=== PATIENT | male | born 1950 | race Caucasian/White ===

== ENCOUNTER → 2017-12-06 | Outpatient (CLI) | payer MEDICARE, OTHER ==
--- NOTE | 2017-12-06 11:26 | ECHOF ---
Referral Reason:Aortis Murmur MEASUREMENTS -------- HEIGHT: 177.8 cm WEIGHT: 103.0 kg BP: 140/81 RVIDd: 3.5 cm (< 3.3) IVSd: 1.4 cm (0.6 - 1.1) LVIDd: 3.7 cm (3.9 - 5.3) LVPWd: 1.4 cm (0.6 - 1.1) IVSs: 1.8 cm LVIDs: 2.0 cm LVPWs: 1.9 cm LAESV Index (A-L): 51.45 ml/m Ao Diam: 3.3 cm (2.0 - 3.7) AV Cusp: 0.9 cm (1.5 - 2.6) LA Diam: 5.4 cm (2.7 - 3.8) AV maxP.60 mmHg AV meanP.93 mmHg RAP: 5.00 mmHg RVSP: 19.92 mmHg FINDINGS -------- Atrial fibrillation. This was a technically good study. The left ventricular size is normal. There is moderate concentric left ventricular hypertrophy. O verall left ventricular systolic function is normal with, an EF between 55 - 60 %. The right ventricle is mildly enlarged. LA is severely dilated >40 ml/m2 The right atrium is normal in size. Aortic valve is trileaflet and is severely thickened. There is qlqjixqt-ma-vrbxba aortic stenosis p resent. Peak/mean gradient across the Aortic Valve is 53.60mmHg / 30.93mmHg. The mitral valve leaflets are mildly thickened. Mild mitral regurgitation is present. Mild tricuspid regurgitation present. The right ventricular systolic pressure, as measured by Doppl er, is 19.92mmHg. Pulmonic valve appears structurally normal. The aortic root size is normal. Normal inferior vena cava with normal inspiratory collapse consistent with estimated right atrial pre ssure of 5 mmHg. The pericardium is normal. CONCLUSIONS -------- 1. Atrial fibrillation. 2. This was a technically good study. 3. The left ventricular size is normal. 4. There is moderate concentric left ventricular hypertrophy. 5. Overall left ventricular systolic function is normal with, an EF between 55 - 60 %. 6. The right ventricle is mildly enlarged. 7. LA is severely dilated >40 ml/m2 8. The right atrium is normal in size. 9. Aortic valve is trileaflet and is severely thickened. 10. There is iqbcjwrh-ek-bobkbu aortic stenosis present. 11. Peak/mean gradient across the Aortic Valve is 53.60mmHg / 30.93mmHg. 12. The mitral valve leaflets are mildly thickened. 13. Mild mitral regurgitation is present. 14. Mild tricuspid regurgitation present. 15. The right ventricular systolic pressure, as measured by Doppler, is 19.92mmHg. 16. Pulmonic valve appears structurally normal. 17. The aortic root size is normal. 18. Normal inferior vena cava with normal inspiratory collapse consistent with estimated right atrial pressure of 5 mmHg. 19. The pericardium is normal. PERSONAL INJURY ATTORNEY: Marilou Vargas RDCS
== END | disposition home or self-care (01) ==
LOC: RADNMMAIN 09:06
PROVIDERS: ATTEND Family Medicine
DX: I35.8 Other nonrheumatic aortic valve disorders (principal); I48.91 Unspecified atrial fibrillation
CPT/HCPCS: 93306

== ENCOUNTER → 2019-01-29 | Outpatient (CLI) | payer MEDICARE, OTHER ==
[2019-01-29 12:25] LABS: HCT 40.3 % (39.0-53.0); HGB 13.1 gm/dL (13.0-17.5); MCH 29.8 pg (25.0-35.0); MCHC 32.5 g/dL (31.0-37.0); MCV 91.8 fL (80.0-100.0); Platelet Count 220 k/uL (150-450); RBC 4.38 m/uL (4.30-5.90); RDW 14.9 % (11.5-15.5); WBC 6.9 k/uL (3.8-10.6)
[2019-01-29 12:45] LABS: African American GFR (CKD) >90 (>60 ml/min/1.73 sqM); Anion Gap 9 mmol/L; Blood Urea Nitrogen 26 mg/dL (9-20); Carbon Dioxide 27 mmol/L (22-30); Chloride 106 mmol/L (98-107); Glucose 115 mg/dL (74-99); Potassium 4.1 mmol/L (3.5-5.1); Sodium 142 mmol/L (137-145)
== END | disposition home or self-care (01) ==
LOC: LABPAT 11:50
PROVIDERS: ATTEND Internal Medicine Cardiovascular Disease
DX: Z01.812 Encounter for preprocedural laboratory examination (principal); I48.2 Chronic atrial fibrillation; I35.0 Nonrheumatic aortic (valve) stenosis
CPT/HCPCS: 80051; 82565; 82947; 84520; 85027

== ENCOUNTER 2019-02-07 08:05 | Day surgery (SDC) | payer MEDICARE, OTHER ==
[2019-02-05 17:00] VITALS: BMI 29.8
[~2019-02-07 08:05] MED LIST: SODIUM CHLORIDE 0.9% 1,000 ML IV SCH
[2019-02-07] MEDS: BENZOCAINE SPRAY 1 CAN MUCOUS MEM ONE ×2 (09:00→09:01)
[2019-02-07] MEDS ORDERED: PROPOFOL 10 MG/ML 20 ML VIAL IV ONE (09:04)
[2019-02-07 09:34] VITALS: TEMP 97
[2019-02-07] MEDS ORDERED: SODIUM CHLORIDE 0.9% 1,000 ML IV SCH (10:00)
--- NOTE | 2019-02-07 10:10 | ECHOT ---
TRANSESOPHAGEAL ECHOCARDIOGRAM PROCEDURE PERFORMED: Transesophageal echo. INDICATION: 1. Aortic stenosis. 2. Chronic atrial fibrillation. PROCEDURE DESCRIPTION: After obtaining informed consent, transesophageal echocardiogram was performed in left lateral position using an Omni plane probe. Local and IV sedation were obtained by the metal pourer. The patient tolerated the procedure well without any obvious immediate complications. FINDINGS: 1. There is no intracardiac thrombus within the left atrial appendage, left atrium, right atrium, right ventricle or left ventricle. 2. Left ventricle has normal size and systolic function. 3. Left atrium appears enlarged. 4. Right atrium and right ventricle seen within normal limits. 5. Interatrial Septum: There is no evidence of evjz-qp-ktmhu shunt by color-flow Doppler or rwzny-dm-mmjl shunt by agitated saline contrast study. 6. Aortic valve is a 2 leaflet valve appears heavily calcified with severe restriction in leaflet mobility. By planimetry, the valve area is 0.8 to 0.9 square centimeters. 7. There is mild atherosclerotic changes noted involving the aorta. Aortic root measures within normal limits. 8. Mitral valve is anatomically normal. There is mild to moderate mitral regurgitation noted. 9. Tricuspid valve shows mild tricuspid regurgitation. CONCLUSIONS: 1. No intracardiac thrombus. 2. Severe aortic stenosis involving a heavily calcified bicuspid aortic valve. 3. Normal left ventricular function. PLAN: Patient will undergo electrical cardioversion. MMODL / IJN: [id number] /
[2019-02-07 10:22] VITALS: RESP 18
--- NOTE | 2019-02-07 10:22 | CE ---
CARDIAC ELECTROPHYSIOLOGY REPORT CARDIOVERSION NOTE: After obtaining informed consent, making sure that the patient is on an anticoagulant in the form of Xarelto 20 mg daily and confirming the absence of intracardiac thrombus by transesophageal echo, the patient underwent cardioversion with 200 joules of synchronized DC current. He converted following a single shock and he will be discharged home on anticoagulation. He will be on the Xarelto. VERONA / ARON: [id number] /
[2019-02-07 10:54] VITALS: BP 142/87; PULSE 51
== END 2019-02-07 11:14 | disposition home or self-care (01) ==
LOC: CATHCVL 08:05
PROVIDERS: ATTEND Internal Medicine Cardiovascular Disease
DX: Q23.1 Congenital insufficiency of aortic valve (principal); I48.2 Chronic atrial fibrillation; I70.0 Atherosclerosis of aorta; I44.0 Atrioventricular block, first degree; I11.9 Hypertensive heart disease without heart failure; E11.9 Type 2 diabetes mellitus without complications; E78.5 Hyperlipidemia, unspecified; Z79.01 Long term (current) use of anticoagulants; Z79.899 Other long term (current) drug therapy; Z98.84 Bariatric surgery status; Z90.3 Acquired absence of stomach [part of]; Z88.8 Allergy status to other drugs, medicaments and biological substances; Z82.49 Family history of ischemic heart disease and other diseases of the circulatory system
CPT/HCPCS: 93312; 93320; 93325; 92960; J2704

== ENCOUNTER → 2020-02-04 | Outpatient (CLI) | payer MEDICARE, OTHER ==
[2020-02-04 11:23] LABS: HCT 36.9 % (39.0-53.0); HGB 11.7 gm/dL (13.0-17.5); MCH 30.9 pg (25.0-35.0); MCHC 31.8 g/dL (31.0-37.0); MCV 97.2 fL (80.0-100.0); Mean Platelet Volume 7.9; Platelet Count 238 k/uL (150-450); RDW 12.4 % (11.5-15.5); WBC 7.2 k/uL (3.8-10.6)
[2020-02-04 11:39] LABS: African American GFR (CKD) >90 (>60 ml/min/1.73 sqM); Anion Gap 8 mmol/L; Blood Urea Nitrogen 29 mg/dL (9-20); Carbon Dioxide 26 mmol/L (22-30); Chloride 106 mmol/L (98-107); Glucose 116 mg/dL (74-99); Non-African American GFR(CKD) >90 (>60 ml/min/1.73 sqM); Potassium 4.2 mmol/L (3.5-5.1); Sodium 140 mmol/L (137-145)
== END | disposition home or self-care (01) ==
LOC: LABPAT 10:56
PROVIDERS: ATTEND Internal Medicine Cardiovascular Disease
DX: Z01.818 Encounter for other preprocedural examination (principal); I35.0 Nonrheumatic aortic (valve) stenosis; I48.0 Paroxysmal atrial fibrillation
CPT/HCPCS: 36415; 80051; 82565; 82947; 84520; 85027

== ENCOUNTER 2020-02-13 05:59 | Day surgery (SDC) | payer MEDICARE, OTHER ==
[2020-02-08 15:30] VITALS: BMI 30.4
[~2020-02-13 05:59] MED LIST changes: +ALPRAZolam 0.25 MG TAB PO PRN; +ALPRAZolam 0.5 MG TAB PO PRN; +ASPIRIN 325 MG TAB PO STA; +ATORVASTATIN 80 MG TAB PO STA; +NITROGLYCERIN SL TABS 0.4 MG TAB SUBLINGUAL PRN; -SODIUM CHLORIDE 0.9% 1,000 ML IV SCH; +SODIUM CHLORIDE 0.9% 1,000 ML in EMPTY BAG 1 BAG IV ONE
[2020-02-13 06:31] VITALS: TEMP 98.2
[2020-02-13] MEDS ORDERED: fentaNYL (PF) 50 MCG/ML 2 ML AMP ONE (07:07)
[2020-02-13] MEDS ORDERED: LIDOCAINE 1% INJ 10MG/ML (20 ML MDV) ONE (07:14)
[2020-02-13] MEDS: BENZOCAINE SPRAY 1 CAN MUCOUS MEM ONE ×2 (07:21→07:57)
[2020-02-13] MEDS ORDERED: fentaNYL (PF) 50 MCG/ML 2 ML AMP IV ONE (07:57)
[2020-02-13] MEDS ORDERED: MIDAZOLAM 2 MG/2 ML VIAL IVP ONE (07:57)
[2020-02-13] MEDS ORDERED: LIDOCAINE 1% INJ 10MG/ML (20 ML MDV) SQ ONE (08:34)
[2020-02-13] MEDS ORDERED: IOPAMIDOL-370 50ML BTL INJ ONE (08:50)
[2020-02-13] MEDS ORDERED: IOPAMIDOL-370 100ML BTL INJ ONE (08:50)
[2020-02-13] MEDS ORDERED: RX INFO: IV CONTRAST WAS GIVEN 1 EACH MISC MISCELLANE PRN (09:03)
[2020-02-13] MEDS ORDERED: SODIUM CHLORIDE 0.9% 1,000 ML IV SCH (09:15)
--- NOTE | 2020-02-13 09:53 | CC ---
CARDIAC CATHETERIZATION REPORT PROCEDURE: Cardiac catheterization. INDICATION: Atypical aortic stenosis. PROCEDURE NOTE: After obtaining informed consent, left heart catheterization and coronary angiogram were performed with the right femoral artery using standard Kalyan catheters. Patient tolerated the procedure well without any obvious immediate complications. A femoral angiogram was performed and decision was made for manual hemostasis. The patient also had an aortogram to assess for aortic aneurysm. The patient received moderate conscious sedation. Total sedation time was 20 minutes. FINDINGS: HEMODYNAMICS: Left ventricular end-diastolic pressure is 16 mm. The mean gradient across the aortic valve was 38 mm. LEFT VENTRICULOGRAM: Left ventriculogram was not performed. ANGIOGRAPHIC DATA: LEFT MAIN CORONARY ARTERY: Left main coronary artery is a normal-sized vessel and is free of stenosis. Divides into left anterior descending coronary artery and circumflex coronary artery. LAD and its branches, circumflex coronary artery and its branches are free of significant stenosis. RIGHT CORONARY ARTERY: This is a large dominant vessel and is free of significant stenosis. AORTOGRAM: Aortogram was performed in the left lateral position. We do not see any aortic aneurysm or significant aortic regurgitation. CONCLUSION: 1. Normal coronary arteries. 2. Severe aortic stenosis. PLAN: Patient will be referred to cardiothoracic surgeon for aortic valve replacement because patient has symptoms because of his underlying aortic stenosis. MMODL / IJN: [id number] /
--- NOTE | 2020-02-13 10:01 | LTR ---
DATE OF SERVICE: 02/13/2020 RE: Maged Marinelli Dear Mukul; I performed cardiac catheterization and transesophageal echo on Maged Marinelli, detailed reports are enclosed for your records. In brief, the patient has a severe aortic stenosis with normal coronaries and will be referred to a cardiothoracic surgeon for atrial valve replacement. Thank you for giving us the privilege to participate in the care of this pleasant gentleman. Sincerely, MD VERONA Amaro / ARON: [id number] /
--- NOTE | 2020-02-13 11:17 | ECHOT ---
TRANSESOPHAGEAL ECHOCARDIOGRAM INDICATION: Aortic stenosis. PROCEDURE NOTE: After obtaining informed consent, transesophageal echocardiogram was performed in left lateral position using an Omniplane probe. Local and IV sedation were obtained using Xylocaine spray, 2 mg of Versed and 50 mcg of fentanyl. The patient tolerated the procedure well without any obvious immediate complications. FINDINGS: 1. AORTIC VALVE: Aortic valve is a bicuspid valve, appears heavily calcified and by planimetry the valve area is 0.8 cm2. 2. MITRAL VALVE: Appears anatomically normal. There is mild mitral regurgitation noted. Tricuspid valve shows mild tricuspid regurgitation. 3. INTERATRIAL SEPTUM: There is no evidence of jpvi-do-furcf shunt by color-flow Doppler or ifkph-ea-qhqz shunt by agitated saline contrast study. 4. LEFT ATRIUM: Appears mildly enlarged. 5. LEFT VENTRICLE: Has normal size and systolic function. 6. RIGHT ATRIUM AND RIGHT VENTRICLE: Seen within normal limits. Aortic root measures within normal limits. CONCLUSION: 1. Severe aortic stenosis with a valve area of 0.8 cm2 involving a heavily calcified bicuspid aortic valve. 2. Normal left ventricular function. PLAN: I am going to perform cardiac catheterization and refer him for aortic valve replacement. MMODL / IJN: [id number] /
[2020-02-13 13:29] VITALS: RESP 16
[2020-02-13 14:04] LABS: Appearance,Urine Clear (Clear); Bilirubin,Urine Negative (Negative); Blood,Urine Negative (Negative); Color,Urine Light Yellow; Glucose,Urine (UA) Negative (Negative); Ketones,Urine Negative (Negative); Leukocyte Esterase,Urine Negative (Negative); Nitrite,Urine Negative (Negative); PH, Urine 6.5 (5.0-8.0); Protein,Urine Trace (Negative); Specific Gravity,Urine 1.026 (1.001-1.035); Urobilinogen,Urine <2.0 mg/dL (<2.0)
[2020-02-13 14:39] VITALS: BP 122/79; PULSE 64
[2020-02-13 15:34] LABS: ALT 26 U/L (4-49); AST 34 U/L (17-59); African American GFR (CKD) >90 (>60 ml/min/1.73 sqM); Albumin 3.8 g/dL (3.5-5.0); Alkaline Phosphatase 74 U/L (38-126); Anion Gap 5 mmol/L; Blood Urea Nitrogen 21 mg/dL (9-20); Calcium 8.9 mg/dL (8.4-10.2); Carbon Dioxide 27 mmol/L (22-30); Chloride 108 mmol/L (98-107); Glucose 123 mg/dL (74-99); Non-African American GFR(CKD) >90 (>60 ml/min/1.73 sqM); Potassium 4.8 mmol/L (3.5-5.1); Sodium 140 mmol/L (137-145); Total Bilirubin 0.5 mg/dL (0.2-1.3); Total Protein 6.7 g/dL (6.3-8.2)
[2020-02-13 15:51] LABS: Basophils # (A) 0.1 k/uL (0-0.2); Basophils % (A) 1 %; Eosinophils # (A) 0.2 k/uL (0-0.7); Eosinophils % (A) 3 %; HCT 34.5 % (39.0-53.0); HGB 11.1 gm/dL (13.0-17.5); Lymphocytes % (A) 35 %; MCH 31.4 pg (25.0-35.0); MCHC 32.3 g/dL (31.0-37.0); MCV 97.5 fL (80.0-100.0); Mean Platelet Volume 8.4; Monocytes # (A) 0.5 k/uL (0-1.0); Monocytes % (A) 9 %; Neutrophils # (A) 2.7 k/uL (1.3-7.7); Neutrophils % (A) 48 %; Platelet Count 197 k/uL (150-450); RBC 3.54 m/uL (4.30-5.90); RDW 12.3 % (11.5-15.5); WBC 5.6 k/uL (3.8-10.6)
[2020-02-13 15:56] LABS: Partial Thromboplastin Time 25.9 sec (22.0-30.0); Prothrombin Time 10.3 sec (9.0-12.0)
[2020-02-13 16:07] LABS: Cholesterol 115 mg/dL (<200); HDL Cholesterol 55 mg/dL (40-60); LDL Cholesterol,Calculated 50 mg/dL (0-99); Triglycerides 49 mg/dL (<150)
--- NOTE | 2020-02-13 16:09 | US ---
EXAMINATION TYPE: US venous doppler duplex LE RT DATE OF EXAM: 02/13/2020 2:38 PM COMPARISON: NONE CLINICAL HISTORY: swelling. Right lower leg swelling, patient on blood thinners SIDE PERFORMED: Right TECHNIQUE: The lower extremity deep venous system is examined utilizing real time linear array sonog johana with graded compression, doppler sonography and color-flow sonography. VESSELS IMAGED: External Iliac Vein (EIV) Common Femoral Vein Deep Femoral Vein Greater Saphenous Vein * Femoral Vein Popliteal Vein Small Saphenous Vein * Proximal Calf Veins (* superficial vessels) Right Leg: Appears negative for DVT IMPRESSION: 1. Right lower extremity ultrasound negative for deep venous thrombosis.
--- NOTE | 2020-02-13 16:18 | XR ---
EXAMINATION TYPE: XR chest 2V DATE OF EXAM: 02/13/2020 COMPARISON: None HISTORY: Presurgical evaluation TECHNIQUE: Two-view chest FINDINGS: The heart size is normal. The pulmonary vasculature is normal. The lungs are clear. Osseous structures are unremarkable. IMPRESSION: 1. Normal 2 view chest.
--- NOTE | 2020-02-13 17:58 | P.GSCN ---
History of Present Illness Consult date: 02/13/20 Reason for Consult: Severe aortic valve stenosis with a valve area of 0.8 cm involving a heavily calcified bicuspid aortic valve, evaluation for aortic valve replacement. Requesting physician: Scott Jaffe History of present illness: This is a 69-year-old gentleman who is followed by Dr. Jesus Alberto Dominguez on an outpatient basis. He also follows with Dr. Jaffe from [facility] for his known history of aortic valve stenosis. He has a past medical history significant for hypertension, hyperlipidemia, diet-controlled diabetes mellitus type 2, small ulceration to the tip of his third toe right foot, chronic atrial fibrillation on Eliquis for anticoagulation and macular degeneration. Recently, the patient has been having symptoms of chest tightness with radiation of pain to his jaw associated with some shortness of breath. In December 2019 while in [place] was hospitalized for an episode of chest pain. According to the patient and his present at his bedside they did some cardiac workup and offered aortic valve surgery at that time. The patient opted to follow up with his oxygen equipment technician here in [place] for further evaluation. Due to the episodes of chest tightness and his known history of aortic valve stenosis he underwent an elective transesophageal echocardiogram and cardiac catheterization today completed by Dr. Jaffe. The transesophageal echocardiogram showed severe aortic valve stenosis with a valve area of 0.8 cm involving a heavily calcified bicuspid aortic valve, mild mitral valve regurgitation, mild tricuspid valve regurgitation, and a normal left ventricular size and systolic function. The heart catheterization results demonstrated normal coronary arteries and severe aortic valve stenosis. Subsequently, due to the findings on the transesophageal echocardiogram a consult was placed to Dr. Misti Nash from cardiothoracic surgery for further evaluation and recommendations on aortic valve surgery. Review of Systems A 14 point review of systems was completed and was negative except as mentioned in the HPI. Past Medical History Past Medical History: Atrial Fibrillation, Chest Pain / Angina, Diabetes Mellitus, Eye Disorder, Hyperlipidemia, Hypertension, Pneumonia Additional Past Medical History / Comment(s): "no diabetic mediication since wt loss" checks blood sugar at home and watches diet , MIGRAINE HEADACHES A CHILD, heart murmer, heart valve problem, "macular buildup in both eyes" History of Any Multi-Drug Resistant Organisms: None Reported Past Surgical History: Bariatric Surgery, Orthopedic Surgery, Tonsillectomy Additional Past Surgical History / Comment(s): GASTROPLASTY, surgery on rt knee for cartilage under kneecap, cardioversion for atrial fibrillation January 2019 Past Anesthesia/Blood Transfusion Reactions: Previous Problems w/ Anesthesia Additional Past Anesthesia/Blood Transfusion Reaction / Comm: reaction with s odium pentothall years ago-"almost ". no problem with anesthesia since Past Psychological History: No Psychological Hx Reported Smoking Status: Never smoker Past Alcohol Use History: None Reported Past Drug Use History: None Reported - Past Family History Mother Family Medical History: COPD, Diabetes Mellitus Additional Family Medical History / Comment(s): Macular degeneration, legally blind Sister(s) Family Medical History: Cancer Father Family Medical History: Myocardial Infarction ([place]) (Myocardial infarction at age 70) Medications and Allergies Home Medications Medication Instructions Recorded Confirmed Type Ascorbic Acid [Vitamin C] 1,000 mg PO HS 02/05/19 02/13/20 History Cholecalciferol (Vitamin D3) 5,000 unit PO HS 02/05/19 02/13/20 History [Vitamin D3] Cyanocobalamin (Vitamin B-12) 1,000 mcg PO HS 02/05/19 02/13/20 History [Vitamin B-12] Vitamin B Complex 1 each PO 02/05/19 02/13/20 History amLODIPine BESYLATE [Norvasc] 5 mg PO HS 02/05/19 02/13/20 History lisinopriL [Zestril] 2.5 mg PO HS 02/05/19 02/13/20 History Apixaban [Eliquis] 5 mg PO BID 02/08/20 02/13/20 History Atorvastatin [Lipitor] 40 mg PO HS 02/08/20 02/13/20 History Calcium/Magnesium/Zinc 1 each PO HS 02/08/20 02/13/20 History [Grqqezv-Wetlbetsc-Syst Tablet] L.acidoph,Paracasei, B.lactis 1 each PO TID 02/08/20 02/13/20 History [Probiotic] Metoprolol Succinate (ER) [Toprol 25 mg PO DAILY 02/08/20 02/13/20 History Xl] Carlstadt-3 Fatty Acids [Carlstadt-3] 1,000 mg PO HS 02/08/20 02/13/20 History Allergies Allergy/AdvReac Type Severity Reaction Status Date / Time metformin Allergy VERY WEAK, Verified 02/08/20 15:08 SEVERE JOINT PAIN , MUSCLE PAIN rivaroxaban [From Xarelto] Allergy bruising Verified 02/08/20 15:20 thiopental [From Pentothal] Allergy Anaphylaxis, Verified 02/08/20 15:08 TROUBLE BREATHING Surgical - Exam Vital Signs Temp Pulse Resp BP Pulse Ox 98.2 F 74 16 117/59 97 02/13/20 06:30 02/13/20 06:30 02/13/20 06:30 02/13/20 06:30 02/13/20 06:30 - General well developed, well nourished, no distress, no pain, obese - Eyes PERRL, normal ocular movement - ENT normal pinna, normal nares, normal mucosa, no hearing loss, no congestion, poor senior care - Neck Neck is supple, no JVD. no masses, trachea midline, no venous distension carotid bruit: bilateral (Possibly radiating from his heart murmur) - Respiratory Lung sounds are essentially clear throughout. No wheezes, rhonchi or crackles. Respirations are symmetrical and nonlabored. - Cardiovascular Regular rhythm and rate. S1 and S2 present, negative for S3 or gallop. Positive systolic murmur 3/6 heard best to his left sternal border. No edema present. - Abdomen Abdomen is soft, nontender and nondistended. Active bowel sounds present all 4 abdominal quadrants. No guarding or rigidity. No organomegaly appreciated. - Genitourinary Deferred - Rectum Deferred - Integumentary Skin is warm and dry. No clubbing or cyanosis is present. Small ulceration to his third toe right foot. no rash - Neurologic Cranial nerve II through XII intact. normal coordination, normal sensation - Musculoskeletal Strength equal bilaterally. - Psychiatric oriented to time, oriented to person, oriented to place, speech is normal, memory intact Results - Labs 02/13/20 14:40 02/13/20 14:40 - Imaging Additional studies: Transesophageal echo cardiogram and cardiac catheterization reports reviewed. Assessment and Plan Assessment: 1. Severe aortic valve stenosis with an aortic valve area measuring 0.8 cm involving a heavily calcified bicuspid aortic valve 2. History of hypertension 3. History of hyperlipidemia 4. Chronic atrial fibrillation, on home anticoagulation with Eliquis 5. Diet-controlled diabetes mellitus type 2 6. Never smoker 7. Macular degeneration Plan: The patient was seen at his bedside in the extended stay unit. His chart and diagnostics reviewed. This case was discussed in detail with Dr. Misti Nash from cardiothoracic surgery. Preoperative testing and preoperative teaching has been initiated. The patient was seen and examined by Dr. Misti Nash at his bedside with the patient's present in the extended stay unit. The patient will need dental clearance prior to surgery. He will also need clearance from Dr. Pablo regarding the patient's wound to his right foot third toe. Once she has received clearance from the dentist and from Dr. Pablo he will be scheduled for aortic valve replacement surgery. The risks and benefits of aortic valve surgery were discussed with the patient and the patient's and knowing and understanding the risks the patient would like to proceed with aort ic valve surgery. Once the patient's preoperative testing has been collected a STS risk score will be calculated in discussed with the patient. Continue to optimize medical management with aspirin, statin and beta amairani. A carotid duplex study will be completed in Dr. Jaffe's office as part of the preoperative testing. A 5 m walk test was completed today, time 1: 2.96 seconds, time 2: 2.83 seconds, time 3: 2.70 seconds. The patient has been instructed by Dr. Nash once he has followed up with Dr. Pablo and with the dentist to please call his office to schedule aortic valve surgery. Thank you Dr. Jaffe for this consult and we will look forward to working with you in the care of this patient. Time with Patient: Greater than 30
[2020-02-13 21:01] LABS: Hemoglobin A1C 6.5 % (4.0-6.0)
[2020-02-14 02:16] LABS: Hepatitis A Antibody IgM Non-Reactive (Non-Reactive); Hepatitis B Core IgM Non-Reactive (Non-Reactive); Hepatitis B Surface Antigen Non-Reactive (Non-Reactive); Hepatitis C IgG Antibody Non-Reactive (Non-Reactive)
--- NOTE | 2020-02-15 15:32 | CDI ---
Date: 02.15.2020 CDS/Chief Of Vital Statistics Name: Patsy Sexton Phone: If any questions, call Claritza Morrison Special Education Paraeducator at [phone] Patient Name: Maged Marinelli Admit Date: 02.13.20 Discharge Date: 02.13.20 ATTENTION: The [facility] Coding Staff appreciate your assistance in clarifying documentation. Please respond to the clarification below the line at the bottom and electronically sign. The [facility] Coding staff will review the response and follow-up if needed. Please note: Queries are made part of the Legal Health Record. If you have any questions, please contact the Special Education Paraeducator. Dear Dr. Jaffe Please document the description of the GINNY color doppler 2d and saline contrats done Thank you for your kind consideration. ROLANDO
== END 2020-02-13 17:30 | disposition home or self-care (01) ==
LOC: CATHCVL 05:59
PROVIDERS: ATTEND Internal Medicine Cardiovascular Disease
DX: I08.3 Combined rheumatic disorders of mitral, aortic and tricuspid valves (principal); I10 Essential (primary) hypertension; E78.5 Hyperlipidemia, unspecified; E11.9 Type 2 diabetes mellitus without complications; E11.622 Type 2 diabetes mellitus with other skin ulcer; L97.519 Non-pressure chronic ulcer of other part of right foot with unspecified severity; I48.20 Chronic atrial fibrillation, unspecified; H35.30 Unspecified macular degeneration; Z79.01 Long term (current) use of anticoagulants; Z87.01 Personal history of pneumonia (recurrent); Z86.69 Personal history of other diseases of the nervous system and sense organs; Z98.84 Bariatric surgery status; Z98.890 Other specified postprocedural states; Z90.89 Acquired absence of other organs; Z87.39 Personal history of other diseases of the musculoskeletal system and connective tissue; Z91.89 Other specified personal risk factors, not elsewhere classified; Z79.899 Other long term (current) drug therapy; Z88.8 Allergy status to other drugs, medicaments and biological substances; Z88.4 Allergy status to anesthetic agent; Z82.5 Family history of asthma and other chronic lower respiratory diseases; Z83.3 Family history of diabetes mellitus; Z83.518 Family history of other specified eye disorder; Z80.9 Family history of malignant neoplasm, unspecified; Z82.49 Family history of ischemic heart disease and other diseases of the circulatory system
CPT/HCPCS: 93458; 93312; 93325; 93567; 80061; 80053; 80074; 84443; 83735; 85025; 85610; 85730; 81003; 87070; 83036; 71046; 93971; C1769 ×2; C1894; J2250; J2001; J3010; Q9967 ×2; 94150

== ENCOUNTER → 2020-03-13 | Outpatient (CLI) | payer MEDICARE, OTHER ==
[2020-03-13 13:52] LABS: HCT 33.4 % (39.0-53.0); HGB 11.1 gm/dL (13.0-17.5); MCH 31.4 pg (25.0-35.0); MCHC 33.1 g/dL (31.0-37.0); MCV 94.9 fL (80.0-100.0); Mean Platelet Volume 7.9; Platelet Count 223 k/uL (150-450); RBC 3.52 m/uL (4.30-5.90); RDW 12.3 % (11.5-15.5); WBC 7.6 k/uL (3.8-10.6)
[2020-03-13 14:02] LABS: Partial Thromboplastin Time 26.7 sec (22.0-30.0); Prothrombin Time 10.2 sec (9.0-12.0)
[2020-03-13 14:04] LABS: ALT 26 U/L (4-49); AST 32 U/L (17-59); African American GFR (CKD) >90 (>60 ml/min/1.73 sqM); Albumin 4.2 g/dL (3.5-5.0); Alkaline Phosphatase 79 U/L (38-126); Anion Gap 6 mmol/L; Blood Urea Nitrogen 36 mg/dL (9-20); Calcium 9.7 mg/dL (8.4-10.2); Carbon Dioxide 27 mmol/L (22-30); Chloride 106 mmol/L (98-107); Glucose 138 mg/dL (74-99); Non-African American GFR(CKD) 85 (>60 ml/min/1.73 sqM); Potassium 5.3 mmol/L (3.5-5.1); Sodium 139 mmol/L (137-145); Total Bilirubin 0.6 mg/dL (0.2-1.3); Total Protein 7.3 g/dL (6.3-8.2)
== END | disposition home or self-care (01) ==
LOC: LABWHC1 13:02
PROVIDERS: ATTEND Surgery
DX: U07.1 COVID-19 (principal); Z79.01 Long term (current) use of anticoagulants
CPT/HCPCS: 86900; 86901; 80053; 85027; 85610; 85730; 86850; 86920; 36415; U0003; C9803

== ENCOUNTER 2020-03-19 05:31 | Inpatient (IN) | payer MEDICARE, OTHER ==
[~2020-03-19 05:31] MED LIST changes: +ALBUMIN HUMAN 25% 50 ML IV ONE; +ALBUMIN HUMAN 5% 500 ML IVPB ONE; -ALPRAZolam 0.25 MG TAB PO PRN; -ALPRAZolam 0.5 MG TAB PO PRN; +ASPIRIN 325 MG TAB PO ONE; -ASPIRIN 325 MG TAB PO STA; +ATORVASTATIN 10 MG TAB PO ONE; -ATORVASTATIN 80 MG TAB PO STA; +CALCIUM CHLORIDE 100 MG/ML 10 ML SYRINGE IV ONE; +CHLORHEXIDINE GLUCONATE 15 ML CUP MUCOUS MEM ONE; +CLEVIDIPINE BUTYRATE 25 MG in EMPTY BAG 1 BAG IV ONE; +DEXTROSE 5% IN WATER 1,000 ML with POTASSIUM CHLORIDE 110 MEQ, MAGNESIUM SULFATE 16 MEQ... IV ONE; +DEXTROSE 5% IN WATER 1,000 ML with POTASSIUM CHLORIDE 25 MEQ, SODIUM CHLORIDE 2.5MEQ/ML... IRRIGATION ONE; +HEPARIN SODIUM 1,000 UN/ML (10ML VL) IV ONE; +HEPARIN SODIUM,PORCINE 5,000 UNIT in SODIUM CHLORIDE 0.9% 500 ML 500 ML IV ONE; +INSULIN REGULAR 100 UNIT in SODIUM CHLORIDE 0.9% 100 ML IV ONE; +LACTATED RINGERS 1,000 ML IV ONE; +MAGNESIUM SULFATE MG 500 MG/ML IV ONE; +MANNITOL 25% 12.5 GM/50 ML VIAL IV ONE; +METOPROLOL TARTRATE 12.5 MG TAB PO ONE; -NITROGLYCERIN SL TABS 0.4 MG TAB SUBLINGUAL PRN; +NITROGLYCERIN-D5W PMX 25 MG/250 ML BTL IV ONE; +NITROGLYCERIN-D5W PMX 50 MG in DEXTROSE/WATER 1 250ML.BAG IV ONE; +NOREPINEPHRINE 4 MG in SODIUM CHLORIDE 0.9% 250 ML IV ONE; +PHENYLEPHRINE 10 MG/ML VIAL IV ONE; +PHENYLEPHRINE 40 MG in SODIUM CHLORIDE 0.9% 250 ML IV ONE; +PROTAMINE SULFATE 10 MG/ML 25 ML VIAL IV ONE; +PROTAMINE SULFATE 250 MG in EMPTY BAG 1 BAG IV ONE; +SODIUM BICARB 8.4% 50 ML SYR (1 MEQ/ML) IV ONE; +SODIUM CHLORIDE 0.9% 1,000 ML IV ONE; -SODIUM CHLORIDE 0.9% 1,000 ML in EMPTY BAG 1 BAG IV ONE; +TRANEXAMIC ACID 2,000 MG in SODIUM CHLORIDE 0.9% 80 ML IV ONE; +ceFAZolin 1,000 MG in SODIUM CHLORIDE 0.9% IRRIGATIO 1,000 ML IRRIGATION ONE; +ceFAZolin 2,000 MG in SODIUM CHLORIDE 0.9% 30 ML IVPB ONE; +propofoL 1,000 MG/100 ML VIAL IV ONE
[2020-03-19] MEDS ORDERED: LACTATED RINGERS 1,000 ML IV SCH (05:34)
[2020-03-19 06:23] LABS: Glucose,Whole Blood 105 mg/dL (75-99)
[2020-03-19] MEDS ORDERED: fentaNYL (PF) 50 MCG/ML 2 ML AMP ONE (07:34)
[2020-03-19] MEDS ORDERED: fentaNYL (PF) 50 MCG/ML 50 ML VIAL ONE (07:34)
[2020-03-19] MEDS ORDERED: HEPARIN SODIUM,PORCINE 10,000 UNIT/ML 1 ML VIAL ONE (07:34)
[2020-03-19] MEDS ORDERED: GLYCOPYRROLATE 0.2 MG/ML 2 ML VIAL ONE (07:34)
[2020-03-19] MEDS ORDERED: SODIUM CHLORIDE 0.9% 250 ML BAG ONE (07:34)
[2020-03-19] MEDS ORDERED: LIDOCAINE 1% INJ 10MG/ML (20 ML MDV) ONE (07:34)
[2020-03-19] MEDS ORDERED: MIDAZOLAM 2 MG/2 ML VIAL ONE (07:34)
[2020-03-19] MEDS ORDERED: TRANEXAMIC ACID 1,000 MG/10 ML VIAL ONE (07:34)
[2020-03-19] MEDS ORDERED: VECURONIUM 10 MG VIAL IV ONE (07:34)
[2020-03-19] MEDS ORDERED: MAGNESIUM SULFATE 4 MEQ/ML 10ML VIAL ONE (07:34)
[2020-03-19] MEDS ORDERED: PROTAMINE SULFATE 10 MG/ML 25 ML VIAL IV ONE (07:34)
[2020-03-19] MEDS ORDERED: CALCIUM CHLORIDE 100 MG/ML 10 ML SYRINGE ONE (07:34)
[2020-03-19] MEDS ORDERED: PROPOFOL 10 MG/ML 20 ML VIAL IV ONE (07:34)
[2020-03-19 08:29] LABS: ABG Base Excess -1.1 mmol/L; ABG Glucose Whole Blood 110 mg/dL (75-99); ABG HCO3 24 mmol/L (21-25); ABG Hematocrit 28 % (34.0-46.0); ABG Ionized Calcium 4.7 mg/dL (4.5-5.3); ABG Lactic Acid Whole Blood 1.2 mmol/L (0.5-1.6); ABG Oxygen Saturation 99.6 % (94-97); ABG PCO2 41 mmHg (35-45); ABG PH 7.37 (7.35-7.45); ABG PO2 214 mmHg (83-108); ABG Potassium Whole Blood 4.3 mmol/L (3.4-4.5); ABG Sodium Whole Blood 141 mmol/L (135-146); ABG TCO2 25 mmol/L (19-24)
[2020-03-19 09:39] LABS: ABG Base Excess -0.9 mmol/L; ABG Glucose Whole Blood 124 mg/dL (75-99); ABG HCO3 24 mmol/L (21-25); ABG Hematocrit 28 % (34.0-46.0); ABG Ionized Calcium 4.7 mg/dL (4.5-5.3); ABG Lactic Acid Whole Blood 0.9 mmol/L (0.5-1.6); ABG Oxygen Saturation 99.6 % (94-97); ABG PCO2 38 mmHg (35-45); ABG PH 7.41 (7.35-7.45); ABG PO2 184 mmHg (83-108); ABG Potassium Whole Blood 4.4 mmol/L (3.4-4.5); ABG Sodium Whole Blood 141 mmol/L (135-146); ABG TCO2 25 mmol/L (19-24)
[2020-03-19 10:22] LABS: ABG Base Excess -2.2 mmol/L; ABG Glucose Whole Blood 208 mg/dL (75-99); ABG HCO3 24 mmol/L (21-25); ABG Hematocrit 25 % (34.0-46.0); ABG Ionized Calcium 4.4 mg/dL (4.5-5.3); ABG Lactic Acid Whole Blood 0.7 mmol/L (0.5-1.6); ABG Oxygen Saturation 99.8 % (94-97); ABG PCO2 44 mmHg (35-45); ABG PH 7.33 (7.35-7.45); ABG PO2 356 mmHg (83-108); ABG Potassium Whole Blood 5.8 mmol/L (3.4-4.5); ABG Sodium Whole Blood 136 mmol/L (135-146); ABG TCO2 25 mmol/L (19-24)
[2020-03-19 10:45] LABS: ABG Glucose Whole Blood 195 mg/dL (75-99); ABG HCO3 26 mmol/L (21-25); ABG Hematocrit 26 % (34.0-46.0); ABG Ionized Calcium 4.5 mg/dL (4.5-5.3); ABG Lactic Acid Whole Blood 0.9 mmol/L (0.5-1.6); ABG Oxygen Saturation 99.6 % (94-97); ABG PCO2 57 mmHg (35-45); ABG PH 7.27 (7.35-7.45); ABG PO2 259 mmHg (83-108); ABG Sodium Whole Blood 141 mmol/L (135-146); ABG TCO2 28 mmol/L (19-24)
[2020-03-19 11:19] LABS: ABG Base Excess -1.7 mmol/L; ABG Glucose Whole Blood 152 mg/dL (75-99); ABG HCO3 24 mmol/L (21-25); ABG Hematocrit 26 % (34.0-46.0); ABG Ionized Calcium 4.5 mg/dL (4.5-5.3); ABG Lactic Acid Whole Blood 1.5 mmol/L (0.5-1.6); ABG Oxygen Saturation 99.9 % (94-97); ABG PCO2 45 mmHg (35-45); ABG PH 7.34 (7.35-7.45); ABG PO2 329 mmHg (83-108); ABG Potassium Whole Blood 4.7 mmol/L (3.4-4.5); ABG Sodium Whole Blood 141 mmol/L (135-146); ABG TCO2 26 mmol/L (19-24)
[2020-03-19 12:29] LABS: ABG Base Excess -1.2 mmol/L; ABG Glucose Whole Blood 50 mg/dL (75-99); ABG HCO3 24 mmol/L (21-25); ABG Hematocrit 28 % (34.0-46.0); ABG Ionized Calcium 4.6 mg/dL (4.5-5.3); ABG Lactic Acid Whole Blood 1.6 mmol/L (0.5-1.6); ABG Oxygen Saturation 99.8 % (94-97); ABG PCO2 43 mmHg (35-45); ABG PH 7.36 (7.35-7.45); ABG PO2 339 mmHg (83-108); ABG Potassium Whole Blood 3.9 mmol/L (3.4-4.5); ABG Sodium Whole Blood 142 mmol/L (135-146); ABG TCO2 26 mmol/L (19-24)
[2020-03-19 12:37] LABS: ABG Base Excess -1.2 mmol/L; ABG Glucose Whole Blood 41 mg/dL (75-99); ABG HCO3 24 mmol/L (21-25); ABG Hematocrit 27 % (34.0-46.0); ABG Ionized Calcium 4.6 mg/dL (4.5-5.3); ABG Lactic Acid Whole Blood 1.7 mmol/L (0.5-1.6); ABG PCO2 42 mmHg (35-45); ABG PH 7.36 (7.35-7.45); ABG PO2 393 mmHg (83-108); ABG Potassium Whole Blood 3.9 mmol/L (3.4-4.5); ABG Sodium Whole Blood 142 mmol/L (135-146); ABG TCO2 25 mmol/L (19-24)
[2020-03-19] MEDS ORDERED: AMIODARONE 300 MG in DEXTROSE 5% IN WATER 250 ML IV PRN ×2 (13:08)
[2020-03-19] MEDS ORDERED: Phosphorus Replacement Protoco 1 EACH MISC MISCELLANE PRN (13:08)
[2020-03-19] MEDS ORDERED: ONDANSETRON 4 MG/2 ML VIAL IVP PRN (13:08)
[2020-03-19] MEDS ORDERED: IPRATROPIUM-ALBUTEROL 3 ML NEB INHALATION PRN (13:08)
[2020-03-19] MEDS ORDERED: Magnesium Replacement Protocol 1 EACH MISC MISCELLANE PRN (13:08)
[2020-03-19] MEDS ORDERED: AMIODARONE 360 MG in DEXTROSE 5% IN WATER 200 ML IV PRN ×2 (13:08)
[2020-03-19] MEDS ORDERED: DEXMEDETOMIDINE/0.9% NACL(PMX) 400 MCG in EMPTY BAG 1 BAG IV SCH (13:08)
[2020-03-19] MEDS ORDERED: MORPHINE SULFATE 2 MG/ML SYRINGE IVP PRN (13:08)
[2020-03-19] MEDS ORDERED: BENZOCAINE/MENTHOL LOZENG 1 EACH LOZENGE MUCOUS MEM PRN (13:08)
[2020-03-19] MEDS ORDERED: DEXTROSE 5% IN WATER 100 ML with AMIODARONE 150 MG IV PRN (13:08)
[2020-03-19] MEDS ORDERED: METOCLOPRAMIDE 5 MG/ML 2 ML VIAL IVP PRN (13:08)
[2020-03-19] MEDS ORDERED: hydrALAZINE HCL 20 MG/ML 1 ML VIAL IVP PRN (13:08)
[2020-03-19] MEDS ORDERED: Potassium Replacement Protocol 1 EACH MISC MISCELLANE PRN (13:08)
[2020-03-19 13:23] LABS: Basophils # (A) 0.1 k/uL (0-0.2); Basophils % (A) 0 %; Eosinophils # (A) 0.1 k/uL (0-0.7); Eosinophils % (A) 1 %; HCT 28.5 % (39.0-53.0); Lymphocytes # (A) 1.8 k/uL (1.0-4.8); Lymphocytes % (A) 9 %; MCHC 32.7 g/dL (31.0-37.0); MCV 94.8 fL (80.0-100.0); Mean Platelet Volume 8.6; Monocytes # (A) 1.4 k/uL (0-1.0); Monocytes % (A) 7 %; Neutrophils # (A) 16.3 k/uL (1.3-7.7); Neutrophils % (A) 83 %; Platelet Count 144 k/uL (150-450); RBC 3.01 m/uL (4.30-5.90); RDW 12.3 % (11.5-15.5); WBC 19.7 k/uL (3.8-10.6)
[2020-03-19 13:24] LABS: Glucose,Whole Blood 57 mg/dL (75-99)
[2020-03-19 13:26] LABS: HGB 9.3 gm/dL (13.0-17.5)
[2020-03-19 13:28] LABS: INR 1.1 (<1.2); Partial Thromboplastin Time 31.2 sec (22.0-30.0); Prothrombin Time 11.1 sec (9.0-12.0)
[2020-03-19 13:33] LABS: Ionized Calcium 4.9 mg/dL (4.5-5.3)
[2020-03-19 13:37] LABS: ABG Base Excess 0.4 mmol/L; ABG HCO3 26 mmol/L (21-25); ABG Oxygen Saturation 99.2 % (94-97); ABG PCO2 49 mmHg (35-45); ABG PH 7.34 (7.35-7.45); ABG PO2 306 mmHg (83-108); ABG TCO2 28 mmol/L (19-24); Allen Test Performed? no
[2020-03-19 13:41] LABS: ALT 20 U/L (4-49); AST 36 U/L (17-59); African American GFR (CKD) >90 (>60 ml/min/1.73 sqM); Albumin 2.8 g/dL (3.5-5.0); Alkaline Phosphatase 51 U/L (38-126); Anion Gap 4 mmol/L; Blood Urea Nitrogen 32 mg/dL (9-20); Calcium 8.1 mg/dL (8.4-10.2); Carbon Dioxide 26 mmol/L (22-30); Chloride 110 mmol/L (98-107); Glucose 50 mg/dL (74-99); Magnesium 2.5 mg/dL (1.6-2.3); Non-African American GFR(CKD) >90 (>60 ml/min/1.73 sqM); Potassium 4.1 mmol/L (3.5-5.1); Sodium 140 mmol/L (137-145); Total Bilirubin 0.3 mg/dL (0.2-1.3); Total Protein 5.1 g/dL (6.3-8.2)
[2020-03-19] MEDS ORDERED: DEXTROSE 50% SYRINGE 50 ML IVP ONE (13:42)
[2020-03-19] MEDS ORDERED: INSULIN REGULAR 100 UNIT in SODIUM CHLORIDE 0.9% 100 ML IV SCH (13:45)
--- NOTE | 2020-03-19 13:49 | XR ---
EXAMINATION TYPE: XR chest 1V portable DATE OF EXAM: 03/19/2020 COMPARISON: Prior chest x-ray 02/13/2020 HISTORY: Postop cardiac surgery TECHNIQUE: Single frontal view of the chest is obtained. FINDINGS: Endotracheal tube, NG tube, right jugular central venous catheter, median sternal drains a re present. Distal tip of the PA catheter is overlying the pulmonary artery. There is no evident pneu mothorax or pleural effusion. Epicardial pacing leads are in place, surgical clips in the upper abdom en. Patient is status post cardiac valve replacement, atrial appendage clipping placement. This perih ilar patchy density, lung volumes are low and the patient is rotated. Heart size may be accentuated b y technique. Aorta is dense. IMPRESSION: Satisfactory postoperative chest x-ray, expiratory rotated exam. There is likely atelect asis present.
[2020-03-19 13:54] LABS: Glucose,Whole Blood 80 mg/dL (75-99)
[2020-03-19 13:54] LABS: Glucose,Whole Blood 70 mg/dL (75-99)
[2020-03-19] MEDS ORDERED: CALCIUM GLUCONATE 2 GM in SODIUM CHLORIDE 0.9% 100 ML IVPB PRN (14:00)
[2020-03-19 14:26] LABS: Glucose,Whole Blood 103 mg/dL (75-99)
[2020-03-19 14:33] LABS: Glucose,Whole Blood 103 mg/dL (75-99)
[2020-03-19] MEDS: ALBUMIN HUMAN 5% 250 ML in EMPTY BAG 1 BAG IVPB PRN ×3 (14:44→19:12)
[2020-03-19] MEDS: CLEVIDIPINE BUTYRATE 25 MG in EMPTY BAG 1 BAG IV SCH (14:46)
[2020-03-19] MEDS: ACETAMINOPHEN IV (For NPO) 1,000 MG in EMPTY BAG 1 BAG IVPB SCH ×2 (14:46→19:47)
--- NOTE | 2020-03-19 14:56 | P.CNPUL ---
History of Present Illness Consult date: 03/19/20 Requesting physician: Misti Nash Chief complaint: Aortic valve stenosis History of present illness: 69-year-old male patient of Dr. Dominguez with no history of aortic valve stenosis, hypertension, hyperlipidemia, diabetes but this type II, paroxysmal atrial fibrillation on Eliquis, macular degeneration, who recently developed symptoms of chest tightness, and increasing shortness of breath. Cardiac workup included to heart catheterization showing normal coronary arteries and his severe aortic valve stenosis. Transesophageal echocardiogram shows severe aortic valve stenosis with a valve area of 0.8 cm involving a heavily calcified bicuspid aortic valve, mild mitral valve regurgitation, mild tricuspid valve reg urgitation and normal left ventricular size and systolic function. Today on 03/19/2020 patient underwent aortic valve replacement with exclusion of left atrial appendage and intraoperative transesophageal echocardiogram by Dr. Nash. Patient seen in the postoperative period in the intensive care unit, he is sedated, intubated on mechanical ventilator, current ventilator settings of SIMV with a rate of 12, tidal is 500, FiO2 100%, and PEEP of 5, postoperative blood gases showed pO2 of 306, pCO2 49, pH of 7.34, this was on 100% FiO2, which has since been dropped to 50%, and IMV rate was increased to 14 breaths per minute. He was dynamically patient is very stable, no vasopressors, he is on lactated Ringer's a rate of 50 ML per hour, Diprivan is at 20 mics per kilo per minute, no other drips. He is AV paced at a rate of 80 BPM, and apparently intrinsic rhythm is extremely bradycardic, and patient is pacemaker dependent at this time. PA pressures 30/17, CVP is 3, cardiac output 6.5, cardiac index is 3.0. Patient received 3 L and crystalloids Intra-Op, received 500 mL in the Cell Saver, 2 mediastinal chest tubes were connected together with 90 mL of saline when his output in the Pleur-evac, no evidence of air leak. Midsternal incision, chest tube sites are clean dry and intact, covered with surgical dressings. Postoperative chest x-ray was reviewed showing satisfactory post operative chest x-ray, ET tube, NG tube right jugular central venous catheter in appropriate positions, distal tip of the PA catheter overlying the pulmonary artery. Review of Systems All systems: negative Constitutional: Denies chills, Denies fever Eyes: denies blurred vision, denies pain Ears, nose, mouth and throat: Denies headache, Denies sore throat Cardiovascular: Reports chest pain (/), Reports decreased exercise tolerance, Denies shortness of breath Respiratory: Denies cough Gastrointestinal: Denies abdominal pain, Denies diarrhea, Denies nausea, Denies vomiting Musculoskeletal: Denies myalgias Integumentary: Denies pruritus, Denies rash Neurological: Denies numbness, Denies weakness Psychiatric: Denies anxiety, Denies depression Endocrine: Denies fatigue, Denies weight change Past Medical History Past Medical History: Atrial Fibrillation, Chest Pain / Angina, Diabetes Mellitus, Eye Disorder, Hyperlipidemia, Hypertension, Pneumonia Additional Past Medical History / Comment(s): "no diabetic medication since wt loss" checks blood sugar at home and watches diet , MIGRAINE HEADACHES A CHILD, heart murmur, heart valve problem, "macular buildup in both eyes", was being seen in wound center for wound on 3rd toe right foot-healed over currently History of Any Multi-Drug Resistant Organisms: None Reported Past Surgical History: Bariatric Surgery, Heart Catheterization, Orthopedic Surgery, Tonsillectomy Additional Past Surgical History / Comment(s): GASTROPLASTY, surgery on rt knee for cartilage under kneecap, cardioversion for atrial fibrillation January 2019 Past Anesthesia/Blood Transfusion Reactions: Previous Problems w/ Anesthesia Additional Past Anesthesia/Blood Transfusion Reaction / Comment(s): reaction with sodium pentothall years ago-"almost ". no problem with anesthesia since Past Psychological History: No Psychological Hx Reported Smoking Status: Never smoker Past Alcohol Use History: None Reported Additional Past Alcohol Use History / Comment(s): quit drinking 15 yrs. ago, used to drink heavily Past Drug Use History: None Reported - Past Family History Mother Family Medical History: COPD, Diabetes Mellitus Additional Family Medical History / Comment(s): Macular degeneration, legally blind Sister(s) Family Medical History: Cancer Father Family Medical History: Myocardial Infarction ([place]) Medications and Allergies Home Medications Medication Instructions Recorded Confirmed Type Ascorbic Acid [Vitamin C] 1,000 mg PO HS 02/05/19 03/13/20 History Cholecalciferol (Vitamin D3) 5,000 unit PO 02/05/19 03/13/20 History [Vitamin D3] Cyanocobalamin (Vitamin B-12) 1,000 mcg PO HS 02/05/19 03/13/20 History [Vitamin B-12] Vitamin B Complex 1 each PO HS 02/05/19 03/13/20 History amLODIPine BESYLATE [Norvasc] 5 mg PO HS 02/05/19 03/13/20 History lisinopriL [Zestril] 2.5 mg PO HS 02/05/19 03/13/20 History Apixaban [Eliquis] 5 mg PO BID 02/08/20 03/13/20 History Atorvastatin [Lipitor] 40 mg PO HS 02/08/20 03/13/20 History Calcium/Magnesium/Zinc 1 each PO HS 02/08/20 03/13/20 History [Mmunljo-Pvmyrykup-Pymr Tablet] L.acidoph,Paracasei, B.lactis 1 each PO TID 02/08/20 03/13/20 History [Probiotic] Metoprolol Succinate (ER) [Toprol 25 mg PO DAILY 02/08/20 03/13/20 History Xl] Rawlings-3 Fatty Acids [Rawlings-3] 1,000 mg PO HS 02/08/20 03/13/20 History Aspirin 1 tab PO ONCE 03/19/20 03/19/20 History Allergies Allergy/AdvReac Type Severity Reaction Status Date / Time metformin Allergy VERY WEAK, Verified 03/13/20 13:40 SEVERE JOINT PAIN , MUSCLE PAIN rivaroxaban [From Xarelto] Allergy bruising Verified 03/13/20 13:40 thiopental [From Pentothal] Allergy Anaphylaxis, Verified 03/13/20 13:40 TROUBLE BREATHING Physical Exam Vitals: Vital Signs Temp Pulse Pulse Resp BP BP Pulse Ox 03/19/20 13:30 80 12 100 03/19/20 13:15 80 12 100 03/19/20 13:00 35.1 F L 80 12 100 03/19/20 05:56 97.7 F 73 20 157/82 155/84 100 Intake and Output 03/18/20 03/19/20 03/19/20 22:59 06:59 14:59 Intake Total 32 Output Total 1700 Balance -1668 Intake: IV 32 Output: Urine 400 Estimated Blood Loss 1300 Other: Weight 100.6 kg ABP, PAP, CO, CI - Last 8 Hours Arterial Blood Pressure 110/50 Arterial Blood Pressure 122/54 Arterial Blood Pressure 118/54 Pulmonary Artery Pressure 27/13 Pulmonary Artery Pressure 32/17 Cardiac Output 6.5 Cardiac Output 6.5 Cardiac Index 3 Cardiac Index 3.0 GENERAL EXAM: Sedated, 69-year-old white male, intubated on mechanical ventilator on IMV with a rate of 14, comfortable in no apparent distress. HEAD: Normocephalic/atraumatic. EYES: Normal reaction of pupils, equal size. Conjunctiva pink, sclera white. NOSE: Clear with pink turbinates. THROAT: No erythema or exudates. NECK: No masses, no JVD, no thyroid enlargement, no adenopathy. CHEST: No chest wall deformity. Symmetrical expansion. Midsternal incision clean dry and intact, mediastinal chest tubes Y connected together to the same Pleur-evac, with approximately 90 mL of sanguinous output in the Pleur-evac, no evidence of air leak, AV wires connected to an external pacemaker patient is dorota ng paced at a rate of 80 BPM, intrinsic rhythm is bradycardic in the 20s, patient is pacemaker dependent at this time, and there is a backup external pacemaker box LUNGS: Equal air entry with no crackles, wheeze, rhonchi or dullness. CVS: Regular rate and rhythm, normal S1 and S2, no gallops, no murmurs, no rubs ABDOMEN: Soft, nontender. No hepatosplenomegaly, normal bowel sounds, no guarding or rigidity. EXTREMITIES: No clubbing, no edema, no cyanosis, 2+ pulses and upper and lower extremities. SCDs are on bilateral lower extremities MUSCULOSKELETAL: Muscle strength and tone normal. SPINE: No scoliosis or deformity SKIN: No rashes CENTRAL NERVOUS SYSTEM: Sedated. No focal deficits, tone is normal in all 4 extremities. Results - Laboratory Findings CBC and BMP: 03/19/20 13:00 03/19/20 13:00 ABG ABG pH 7.34 (7.35-7.45) L 03/19/20 13:31 ABG pCO2 49 mmHg (35-45) H 03/19/20 13:31 ABG pO2 306 mmHg (83-108) H 03/19/20 13:31 ABG O2 Saturation 99.2 % (94-97) H 03/19/20 13:31 PT/INR, D-dimer PT 11.1 sec (9.0-12.0) 03/19/20 13:00 INR 1.1 (<1.2) 03/19/20 13:00 Abnormal lab findings: Abnormal Labs 03/13/20 03/19/20 03/19/20 13:14 06:21 08:34 WBC RBC Hgb Hct Plt Count Neutrophils # Monocytes # APTT ABG pH ABG pCO2 ABG pO2 214 H ABG HCO3 ABG Total CO2 25 H ABG O2 Saturation 99.6 H ABG Hematocrit 28 L ABG Potassium ABG Ionized Calcium ABG Glucose 110 H ABG Lactic Acid Hemoglobin 9.1 L Chloride BUN Creatinine Glucose POC Glucose (mg/dL) 105 H Calcium Magnesium Total Protein Albumin Arterial Blood Potassium Arterial Blood Glucose 110 H Crossmatch See Detail 03/19/20 03/19/20 03/19/20 09:43 10:26 10:49 WBC RBC Hgb Hct Plt Count Neutrophils # Monocytes # APTT ABG pH 7.33 L 7.27 L ABG pCO2 57 H ABG pO2 184 H 356 H 259 H ABG HCO3 26 H ABG Total CO2 25 H 25 H 28 H ABG O2 Saturation 99.6 H 99.8 H 99.6 H ABG Hematocrit 28 L 25 L 26 L ABG Potassium 5.8 H 5.0 H ABG Ionized Calcium 4.4 L ABG Glucose 124 H 208 H 195 H ABG Lactic Acid Hemoglobin 9.0 L 8.2 L 8.4 L Chloride BUN Creatinine Glucose POC Glucose (mg/dL) Calcium Magnesium Total Protein Albumin Arterial Blood Potassium 5.8 H 5.0 H Arterial Blood Glucose 124 H 208 H 195 H Crossmatch 03/19/20 03/19/20 03/19/20 11:23 12:32 12:41 WBC RBC Hgb Hct Plt Count Neutrophils # Monocytes # APTT ABG pH 7.34 L ABG pCO2 ABG pO2 329 H 393 H 339 H ABG HCO3 ABG Total CO2 26 H 25 H 26 H ABG O2 Saturation 99.9 H 100.0 H 99.8 H ABG Hematocrit 26 L 27 L 28 L ABG Potassium 4.7 H ABG Ionized Calcium ABG Glucose 152 H 41 L 50 L ABG Lactic Acid 1.7 H Hemoglobin 8.5 L 8.8 L 9.1 L Chloride BUN Creatinine Glucose POC Glucose (mg/dL) Calcium Magnesium Total Protein Albumin Arterial Blood Potassium 4.7 H Arterial Blood Glucose 152 H 41 L 50 L Crossmatch 03/19/20 03/19/20 03/19/20 13:00 13:00 13:00 WBC 19.7 H RBC 3.01 L Hgb 9.3 L D Hct 28.5 L Plt Count 144 L Neutrophils # 16.3 H Monocytes # 1.4 H APTT 31.2 H ABG pH ABG pCO2 ABG pO2 ABG HCO3 ABG Total CO2 ABG O2 Saturation ABG Hematocrit ABG Potassium ABG Ionized Calcium ABG Glucose ABG Lactic Acid Hemoglobin Chloride 110 H BUN 32 H Creatinine 0.60 L Glucose 50 L POC Glucose (mg/dL) Calcium 8.1 L Magnesium 2.5 H Total Protein 5.1 L Albumin 2.8 L Arterial Blood Potassium Arterial Blood Glucose Crossmatch 03/19/20 03/19/20 03/19/20 13:08 13:31 13:52 WBC RBC Hgb Hct Plt Count Neutrophils # Monocytes # APTT ABG pH 7.34 L ABG pCO2 49 H ABG pO2 306 H ABG HCO3 26 H ABG Total CO2 28 H ABG O2 Saturation 99.2 H ABG Hematocrit ABG Potassium ABG Ionized Calcium ABG Glucose ABG Lactic Acid Hemoglobin Chloride BUN Creatinine Glucose POC Glucose (mg/dL) 57 L 70 L Calcium Magnesium Total Protein Albumin Arterial Blood Potassium Arterial Blood Glucose Crossmatch 03/19/20 03/19/20 14:06 14:31 WBC RBC Hgb Hct Plt Count Neutrophils # Monocytes # APTT ABG pH ABG pCO2 ABG pO2 ABG HCO3 ABG Total CO2 ABG O2 Saturation ABG Hematocrit ABG Potassium ABG Ionized Calcium ABG Glucose ABG Lactic Acid Hemoglobin Chloride BUN Creatinine Glucose POC Glucose (mg/dL) 103 H 103 H Calcium Magnesium Total Protein Albumin Arterial Blood Potassium Arterial Blood Glucose Crossmatch - Diagnostic Findings Chest x-ray: report reviewed, image reviewed Assessment and Plan Plan: Assessment: #1. Severe aortic valve stenosis, heavily calcified bicuspid aortic valve, with symptoms of chest pain and shortness of breath, status post aortic valve replacement exclusion of the left atrial appendage, intraoperative transesophageal echocardiogram, postoperative day 0 #2. Routine ventilator management, preop bedside spirometry showed FEV1 of 2.95 or 87% of predicted, forced vital 3.42 with 75% of predicted, FEV1 to FVC ratio is 116 consistent with mild restriction #3. Hypertension #4. Hyperlipidemia #5. Diabetes mellitus type 2 #6. Diabetic ulcer on his right foot on the third toe #7. Paroxysmal atrial fibrillation on Eliquis #8. Macular degeneration #9. Lifetime nonsmoker Plan: Postoperative blood gases were reviewed, postoperative chest x-ray has been reviewed, FiO2 is down to 50%, continue weaning FiO2 per protocol, proceed with spontaneous awakening trials, patient is hemodynamically stable, minimal bleeding from the mediastinal chest tubes, not on any vasoactive drips. Breathing treatments while on the ventilator 4 times daily [id number], and as needed after extubation, we'll proceed with spontaneous awakening chest a spontaneous breathing trials per protocol, incentive spirometry to the bedside, continue monitoring for arrhythmias, hemodynamically instability, bleeding. Follow-up labs in the morning, and chest x-rays, we'll continue to closely follow with cardiothoracic surgery. I performed a history & physical examination of the patient and discussed their management with my nurse practitioner, Lucretia Howard. I reviewed the nurse practitioner's note and agree with the documented findings and plan of care. Lung sounds are positive for diminished breath sounds. The findings and the impression was discussed with the patient. I attest to the documentation by the nurse practitioner. Time with Patient: Greater than 30
[2020-03-19 15:16] LABS: Glucose,Whole Blood 119 mg/dL (75-99)
[2020-03-19] MEDS: SODIUM CHLORIDE 0.9% 1,000 ML IV SCH (15:33)
[2020-03-19 16:06] LABS: Glucose,Whole Blood 132 mg/dL (75-99)
--- NOTE | 2020-03-19 16:29 | OP ---
OPERATIVE REPORT DATE OF THE SURGERY: 03/19/2020. SURGEON: Dr. Misti Nash. SALES COACH: Douglas Clemons and Lorena Courtney. PREOPERATIVE DIAGNOSIS: Severe bicuspid aortic valve stenosis, hypertension, hyperlipidemia, chronic atrial fibrillation, recent osteomyelitis in his left third toe, diabetes mellitus. POSTOPERATIVE DIAGNOSIS: Severe bicuspid aortic valve stenosis, hypertension, hyperlipidemia, chronic atrial fibrillation, recent osteomyelitis in his left third toe, diabetes mellitus. PROCEDURE: 1. Aortic valve replacement using a 23 mm pericardial bioprosthesis inspires. 2. Exclusion of his left atrial appendage using a 50 mm AtriClip. 3. Intraoperative transesophageal echocardiogram and epiaortic scanning. INDICATION FOR SURGERY: Patient is a 69-year-old gentleman who was referred for elective aortic valve replacement in view of severe bicuspid aortic valve stenosis. He is known to have murmur since young age. He had a cardiac catheterization that showed normal coronary and an aortogram that showed non-dilated ascending aorta. He had mild mitral valve regurgitation and preserved left ventricular function. Patient had an osteomyelitis of his left third toe and we temporized that healed. Then we got clearance before proceeded today with aortic valve replacement with a bioprosthesis. He has a chronic atrial fibrillation. So no MAZE procedure would be done, but only exclusion of his left atrial appendage. The SDS risk was discussed with him and his . He understood it and agreed to proceed. DESCRIPTION OF PROCEDURE: The patient in supine position. Right internal jugular [place]-Isauro catheter and right radial arterial line were placed in the preoperative holding area. He had a good cardiac index and normal PA pressure. He was brought to the operating room where general endotracheal anesthesia was induced uneventfully. Brewer catheter was inserted. The chest, abdomen and both lower extremities were prepped and draped using ChloraPrep. Ioban was used to cover the skin. Patient received 2 g of cefazolin intravenously. Transesophageal echocardiogram confirmed the preoperative finding of severe bicuspid aortic valve stenosis and absence of clot in the left atrial appendage with mild mitral valve regurgitation and preserved left ventricular function with moderate left ventricular hypertrophy and biatrial dilatation. Midline sternotomy was performed and bone seal was used. Both pleura remained grossly intact. Mediastinal fat was transected between 2 ties. Epiaortic scanning revealed normal ascending aorta with no protruding atheroma. The pericardium was opened in an inverted T-fashion and a pericardial cradle was created. Findings included a mildly dilated aorta with a normal size heart. After systemic heparinization, after placement of respective pledgeted pursestring, aortic cannulation of the proximal arch with a 21-[place] soft flow cannula and venous cannulation via the right atrial appendage with a 3-stage 29-[place] cannula was performed. Antegrade as well as retrograde cardioplegia catheter were placed. Cardiopulmonary bypass was initiated. The patient temperature was allowed to drift down to 34 degrees Celsius. The aorta was clamped and with the aortic clamp, myocardial protection was achieved. An initial dose of antegrade cold blood cardioplegia with adequate arrest at 150 mL followed by dose of retrograde cold blood cardioplegia. All subsequent doses were given retrograde at 15 minutes interval. The last dose was warm blood via the retrograde route at around 1 L. The aorta was opened in transverse fashion around 1 cm above the sinotubular junction. Exploration revealed a heavily calcified bicuspid aortic valve with partial fusion of the left and right cusps. It took a while to adequately excise the valve and adequately debride the aortic anulus and the calcium that was as a tear drop on region down to the aorta mitral membrane. Thorough irrigation was around 1 L of cold saline followed at that point. Retrograde blood was coming out in a retrograde fashion from both left and right coronary ostia. The anulus was sized to a 23 mm pericardial bioprosthesis inspires. A total of 14 sutures in horizontal mattress 2-0 pledgeted with the pledgets on the ventricular side. Tycron were used all around the aortic anulus and they were passed symmetrically into the cuff of the 23 mm inspires pericardial bioprosthesis at seated nicely in a supra-annular position. Thorough irrigation performed 1 more time. All the needles cut and the suture tied using the cor knot device. Irrigation one more time and both coronary ostia were clear. The valve was nicely seated. CO2 was flowing over the field as long as the aorta was open. Rewarming was started at this point, as we closed the aorta using Prolene 4-0 in 2 layers with the 1st layer starting pledgeted on each corner proceeding in a horizontal mattress fashion. Then the 2nd layer in an over and over technique. De-airing maneuvers were followed and the patient was put in steep Trendelenburg position with the aortic vent on maximal suction as we unclamped the aorta. The patient has chronic atrial fibrillation with a slow ventricular response at the beginning of the case. The required single defibrillation to reverse ventricular fibrillation. We established AV pacing via 2 monopolar atrial pacing wires were affixed to the respective pursing of the right atrium and 1 bipolar ventricular pacing wire was driven via the inferior aspect of the right ventricle. At this point, GINNY had showed no paravalvular leak and good functioning aortic valve. De-airing was guided by GINNY. Once we were satisfied, we were able to wean off cardioplegia bypass without the need of any inotropic or vasopressor support. GINNY showed well excluded left atrial appendage, good functioning aortic valve with very low gradient and no paravalvular leak and good ventricular function. With that, all suckers were stopped and test was then full dose protamine was given. Decannulation followed. The patient was still dependent on the pacemaker as he had a slow escape rhythm and for that reason, I inserted another bipolar ventricular pacing wire via the anterior aspect of the right ventricle, connected to a separate pacer box. Two 19- [place] Jonathan drain were placed substernally. After ensuring adequate hemostasis and hemodynamic and after correct sponge, instrument, and needle count, the pericardium and pericardial fat were loosely approximated over the heart and the sternum was closed using 5 [id number] pineal cable after interposing fibular between the sternal edges. Thorough irrigation of cefazolin followed. The rest of the closure proceeded in layers. Skin glue was applied. Patient did not receive any blood bank product but received 500 mL of Cell Saver blood. He was transferred to the ICU with a cardiac index of 3, PA pressure 33/16, mean artery pressure 68, AV paced at 80. MMODL / IJN: [id number] /
[2020-03-19] MEDS: IPRATROPIUM-ALBUTEROL 3 ML NEB INHALATION SCH ×3 (16:43→19:18)
[2020-03-19 16:58] LABS: Glucose,Whole Blood 159 mg/dL (75-99)
[2020-03-19 17:22] LABS: ABG Base Excess -2.4 mmol/L; ABG HCO3 23 mmol/L (21-25); ABG Oxygen Saturation 98.2 % (94-97); ABG PCO2 37 mmHg (35-45); ABG PH 7.39 (7.35-7.45); ABG PO2 112 mmHg (83-108); ABG TCO2 24 mmol/L (19-24)
[2020-03-19 17:23] LABS: Allen Test Performed? no
[2020-03-19 17:54] LABS: Glucose,Whole Blood 172 mg/dL (75-99)
[2020-03-19] MEDS: KETOROLAC 15 MG/ML 1 ML VIAL IVP SCH (18:04)
[2020-03-19 18:05] LABS: Basophils % (A) 0 %; Eosinophils % (A) 0 %; HCT 28.6 % (39.0-53.0); HGB 9.3 gm/dL (13.0-17.5); Lymphocytes # (A) 0.7 k/uL (1.0-4.8); Lymphocytes % (A) 4 %; MCH 30.9 pg (25.0-35.0); MCHC 32.6 g/dL (31.0-37.0); Monocytes % (A) 6 %; Neutrophils # (A) 14.7 k/uL (1.3-7.7); Neutrophils % (A) 89 %; Platelet Count 151 k/uL (150-450); RBC 3.01 m/uL (4.30-5.90); RDW 12.4 % (11.5-15.5); WBC 16.6 k/uL (3.8-10.6)
[2020-03-19 18:54] LABS: Glucose,Whole Blood 158 mg/dL (75-99)
[2020-03-19 19:59] LABS: Glucose,Whole Blood 139 mg/dL (75-99)
[2020-03-19 20:54] LABS: Glucose,Whole Blood 110 mg/dL (75-99)
[2020-03-19] MEDS: HEPARIN SODIUM,PORCINE 5,000 UNIT/ML 1 ML VIAL SQ SCH (21:38)
[2020-03-19 22:00] LABS: Glucose,Whole Blood 126 mg/dL (75-99)
[2020-03-19 22:58] LABS: Glucose,Whole Blood 127 mg/dL (75-99)
[2020-03-19] MEDS ORDERED: HYDROcodone/APAP 5-325MG 1 EACH TAB PO PRN ×2 (23:57)
[2020-03-20] MEDS: KETOROLAC 15 MG/ML 1 ML VIAL IVP SCH ×5 (00:03→23:54)
[2020-03-20 00:10] LABS: Glucose,Whole Blood 137 mg/dL (75-99)
[2020-03-20 01:01] LABS: Glucose,Whole Blood 118 mg/dL (75-99)
[2020-03-20 02:27] LABS: Glucose,Whole Blood 148 mg/dL (75-99)
[2020-03-20 03:10] LABS: Glucose,Whole Blood 150 mg/dL (75-99)
[2020-03-20 04:05] LABS: Glucose,Whole Blood 148 mg/dL (75-99)
[2020-03-20 04:14] LABS: Basophils % (A) 0 %; Eosinophils % (A) 0 %; HCT 26.6 % (39.0-53.0); HGB 8.3 gm/dL (13.0-17.5); Lymphocytes # (A) 0.8 k/uL (1.0-4.8); Lymphocytes % (A) 7 %; MCH 29.8 pg (25.0-35.0); MCHC 31.4 g/dL (31.0-37.0); MCV 94.7 fL (80.0-100.0); Mean Platelet Volume 10.2; Monocytes # (A) 0.8 k/uL (0-1.0); Monocytes % (A) 7 %; Neutrophils # (A) 10.6 k/uL (1.3-7.7); Neutrophils % (A) 85 %; Platelet Count 119 k/uL (150-450); RBC 2.81 m/uL (4.30-5.90); RDW 12.5 % (11.5-15.5); WBC 12.4 k/uL (3.8-10.6)
[2020-03-20 04:37] LABS: Ionized Calcium 4.8 mg/dL (4.5-5.3)
[2020-03-20 04:46] LABS: ALT 17 U/L (4-49); AST 44 U/L (17-59); African American GFR (CKD) >90 (>60 ml/min/1.73 sqM); Albumin 3.4 g/dL (3.5-5.0); Alkaline Phosphatase 50 U/L (38-126); Anion Gap 6 mmol/L; Blood Urea Nitrogen 38 mg/dL (9-20); Calcium 8.5 mg/dL (8.4-10.2); Carbon Dioxide 22 mmol/L (22-30); Chloride 107 mmol/L (98-107); Glucose 127 mg/dL (74-99); Magnesium 2.2 mg/dL (1.6-2.3); Non-African American GFR(CKD) >90 (>60 ml/min/1.73 sqM); Potassium 4.3 mmol/L (3.5-5.1); Sodium 135 mmol/L (137-145); Total Bilirubin 0.6 mg/dL (0.2-1.3); Total Protein 5.7 g/dL (6.3-8.2)
[2020-03-20 06:02] LABS: Glucose,Whole Blood 102 mg/dL (75-99)
[2020-03-20 06:56] LABS: Glucose,Whole Blood 101 mg/dL (75-99)
[2020-03-20] MEDS: IPRATROPIUM-ALBUTEROL 3 ML NEB INHALATION SCH ×4 (07:04→19:23)
[2020-03-20] MEDS ORDERED: ACETAMINOPHEN TAB 500 MG TAB PO PRN (07:18)
--- NOTE | 2020-03-20 07:45 | XR ---
EXAMINATION TYPE: XR chest 1V portable DATE OF EXAM: 03/20/2020 Comparison: 03/19/2020 Clinical History: 69-year-old male Post Operative Cardiac Surgery Findings: Interval extubation and removal of NG tube. Median sternotomy wires are present with prosthetic aorti c valve. Multiple overlying leads. The patient's right IJ [place]-Isauro catheter is obscured by the overl manuela leads. Retained epicardial pacer wires. Heart borderline enlarged. Slight increased patchy retro cardiac and left basilar opacity. Impression: 1. The course of the patient's right IJ [place]-Isauro catheter is obscured by the overlying bunched up le ads. 2. Slight increased patchy left basilar opacity, likely atelectasis.
[2020-03-20] MEDS: ALBUMIN HUMAN 5% 250 ML in EMPTY BAG 1 BAG IVPB PRN (07:56)
[2020-03-20 08:08] LABS: Glucose,Whole Blood 119 mg/dL (75-99)
--- NOTE | 2020-03-20 08:40 | P.PN ---
Subjective Progress Note Date: 03/20/20 Principal diagnosis: Severe bicuspid aortic valve stenosis. Previous medical history of hypertension, hyperlipidemia, chronic atrial fibrillation on Eliquis for anticoagulation status post cardioversion in January 2019, recent osteomyelitis in the right third toe, diet controlled diabetes mellitus with preoperative hemoglobin A1c 6.5%, remote history of pneumonia, gastroplasty in the past. POD 1 aortic valve replacement using a 23 mm Inspiris pericardial bioprosthesis, exclusion of the left atrial appendage using a 15 mm after clip, intraoperative transesophageal echocardiogram and epi-aortic scanning Postoperative acute blood loss anemia and thrombocytopenia, expected outcome given hemodilution and cardiopulmonary bypass pump Postoperative leukocytosis, likely reactive The patient is currently sitting up in a recliner in no acute distress. He was successfully extubated last night at 17:30. Denies any pain or shortness of breath, in fact he is actually asking to get up and walk in the hallway already. No significant events overnight. Right internal jugular Deweese/Cordis, right radial arterial line, mediastinal chest tubes present. Currently in sinus rhythm with long first degree, hemodynamically stable on no inotropes or pressors. No new concerns. Objective - Vital Signs Vital signs: Vital Signs Temp 98.6 F 03/20/20 08:00 Pulse 89 03/20/20 08:00 Resp 11 L 03/20/20 08:00 BP 88/47 03/20/20 08:00 Pulse Ox 99 03/20/20 08:00 Intake & Output 03/19/20 03/20/20 03/20/20 18:59 06:59 18:59 Intake Total 655.188 7841.252 330 Output Total 2350 675 30 Balance -9679.327 8217.252 300 Weight 102.2 kg Intake: IV 143 1096 330 0.9 CO/CI 60 80 30 0.9 Flush 51 116 ACETAMINOPHEN IV (For NPO 100 ) 1,000 mg In Empty Bag 1 bag @ 400 mls/hr IVPB Q6H NIKKI Rx#:[id number] Albumin 250 Calcium Gluconate 2 gm In 100 Sodium Chloride 0.9% 100 ml @ 100 mls/hr IVPB ONCE PRN Rx#:[id number] Sodium Chloride 0.9% 1, 600 50 000 ml @ 20 mls/hr IV . Q24H NIKKI Rx#:[id number] ceFAZolin 2 gm In Sodium 100 Chloride 0.9% 50 ml @ 100 mls/hr IVPB Q8HR NIKKI Rx# :[id number] Intake, IV Titration 725.287 571.252 Amount ACETAMINOPHEN IV (For NPO 100 ) 1,000 mg In Empty Bag 1 bag @ 400 mls/hr IVPB Q6H INKKI Rx#:[id number] Albumin Human 5% 250 ml 250 500 In Empty Bag 1 bag @ 250 mls/hr IVPB Q1HR PRN Rx#: [id number] Clevidipine Butyrate 25 6.734 3.6 mg In Empty Bag 1 bag @ 1 MG/HR 2 mls/hr IV .Q24H NIKKI Rx#:[id number] Insulin Regular 100 unit 6.481 17.652 In Sodium Chloride 0.9% 100 ml @ Per Protocol IV .Q0M NIKKI Rx#:[id number] Sodium Chloride 0.9% 1, 300 50 000 ml @ 20 mls/hr IV . Q24H NIKKI Rx#:[id number] ceFAZolin 2 gm In Sodium 50 Chloride 0.9% 50 ml @ 100 mls/hr IVPB Q8HR NIKKI Rx# :[id number] propofoL 1,000 mg In 12.072 Empty Bag 1 bag @ Titrate IV .Q0M NIKKI Rx#: [id number] Oral 250 Output: Chest Tube Drainage 230 280 10 Bilateral Mediastinal 230 280 10 Urine 820 395 20 Estimated Blood Loss 1300 Other: Voiding Method Indwelling Catheter Indwelling Catheter ABP, PAP, CO, CI - Last Documented Arterial Blood Pressure 115/47 Pulmonary Artery Pressure 32/16 Cardiac Output 8.1 Cardiac Index 3.7 - Constitutional General appearance: Present: cooperative, no acute distress - Respiratory Details: Lungs sounds clear bilaterally. Respirations even, nonlabored. Currently on 3 L nasal cannula with oxygen saturation 98%. Able to achieve 2000 mL on his incentive spirometry. Strong cough. - Cardiovascular Details: S1, S2 present. Regular rate and rhythm, sinus rhythm with first-degree AV block on telemetry with heart rate in the low 80s. Sternum stable. A/V epicardial pacemaker wires present, connected to generator, DDD with 50 bpm, second generator connected to second ventricular epicardial wires with VVI mode backup rate 50 bpm. Right internal jugular Deweese/Cordis, right radial arterial line present. Last CO/CI 5.1/2.3 on no inotropes or pressors. Mediastinal chest tube present and connected to continuous wall suction, 110 mL serosanguineous drainage overnight, 500 mL since surgery, no air leak present. - Gastrointestinal Gastrointestinal Comment(s): Abdomen soft, nontender, nondistended. Hypoactive bowel sounds present 4 quadrants. Tolerating clear liquids. No flatus. - Genitourinary Genitourinary Comment(s): Brewer present draining clear, yellow urine. Output 25-35 mL/h overnight. - Integumentary Integumentary Comment(s): Anterior chest incision well approximated and covered with dry intact dressing. - Neurologic Neurologic: Present: CNII-XII intact - Musculoskeletal Musculoskeletal: Present: gait normal, strength equal bilaterally - Psychiatric Psychiatric: Present: A&O x's 3, appropriate affect, intact judgment & insight - Allied health notes Allied health notes reviewed: nursing - Labs CBC & Chem 7: 03/20/20 04:05 03/20/20 04:05 Labs: Abnormal Lab Results - Last 24 Hours (Table) 03/13/20 03/19/20 03/19/20 Range/Units 13:14 08:34 09:43 WBC (3.8-10.6) k/uL RBC (4.30-5.90) m/uL Hgb (13.0-17.5) gm/dL Hct (39.0-53.0) % Plt Count (150-450) k/uL Neutrophils # (1.3-7.7) k/uL Lymphocytes # (1.0-4.8) k/uL Monocytes # (0-1.0) k/uL APTT (22.0-30.0) sec ABG pH (7.35-7.45) ABG pCO2 (35-45) mmHg ABG pO2 214 H 184 H (83-108) mmHg ABG HCO3 (21-25) mmol/L ABG Total CO2 25 H 25 H (19-24) mmol/L ABG O2 Saturation 99.6 H 99.6 H (94-97) % ABG Hematocrit 28 L 28 L (34.0-46.0) % ABG Potassium (3.4-4.5) mmol/L ABG Ionized Calcium (4.5-5.3) mg/dL ABG Glucose 110 H 124 H (75-99) mg/dL ABG Lactic Acid (0.5-1.6) mmol/L Hemoglobin 9.1 L 9.0 L (13.0-17.5) gm/dL Sodium (137-145) mmol/L Chloride (98-107) mmol/L BUN (9-20) mg/dL Creatinine (0.66-1.25) mg/dL Glucose (74-99) mg/dL POC Glucose (mg/dL) (75-99) mg/dL Calcium (8.4-10.2) mg/dL Magnesium (1.6-2.3) mg/dL Total Protein (6.3-8.2) g/dL Albumin (3.5-5.0) g/dL Arterial Blood Potassium (3.4-4.5) mmol/L Arterial Blood Glucose 110 H 124 H (75-99) mg/dL Crossmatch See Detail 03/19/20 03/19/20 03/19/20 Range/Units 10:26 10:49 11:23 WBC (3.8-10.6) k/uL RBC (4.30-5.90) m/uL Hgb (13.0-17.5) gm/dL Hct (39.0-53.0) % Plt Count (150-450) k/uL Neutrophils # (1.3-7.7) k/uL Lymphocytes # (1.0-4.8) k/uL Monocytes # (0-1.0) k/uL APTT (22.0-30.0) sec ABG pH 7.33 L 7.27 L 7.34 L (7.35-7.45) ABG pCO2 57 H (35-45) mmHg ABG pO2 356 H 259 H 329 H (83-108) mmHg ABG HCO3 26 H (21-25) mmol/L ABG Total CO2 25 H 28 H 26 H (19-24) mmol/L ABG O2 Saturation 99.8 H 99.6 H 99.9 H (94-97) % ABG Hematocrit 25 L 26 L 26 L (34.0-46.0) % ABG Potassium 5.8 H 5.0 H 4.7 H (3.4-4.5) mmol/L ABG Ionized Calcium 4.4 L (4.5-5.3) mg/dL ABG Glucose 208 H 195 H 152 H (75-99) mg/dL ABG Lactic Acid (0.5-1.6) mmol/L Hemoglobin 8.2 L 8.4 L 8.5 L (13.0-17.5) gm/dL Sodium (137-145) mmol/L Chloride (98-107) mmol/L BUN (9-20) mg/dL Creatinine (0.66-1.25) mg/dL Glucose (74-99) mg/dL POC Glucose (mg/dL) (75-99) mg/dL Calcium (8.4-10.2) mg/dL Magnesium (1.6-2.3) mg/dL Total Protein (6.3-8.2) g/dL Albumin (3.5-5.0) g/dL Arterial Blood Potassium 5.8 H 5.0 H 4.7 H (3.4-4.5) mmol/L Arterial Blood Glucose 208 H 195 H 152 H (75-99) mg/dL Crossmatch 03/19/20 03/19/20 03/19/20 Range/Units 12:32 12:41 13:00 WBC 19.7 H (3.8-10.6) k/uL RBC 3.01 L (4.30-5.90) m/uL Hgb 9.3 L D (13.0-17.5) gm/dL Hct 28.5 L (39.0-53.0) % Plt Count 144 L (150-450) k/uL Neutrophils # 16.3 H (1.3-7.7) k/uL Lymphocytes # (1.0-4.8) k/uL Monocytes # 1.4 H (0-1.0) k/uL APTT (22.0-30.0) sec ABG pH (7.35-7.45) ABG pCO2 (35-45) mmHg ABG pO2 393 H 339 H (83-108) mmHg ABG HCO3 (21-25) mmol/L ABG Total CO2 25 H 26 H (19-24) mmol/L ABG O2 Saturation 100.0 H 99.8 H (94-97) % ABG Hematocrit 27 L 28 L (34.0-46.0) % ABG Potassium (3.4-4.5) mmol/L ABG Ionized Calcium (4.5-5.3) mg/dL ABG Glucose 41 L 50 L (75-99) mg/dL ABG Lactic Acid 1.7 H (0.5-1.6) mmol/L Hemoglobin 8.8 L 9.1 L (13.0-17.5) gm/dL Sodium (137-145) mmol/L Chloride (98-107) mmol/L BUN (9-20) mg/dL Creatinine (0.66-1.25) mg/dL Glucose (74-99) mg/dL POC Glucose (mg/dL) (75-99) mg/dL Calcium (8.4-10.2) mg/dL Magnesium (1.6-2.3) mg/dL Total Protein (6.3-8.2) g/dL Albumin (3.5-5.0) g/dL Arterial Blood Potassium (3.4-4.5) mmol/L Arterial Blood Glucose 41 L 50 L (75-99) mg/dL Crossmatch 03/19/20 03/19/20 03/19/20 Range/Units 13:00 13:00 13:08 WBC (3.8-10.6) k/uL RBC (4.30-5.90) m/uL Hgb (13.0-17.5) gm/dL Hct (39.0-53.0) % Plt Count (150-450) k/uL Neutrophils # (1.3-7.7) k/uL Lymphocytes # (1.0-4.8) k/uL Monocytes # (0-1.0) k/uL APTT 31.2 H (22.0-30.0) sec ABG pH (7.35-7.45) ABG pCO2 (35-45) mmHg ABG pO2 (83-108) mmHg ABG HCO3 (21-25) mmol/L ABG Total CO2 (19-24) mmol/L ABG O2 Saturation (94-97) % ABG Hematocrit (34.0-46.0) % ABG Potassium (3.4-4.5) mmol/L ABG Ionized Calcium (4.5-5.3) mg/dL ABG Glucose (75-99) mg/dL ABG Lactic Acid (0.5-1.6) mmol/L Hemoglobin (13.0-17.5) gm/dL Sodium (137-145) mmol/L Chloride 110 H (98-107) mmol/L BUN 32 H (9-20) mg/dL Creatinine 0.60 L (0.66-1.25) mg/dL Glucose 50 L (74-99) mg/dL POC Glucose (mg/dL) 57 L (75-99) mg/dL Calcium 8.1 L (8.4-10.2) mg/dL Magnesium 2.5 H (1.6-2.3) mg/dL Total Protein 5.1 L (6.3-8.2) g/dL Albumin 2.8 L (3.5-5.0) g/dL Arterial Blood Potassium (3.4-4.5) mmol/L Arterial Blood Glucose (75-99) mg/dL Crossmatch 03/19/20 03/19/20 03/19/20 Range/Units 13:31 13:52 14:06 WBC (3.8-10.6) k/uL RBC (4.30-5.90) m/uL Hgb (13.0-17.5) gm/dL Hct (39.0-53.0) % Plt Count (150-450) k/uL Neutrophils # (1.3-7.7) k/uL Lymphocytes # (1.0-4.8) k/uL Monocytes # (0-1.0) k/uL APTT (22.0-30.0) sec ABG pH 7.34 L (7.35-7.45) ABG pCO2 49 H (35-45) mmHg ABG pO2 306 H (83-108) mmHg ABG HCO3 26 H (21-25) mmol/L ABG Total CO2 28 H (19-24) mmol/L ABG O2 Saturation 99.2 H (94-97) % ABG Hematocrit (34.0-46.0) % ABG Potassium (3.4-4.5) mmol/L ABG Ionized Calcium (4.5-5.3) mg/dL ABG Glucose (75-99) mg/dL ABG Lactic Acid (0.5-1.6) mmol/L Hemoglobin (13.0-17.5) gm/dL Sodium (137-145) mmol/L Chloride (98-107) mmol/L BUN (9-20) mg/dL Creatinine (0.66-1.25) mg/dL Glucose (74-99) mg/dL POC Glucose (mg/dL) 70 L 103 H (75-99) mg/dL Calcium (8.4-10.2) mg/dL Magnesium (1.6-2.3) mg/dL Total Protein (6.3-8.2) g/dL Albumin (3.5-5.0) g/dL Arterial Blood Potassium (3.4-4.5) mmol/L Arterial Blood Glucose (75-99) mg/dL Crossmatch 03/19/20 03/19/20 03/19/20 Range/Units 14:31 15:14 16:04 WBC (3.8-10.6) k/uL RBC (4.30-5.90) m/uL Hgb (13.0-17.5) gm/dL Hct (39.0-53.0) % Plt Count (150-450) k/uL Neutrophils # (1.3-7.7) k/uL Lymphocytes # (1.0-4.8) k/uL Monocytes # (0-1.0) k/uL APTT (22.0-30.0) sec ABG pH (7.35-7.45) ABG pCO2 (35-45) mmHg ABG pO2 (83-108) mmHg ABG HCO3 (21-25) mmol/L ABG Total CO2 (19-24) mmol/L ABG O2 Saturation (94-97) % ABG Hematocrit (34.0-46.0) % ABG Potassium (3.4-4.5) mmol/L ABG Ionized Calcium (4.5-5.3) mg/dL ABG Glucose (75-99) mg/dL ABG Lactic Acid (0.5-1.6) mmol/L Hemoglobin (13.0-17.5) gm/dL Sodium (137-145) mmol/L Chloride (98-107) mmol/L BUN (9-20) mg/dL Creatinine (0.66-1.25) mg/dL Glucose (74-99) mg/dL POC Glucose (mg/dL) 103 H 119 H 132 H (75-99) mg/dL Calcium (8.4-10.2) mg/dL Magnesium (1.6-2.3) mg/dL Total Protein (6.3-8.2) g/dL Albumin (3.5-5.0) g/dL Arterial Blood Potassium (3.4-4.5) mmol/L Arterial Blood Glucose (75-99) mg/dL Crossmatch 03/19/20 03/19/20 03/19/20 Range/Units 16:56 17:20 17:50 WBC 16.6 H (3.8-10.6) k/uL RBC 3.01 L (4.30-5.90) m/uL Hgb 9.3 L (13.0-17.5) gm/dL Hct 28.6 L (39.0-53.0) % Plt Count (150-450) k/uL Neutrophils # 14.7 H (1.3-7.7) k/uL Lymphocytes # 0.7 L (1.0-4.8) k/uL Monocytes # (0-1.0) k/uL APTT (22.0-30.0) sec ABG pH (7.35-7.45) ABG pCO2 (35-45) mmHg ABG pO2 112 H (83-108) mmHg ABG HCO3 (21-25) mmol/L ABG Total CO2 (19-24) mmol/L ABG O2 Saturation 98.2 H (94-97) % ABG Hematocrit (34.0-46.0) % ABG Potassium (3.4-4.5) mmol/L ABG Ionized Calcium (4.5-5.3) mg/dL ABG Glucose (75-99) mg/dL ABG Lactic Acid (0.5-1.6) mmol/L Hemoglobin (13.0-17.5) gm/dL Sodium (137-145) mmol/L Chloride (98-107) mmol/L BUN (9-20) mg/dL Creatinine (0.66-1.25) mg/dL Glucose (74-99) mg/dL POC Glucose (mg/dL) 159 H (75-99) mg/dL Calcium (8.4-10.2) mg/dL Magnesium (1.6-2.3) mg/dL Total Protein (6.3-8.2) g/dL Albumin (3.5-5.0) g/dL Arterial Blood Potassium (3.4-4.5) mmol/L Arterial Blood Glucose (75-99) mg/dL Crossmatch 03/19/20 03/19/20 03/19/20 Range/Units 17:52 18:53 19:57 WBC (3.8-10.6) k/uL RBC (4.30-5.90) m/uL Hgb (13.0-17.5) gm/dL Hct (39.0-53.0) % Plt Count (150-450) k/uL Neutrophils # (1.3-7.7) k/uL Lymphocytes # (1.0-4.8) k/uL Monocytes # (0-1.0) k/uL APTT (22.0-30.0) sec ABG pH (7.35-7.45) ABG pCO2 (35-45) mmHg ABG pO2 (83-108) mmHg ABG HCO3 (21-25) mmol/L ABG Total CO2 (19-24) mmol/L ABG O2 Saturation (94-97) % ABG Hematocrit (34.0-46.0) % ABG Potassium (3.4-4.5) mmol/L ABG Ionized Calcium (4.5-5.3) mg/dL ABG Glucose (75-99) mg/dL ABG Lactic Acid (0.5-1.6) mmol/L Hemoglobin (13.0-17.5) gm/dL Sodium (137-145) mmol/L Chloride (98-107) mmol/L BUN (9-20) mg/dL Creatinine (0.66-1.25) mg/dL Glucose (74-99) mg/dL POC Glucose (mg/dL) 172 H 158 H 139 H (75-99) mg/dL Calcium (8.4-10.2) mg/dL Magnesium (1.6-2.3) mg/dL Total Protein (6.3-8.2) g/dL Albumin (3.5-5.0) g/dL Arterial Blood Potassium (3.4-4.5) mmol/L Arterial Blood Glucose (75-99) mg/dL Crossmatch 03/19/20 03/19/2020 Range/Units 20:52 21:57 22:57 WBC (3.8-10.6) k/uL RBC (4.30-5.90) m/uL Hgb (13.0-17.5) gm/dL Hct (39.0-53.0) % Plt Count (150-450) k/uL Neutrophils # (1.3-7.7) k/uL Lymphocytes # (1.0-4.8) k/uL Monocytes # (0-1.0) k/uL APTT (22.0-30.0) sec ABG pH (7.35-7.45) ABG pCO2 (35-45) mmHg ABG pO2 (83-108) mmHg ABG HCO3 (21-25) mmol/L ABG Total CO2 (19-24) mmol/L ABG O2 Saturation (94-97) % ABG Hematocrit (34.0-46.0) % ABG Potassium (3.4-4.5) mmol/L ABG Ionized Calcium (4.5-5.3) mg/dL ABG Glucose (75-99) mg/dL ABG Lactic Acid (0.5-1.6) mmol/L Hemoglobin (13.0-17.5) gm/dL Sodium (137-145) mmol/L Chloride (98-107) mmol/L BUN (9-20) mg/dL Creatinine (0.66-1.25) mg/dL Glucose (74-99) mg/dL POC Glucose (mg/dL) 110 H 126 H 127 H (75-99) mg/dL Calcium (8.4-10.2) mg/dL Magnesium (1.6-2.3) mg/dL Total Protein (6.3-8.2) g/dL Albumin (3.5-5.0) g/dL Arterial Blood Potassium (3.4-4.5) mmol/L Arterial Blood Glucose (75-99) mg/dL Crossmatch 03/20/20 03/20/20 03/20/20 Range/Units 00:08 01:00 02:26 WBC (3.8-10.6) k/uL RBC (4.30-5.90) m/uL Hgb (13.0-17.5) gm/dL Hct (39.0-53.0) % Plt Count (150-450) k/uL Neutrophils # (1.3-7.7) k/uL Lymphocytes # (1.0-4.8) k/uL Monocytes # (0-1.0) k/uL APTT (22.0-30.0) sec ABG pH (7.35-7.45) ABG pCO2 (35-45) mmHg ABG pO2 (83-108) mmHg ABG HCO3 (21-25) mmol/L ABG Total CO2 (19-24) mmol/L ABG O2 Saturation (94-97) % ABG Hematocrit (34.0-46.0) % ABG Potassium (3.4-4.5) mmol/L ABG Ionized Calcium (4.5-5.3) mg/dL ABG Glucose (75-99) mg/dL ABG Lactic Acid (0.5-1.6) mmol/L Hemoglobin (13.0-17.5) gm/dL Sodium (137-145) mmol/L Chloride (98-107) mmol/L BUN (9-20) mg/dL Creatinine (0.66-1.25) mg/dL Glucose (74-99) mg/dL POC Glucose (mg/dL) 137 H 118 H 148 H (75-99) mg/dL Calcium (8.4-10.2) mg/dL Magnesium (1.6-2.3) mg/dL Total Protein (6.3-8.2) g/dL Albumin (3.5-5.0) g/dL Arterial Blood Potassium (3.4-4.5) mmol/L Arterial Blood Glucose (75-99) mg/dL Crossmatch 03/20/20 03/20/20 03/20/20 Range/Units 03:09 04:04 04:05 WBC 12.4 H (3.8-10.6) k/uL RBC 2.81 L (4.30-5.90) m/uL Hgb 8.3 L (13.0-17.5) gm/dL Hct 26.6 L (39.0-53.0) % Plt Count 119 L (150-450) k/uL Neutrophils # 10.6 H (1.3-7.7) k/uL Lymphocytes # 0.8 L (1.0-4.8) k/uL Monocytes # (0-1.0) k/uL APTT (22.0-30.0) sec ABG pH (7.35-7.45) ABG pCO2 (35-45) mmHg ABG pO2 (83-108) mmHg ABG HCO3 (21-25) mmol/L ABG Total CO2 (19-24) mmol/L ABG O2 Saturation (94-97) % ABG Hematocrit (34.0-46.0) % ABG Potassium (3.4-4.5) mmol/L ABG Ionized Calcium (4.5-5.3) mg/dL ABG Glucose (75-99) mg/dL ABG Lactic Acid (0.5-1.6) mmol/L Hemoglobin (13.0-17.5) gm/dL Sodium (137-145) mmol/L Chloride (98-107) mmol/L BUN (9-20) mg/dL Creatinine (0.66-1.25) mg/dL Glucose (74-99) mg/dL POC Glucose (mg/dL) 150 H 148 H (75-99) mg/dL Calcium (8.4-10.2) mg/dL Magnesium (1.6-2.3) mg/dL Total Protein (6.3-8.2) g/dL Albumin (3.5-5.0) g/dL Arterial Blood Potassium (3.4-4.5) mmol/L Arterial Blood Glucose (75-99) mg/dL Crossmatch 03/20/20 03/20/20 03/20/20 Range/Units 04:05 05:59 06:54 WBC (3.8-10.6) k/uL RBC (4.30-5.90) m/uL Hgb (13.0-17.5) gm/dL Hct (39.0-53.0) % Plt Count (150-450) k/uL Neutrophils # (1.3-7.7) k/uL Lymphocytes # (1.0-4.8) k/uL Monocytes # (0-1.0) k/uL APTT (22.0-30.0) sec ABG pH (7.35-7.45) ABG pCO2 (35-45) mmHg ABG pO2 (83-108) mmHg ABG HCO3 (21-25) mmol/L ABG Total CO2 (19-24) mmol/L ABG O2 Saturation (94-97) % ABG Hematocrit (34.0-46.0) % ABG Potassium (3.4-4.5) mmol/L ABG Ionized Calcium (4.5-5.3) mg/dL ABG Glucose (75-99) mg/dL ABG Lactic Acid (0.5-1.6) mmol/L Hemoglobin (13.0-17.5) gm/dL Sodium 135 L (137-145) mmol/L Chloride (98-107) mmol/L BUN 38 H (9-20) mg/dL Creatinine (0.66-1.25) mg/dL Glucose 127 H (74-99) mg/dL POC Glucose (mg/dL) 102 H 101 H (75-99) mg/dL Calcium (8.4-10.2) mg/dL Magnesium (1.6-2.3) mg/dL Total Protein 5.7 L (6.3-8.2) g/dL Albumin 3.4 L (3.5-5.0) g/dL Arterial Blood Potassium (3.4-4.5) mmol/L Arterial Blood Glucose (75-99) mg/dL Crossmatch - Imaging and Cardiology Chest x-ray: report reviewed, image reviewed Assessment and Plan Assessment: 1. Severe bicuspid aortic valve stenosis, status post bioprosthetic aortic valve replacement 2. History of hypertension 3. Hyperlipidemia 4. History of chronic atrial fibrillation on Eliquis for anticoagulation coagulation, status post cardioversion in January 2019, currently in sinus rhythm with first-degree AV block, status post ligation of the left atrial appendage 5. Recent osteomyelitis in the right third toe 6. Diet-controlled diabetes mellitus with preoperative hemoglobin A1c 6.5% 7. Remote history of pneumonia 8. Lifelong nonsmoker 9. Postoperative acute blood loss anemia 10. Postoperative leukocytosis, thrombocytopenia Plan: 1. Continue aspirin, statin. Beta amairani therapy held due to first degree AV block per Dr. Key. Patient did have first-degree AV block prior to surgery and was on Toprol-XL outpatient. We will reinitiate beta amairani therapy when able 2. Wean O2 as tolerated. Encourage incentive spirometry is 10 times every hour while awake. Bronchodilators per pulmonology 3. Increase activity, ambulate as tolerated. PT/OT/cardiac rehab following 4. Will monitor daily labs and x-rays. Electrolyte replacement per protocol. No transfusion at this time 5. Discontinue Deweese. Connect Cordis to continue CVP monitoring 6. GI/DVT prophylaxis 7. Will keep we saw chest tube for another 24 hours 8. Will keep Brewer catheter for another 24 hours for strict accurate intake and output 9. Insulin management per primary care service. 10. Pain control with current medication regimen. 11. More recommendations to follow Time with Patient: Greater than 30
[2020-03-20] MEDS: ASPIRIN 325 MG TAB PO SCH (08:43)
[2020-03-20] MEDS: ATORVASTATIN 40 MG TAB PO SCH (08:43)
[2020-03-20] MEDS: HEPARIN SODIUM,PORCINE 5,000 UNIT/ML 1 ML VIAL SQ SCH ×3 (08:44→23:55)
[2020-03-20] MEDS ORDERED: PANTOPRAZOLE 40 MG/10 ML VIAL IVP SCH (09:00)
[2020-03-20] MEDS ORDERED: bisacodyL 10 MG SUPP RECTAL PRN (09:00)
[2020-03-20] MEDS ORDERED: MAGNESIUM HYDROXIDE 2,400 MG/10 ML CUP PO PRN (09:00)
[2020-03-20] MEDS ORDERED: METOPROLOL TARTRATE 12.5 MG TAB PO SCH (09:00)
[2020-03-20 09:38] LABS: Glucose,Whole Blood 159 mg/dL (75-99)
[2020-03-20 10:17] VITALS: BMI 32.3
[2020-03-20 10:30] LABS: Glucose,Whole Blood 138 mg/dL (75-99)
--- NOTE | 2020-03-20 10:58 | CONS ---
CONSULTATION Mr. Maged Marinelli is a 69-year-old gentleman with a bicuspid aortic valve, who underwent aortic valve replacement with a tissue valve by Dr. Nash yesterday. I am seeing him post procedure. He is clinically doing very well. He is in sinus rhythm with a long first-degree AV block, hemodynamically stable, looks remarkably good. He is not on any pressors. He had a coronary angiogram which did not reveal any significant obstructive CAD and he had a severe aortic stenosis with a bicuspid valve. Surgery was performed uneventfully. The patient also had left atrial clip and intraoperative transesophageal echocardiogram. He has a #23 pericardial bioprosthesis. He is doing well post procedure. PAST MEDICAL HISTORY: 1. Bicuspid aortic valve with severe aortic stenosis, status post surgery yesterday, chronic atrial fibrillation on Xarelto. 2. Hypertension. 3. Hypercholesterolemia. PHYSICAL EXAMINATION: On examination, blood pressure is 100/60, pulse rate is about 80 with a first-degree AV block. HEENT: Unremarkable. Fundus was not examined by me. Neck is supple. No JVD. Heart exam reveals S1, S2. Systolic murmur or pericardial rub is audible. Lungs reveal fair air entry. Abdomen and lower extremity exam is unchanged. IMPRESSION: 1. Status post aortic valve replacement for bicuspid valve. Patient is doing well hemodynamically. 2. Probable underlying sick sinus syndrome with a long first-degree AV block. 3. Hypertension. 4. Hyperlipidemia. RECOMMENDATIONS: I am recommending that we hold beta amairani in view of a first-degree AV block. Continue all his other medications and given the p.r.n. interval improves, tomorrow we can resume the beta amairani at a low dose. Thank you very much for the consult. MMODL / IJN: [id number] /
[2020-03-20 11:59] LABS: Glucose,Whole Blood 137 mg/dL (75-99)
[2020-03-20] MEDS: SODIUM CHLORIDE 0.9% 1,000 ML IV SCH (12:06)
--- NOTE | 2020-03-20 12:41 | P.PN ---
Subjective Progress Note Date: 03/20/20 Principal diagnosis: Severe bicuspid aortic valve stenosis, status post aortic valve replacement postoperative day #1. 69-year-old male patient of Dr. Dominguez with no history of aortic valve stenosis, hypertension, hyperlipidemia, diabetes but this type II, paroxysmal atrial fibrillation on Eliquis, macular degeneration, who recently developed symptoms of chest tightness, and increasing shortness of breath. Cardiac workup included to heart catheterization showing normal coronary arteries and his severe aortic valve stenosis. Transesophageal echocardiogram shows severe aor tic valve stenosis with a valve area of 0.8 cm involving a heavily calcified bicuspid aortic valve, mild mitral valve regurgitation, mild tricuspid valve regurgitation and normal left ventricular size and systolic function. Today on 03/19/2020 patient underwent aortic valve replacement with exclusion of left atrial appendage and intraoperative transesophageal echocardiogram by Dr. Nash. Patient seen in the postoperative period in the intensive care unit, he is sedated, intubated on mechanical ventilator, current ventilator settings of SIMV with a rate of 12, tidal is 500, FiO2 100%, and PEEP of 5, postoperative blood gases showed pO2 of 306, pCO2 49, pH of 7.34, this was on 100% FiO2, which has since been dropped to 50%, and IMV rate was increased to 14 breaths per minute. He was dynamically patient is very stable, no vasopressors, he is on lactated Ringer's a rate of 50 ML per hour, Diprivan is at 20 mics per kilo per minute, no other drips. He is AV paced at a rate of 80 BPM, and apparently intrinsic rhythm is extremely bradycardic, and patient is pacemaker dependent at this time. PA pressures 30/17, CVP is 3, cardiac output 6.5, cardiac index is 3.0. Patient received 3 L and crystalloids Intra-Op, received 500 mL in the Cell Saver, 2 mediastinal chest tubes were connected together with 90 mL of saline when his output in the Pleur-evac, no evidence of air leak. Midsternal incision, chest tube sites are clean dry and intact, covered with surgical dressings. Postoperative chest x-ray was reviewed showing satisfactory postoperative chest x-ray, ET tube, NG tube right jugular central venous catheter in appropriate positions, distal tip of the PA catheter overlying the pulmonary artery. Patient was reevaluated today on 03/20/20, patient is postoperative day #1, status post aortic valve replacement for severe bicuspid aortic valve stenosis. Patient was extubated yesterday at 17:30. Tolerated the extubation well, and overall the patient is doing great. Denies any pain denies any shortness of breath, doing extremely well with incentive spirometry. He is hemodynamically stable, not requiring any pressors or any inotropes. His IV fluid is at 50 mL/h, and his insulin at as 0.5 units per hour. His incentive spirometry is great achieve over 2500 mL. Objective - Vital Signs Vital signs: Vital Signs Temp 98.6 F 03/20/20 11:30 Pulse 86 03/20/20 12:00 Resp 14 03/20/20 12:00 BP 88/47 03/20/20 12:00 Pulse Ox 98 03/20/20 12:00 Intake & Output 03/19/20 03/20/20 03/20/20 18:59 06:59 18:59 Intake Total 177.282 8107.252 571.778 Output Total 2350 675 220 Balance -2660.191 5514.252 351.778 Weight 102.2 kg 102.2 kg Intake: IV 143 1096 569 0.9 CO/CI 60 80 30 0.9 Flush 51 116 39 ACETAMINOPHEN IV (For NPO 100 ) 1,000 mg In Empty Bag 1 bag @ 400 mls/hr IVPB Q6H NIKKI Rx#:[id number] Albumin 250 Calcium Gluconate 2 gm In 100 Sodium Chloride 0.9% 100 ml @ 100 mls/hr IVPB ONCE PRN Rx#:[id number] Sodium Chloride 0.9% 1, 600 250 000 ml @ 20 mls/hr IV . Q24H NIKKI Rx#:[id number] ceFAZolin 2 gm In Sodium 100 Chloride 0.9% 50 ml @ 100 mls/hr IVPB Q8HR NIKKI Rx# :[id number] Intake, IV Titration 725.287 571.252 2.778 Amount ACETAMINOPHEN IV (For NPO 100 ) 1,000 mg In Empty Bag 1 bag @ 400 mls/hr IVPB Q6H NIKKI Rx#:[id number] Albumin Human 5% 250 ml 250 500 In Empty Bag 1 bag @ 250 mls/hr IVPB Q1HR PRN Rx#: [id number] Clevidipine Butyrate 25 6.734 3.6 mg In Empty Bag 1 bag @ 1 MG/HR 2 mls/hr IV .Q24H NIKKI Rx#:[id number] Insulin Regular 100 unit 6.481 17.652 2.778 In Sodium Chloride 0.9% 100 ml @ Per Protocol IV .Q0M NIKKI Rx#:[id number] Sodium Chloride 0.9% 1, 300 50 000 ml @ 20 mls/hr IV . Q24H NIKKI Rx#:[id number] ceFAZolin 2 gm In Sodium 50 Chloride 0.9% 50 ml @ 100 mls/hr IVPB Q8HR NIKKI Rx# :[id number] propofoL 1,000 mg In 12.072 Empty Bag 1 bag @ Titrate IV .Q0M NIKKI Rx#: [id number] Oral 250 Output: Chest Tube Drainage 230 280 60 Bilateral Mediastinal 230 280 60 Urine 820 395 160 Estimated Blood Loss 1300 Other: Voiding Method Indwelling Catheter Indwelling Catheter Indwelling Catheter ABP, PAP, CO, CI - Last Documented Arterial Blood Pressure 130/60 Pulmonary Artery Pressure 20/8 Cardiac Output 7.5 Cardiac Index 3.4 - Exam Physical Exam: Revealed a 69-year-old white male extremely pleasant, in no distress. Sitting at a bedside chair. Having his chest tubes removed. Head: Atraumatic, normocephalic. HEENT:[Neck is supple.] [No neck masses.] [No thyromegaly.] [No JVD.] Chest: [Clear throughout, no crackles, no rhonchi, no wheezes.] Cardiac Exam: [Normal S1 and S2, Regular rate and rhythm, sinus rhythm with first-degree AV block on telemetry with heart rate in the low 80s. Sternum stable. A/V epicardial pacemaker wires present, connected to generator, DDD with 50 bpm, second generator connected to second ventricular epicardial wires with VVI mode backup rate 50 bpm. Right internal jugular [place], right radial arterial line present. Last CO/CI 5.1/2.3 on no inotropes or pressors. Mediastinal chest tube present and connected to continuous wall suction, 110 mL serosanguineous drainage overnight, 500 mL since surgery, no air leak present. Abdomen: [Soft, nontender, no megaly, no rebound, no guarding, normal bowel sounds.] Extremities: [No clubbing, no edema, no cyanosis.] Neurological Exam: [No focal neurologic deficit.] Alert oriented 3. Skin: No rashes. - Labs CBC & Chem 7: 03/20/20 04:05 03/20/20 04:05 Labs: Abnormal Lab Results - Last 24 Hours (Table) 03/13/20 03/19/20 03/19/20 Range/Units 13:14 08:34 09:43 WBC (3.8-10.6) k/uL RBC (4.30-5.90) m/uL Hgb (13.0-17.5) gm/dL Hct (39.0-53.0) % Plt Count (150-450) k/uL Neutrophils # (1.3-7.7) k/uL Lymphocytes # (1.0-4.8) k/uL Monocytes # (0-1.0) k/uL APTT (22.0-30.0) sec ABG pH (7.35-7.45) ABG pCO2 (35-45) mmHg ABG pO2 214 H 184 H (83-108) mmHg ABG HCO3 (21-25) mmol/L ABG Total CO2 25 H 25 H (19-24) mmol/L ABG O2 Saturation 99.6 H 99.6 H (94-97) % ABG Hematocrit 28 L 28 L (34.0-46.0) % ABG Potassium (3.4-4.5) mmol/L ABG Ionized Calcium (4.5-5.3) mg/dL ABG Glucose 110 H 124 H (75-99) mg/dL ABG Lactic Acid (0.5-1.6) mmol/L Hemoglobin 9.1 L 9.0 L (13.0-17.5) gm/dL Sodium (137-145) mmol/L Chloride (98-107) mmol/L BUN (9-20) mg/dL Creatinine (0.66-1.25) mg/dL Glucose (74-99) mg/dL POC Glucose (mg/dL) (75-99) mg/dL Calcium (8.4-10.2) mg/dL Magnesium (1.6-2.3) mg/dL Total Protein (6.3-8.2) g/dL Albumin (3.5-5.0) g/dL Arterial Blood Potassium (3.4-4.5) mmol/L Arterial Blood Glucose 110 H 124 H (75-99) mg/dL Crossmatch See Detail 03/19/20 03/19/20 03/19/20 Range/Units 10:26 10:49 11:23 WBC (3.8-10.6) k/uL RBC (4.30-5.90) m/uL Hgb (13.0-17.5) gm/dL Hct (39.0-53.0) % Plt Count (150-450) k/uL Neutrophils # (1.3-7.7) k/uL Lymphocytes # (1.0-4.8) k/uL Monocytes # (0-1.0) k/uL APTT (22.0-30.0) sec ABG pH 7.33 L 7.27 L 7.34 L (7.35-7.45) ABG pCO2 57 H (35-45) mmHg ABG pO2 356 H 259 H 329 H (83-108) mmHg ABG HCO3 26 H (21-25) mmol/L ABG Total CO2 25 H 28 H 26 H (19-24) mmol/L ABG O2 Saturation 99.8 H 99.6 H 99.9 H (94-97) % ABG Hematocrit 25 L 26 L 26 L (34.0-46.0) % ABG Potassium 5.8 H 5.0 H 4.7 H (3.4-4.5) mmol/L ABG Ionized Calcium 4.4 L (4.5-5.3) mg/dL ABG Glucose 208 H 195 H 152 H (75-99) mg/dL ABG Lactic Acid (0.5-1.6) mmol/L Hemoglobin 8.2 L 8.4 L 8.5 L (13.0-17.5) gm/dL Sodium (137-145) mmol/L Chloride (98-107) mmol/L BUN (9-20) mg/dL Creatinine (0.66-1.25) mg/dL Glucose (74-99) mg/dL POC Glucose (mg/dL) (75-99) mg/dL Calcium (8.4-10.2) mg/dL Magnesium (1.6-2.3) mg/dL Total Protein (6.3-8.2) g/dL Albumin (3.5-5.0) g/dL Arterial Blood Potassium 5.8 H 5.0 H 4.7 H (3.4-4.5) mmol/L Arterial Blood Glucose 208 H 195 H 152 H (75-99) mg/dL Crossmatch 03/19/20 03/19/20 03/19/20 Range/Units 12:32 12:41 13:00 WBC 19.7 H (3.8-10.6) k/uL RBC 3.01 L (4.30-5.90) m/uL Hgb 9.3 L D (13.0-17.5) gm/dL Hct 28.5 L (39.0-53.0) % Plt Count 144 L (150-450) k/uL Neutrophils # 16.3 H (1.3-7.7) k/uL Lymphocytes # (1.0-4.8) k/uL Monocytes # 1.4 H (0-1.0) k/uL APTT (22.0-30.0) sec ABG pH (7.35-7.45) ABG pCO2 (35-45) mmHg ABG pO2 393 H 339 H (83-108) mmHg ABG HCO3 (21-25) mmol/L ABG Total CO2 25 H 26 H (19-24) mmol/L ABG O2 Saturation 100.0 H 99.8 H (94-97) % ABG Hematocrit 27 L 28 L (34.0-46.0) % ABG Potassium (3.4-4.5) mmol/L ABG Ionized Calcium (4.5-5.3) mg/dL ABG Glucose 41 L 50 L (75-99) mg/dL ABG Lactic Acid 1.7 H (0.5-1.6) mmol/L Hemoglobin 8.8 L 9.1 L (13.0-17.5) gm/dL Sodium (137-145) mmol/L Chloride (98-107) mmol/L BUN (9-20) mg/dL Creatinine (0.66-1.25) mg/dL Glucose (74-99) mg/dL POC Glucose (mg/dL) (75-99) mg/dL Calcium (8.4-10.2) mg/dL Magnesium (1.6-2.3) mg/dL Total Protein (6.3-8.2) g/dL Albumin (3.5-5.0) g/dL Arterial Blood Potassium (3.4-4.5) mmol/L Arterial Blood Glucose 41 L 50 L (75-99) mg/dL Crossmatch 03/19/20 03/19/20 03/19/20 Range/Units 13:00 13:00 13:08 WBC (3.8-10.6) k/uL RBC (4.30-5.90) m/uL Hgb (13.0-17.5) gm/dL Hct (39.0-53.0) % Plt Count (150-450) k/uL Neutrophils # (1.3-7.7) k/uL Lymphocytes # (1.0-4.8) k/uL Monocytes # (0-1.0) k/uL APTT 31.2 H (22.0-30.0) sec ABG pH (7.35-7.45) ABG pCO2 (35-45) mmHg ABG pO2 (83-108) mmHg ABG HCO3 (21-25) mmol/L ABG Total CO2 (19-24) mmol/L ABG O2 Saturation (94-97) % ABG Hematocrit (34.0-46.0) % ABG Potassium (3.4-4.5) mmol/L ABG Ionized Calcium (4.5-5.3) mg/dL ABG Glucose (75-99) mg/dL ABG Lactic Acid (0.5-1.6) mmol/L Hemoglobin (13.0-17.5) gm/dL Sodium (137-145) mmol/L Chloride 110 H (98-107) mmol/L BUN 32 H (9-20) mg/dL Creatinine 0.60 L (0.66-1.25) mg/dL Glucose 50 L (74-99) mg/dL POC Glucose (mg/dL) 57 L (75-99) mg/dL Calcium 8.1 L (8.4-10.2) mg/dL Magnesium 2.5 H (1.6-2.3) mg/dL Total Protein 5.1 L (6.3-8.2) g/dL Albumin 2.8 L (3.5-5.0) g/dL Arterial Blood Potassium (3.4-4.5) mmol/L Arterial Blood Glucose (75-99) mg/dL Crossmatch 03/19/20 03/19/20 03/19/20 Range/Units 13:31 13:52 14:06 WBC (3.8-10.6) k/uL RBC (4.30-5.90) m/uL Hgb (13.0-17.5) gm/dL Hct (39.0-53.0) % Plt Count (150-450) k/uL Neutrophils # (1.3-7.7) k/uL Lymphocytes # (1.0-4.8) k/uL Monocytes # (0-1.0) k/uL APTT (22.0-30.0) sec ABG pH 7.34 L (7.35-7.45) ABG pCO2 49 H (35-45) mmHg ABG pO2 306 H (83-108) mmHg ABG HCO3 26 H (21-25) mmol/L ABG Total CO2 28 H (19-24) mmol/L ABG O2 Saturation 99.2 H (94-97) % ABG Hematocrit (34.0-46.0) % ABG Potassium (3.4-4.5) mmol/L ABG Ionized Calcium (4.5-5.3) mg/dL ABG Glucose (75-99) mg/dL ABG Lactic Acid (0.5-1.6) mmol/L Hemoglobin (13.0-17.5) gm/dL Sodium (137-145) mmol/L Chloride (98-107) mmol/L BUN (9-20) mg/dL Creatinine (0.66-1.25) mg/dL Glucose (74-99) mg/dL POC Glucose (mg/dL) 70 L 103 H (75-99) mg/dL Calcium (8.4-10.2) mg/dL Magnesium (1.6-2.3) mg/dL Total Protein (6.3-8.2) g/dL Albumin (3.5-5.0) g/dL Arterial Blood Potassium (3.4-4.5) mmol/L Arterial Blood Glucose (75-99) mg/dL Crossmatch 03/19/20 03/19/20 03/19/20 Range/Units 14:31 15:14 16:04 WBC (3.8-10.6) k/uL RBC (4.30-5.90) m/uL Hgb (13.0-17.5) gm/dL Hct (39.0-53.0) % Plt Count (150-450) k/uL Neutrophils # (1.3-7.7) k/uL Lymphocytes # (1.0-4.8) k/uL Monocytes # (0-1.0) k/uL APTT (22.0-30.0) sec ABG pH (7.35-7.45) ABG pCO2 (35-45) mmHg ABG pO2 (83-108) mmHg ABG HCO3 (21-25) mmol/L ABG Total CO2 (19-24) mmol/L ABG O2 Saturation (94-97) % ABG Hematocrit (34.0-46.0) % ABG Potassium (3.4-4.5) mmol/L ABG Ionized Calcium (4.5-5.3) mg/dL ABG Glucose (75-99) mg/dL ABG Lactic Acid (0.5-1.6) mmol/L Hemoglobin (13.0-17.5) gm/dL Sodium (137-145) mmol/L Chloride (98-107) mmol/L BUN (9-20) mg/dL Creatinine (0.66-1.25) mg/dL Glucose (74-99) mg/dL POC Glucose (mg/dL) 103 H 119 H 132 H (75-99) mg/dL Calcium (8.4-10.2) mg/dL Magnesium (1.6-2.3) mg/dL Total Protein (6.3-8.2) g/dL Albumin (3.5-5.0) g/dL Arterial Blood Potassium (3.4-4.5) mmol/L Arterial Blood Glucose (75-99) mg/dL Crossmatch 03/19/20 03/19/20 03/19/20 Range/Units 16:56 17:20 17:50 WBC 16.6 H (3.8-10.6) k/uL RBC 3.01 L (4.30-5.90) m/uL Hgb 9.3 L (13.0-17.5) gm/dL Hct 28.6 L (39.0-53.0) % Plt Count (150-450) k/uL Neutrophils # 14.7 H (1.3-7.7) k/uL Lymphocytes # 0.7 L (1.0-4.8) k/uL Monocytes # (0-1.0) k/uL APTT (22.0-30.0) sec ABG pH (7.35-7.45) ABG pCO2 (35-45) mmHg ABG pO2 112 H (83-108) mmHg ABG HCO3 (21-25) mmol/L ABG Total CO2 (19-24) mmol/L ABG O2 Saturation 98.2 H (94-97) % ABG Hematocrit (34.0-46.0) % ABG Potassium (3.4-4.5) mmol/L ABG Ionized Calcium (4.5-5.3) mg/dL ABG Glucose (75-99) mg/dL ABG Lactic Acid (0.5-1.6) mmol/L Hemoglobin (13.0-17.5) gm/dL Sodium (137-145) mmol/L Chloride (98-107) mmol/L BUN (9-20) mg/dL Creatinine (0.66-1.25) mg/dL Glucose (74-99) mg/dL POC Glucose (mg/dL) 159 H (75-99) mg/dL Calcium (8.4-10.2) mg/dL Magnesium (1.6-2.3) mg/dL Total Protein (6.3-8.2) g/dL Albumin (3.5-5.0) g/dL Arterial Blood Potassium (3.4-4.5) mmol/L Arterial Blood Glucose (75-99) mg/dL Crossmatch 03/19/20 03/19/20 03/19/20 Range/Units 17:52 18:53 19:57 WBC (3.8-10.6) k/uL RBC (4.30-5.90) m/uL Hgb (13.0-17.5) gm/dL Hct (39.0-53.0) % Plt Count (150-450) k/uL Neutrophils # (1.3-7.7) k/uL Lymphocytes # (1.0-4.8) k/uL Monocytes # (0-1.0) k/uL APTT (22.0-30.0) sec ABG pH (7.35-7.45) ABG pCO2 (35-45) mmHg ABG pO2 (83-108) mmHg ABG HCO3 (21-25) mmol/L ABG Total CO2 (19-24) mmol/L ABG O2 Saturation (94-97) % ABG Hematocrit (34.0-46.0) % ABG Potassium (3.4-4.5) mmol/L ABG Ionized Calcium (4.5-5.3) mg/dL ABG Glucose (75-99) mg/dL ABG Lactic Acid (0.5-1.6) mmol/L Hemoglobin (13.0-17.5) gm/dL Sodium (137-145) mmol/L Chloride (98-107) mmol/L BUN (9-20) mg/dL Creatinine (0.66-1.25) mg/dL Glucose (74-99) mg/dL POC Glucose (mg/dL) 172 H 158 H 139 H (75-99) mg/dL Calcium (8.4-10.2) mg/dL Magnesium (1.6-2.3) mg/dL Total Protein (6.3-8.2) g/dL Albumin (3.5-5.0) g/dL Arterial Blood Potassium (3.4-4.5) mmol/L Arterial Blood Glucose (75-99) mg/dL Crossmatch 03/19/20 03/19/20 03/19/20 Range/Units 20:52 21:57 22:57 WBC (3.8-10.6) k/uL RBC (4.30-5.90) m/uL Hgb (13.0-17.5) gm/dL Hct (39.0-53.0) % Plt Count (150-450) k/uL Neutrophils # (1.3-7.7) k/uL Lymphocytes # (1.0-4.8) k/uL Monocytes # (0-1.0) k/uL APTT (22.0-30.0) sec ABG pH (7.35-7.45) ABG pCO2 (35-45) mmHg ABG pO2 (83-108) mmHg ABG HCO3 (21-25) mmol/L ABG Total CO2 (19-24) mmol/L ABG O2 Saturation (94-97) % ABG Hematocrit (34.0-46.0) % ABG Potassium (3.4-4.5) mmol/L ABG Ionized Calcium (4.5-5.3) mg/dL ABG Glucose (75-99) mg/dL ABG Lactic Acid (0.5-1.6) mmol/L Hemoglobin (13.0-17.5) gm/dL Sodium (137-145) mmol/L Chloride (98-107) mmol/L BUN (9-20) mg/dL Creatinine (0.66-1.25) mg/dL Glucose (74-99) mg/dL POC Glucose (mg/dL) 110 H 126 H 127 H (75-99) mg/dL Calcium (8.4-10.2) mg/dL Magnesium (1.6-2.3) mg/dL Total Protein (6.3-8.2) g/dL Albumin (3.5-5.0) g/dL Arterial Blood Potassium (3.4-4.5) mmol/L Arterial Blood Glucose (75-99) mg/dL Crossmatch 03/20/20 03/20/20 03/20/20 Range/Units 00:08 01:00 02:26 WBC (3.8-10.6) k/uL RBC (4.30-5.90) m/uL Hgb (13.0-17.5) gm/dL Hct (39.0-53.0) % Plt Count (150-450) k/uL Neutrophils # (1.3-7.7) k/uL Lymphocytes # (1.0-4.8) k/uL Monocytes # (0-1.0) k/uL APTT (22.0-30.0) sec ABG pH (7.35-7.45) ABG pCO2 (35-45) mmHg ABG pO2 (83-108) mmHg ABG HCO3 (21-25) mmol/L ABG Total CO2 (19-24) mmol/L ABG O2 Saturation (94-97) % ABG Hematocrit (34.0-46.0) % ABG Potassium (3.4-4.5) mmol/L ABG Ionized Calcium (4.5-5.3) mg/dL ABG Glucose (75-99) mg/dL ABG Lactic Acid (0.5-1.6) mmol/L Hemoglobin (13.0-17.5) gm/dL Sodium (137-145) mmol/L Chloride (98-107) mmol/L BUN (9-20) mg/dL Creatinine (0.66-1.25) mg/dL Glucose (74-99) mg/dL POC Glucose (mg/dL) 137 H 118 H 148 H (75-99) mg/dL Calcium (8.4-10.2) mg/dL Magnesium (1.6-2.3) mg/dL Total Protein (6.3-8.2) g/dL Albumin (3.5-5.0) g/dL Arterial Blood Potassium (3.4-4.5) mmol/L Arterial Blood Glucose (75-99) mg/dL Crossmatch 03/20/20 03/20/20 03/20/20 Range/Units 03:09 04:04 04:05 WBC 12.4 H (3.8-10.6) k/uL RBC 2.81 L (4.30-5.90) m/uL Hgb 8.3 L (13.0-17.5) gm/dL Hct 26.6 L (39.0-53.0) % Plt Count 119 L (150-450) k/uL Neutrophils # 10.6 H (1.3-7.7) k/uL Lymphocytes # 0.8 L (1.0-4.8) k/uL Monocytes # (0-1.0) k/uL APTT (22.0-30.0) sec ABG pH (7.35-7.45) ABG pCO2 (35-45) mmHg ABG pO2 (83-108) mmHg ABG HCO3 (21-25) mmol/L ABG Total CO2 (19-24) mmol/L ABG O2 Saturation (94-97) % ABG Hematocrit (34.0-46.0) % ABG Potassium (3.4-4.5) mmol/L ABG Ionized Calcium (4.5-5.3) mg/dL ABG Glucose (75-99) mg/dL ABG Lactic Acid (0.5-1.6) mmol/L Hemoglobin (13.0-17.5) gm/dL Sodium (137-145) mmol/L Chloride (98-107) mmol/L BUN (9-20) mg/dL Creatinine (0.66-1.25) mg/dL Glucose (74-99) mg/dL POC Glucose (mg/dL) 150 H 148 H (75-99) mg/dL Calcium (8.4-10.2) mg/dL Magnesium (1.6-2.3) mg/dL Total Protein (6.3-8.2) g/dL Albumin (3.5-5.0) g/dL Arterial Blood Potassium (3.4-4.5) mmol/L Arterial Blood Glucose (75-99) mg/dL Crossmatch 03/20/20 03/20/20 03/20/20 Range/Units 04:05 05:59 06:54 WBC (3.8-10.6) k/uL RBC (4.30-5.90) m/uL Hgb (13.0-17.5) gm/dL Hct (39.0-53.0) % Plt Count (150-450) k/uL Neutrophils # (1.3-7.7) k/uL Lymphocytes # (1.0-4.8) k/uL Monocytes # (0-1.0) k/uL APTT (22.0-30.0) sec ABG pH (7.35-7.45) ABG pCO2 (35-45) mmHg ABG pO2 (83-108) mmHg ABG HCO3 (21-25) mmol/L ABG Total CO2 (19-24) mmol/L ABG O2 Saturation (94-97) % ABG Hematocrit (34.0-46.0) % ABG Potassium (3.4-4.5) mmol/L ABG Ionized Calcium (4.5-5.3) mg/dL ABG Glucose (75-99) mg/dL ABG Lactic Acid (0.5-1.6) mmol/L Hemoglobin (13.0-17.5) gm/dL Sodium 135 L (137-145) mmol/L Chloride (98-107) mmol/L BUN 38 H (9-20) mg/dL Creatinine (0.66-1.25) mg/dL Glucose 127 H (74-99) mg/dL POC Glucose (mg/dL) 102 H 101 H (75-99) mg/dL Calcium (8.4-10.2) mg/dL Magnesium (1.6-2.3) mg/dL Total Protein 5.7 L (6.3-8.2) g/dL Albumin 3.4 L (3.5-5.0) g/dL Arterial Blood Potassium (3.4-4.5) mmol/L Arterial Blood Glucose (75-99) mg/dL Crossmatch 03/20/20 03/20/20 03/20/20 Range/Units 08:07 09:37 10:29 WBC (3.8-10.6) k/uL RBC (4.30-5.90) m/uL Hgb (13.0-17.5) gm/dL Hct (39.0-53.0) % Plt Count (150-450) k/uL Neutrophils # (1.3-7.7) k/uL Lymphocytes # (1.0-4.8) k/uL Monocytes # (0-1.0) k/uL APTT (22.0-30.0) sec ABG pH (7.35-7.45) ABG pCO2 (35-45) mmHg ABG pO2 (83-108) mmHg ABG HCO3 (21-25) mmol/L ABG Total CO2 (19-24) mmol/L ABG O2 Saturation (94-97) % ABG Hematocrit (34.0-46.0) % ABG Potassium (3.4-4.5) mmol/L ABG Ionized Calcium (4.5-5.3) mg/dL ABG Glucose (75-99) mg/dL ABG Lactic Acid (0.5-1.6) mmol/L Hemoglobin (13.0-17.5) gm/dL Sodium (137-145) mmol/L Chloride (98-107) mmol/L BUN (9-20) mg/dL Creatinine (0.66-1.25) mg/dL Glucose (74-99) mg/dL POC Glucose (mg/dL) 119 H 159 H 138 H (75-99) mg/dL Calcium (8.4-10.2) mg/dL Magnesium (1.6-2.3) mg/dL Total Protein (6.3-8.2) g/dL Albumin (3.5-5.0) g/dL Arterial Blood Potassium (3.4-4.5) mmol/L Arterial Blood Glucose (75-99) mg/dL Crossmatch 03/20/20 Range/Units 11:58 WBC (3.8-10.6) k/uL RBC (4.30-5.90) m/uL Hgb (13.0-17.5) gm/dL Hct (39.0-53.0) % Plt Count (150-450) k/uL Neutrophils # (1.3-7.7) k/uL Lymphocytes # (1.0-4.8) k/uL Monocytes # (0-1.0) k/uL APTT (22.0-30.0) sec ABG pH (7.35-7.45) ABG pCO2 (35-45) mmHg ABG pO2 (83-108) mmHg ABG HCO3 (21-25) mmol/L ABG Total CO2 (19-24) mmol/L ABG O2 Saturation (94-97) % ABG Hematocrit (34.0-46.0) % ABG Potassium (3.4-4.5) mmol/L ABG Ionized Calcium (4.5-5.3) mg/dL ABG Glucose (75-99) mg/dL ABG Lactic Acid (0.5-1.6) mmol/L Hemoglobin (13.0-17.5) gm/dL Sodium (137-145) mmol/L Chloride (98-107) mmol/L BUN (9-20) mg/dL Creatinine (0.66-1.25) mg/dL Glucose (74-99) mg/dL POC Glucose (mg/dL) 137 H (75-99) mg/dL Calcium (8.4-10.2) mg/dL Magnesium (1.6-2.3) mg/dL Total Protein (6.3-8.2) g/dL Albumin (3.5-5.0) g/dL Arterial Blood Potassium (3.4-4.5) mmol/L Arterial Blood Glucose (75-99) mg/dL Crossmatch Assessment and Plan Assessment: Severe aortic valve stenosis, bicuspid aortic valve, status post aortic valve replacement exclusion of the left atrial appendage, intraoperative transesophageal echocardiogram, postoperative day #1 Uneventful postoperative course. Benign essential hypertension. Type 2 diabetes. Minimal postoperative atelectasis as noted on chest x-ray, expected. History of macular degeneration. Paroxysmal atrial fibrillation. Diabetic foot ulcer on his right foot/third toe. History of osteomyelitis. Dyslipidemia. Recommendation: Continue aspirin and statin, hold on beta blockers. Patient has first-degree AV block. Wean oxygen as tolerated. Discontinue unnecessary catheters and lines. Increase activity as tolerated. Monitor and address sugars accordingly. Pain control management. Incentive spirometry. Consider transferring the patient to a monitored bed on selective Will follow. Time with Patient: Less than 30
[2020-03-20 14:39] LABS: Glucose,Whole Blood 123 mg/dL (75-99)
[2020-03-20] MEDS: CLEVIDIPINE BUTYRATE 25 MG in EMPTY BAG 1 BAG IV SCH (14:46)
[2020-03-20 15:52] LABS: Glucose,Whole Blood 111 mg/dL (75-99)
[2020-03-20 17:28] LABS: Glucose,Whole Blood 140 mg/dL (75-99)
--- NOTE | 2020-03-20 18:10 | PN ---
PROGRESS NOTE DATE OF SERVICE: 03/20/2020 CHIEF COMPLAINT: Status post thoracotomy and aortic valve replacement. HISTORY OF PRESENT ILLNESS: This gentleman is doing fairly well. He is awake and alert. He has had no focal neurologic deficits, difficulty or change in the vision, chest pain, shortness of breath, etc. PHYSICAL EXAMINATION: Vital signs are normal. Chest is clear bilaterally. Cardiac exam demonstrates what sounds like atrial fibrillation. Abdomen is soft. Extremities are normal. IMPRESSION: 1. Status post aortic valve replacement. 2. Diabetes. PLAN: No change in program from my perspective. Will follow him while he is in the hospital for any medical problems and his diabetes. MMODL / IJN: [id number] /
[2020-03-20] MEDS: CLOPIDOGREL 75 MG TAB PO SCH (18:19)
[2020-03-20 18:28] LABS: Glucose,Whole Blood 148 mg/dL (75-99)
--- NOTE | 2020-03-20 20:01 | CONS ---
CONSULTATION CHIEF COMPLAINT: Aortic valve disease. HISTORY OF PRESENT ILLNESS: This is the first known admission for this 69-year-old white male who has had a longstanding history of aortic stenosis, atrial fibrillation and diabetes. He is in for an elective aortic valve replacement. REVIEW OF SYSTEMS: He has had no recent syncope, neurologic problems, chest pain, shortness of breath, orthopnea, PND, abdominal pain, nausea, vomiting, melena, hematochezia, colitis, diverticulosis, diverticulitis, renal failure, nocturia, incontinence, hematuria, frequency, urgency, etc. Past medical history, family history, and personal and social histories are significant in that he has a history of hypertension, hyperlipidemia, atrial fibrillation, diabetic retinopathy, macular degeneration, aortic valve disease, congestive heart failure, CKD. ALLERGIES: He is allergic to SODIUM PENTOTHAL and GLUCOPHAGE. PAST SURGICAL HISTORY: Previous surgeries have included gastroplasty and a knee procedure. SOCIAL HISTORY: He drinks occasionally but does not smoke. PHYSICAL EXAMINATION: Blood pressure was 123/74 with a pulse of 88 and irregularly irregular. Respirations were 20. He was afebrile. In general he appeared to be well developed, well nourished, in no acute distress. Skin color was normal. Skin was warm and dry. Lymph nodes were not enlarged. Head, ears, eyes, nose, mouth and throat were normal. Neck veins were not distended. Thyroid was not enlarged. Chest was clear. Cardiac exam demonstrated an aortic stenosis murmur. It is difficult to tell if there is aortic insufficiency. He was in atrial fibrillation. Abdomen was soft and nontender without any masses or visceromegaly. Extremities were normal. Neurologically he is intact. He is admitted to the hospital with the diagnoses: 1. Aortic stenosis. 2. Atrial fibrillation. 3. History of hypertension. 4. Type 2 [id number] diabetes mellitus. RECOMMENDATIONS: None at this time. He presents an excellent risk for his procedure. MMODL / IJN: [id number] /
[2020-03-20 20:08] LABS: Glucose,Whole Blood 107 mg/dL (75-99)
[2020-03-20] MEDS: SENNOSIDES-DOCUSATE SODIUM 1 EACH TAB PO SCH (20:53)
[2020-03-20 22:13] LABS: Glucose,Whole Blood 121 mg/dL (75-99)
[2020-03-20 23:54] LABS: Glucose,Whole Blood 116 mg/dL (75-99)
[2020-03-21 02:05] LABS: Glucose,Whole Blood 128 mg/dL (75-99)
[2020-03-21 04:04] LABS: Glucose,Whole Blood 118 mg/dL (75-99)
[2020-03-21 04:18] LABS: Basophils % (A) 0 %; Eosinophils % (A) 0 %; HCT 23.8 % (39.0-53.0); HGB 7.8 gm/dL (13.0-17.5); Lymphocytes # (A) 1.9 k/uL (1.0-4.8); Lymphocytes % (A) 19 %; MCH 31.4 pg (25.0-35.0); MCV 95.2 fL (80.0-100.0); Mean Platelet Volume 9.6; Monocytes # (A) 0.9 k/uL (0-1.0); Monocytes % (A) 9 %; Neutrophils % (A) 70 %; Platelet Count 104 k/uL (150-450); RDW 12.8 % (11.5-15.5)
[2020-03-21 04:24] LABS: Ionized Calcium 4.9 mg/dL (4.5-5.3)
[2020-03-21 04:43] LABS: ALT 12 U/L (4-49); AST 37 U/L (17-59); African American GFR (CKD) >90 (>60 ml/min/1.73 sqM); Albumin 2.9 g/dL (3.5-5.0); Alkaline Phosphatase 50 U/L (38-126); Anion Gap 4 mmol/L; Blood Urea Nitrogen 36 mg/dL (9-20); Calcium 8.1 mg/dL (8.4-10.2); Carbon Dioxide 23 mmol/L (22-30); Chloride 108 mmol/L (98-107); Glucose 103 mg/dL (74-99); Non-African American GFR(CKD) >90 (>60 ml/min/1.73 sqM); Potassium 4.1 mmol/L (3.5-5.1); Sodium 135 mmol/L (137-145); Total Bilirubin 0.6 mg/dL (0.2-1.3); Total Protein 5.1 g/dL (6.3-8.2)
[2020-03-21] MEDS: PANTOPRAZOLE 40 MG TABLET PO SCH (06:25)
[2020-03-21] MEDS: KETOROLAC 15 MG/ML 1 ML VIAL IVP SCH ×3 (06:25→17:26)
[2020-03-21 06:32] LABS: Glucose,Whole Blood 129 mg/dL (75-99)
--- NOTE | 2020-03-21 08:06 | XR ---
EXAMINATION TYPE: XR chest 1V portable DATE OF EXAM: 03/21/2020 Comparison: 03/20/2020 Clinical History: 69-year-old male Post Operative Cardiac Surgery Findings: Median sternotomy wires with prosthetic aortic valve. Heart mildly enlarged. Right IJ sheath with int erval removal of the [place]-Isauro catheter. Continued small left effusion with dense retrocardiac and le ft basilar opacity. Impression: Some increase in the dense retrocardiac and left basilar opacity, possible small effusion with adjace nt atelectasis and/or consolidation in
[2020-03-21] MEDS: IPRATROPIUM-ALBUTEROL 3 ML NEB INHALATION SCH ×4 (08:16→19:36)
[2020-03-21] MEDS: HEPARIN SODIUM,PORCINE 5,000 UNIT/ML 1 ML VIAL SQ SCH ×2 (09:57→17:26)
[2020-03-21] MEDS: ATORVASTATIN 40 MG TAB PO SCH (09:57)
[2020-03-21] MEDS: CLOPIDOGREL 75 MG TAB PO SCH (09:57)
[2020-03-21] MEDS: ASPIRIN 325 MG TAB PO SCH (09:57)
[2020-03-21] MEDS: METOPROLOL SUCCINATE (ER) 25 MG TAB.ER.24H PO SCH (10:10)
[2020-03-21 10:33] LABS: Glucose,Whole Blood 174 mg/dL (75-99)
--- NOTE | 2020-03-21 12:51 | P.PN ---
Subjective Progress Note Date: 03/21/20 Principal diagnosis: Severe bicuspid aortic valve stenosis, status post aortic valve replacement postoperative day #2 69-year-old male patient of Dr. Dominguez with no history of aortic valve stenosis, hypertension, hyperlipidemia, diabetes but this type II, paroxysmal atrial fibrillation on Eliquis, macular degeneration, who recently developed symptoms of chest tightness, and increasing shortness of breath. Cardiac workup included to heart catheterization showing normal coronary arteries and his severe aortic valve stenosis. Transesophageal echocardiogram shows severe aort ic valve stenosis with a valve area of 0.8 cm involving a heavily calcified bicuspid aortic valve, mild mitral valve regurgitation, mild tricuspid valve regurgitation and normal left ventricular size and systolic function. Today on 03/19/2020 patient underwent aortic valve replacement with exclusion of left atrial appendage and intraoperative transesophageal echocardiogram by Dr. Nash. Patient seen in the postoperative period in the intensive care unit, he is sedated, intubated on mechanical ventilator, current ventilator settings of SIMV with a rate of 12, tidal is 500, FiO2 100%, and PEEP of 5, postoperative blood gases showed pO2 of 306, pCO2 49, pH of 7.34, this was on 100% FiO2, which has since been dropped to 50%, and IMV rate was increased to 14 breaths per minute. He was dynamically patient is very stable, no vasopressors, he is on lactated Ringer's a rate of 50 ML per hour, Diprivan is at 20 mics per kilo per minute, no other drips. He is AV paced at a rate of 80 BPM, and apparently intrinsic rhythm is extremely bradycardic, and patient is pacemaker dependent at this time. PA pressures 30/17, CVP is 3, cardiac output 6.5, cardiac index is 3.0. Patient received 3 L and crystalloids Intra-Op, received 500 mL in the Cell Saver, 2 mediastinal chest tubes were connected together with 90 mL of saline when his output in the Pleur-evac, no evidence of air leak. Midsternal incision, chest tube sites are clean dry and intact, covered with surgical dressings. Postoperative chest x-ray was reviewed showing satisfactory postoperative chest x-ray, ET tube, NG tube right jugular central venous catheter in appropriate positions, distal tip of the PA catheter overlying the pulmonary artery. Patient was reevaluated today on 03/20/20, patient is postoperative day #1, status post aortic valve replacement for severe bicuspid aortic valve stenosis. Patient was extubated yesterday at 17:30. Tolerated the extubation well, and overall the patient is doing great. Denies any pain denies any shortness of breath, doing extremely well with incentive spirometry. He is hemodynamically stable, not requiring any pressors or any inotropes. His IV fluid is at 50 mL/h, and his insulin at as 0.5 units per hour. His incentive spirometry is great achieve over 2500 mL. Reevaluated today on 03/21/20, patient is now postoperative day #2. Status post aortic valve replacement for severe bicuspid aortic valve. Patient is doing extremely well, he is presently on room air. Chest x-ray showed minimal postoperative atelectasis, expected. Patient is on insulin drip at 1 unit per hour. Doing extremely well with incentive spirometry pulling almost 2500. Labs were basically unremarkable except for hemoglobin of 7.8. He had normal electrolytes and basic metabolic profile is normal CBC Objective - Vital Signs Vital signs: Vital Signs Temp 98.0 F 03/21/20 08:00 Pulse 81 03/21/20 11:40 Resp 15 03/21/20 11:00 BP 116/67 03/21/20 05:00 Pulse Ox 97 03/21/20 11:00 Intake & Output 03/20/20 03/21/20 03/21/20 18:59 06:59 18:59 Intake Total 920.673 647.389 799.057 Output Total 425 505 0 Balance 495.673 142.389 799.057 Weight 102.2 kg 103.4 kg Intake: IV 905 641 195 0.9 CO/CI 30 0.9 Flush 75 81 45 Albumin 250 Sodium Chloride 0.9% 1, 550 560 150 000 ml @ 20 mls/hr IV . Q24H NIKKI Rx#:[id number] Intake, IV Titration 15.673 6.389 4.057 Amount Insulin Regular 100 unit 15.673 6.389 4.057 In Sodium Chloride 0.9% 100 ml @ Per Protocol IV .Q0M NIKKI Rx#:[id number] Oral 600 Output: Chest Tube Drainage 90 80 Bilateral Mediastinal 90 80 Urine 335 425 0 Other: Voiding Method Indwelling Catheter Indwelling Catheter ABP, PAP, CO, CI - Last Documented Arterial Blood Pressure 126/56 Pulmonary Artery Pressure 20/8 Cardiac Output 7.5 Cardiac Index 3.4 - Exam Physical Exam: Revealed a 69-year-old white male extremely pleasant, in no distress. Sitting at a bedside chair. Having his chest tubes removed. Head: Atraumatic, normocephalic. HEENT:[Neck is supple.] [No neck masses.] [No thyromegaly.] [No JVD.] Chest: [Clear throughout, no crackles, no rhonchi, no wheezes.] Cardiac Exam: [Normal S1 and S2, Regular rate and rhythm, 2/6 systolic murmur thought the precordium Abdomen: [Soft, nontender, no megaly, no rebound, no guarding, normal bowel sounds.] Extremities: [No clubbing, no edema, no cyanosis.] Neurological Exam: [No focal neurologic deficit.] Alert oriented 3. Skin: No rashes. - Labs CBC & Chem 7: 03/21/20 04:05 03/21/20 04:05 Labs: Abnormal Lab Results - Last 24 Hours (Table) 03/20/20 03/20/20 03/20/20 Range/Units 14:37 15:49 17:24 RBC (4.30-5.90) m/uL Hgb (13.0-17.5) gm/dL Hct (39.0-53.0) % Plt Count (150-450) k/uL Sodium (137-145) mmol/L Chloride (98-107) mmol/L BUN (9-20) mg/dL Glucose (74-99) mg/dL POC Glucose (mg/dL) 123 H 111 H 140 H (75-99) mg/dL Calcium (8.4-10.2) mg/dL Total Protein (6.3-8.2) g/dL Albumin (3.5-5.0) g/dL 03/20/20 03/20/20 03/20/20 Range/Units 18:26 20:06 22:12 RBC (4.30-5.90) m/uL Hgb (13.0-17.5) gm/dL Hct (39.0-53.0) % Plt Count (150-450) k/uL Sodium (137-145) mmol/L Chloride (98-107) mmol/L BUN (9-20) mg/dL Glucose (74-99) mg/dL POC Glucose (mg/dL) 148 H 107 H 121 H (75-99) mg/dL Calcium (8.4-10.2) mg/dL Total Protein (6.3-8.2) g/dL Albumin (3.5-5.0) g/dL 03/20/20 03/21/20 03/21/20 Range/Units 23:51 02:03 04:01 RBC (4.30-5.90) m/uL Hgb (13.0-17.5) gm/dL Hct (39.0-53.0) % Plt Count (150-450) k/uL Sodium (137-145) mmol/L Chloride (98-107) mmol/L BUN (9-20) mg/dL Glucose (74-99) mg/dL POC Glucose (mg/dL) 116 H 128 H 118 H (75-99) mg/dL Calcium (8.4-10.2) mg/dL Total Protein (6.3-8.2) g/dL Albumin (3.5-5.0) g/dL 03/21/20 03/21/20 03/21/20 Range/Units 04:05 04:05 06:30 RBC 2.50 L (4.30-5.90) m/uL Hgb 7.8 L (13.0-17.5) gm/dL Hct 23.8 L (39.0-53.0) % Plt Count 104 L (150-450) k/uL Sodium 135 L (137-145) mmol/L Chloride 108 H (98-107) mmol/L BUN 36 H (9-20) mg/dL Glucose 103 H (74-99) mg/dL POC Glucose (mg/dL) 129 H (75-99) mg/dL Calcium 8.1 L (8.4-10.2) mg/dL Total Protein 5.1 L (6.3-8.2) g/dL Albumin 2.9 L (3.5-5.0) g/dL 03/21/20 Range/Units 10:31 RBC (4.30-5.90) m/uL Hgb (13.0-17.5) gm/dL Hct (39.0-53.0) % Plt Count (150-450) k/uL Sodium (137-145) mmol/L Chloride (98-107) mmol/L BUN (9-20) mg/dL Glucose (74-99) mg/dL POC Glucose (mg/dL) 174 H (75-99) mg/dL Calcium (8.4-10.2) mg/dL Total Protein (6.3-8.2) g/dL Albumin (3.5-5.0) g/dL Assessment and Plan Assessment: Severe aortic valve stenosis, bicuspid aortic valve, status post aortic valve replacement exclusion of the left atrial appendage, intraoperative transesophageal echocardiogram, postoperative day #2 Uneventful postoperative course. Benign essential hypertension. Type 2 diabetes. Minimal postoperative atelectasis as noted on chest x-ray, expected. History of macular degeneration. Paroxysmal atrial fibrillation. Diabetic foot ulcer on his right foot/third toe. History of osteomyelitis. Dyslipidemia. Recommendation: Continue aspirin and statin, and beta blockers.. Increase activity as tolerated. Patient is already ambulating in the hallway with assistance. Monitor and address sugars accordingly. Pain control management. Incentive spirometry. Will follow. Time with Patient: Less than 30
[2020-03-21 13:05] LABS: Glucose,Whole Blood 146 mg/dL (75-99)
[2020-03-21] MEDS: INSULIN ASPART (NovoLOG) 100 UNIT/ML VIAL SQ SCH ×3 (13:10→21:42)
--- NOTE | 2020-03-21 13:29 | P.PN ---
Subjective Progress Note Date: 03/21/20 Principal diagnosis: Severe bicuspid aortic valve stenosis. Previous medical history of hypertension, hyperlipidemia, chronic atrial fibrillation on Eliquis for anticoagulation status post cardioversion in January 2019, recent osteomyelitis in the right third toe, diet controlled diabetes mellitus with preoperative hemoglobin A1c 6.5%, remote history of pneumonia, gastroplasty in the past. POD# 2 aortic valve replacement using a 23 mm Inspiris pericardial bioprosthesis, exclusion of the left atrial appendage using a 15 mm after clip, intraoperative transesophageal echocardiogram and epi-aortic scanning Postoperative acute blood loss anemia and thrombocytopenia, expected outcome given hemodilution and cardiopulmonary bypass pump Postoperative leukocytosis, likely reactive The patient is currently sitting up in a recliner in no acute distress. Denies any pain or shortness of breath. No significant events overnight. Right internal jugular Cordis, right radial arterial line, mediastinal chest tubes present. Currently in sinus rhythm with long first degree, hemodynamically stable on no inotropes or pressors. Ambulated in the hallway multiple yesterday minimal assistance. No new concerns. Objective - Vital Signs Vital signs: Vital Signs Temp 98.8 F 03/21/20 04:00 Pulse 80 03/21/20 08:27 Resp 14 03/21/20 07:00 BP 116/67 03/21/20 05:00 Pulse Ox 93 L 03/21/20 07:00 Intake & Output 03/20/20 03/21/20 03/21/20 18:59 06:59 18:59 Intake Total 920.673 647.389 39 Output Total 425 505 0 Balance 495.673 142.389 39 Weight 102.2 kg 103.4 kg Intake: IV 905 641 39 0.9 CO/CI 30 0.9 Flush 75 81 9 Albumin 250 Sodium Chloride 0.9% 1, 550 560 30 000 ml @ 20 mls/hr IV . Q24H NIKKI Rx#:[id number] Intake, IV Titration 15.673 6.389 Amount Insulin Regular 100 unit 15.673 6.389 In Sodium Chloride 0.9% 100 ml @ Per Protocol IV .Q0M NIKKI Rx#:[id number] Output: Chest Tube Drainage 90 80 Bilateral Mediastinal 90 80 Urine 335 425 0 Other: Voiding Method Indwelling Catheter Indwelling Catheter ABP, PAP, CO, CI - Last Documented Arterial Blood Pressure 121/53 Pulmonary Artery Pressure 20/8 Cardiac Output 7.5 Cardiac Index 3.4 - Constitutional General appearance: Present: cooperative, no acute distress - Respiratory Details: Lungs sounds clear bilaterally. Respirations even, nonlabored. Currently on room air with oxygen saturation 97%. Able to achieve 2000 mL on his incentive spirometry. Strong cough. - Cardiovascular Details: S1, S2 present. Regular rate and rhythm, sinus rhythm with first-degree AV block on telemetry with heart rate in the 80s. Sternum stable. A/V epicardial pacemaker wires present, connected to generator, VVI mode backup rate 50 bpm. Right internal jugular Cordis, right radial arterial line present. Mediastinal chest tube present and connected to continuous wall suction, 70 mL serosanguineous drainage overnight, 110 mL in the last 24 hours, no air leak present. - Gastrointestinal Gastrointestinal Comment(s): Abdomen soft, nontender, nondistended. Active bowel sounds present 4 quadrants. Tolerating diet. Positive flatus. - Genitourinary Genitourinary Comment(s): Brewer discontinued this morning. Output 25-45 mL per hour overnight. Due to void - Integumentary Integumentary Comment(s): Anterior chest incision well approximated and covered with dry intact dressing. - Neurologic Neurologic: Present: CNII-XII intact - Musculoskeletal Musculoskeletal: Present: gait normal, strength equal bilaterally - Psychiatric Psychiatric: Present: A&O x's 3, appropriate affect, intact judgment & insight - Allied health notes Allied health notes reviewed: nursing - Labs CBC & Chem 7: 03/21/20 04:05 03/21/20 04:05 Labs: Abnormal Lab Results - Last 24 Hours (Table) 03/20/20 03/20/20 03/20/20 Range/Units 09:37 10:29 11:58 RBC (4.30-5.90) m/uL Hgb (13.0-17.5) gm/dL Hct (39.0-53.0) % Plt Count (150-450) k/uL Sodium (137-145) mmol/L Chloride (98-107) mmol/L BUN (9-20) mg/dL Glucose (74-99) mg/dL POC Glucose (mg/dL) 159 H 138 H 137 H (75-99) mg/dL Calcium (8.4-10.2) mg/dL Total Protein (6.3-8.2) g/dL Albumin (3.5-5.0) g/dL 03/20/20 03/20/20 03/20/20 Range/Units 14:37 15:49 17:24 RBC (4.30-5.90) m/uL Hgb (13.0-17.5) gm/dL Hct (39.0-53.0) % Plt Count (150-450) k/uL Sodium (137-145) mmol/L Chloride (98-107) mmol/L BUN (9-20) mg/dL Glucose (74-99) mg/dL POC Glucose (mg/dL) 123 H 111 H 140 H (75-99) mg/dL Calcium (8.4-10.2) mg/dL Total Protein (6.3-8.2) g/dL Albumin (3.5-5.0) g/dL 03/20/20 03/20/20 03/20/20 Range/Units 18:26 20:06 22:12 RBC (4.30-5.90) m/uL Hgb (13.0-17.5) gm/dL Hct (39.0-53.0) % Plt Count (150-450) k/uL Sodium (137-145) mmol/L Chloride (98-107) mmol/L BUN (9-20) mg/dL Glucose (74-99) mg/dL POC Glucose (mg/dL) 148 H 107 H 121 H (75-99) mg/dL Calcium (8.4-10.2) mg/dL Total Protein (6.3-8.2) g/dL Albumin (3.5-5.0) g/dL 03/20/20 03/21/20 03/21/20 Range/Units 23:51 02:03 04:01 RBC (4.30-5.90) m/uL Hgb (13.0-17.5) gm/dL Hct (39.0-53.0) % Plt Count (150-450) k/uL Sodium (137-145) mmol/L Chloride (98-107) mmol/L BUN (9-20) mg/dL Glucose (74-99) mg/dL POC Glucose (mg/dL) 116 H 128 H 118 H (75-99) mg/dL Calcium (8.4-10.2) mg/dL Total Protein (6.3-8.2) g/dL Albumin (3.5-5.0) g/dL 03/21/20 03/21/20 03/21/20 Range/Units 04:05 04:05 06:30 RBC 2.50 L (4.30-5.90) m/uL Hgb 7.8 L (13.0-17.5) gm/dL Hct 23.8 L (39.0-53.0) % Plt Count 104 L (150-450) k/uL Sodium 135 L (137-145) mmol/L Chloride 108 H (98-107) mmol/L BUN 36 H (9-20) mg/dL Glucose 103 H (74-99) mg/dL POC Glucose (mg/dL) 129 H (75-99) mg/dL Calcium 8.1 L (8.4-10.2) mg/dL Total Protein 5.1 L (6.3-8.2) g/dL Albumin 2.9 L (3.5-5.0) g/dL - Imaging and Cardiology Chest x-ray: report reviewed, image reviewed Assessment and Plan Assessment: 1. Severe bicuspid aortic valve stenosis, status post bioprosthetic aortic valve replacement 2. History of hypertension 3. Hyperlipidemia 4. History of chronic atrial fibrillation on Eliquis for anticoagulation coagulation, status post cardioversion in January 2019, currently in sinus rhythm with first-degree AV block, status post ligation of the left atrial appendage 5. Recent osteomyelitis in the right third toe 6. Diet-controlled diabetes mellitus with preoperative hemoglobin A1c 6.5% 7. Remote history of pneumonia 8. Lifelong nonsmoker 9. Postoperative acute blood loss anemia 10. Postoperative leukocytosis, thrombocytopenia Plan: 1. Continue aspirin, statin. Beta amairani restarted. Patient did have first- degree AV block prior to surgery and was on Toprol-XL outpatient. 2. Encourage incentive spirometry is 10 times every hour while awake. Bronchodilators per pulmonology 3. Increase activity, ambulate as tolerated. PT/OT/cardiac rehab following 4. Will monitor daily labs and x-rays. Electrolyte replacement per protocol. No transfusion at this time 5. Discontinue Cordis, arterial line 6. GI/DVT prophylaxis 7. Discontinue chest tubes 8. Discontinue Brewer catheter. May bladder scan and straight cath for greater than 300 mL residual 9. Insulin management per primary care service. 10. Pain control with current medication regimen. 11. Will leave epicardial pacemaker wires connected to generator with backup rate due to first a initiation of Toprol XL 12. Likely will transfer to [address] [place] [address] cardiac [facility] tomorrow and plan for discharge home with home care on Tuesday 13. More recommendations to follow Time with Patient: Greater than 30
--- NOTE | 2020-03-21 14:15 | PN ---
PROGRESS NOTE Mr. Marinelli is status post aortic valve replacement with tissue valve for bicuspid aortic valve. He is doing well. He still has a first-degree AV block of nearly 250 milliseconds. I would recommend we hold beta amairani. Vitals are stable, no JVD. S1-S2 heard normally, short systolic murmur noted. Lungs reveal diminished air entry. Abdomen and lower examined the patient is actually doing well but has a first-degree AV block, which is not uncommon with after aortic valve surgery with a patient with a calcified bicuspid aortic valve. I will therefore recommend we hold beta blockers at least for another day. MMODL / IJN: [id number] /
[2020-03-21 16:54] LABS: Glucose,Whole Blood 148 mg/dL (75-99)
--- NOTE | 2020-03-21 18:37 | PN ---
PROGRESS NOTE DATE OF SERVICE: 03/21/2020 CHIEF COMPLAINT: Status post aortic valve replacement. HISTORY OF PRESENT ILLNESS: This gentleman is doing well. He has had no new problems. He has had no fever, chills, shortness of breath, etc. PHYSICAL EXAMINATION: His vital signs are normal. He is afebrile. Color is good. Breath sounds are heard well on both sides. Chest tube still in place. IMPRESSION: 1. Status post aortic valve replacement. 2. Type 2 diabetes. PLAN: Continue to follow with Cardiac Surgery. MMODL / IJN: [id number] /
[2020-03-21 20:29] LABS: Glucose,Whole Blood 139 mg/dL (75-99)
[2020-03-21] MEDS: SENNOSIDES-DOCUSATE SODIUM 1 EACH TAB PO SCH (21:43)
[2020-03-22] MEDS: KETOROLAC 15 MG/ML 1 ML VIAL IVP SCH ×4 (01:01→18:32)
[2020-03-22] MEDS: HEPARIN SODIUM,PORCINE 5,000 UNIT/ML 1 ML VIAL SQ SCH ×3 (01:01→18:32)
[2020-03-22 04:57] LABS: Basophils % (A) 0 %; Eosinophils # (A) 0.1 k/uL (0-0.7); Eosinophils % (A) 1 %; HCT 26.9 % (39.0-53.0); HGB 8.5 gm/dL (13.0-17.5); Lymphocytes # (A) 1.6 k/uL (1.0-4.8); Lymphocytes % (A) 14 %; MCH 30.5 pg (25.0-35.0); MCHC 31.7 g/dL (31.0-37.0); MCV 96.2 fL (80.0-100.0); Mean Platelet Volume 8.3; Monocytes % (A) 8 %; Neutrophils # (A) 8.5 k/uL (1.3-7.7); Neutrophils % (A) 74 %; Platelet Count 124 k/uL (150-450); RDW 12.5 % (11.5-15.5); WBC 11.4 k/uL (3.8-10.6)
[2020-03-22 05:23] LABS: ALT 11 U/L (4-49); AST 32 U/L (17-59); African American GFR (CKD) >90 (>60 ml/min/1.73 sqM); Albumin 3.1 g/dL (3.5-5.0); Alkaline Phosphatase 59 U/L (38-126); Anion Gap 5 mmol/L; Blood Urea Nitrogen 35 mg/dL (9-20); Calcium 8.4 mg/dL (8.4-10.2); Carbon Dioxide 24 mmol/L (22-30); Chloride 108 mmol/L (98-107); Glucose 127 mg/dL (74-99); Non-African American GFR(CKD) >90 (>60 ml/min/1.73 sqM); Potassium 4.5 mmol/L (3.5-5.1); Sodium 137 mmol/L (137-145); Total Bilirubin 0.6 mg/dL (0.2-1.3); Total Protein 5.5 g/dL (6.3-8.2)
[2020-03-22 06:50] LABS: Glucose,Whole Blood 154 mg/dL (75-99)
[2020-03-22] MEDS: INSULIN ASPART (NovoLOG) 100 UNIT/ML VIAL SQ SCH ×4 (07:45→22:17)
[2020-03-22] MEDS: IPRATROPIUM-ALBUTEROL 3 ML NEB INHALATION SCH ×4 (07:48→19:54)
--- NOTE | 2020-03-22 08:04 | P.PN ---
Subjective Progress Note Date: 03/22/20 Principal diagnosis: Severe bicuspid aortic valve stenosis. Previous medical history of hypertension, hyperlipidemia, chronic atrial fibrillation on Eliquis for anticoagulation status post cardioversion in January 2019, recent osteomyelitis in the right third toe, diet controlled diabetes mellitus with preoperative hemoglobin A1c 6.5%, remote history of pneumonia, gastroplasty in the past. POD# 3 aortic valve replacement using a 23 mm Inspiris pericardial bioprosthesis, exclusion of the left atrial appendage using a 15 mm after clip, intraoperative transesophageal echocardiogram and epi-aortic scanning Postoperative acute blood loss anemia and thrombocytopenia, expected outcome given hemodilution and cardiopulmonary bypass pump Postoperative leukocytosis, likely reactive The patient is currently sitting up in a recliner in no acute distress. Denies any pain or shortness of breath. No significant events overnight. Currently in sinus rhythm with first degree AVB, hemodynamically stable on no inotropes or pressors. He was reinitiated on his Toprol-XL yesterday which he tolerated well. Ambulated in the hallway multiple yesterday minimal assistance. No new concerns. Objective - Vital Signs Vital signs: Vital Signs Temp 98.2 F 03/22/20 04:00 Pulse 80 03/22/20 07:49 Resp 17 03/22/20 07:00 BP 115/61 03/22/20 07:00 Pulse Ox 91 L 03/22/20 05:00 Intake & Output 03/21/20 03/22/20 03/22/20 18:59 06:59 18:59 Intake Total 1879.057 240 Output Total 0 700 0 Balance 1879.057 -460 0 Intake: IV 195 0.9 Flush 45 Sodium Chloride 0.9% 1, 150 000 ml @ 20 mls/hr IV . Q24H NIKKI Rx#:[id number] Intake, IV Titration 4.057 Amount Insulin Regular 100 unit 4.057 In Sodium Chloride 0.9% 100 ml @ Per Protocol IV .Q0M NIKKI Rx#:[id number] Oral 1680 240 Output: Urine 0 700 0 Other: Voiding Method Toilet Toilet # Voids 1 0 # Bowel Movements 1 ABP, PAP, CO, CI - Last Documented Arterial Blood Pressure 126/56 Pulmonary Artery Pressure 20/8 Cardiac Output 7.5 Cardiac Index 3.4 - Constitutional General appearance: Present: cooperative, no acute distress - Respiratory Details: Lungs sounds clear bilaterally. Respirations even, nonlabored. Currently on room air with oxygen saturation 95%. Able to achieve 2500 mL on his incentive spirometry. Strong cough. - Cardiovascular Details: S1, S2 present. Regular rate and rhythm, sinus rhythm with first-degree AV block on telemetry with heart rate in the 80s. Sternum stable. A/V epicardial pacemaker wires present, grounded. Palpable peripheral pulses bilaterally. No edema present. No calf pain or tenderness noted. Heart hugger in place with patient demonstrating appropriate use. Antiembolism stockings, SCDs present. - Gastrointestinal Gastrointestinal Comment(s): Abdomen soft, nontender, nondistended. Active bowel sounds present 4 quadrants. Tolerating diet. Positive bowel movement - Genitourinary Genitourinary Comment(s): Brewer discontinued yesterday. Patient has voided - Integumentary Integumentary Comment(s): Anterior chest incision well approximated and covered with dry intact dressing. - Neurologic Neurologic: Present: CNII-XII intact - Musculoskeletal Musculoskeletal: Present: gait normal, strength equal bilaterally - Psychiatric Psychiatric: Present: A&O x's 3, appropriate affect, intact judgment & insight - Allied health notes Allied health notes reviewed: nursing - Labs CBC & Chem 7: 03/22/20 04:21 03/22/20 04:21 Labs: Abnormal Lab Results - Last 24 Hours (Table) 03/21/20 03/21/20 03/21/20 Range/Units 10:31 13:03 16:52 WBC (3.8-10.6) k/uL RBC (4.30-5.90) m/uL Hgb (13.0-17.5) gm/dL Hct (39.0-53.0) % Plt Count (150-450) k/uL Neutrophils # (1.3-7.7) k/uL Chloride (98-107) mmol/L BUN (9-20) mg/dL Glucose (74-99) mg/dL POC Glucose (mg/dL) 174 H 146 H 148 H (75-99) mg/dL Total Protein (6.3-8.2) g/dL Albumin (3.5-5.0) g/dL 03/21/20 03/22/20 03/22/20 Range/Units 20:27 04:21 04:21 WBC 11.4 H (3.8-10.6) k/uL RBC 2.80 L (4.30-5.90) m/uL Hgb 8.5 L (13.0-17.5) gm/dL Hct 26.9 L (39.0-53.0) % Plt Count 124 L (150-450) k/uL Neutrophils # 8.5 H (1.3-7.7) k/uL Chloride 108 H (98-107) mmol/L BUN 35 H (9-20) mg/dL Glucose 127 H (74-99) mg/dL POC Glucose (mg/dL) 139 H (75-99) mg/dL Total Protein 5.5 L (6.3-8.2) g/dL Albumin 3.1 L (3.5-5.0) g/dL 03/22/20 Range/Units 06:47 WBC (3.8-10.6) k/uL RBC (4.30-5.90) m/uL Hgb (13.0-17.5) gm/dL Hct (39.0-53.0) % Plt Count (150-450) k/uL Neutrophils # (1.3-7.7) k/uL Chloride (98-107) mmol/L BUN (9-20) mg/dL Glucose (74-99) mg/dL POC Glucose (mg/dL) 154 H (75-99) mg/dL Total Protein (6.3-8.2) g/dL Albumin (3.5-5.0) g/dL - Imaging and Cardiology Chest x-ray: image reviewed Assessment and Plan Assessment: 1. Severe bicuspid aortic valve stenosis, status post bioprosthetic aortic valve replacement 2. History of hypertension 3. Hyperlipidemia 4. History of chronic atrial fibrillation on Eliquis for anticoagulation coagulation, status post cardioversion in January 2019, currently in sinus rhythm with first-degree AV block, status post ligation of the left atrial appendage 5. Recent osteomyelitis in the right third toe 6. Diet-controlled diabetes mellitus with preoperative hemoglobin A1c 6.5% 7. Remote history of pneumonia 8. Lifelong nonsmoker 9. Postoperative acute blood loss anemia 10. Postoperative leukocytosis, thrombocytopenia Plan: 1. Continue aspirin, statin, beta amairani therapy. Patient did have first- degree AV block prior to surgery and was on Toprol-XL outpatient. 2. Encourage incentive spirometry is 10 times every hour while awake. Bronchodilators per pulmonology 3. Increase activity, ambulate as tolerated. PT/OT/cardiac rehab following 4. Will monitor daily labs and x-rays. Electrolyte replacement per protocol. No transfusion at this time 5. Will discontinue epicardial pacemaker wires. Patient to be on bedrest for 1 hour post-removal 6. GI/DVT prophylaxis 7. Insulin management per primary care service. 8. Pain control with current medication regimen. 9. Will place transfer orders to [address] [place] [address] cardiac stepdown, may transfer when bed available 10. Anticipate discharge to home with home care tomorrow 11. More recommendations to follow Time with Patient: Greater than 30
--- NOTE | 2020-03-22 08:21 | XR ---
EXAMINATION TYPE: XR chest 1V portable DATE OF EXAM: 03/22/2020 Comparison: 03/21/2020 Clinical History: 69-year-old male post cardiac surgery Findings: Median sternotomy wires are present with prosthetic aortic valve. Heart remains upper limits of darryl l in size. Improved appearance to the interstitium. Continued focal left basilar opacity. Impression: Continued small left pleural effusion with adjacent atelectasis and or consolidation. Improved appear ance to the interstitium.
[2020-03-22] MEDS: PANTOPRAZOLE 40 MG TABLET PO SCH (08:45)
[2020-03-22] MEDS: ATORVASTATIN 40 MG TAB PO SCH (08:45)
[2020-03-22] MEDS: CLOPIDOGREL 75 MG TAB PO SCH (08:45)
[2020-03-22] MEDS: ASPIRIN 325 MG TAB PO SCH (08:45)
[2020-03-22] MEDS: METOPROLOL SUCCINATE (ER) 25 MG TAB.ER.24H PO SCH (08:45)
--- NOTE | 2020-03-22 11:33 | P.PN ---
Subjective Progress Note Date: 03/22/20 Principal diagnosis: Severe bicuspid aortic valve stenosis, status post aortic valve replacement postoperative day #3 69-year-old male patient of Dr. Dominguez with no history of aortic valve stenosis, hypertension, hyperlipidemia, diabetes but this type II, paroxysmal atrial fibrillation on Eliquis, macular degeneration, who recently developed symptoms of chest tightness, and increasing shortness of breath. Cardiac workup included to heart catheterization showing normal coronary arteries and his severe aortic valve stenosis. Transesophageal echocardiogram shows severe aort ic valve stenosis with a valve area of 0.8 cm involving a heavily calcified bicuspid aortic valve, mild mitral valve regurgitation, mild tricuspid valve regurgitation and normal left ventricular size and systolic function. Today on 03/19/2020 patient underwent aortic valve replacement with exclusion of left atrial appendage and intraoperative transesophageal echocardiogram by Dr. Nash. Patient seen in the postoperative period in the intensive care unit, he is sedated, intubated on mechanical ventilator, current ventilator settings of SIMV with a rate of 12, tidal is 500, FiO2 100%, and PEEP of 5, postoperative blood gases showed pO2 of 306, pCO2 49, pH of 7.34, this was on 100% FiO2, which has since been dropped to 50%, and IMV rate was increased to 14 breaths per minute. He was dynamically patient is very stable, no vasopressors, he is on lactated Ringer's a rate of 50 ML per hour, Diprivan is at 20 mics per kilo per minute, no other drips. He is AV paced at a rate of 80 BPM, and apparently intrinsic rhythm is extremely bradycardic, and patient is pacemaker dependent at this time. PA pressures 30/17, CVP is 3, cardiac output 6.5, cardiac index is 3.0. Patient received 3 L and crystalloids Intra-Op, received 500 mL in the Cell Saver, 2 mediastinal chest tubes were connected together with 90 mL of saline when his output in the Pleur-evac, no evidence of air leak. Midsternal incision, chest tube sites are clean dry and intact, covered with surgical dressings. Postoperative chest x-ray was reviewed showing satisfactory postoperative chest x-ray, ET tube, NG tube right jugular central venous catheter in appropriate positions, distal tip of the PA catheter overlying the pulmonary artery. Patient was reevaluated today on 03/20/20, patient is postoperative day #1, status post aortic valve replacement for severe bicuspid aortic valve stenosis. Patient was extubated yesterday at 17:30. Tolerated the extubation well, and overall the patient is doing great. Denies any pain denies any shortness of breath, doing extremely well with incentive spirometry. He is hemodynamically stable, not requiring any pressors or any inotropes. His IV fluid is at 50 mL/h, and his insulin at as 0.5 units per hour. His incentive spirometry is great achieve over 2500 mL. Reevaluated today on 03/21/20, patient is now postoperative day #2. Status post aortic valve replacement for severe bicuspid aortic valve. Patient is doing extremely well, he is presently on room air. Chest x-ray showed minimal postoperative atelectasis, expected. Patient is on insulin drip at 1 unit per hour. Doing extremely well with incentive spirometry pulling almost 2500. Labs were basically unremarkable except for hemoglobin of 7.8. He had normal electrolytes and basic metabolic profile is normal CBC Reevaluated today on 03/22/20, patient remains in the ICU, sitting in a recliner, in no distress, on room air. Hemodynamically stable, not requiring any pressors or any inotropes. Patient has been ambulating in the hallway, and overall he is doing great. Chest x-ray showed small left pleural effusion and atelectasis. Otherwise negative. CBC is relatively normal hemoglobin is low at 8.5. Lites are normal renal profile is normal Objective - Vital Signs Vital signs: Vital Signs Temp 98.2 F 03/22/20 04:00 Pulse 89 03/22/20 11:27 Resp 17 03/22/20 07:00 BP 115/61 03/22/20 07:00 Pulse Ox 91 L 03/22/20 05:00 Intake & Output 03/21/20 03/22/20 03/22/20 18:59 06:59 18:59 Intake Total 1879.057 240 Output Total 0 700 0 Balance 1879.057 -460 0 Intake: IV 195 0.9 Flush 45 Sodium Chloride 0.9% 1, 150 000 ml @ 20 mls/hr IV . Q24H NIKKI Rx#:[id number] Intake, IV Titration 4.057 Amount Insulin Regular 100 unit 4.057 In Sodium Chloride 0.9% 100 ml @ Per Protocol IV .Q0M NIKKI Rx#:[id number] Oral 1680 240 Output: Urine 0 700 0 Other: Voiding Method Toilet Toilet # Voids 1 0 # Bowel Movements 1 ABP, PAP, CO, CI - Last Documented Arterial Blood Pressure 126/56 Pulmonary Artery Pressure 20/8 Cardiac Output 7.5 Cardiac Index 3.4 - Exam Physical Exam: Revealed a 69-year-old white male extremely pleasant, in no distress. Sitting in a recliner. On room air. Head: Atraumatic, normocephalic. HEENT:[Neck is supple.] [No neck masses.] [No thyromegaly.] [No JVD.] Chest: [Clear throughout, no crackles, no rhonchi, no wheezes.] Cardiac Exam: [Normal S1 and S2, Regular rate and rhythm, 2/6 systolic murmur th ought the precordium Abdomen: [Soft, nontender, no megaly, no rebound, no guarding, normal bowel so unds.] Extremities: [No clubbing, no edema, no cyanosis.] Neurological Exam: [No focal neurologic deficit.] Alert oriented 3. Skin: No rashes. Musculoskeletal: No deformities noted limitation in range of motion. Psychiatric: Normal mood affect and normal mental status examination - Labs CBC & Chem 7: 03/22/20 04:21 03/22/20 04:21 Labs: Abnormal Lab Results - Last 24 Hours (Table) 03/21/20 03/21/20 03/21/20 Range/Units 13:03 16:52 20:27 WBC (3.8-10.6) k/uL RBC (4.30-5.90) m/uL Hgb (13.0-17.5) gm/dL Hct (39.0-53.0) % Plt Count (150-450) k/uL Neutrophils # (1.3-7.7) k/uL Chloride (98-107) mmol/L BUN (9-20) mg/dL Glucose (74-99) mg/dL POC Glucose (mg/dL) 146 H 148 H 139 H (75-99) mg/dL Total Protein (6.3-8.2) g/dL Albumin (3.5-5.0) g/dL 03/22/20 03/22/20 03/22/20 Range/Units 04:21 04:21 06:47 WBC 11.4 H (3.8-10.6) k/uL RBC 2.80 L (4.30-5.90) m/uL Hgb 8.5 L (13.0-17.5) gm/dL Hct 26.9 L (39.0-53.0) % Plt Count 124 L (150-450) k/uL Neutrophils # 8.5 H (1.3-7.7) k/uL Chloride 108 H (98-107) mmol/L BUN 35 H (9-20) mg/dL Glucose 127 H (74-99) mg/dL POC Glucose (mg/dL) 154 H (75-99) mg/dL Total Protein 5.5 L (6.3-8.2) g/dL Albumin 3.1 L (3.5-5.0) g/dL Assessment and Plan Assessment: Severe aortic valve stenosis, bicuspid aortic valve, status post aortic valve replacement exclusion of the left atrial appendage, intraoperative transesophageal echocardiogram, postoperative day #3 Uneventful postoperative course. Benign essential hypertension. Type 2 diabetes. Minimal postoperative atelectasis and small left pleural effusion as noted on chest x-ray, expected. History of macular degeneration. Paroxysmal atrial fibrillation. Diabetic foot ulcer on his right foot/third toe. History of osteomyelitis. Dyslipidemia. Recommendation: Continue aspirin and statin, and beta blockers.. Continue to ambulate. Discharge planning likely in the next 24 hours. Pain control management. Incentive spirometry. Will follow. Time with Patient: Less than 30
--- NOTE | 2020-03-22 11:37 | PN ---
PROGRESS NOTE Maged is a 69-year-old gentleman with history of aortic stenosis who underwent aortic valve replacement. Today is postoperative day #3. He is doing well. He had occlusion of the left atrial appendage. Remains in sinus rhythm. PHYSICAL EXAMINATION: On exam heart rate is 81 beats per minute, blood pressure is 113/60, respirations 18. Chest exam reveals good air entry bilaterally. Heart exam reveals first and second heart sounds. No gallop. No murmur. Abdomen is soft, nontender. Exam of extremities did not reveal any edema. Peripheral pulses are felt. LABORATORY DATA: Labs show a hemoglobin of 8.5, potassium is 4.5, creatinine is 0.8. ASSESSMENT: Aortic stenosis status post aortic valve replacement. PLAN: Patient is doing well. Hopefully home tomorrow. MMODL / IJN: [id number] /
[2020-03-22 11:54] LABS: Glucose,Whole Blood 136 mg/dL (75-99)
--- NOTE | 2020-03-22 14:04 | PN ---
PROGRESS NOTE DATE OF SERVICE: 03/22/2020 CHIEF COMPLAINT: Status post aortic valve replacement. HISTORY OF PRESENT ILLNESS: This gentleman is doing well. He does not. He does not have much of an appetite. He has had no fever, chills, etc. PHYSICAL EXAMINATION: Chest is clear. Cardiac exam is normal with no murmurs. Abdomen is soft and bowel sounds are present. Extremities are normal. IMPRESSION: 1. Status post aortic valve replacement. 2. Type 2 diabetes. 3. Anorexia. PLAN: Continue to follow with Cardiac surgery. He is expecting to go home tomorrow. I will order something to help with his insomnia. MMODL / IJN: [id number] /
[2020-03-22 16:32] LABS: Glucose,Whole Blood 125 mg/dL (75-99)
[2020-03-22 19:09] LABS: Basophils % (A) 0 %; Eosinophils % (A) 0 %; HGB 7.9 gm/dL (13.0-17.5); Lymphocytes # (A) 0.9 k/uL (1.0-4.8); Lymphocytes % (A) 8 %; MCH 31.5 pg (25.0-35.0); MCHC 32.9 g/dL (31.0-37.0); MCV 95.9 fL (80.0-100.0); Monocytes # (A) 0.6 k/uL (0-1.0); Monocytes % (A) 6 %; Neutrophils # (A) 8.4 k/uL (1.3-7.7); Neutrophils % (A) 84 %; Platelet Count 112 k/uL (150-450); RDW 12.6 % (11.5-15.5); WBC 10.1 k/uL (3.8-10.6)
--- NOTE | 2020-03-22 19:10 | XR ---
EXAMINATION TYPE: XR chest 1V portable DATE OF EXAM: 03/22/2020 COMPARISON: 03/22/2020 HISTORY: Hypoxemia TECHNIQUE: FINDINGS: Heart is enlarged. There is blunting left costophrenic angle. Right lung is clear. There is no gross heart failure. There are chest leads. There are sternal wires. IMPRESSION: There is pleural fluid with infiltrate left lower lobe that is slightly improved compared to exam this morning. No obvious heart failure. Stable cardiomegaly.
[2020-03-22 20:26] LABS: Glucose,Whole Blood 121 mg/dL (75-99)
[2020-03-22] MEDS ORDERED: ZOLPIDEM 5 MG TAB PO SCH (21:00)
[2020-03-22] MEDS: SENNOSIDES-DOCUSATE SODIUM 1 EACH TAB PO SCH (22:17)
[2020-03-23] MEDS: KETOROLAC 15 MG/ML 1 ML VIAL IVP SCH ×2 (00:04→08:29)
[2020-03-23] MEDS: HEPARIN SODIUM,PORCINE 5,000 UNIT/ML 1 ML VIAL SQ SCH (00:05)
[2020-03-23 04:48] LABS: HCT 24.8 % (39.0-53.0); HGB 8.2 gm/dL (13.0-17.5); MCH 31.7 pg (25.0-35.0); MCHC 32.9 g/dL (31.0-37.0); MCV 96.3 fL (80.0-100.0); Mean Platelet Volume 8.3; Platelet Count 134 k/uL (150-450); RBC 2.58 m/uL (4.30-5.90); RDW 12.5 % (11.5-15.5); WBC 9.4 k/uL (3.8-10.6)
[2020-03-23 04:59] LABS: African American GFR (CKD) >90 (>60 ml/min/1.73 sqM); Anion Gap 6 mmol/L; Blood Urea Nitrogen 35 mg/dL (9-20); Calcium 8.1 mg/dL (8.4-10.2); Carbon Dioxide 23 mmol/L (22-30); Chloride 106 mmol/L (98-107); Glucose 93 mg/dL (74-99); Non-African American GFR(CKD) 89 (>60 ml/min/1.73 sqM); Potassium 3.9 mmol/L (3.5-5.1); Sodium 135 mmol/L (137-145)
[2020-03-23 06:50] LABS: Glucose,Whole Blood 111 mg/dL (75-99)
[2020-03-23] MEDS ORDERED: FUROSEMIDE 10 MG/ML 2 ML VIAL IV ONE (07:07)
[2020-03-23] MEDS: INSULIN ASPART (NovoLOG) 100 UNIT/ML VIAL SQ SCH (07:07)
[2020-03-23] MEDS: IPRATROPIUM-ALBUTEROL 3 ML NEB INHALATION SCH ×3 (07:39→11:54)
--- NOTE | 2020-03-23 07:41 | P.PN ---
Subjective Progress Note Date: 03/23/20 Principal diagnosis: Severe bicuspid aortic valve stenosis. Previous medical history of hypertension, hyperlipidemia, chronic atrial fibrillation on Eliquis for anticoagulation status post cardioversion in January 2019, recent osteomyelitis in the right third toe, diet controlled diabetes mellitus with preoperative hemoglobin A1c 6.5%, remote history of pneumonia, gastroplasty in the past. POD# 4 aortic valve replacement using a 23 mm Inspiris pericardial bioprosthesis, exclusion of the left atrial appendage using a 15 mm after clip, intraoperative transesophageal echocardiogram and epi-aortic scanning Postoperative acute blood loss anemia and thrombocytopenia, expected outcome given hemodilution and cardiopulmonary bypass pump Postoperative leukocytosis, likely reactive, resolved The patient is currently sitting up in a recliner in no acute distress. Denies any pain or shortness of breath. No significant events overnight. Currently in sinus rhythm with first degree AVB, hemodynamically stable. Ambulated in the hallway multiple yesterday minimal assistance. Transfer orders replace yesterday for [facility] cardiac stepdown unit, no beds available. Patient is ready to go home today. No new concerns. Objective - Vital Signs Vital signs: Vital Signs Temp 98.9 F 03/23/20 04:00 Pulse 80 03/23/20 05:00 Resp 23 03/23/20 05:00 BP 109/61 03/23/20 05:00 Pulse Ox 93 L 03/23/20 05:00 Intake & Output 03/22/20 03/23/20 03/23/20 18:59 06:59 18:59 Intake Total 720 Output Total 0 450 Balance 720 -450 Weight 106.3 kg Intake: Oral 720 Output: Urine 0 450 Other: Voiding Method Toilet Toilet # Voids 1 0 0 # Bowel Movements 1 ABP, PAP, CO, CI - Last Documented Arterial Blood Pressure 126/56 Pulmonary Artery Pressure 20/8 Cardiac Output 7.5 Cardiac Index 3.4 - Constitutional General appearance: Present: cooperative, no acute distress - Respiratory Details: Lungs sounds clear bilaterally. Respirations even, nonlabored. Currently on room air with oxygen saturation 92%. Able to achieve 1750 mL on his incentive spirometry. Strong cough. - Cardiovascular Details: S1, S2 present. Regular rate and rhythm, sinus rhythm with first-degree AV block on telemetry with heart rate in the 80s. Sternum stable. Palpable peripheral pulses bilaterally. No edema present. No calf pain or tenderness noted. Heart hugger in place with patient demonstrating appropriate use. Antiembolism stockings, SCDs present. - Gastrointestinal Gastrointestinal Comment(s): Abdomen soft, nontender, nondistended. Active bowel sounds present 4 quadrants. Tolerating diet. Positive bowel movement - Genitourinary Genitourinary Comment(s): Patient continues to void - Integumentary Integumentary Comment(s): Anterior chest incision well approximated and covered with dry intact dressing. - Neurologic Neurologic: Present: CNII-XII intact - Musculoskeletal Musculoskeletal: Present: gait normal, strength equal bilaterally - Psychiatric Psychiatric: Present: A&O x's 3, appropriate affect, intact judgment & insight - Allied health notes Allied health notes reviewed: nursing - Labs CBC & Chem 7: 03/23/20 04:15 03/23/20 04:15 Labs: Abnormal Lab Results - Last 24 Hours (Table) 03/22/20 03/22/20 03/22/20 Range/Units 11:53 16:30 18:58 RBC 2.50 L (4.30-5.90) m/uL Hgb 7.9 L (13.0-17.5) gm/dL Hct 24.0 L (39.0-53.0) % Plt Count 112 L (150-450) k/uL Neutrophils # 8.4 H (1.3-7.7) k/uL Lymphocytes # 0.9 L (1.0-4.8) k/uL Sodium (137-145) mmol/L BUN (9-20) mg/dL POC Glucose (mg/dL) 136 H 125 H (75-99) mg/dL Calcium (8.4-10.2) mg/dL 03/22/20 03/23/20 03/23/20 Range/Units 20:24 04:15 04:15 RBC 2.58 L (4.30-5.90) m/uL Hgb 8.2 L (13.0-17.5) gm/dL Hct 24.8 L (39.0-53.0) % Plt Count 134 L (150-450) k/uL Neutrophils # (1.3-7.7) k/uL Lymphocytes # (1.0-4.8) k/uL Sodium 135 L (137-145) mmol/L BUN 35 H (9-20) mg/dL POC Glucose (mg/dL) 121 H (75-99) mg/dL Calcium 8.1 L (8.4-10.2) mg/dL 03/23/20 Range/Units 06:49 RBC (4.30-5.90) m/uL Hgb (13.0-17.5) gm/dL Hct (39.0-53.0) % Plt Count (150-450) k/uL Neutrophils # (1.3-7.7) k/uL Lymphocytes # (1.0-4.8) k/uL Sodium (137-145) mmol/L BUN (9-20) mg/dL POC Glucose (mg/dL) 111 H (75-99) mg/dL Calcium (8.4-10.2) mg/dL - Imaging and Cardiology Chest x-ray: image reviewed Assessment and Plan Assessment: 1. Severe bicuspid aortic valve stenosis, status post bioprosthetic aortic valve replacement 2. History of hypertension 3. Hyperlipidemia 4. History of chronic atrial fibrillation on Eliquis for anticoagulation coagulation, status post cardioversion in January 2019, currently in sinus rhythm with first-degree AV block, status post ligation of the left atrial appendage 5. Recent osteomyelitis in the right third toe 6. Diet-controlled diabetes mellitus with preoperative hemoglobin A1c 6.5% 7. Remote history of pneumonia 8. Lifelong nonsmoker 9. Postoperative acute blood loss anemia 10. Postoperative leukocytosis, thrombocytopenia Plan: 1. Continue aspirin, statin, beta amairani therapy. Patient did have first- degree AV block prior to surgery and was on Toprol-XL outpatient. 2. Encourage incentive spirometry is 10 times every hour while awake. Bronchodilators per pulmonology 3. Increase activity, ambulate as tolerated. PT/OT/cardiac rehab following 4. GI/DVT prophylaxis 5. Insulin management per primary care service. 5. Pain control with current medication regimen. 6. Anticipate discharge to home with home care today Time with Patient: Greater than 30
--- NOTE | 2020-03-23 08:17 | XR ---
EXAMINATION TYPE: XR chest 2V DATE OF EXAM: 03/23/2020 CLINICAL HISTORY: Postcardiac surgery TECHNIQUE: Frontal and lateral views of the chest are obtained. COMPARISON: 03/22/2020 chest radiograph FINDINGS: Sternotomy wires and left atrial appendage clip. Cardiomegaly. Pulmonary vasculature is no rmal. Small left pleural effusion with improved aeration of the adjacent lung bases. No pneumothorax. IMPRESSION: Small left pleural effusion with mildly improved aeration of the left lung base versus 03/22/2020.
[2020-03-23 08:28] VITALS: BP 107/62; PULSE 75; RESP 17; TEMP 99
[2020-03-23] MEDS: METOPROLOL SUCCINATE (ER) 25 MG TAB.ER.24H PO SCH (08:29)
[2020-03-23] MEDS: PANTOPRAZOLE 40 MG TABLET PO SCH (08:29)
[2020-03-23] MEDS: ATORVASTATIN 40 MG TAB PO SCH (08:29)
[2020-03-23] MEDS ORDERED: ASPIRIN 81 MG PO SCH (09:00)
[2020-03-23] MEDS ORDERED: APIXABAN 5 MG TAB PO SCH (09:00)
--- NOTE | 2020-03-23 10:20 | PN ---
PROGRESS NOTE Maged is a 69-year-old gentleman who was admitted to the hospital for aortic valve replacement. He has history of paroxysmal atrial fibrillation. He is doing well and is free of symptoms and ready to be discharged home. PHYSICAL EXAMINATION: On exam heart rate 75 beats per minute, blood pressure is 107/60, respiratory rate is 18. Chest exam reveals good air entry bilaterally. Heart exam reveals first and second heart sounds. No gallop. Exam of extremities did not reveal any edema. Peripheral pulses are felt. MEDICATIONS: Patient is currently on Eliquis 5 b.i.d., aspirin, Lipitor 40 daily, Zestril 2.5 mg daily. ASSESSMENT: 1. Severe symptomatic aortic stenosis, status post aortic valve replacement. 2. Paroxysmal atrial fibrillation, status post exclusion of the left atrial appendage with a 50 mm atrial clip. PLAN: Patient is stable for discharge. Will follow up with me in the office in a week's time. VERONA / ARON: [id number] /
--- NOTE | 2020-03-23 12:39 | P.PN ---
Subjective Progress Note Date: 03/23/20 Principal diagnosis: Severe bicuspid aortic valve stenosis, status post aortic valve replacement postoperative day #4 69-year-old male patient of Dr. Dominguez with no history of aortic valve stenosis, hypertension, hyperlipidemia, diabetes but this type II, paroxysmal atrial fibrillation on Eliquis, macular degeneration, who recently developed symptoms of chest tightness, and increasing shortness of breath. Cardiac workup included to heart catheterization showing normal coronary arteries and his severe aortic valve stenosis. Transesophageal echocardiogram shows severe aort ic valve stenosis with a valve area of 0.8 cm involving a heavily calcified bicuspid aortic valve, mild mitral valve regurgitation, mild tricuspid valve regurgitation and normal left ventricular size and systolic function. Today on 03/19/2020 patient underwent aortic valve replacement with exclusion of left atrial appendage and intraoperative transesophageal echocardiogram by Dr. Nash. Patient seen in the postoperative period in the intensive care unit, he is sedated, intubated on mechanical ventilator, current ventilator settings of SIMV with a rate of 12, tidal is 500, FiO2 100%, and PEEP of 5, postoperative blood gases showed pO2 of 306, pCO2 49, pH of 7.34, this was on 100% FiO2, which has since been dropped to 50%, and IMV rate was increased to 14 breaths per minute. He was dynamically patient is very stable, no vasopressors, he is on lactated Ringer's a rate of 50 ML per hour, Diprivan is at 20 mics per kilo per minute, no other drips. He is AV paced at a rate of 80 BPM, and apparently intrinsic rhythm is extremely bradycardic, and patient is pacemaker dependent at this time. PA pressures 30/17, CVP is 3, cardiac output 6.5, cardiac index is 3.0. Patient received 3 L and crystalloids Intra-Op, received 500 mL in the Cell Saver, 2 mediastinal chest tubes were connected together with 90 mL of saline when his output in the Pleur-evac, no evidence of air leak. Midsternal incision, chest tube sites are clean dry and intact, covered with surgical dressings. Postoperative chest x-ray was reviewed showing satisfactory postoperative chest x-ray, ET tube, NG tube right jugular central venous catheter in appropriate positions, distal tip of the PA catheter overlying the pulmonary artery. Patient was reevaluated today on 03/20/20, patient is postoperative day #1, status post aortic valve replacement for severe bicuspid aortic valve stenosis. Patient was extubated yesterday at 17:30. Tolerated the extubation well, and overall the patient is doing great. Denies any pain denies any shortness of breath, doing extremely well with incentive spirometry. He is hemodynamically stable, not requiring any pressors or any inotropes. His IV fluid is at 50 mL/h, and his insulin at as 0.5 units per hour. His incentive spirometry is great achieve over 2500 mL. Reevaluated today on 03/21/20, patient is now postoperative day #2. Status post aortic valve replacement for severe bicuspid aortic valve. Patient is doing extremely well, he is presently on room air. Chest x-ray showed minimal postoperative atelectasis, expected. Patient is on insulin drip at 1 unit per hour. Doing extremely well with incentive spirometry pulling almost 2500. Labs were basically unremarkable except for hemoglobin of 7.8. He had normal electrolytes and basic metabolic profile is normal CBC Reevaluated today on 03/22/20, patient remains in the ICU, sitting in a recliner, in no distress, on room air. Hemodynamically stable, not requiring any pressors or any inotropes. Patient has been ambulating in the hallway, and overall he is doing great. Chest x-ray showed small left pleural effusion and atelectasis. Otherwise negative. CBC is relatively normal hemoglobin is low at 8.5. Lites are normal renal profile is normal Reevaluated today on 03/23/20, remains in the ICU, sitting at a recliner, asymptomatic, patient is doing great. Chest x-ray showed left lower lobe atele ctasis and elevation of left hemidiaphragm. Labs were reviewed and basically unremarkable. Patient is being considered for discharge planning today. Objective - Vital Signs Vital signs: Vital Signs Temp 99.0 F 03/23/20 08:27 Pulse 75 03/23/20 08:27 Resp 17 03/23/20 08:27 BP 107/62 03/23/20 08:27 Pulse Ox 93 L 03/23/20 08:27 Intake & Output 03/22/20 03/23/20 03/23/20 18:59 06:59 18:59 Intake Total 720 Output Total 0 450 Balance 720 -450 Weight 106.3 kg Intake: Oral 720 Output: Urine 0 450 Other: Voiding Method Toilet Toilet Toilet # Voids 1 0 0 # Bowel Movements 1 ABP, PAP, CO, CI - Last Documented Arterial Blood Pressure 126/56 Pulmonary Artery Pressure 20/8 Cardiac Output 7.5 Cardiac Index 3.4 - Exam Physical Exam: Revealed a 69-year-old white male extremely pleasant, in no distress. Sitting in a recliner. On room air. Head: Atraumatic, normocephalic. HEENT:[Neck is supple.] [No neck masses.] [No thyromegaly.] [No JVD.] Chest: [Clear throughout, no crackles, no rhonchi, no wheezes.] Cardiac Exam: [Normal S1 and S2, Regular rate and rhythm, 2/6 systolic murmur thought the precordium Abdomen: [Soft, nontender, no megaly, no rebound, no guarding, normal bowel sounds.] Extremities: [No clubbing, no edema, no cyanosis.] Neurological Exam: [No focal neurologic deficit.] Alert oriented 3. Skin: No rashes. Musculoskeletal: No deformities noted limitation in range of motion. Psychiatric: Normal mood affect and normal mental status examination - Labs CBC & Chem 7: 03/23/20 04:15 03/23/20 04:15 Labs: Abnormal Lab Results - Last 24 Hours (Table) 03/22/20 03/22/20 03/22/20 Range/Units 16:30 18:58 20:24 RBC 2.50 L (4.30-5.90) m/uL Hgb 7.9 L (13.0-17.5) gm/dL Hct 24.0 L (39.0-53.0) % Plt Count 112 L (150-450) k/uL Neutrophils # 8.4 H (1.3-7.7) k/uL Lymphocytes # 0.9 L (1.0-4.8) k/uL Sodium (137-145) mmol/L BUN (9-20) mg/dL POC Glucose (mg/dL) 125 H 121 H (75-99) mg/dL Calcium (8.4-10.2) mg/dL 03/23/20 03/23/20 03/23/20 Range/Units 04:15 04:15 06:49 RBC 2.58 L (4.30-5.90) m/uL Hgb 8.2 L (13.0-17.5) gm/dL Hct 24.8 L (39.0-53.0) % Plt Count 134 L (150-450) k/uL Neutrophils # (1.3-7.7) k/uL Lymphocytes # (1.0-4.8) k/uL Sodium 135 L (137-145) mmol/L BUN 35 H (9-20) mg/dL POC Glucose (mg/dL) 111 H (75-99) mg/dL Calcium 8.1 L (8.4-10.2) mg/dL Assessment and Plan Assessment: Severe aortic valve stenosis, bicuspid aortic valve, status post aortic valve replacement exclusion of the left atrial appendage, intraoperative transesophageal echocardiogram, postoperative day #4 Uneventful postoperative course. Benign essential hypertension. Type 2 diabetes. Minimal postoperative atelectasis and small left pleural effusion as noted on chest x-ray, expected. History of macular degeneration. Paroxysmal atrial fibrillation. Diabetic foot ulcer on his right foot/third toe. History of osteomyelitis. Dyslipidemia. Recommendation: Continue aspirin and statin, and beta blockers.. Agree with discharge planning today and follow up on outpatient basis. Time with Patient: Less than 30
--- NOTE | 2020-03-24 07:26 | P.DS ---
Providers Date of admission: 03/19/20 05:31 Expected date of discharge: 03/23/20 Attending physician: Misti Nash Consults: 03/19/20 13:08 Consult Physician Routine Consulting Provider: Arelis Batres Consult Reason/Comments: Postdoctoral Research Fellow Consult: post cardiac surgery Do you want consulting provider notified?: Yes Consult Physician Routine Consulting Provider: Phillip Key Consult Reason/Comments: Production Line Welder Consult: post cardiac surgery Do you want consulting provider notified?: Yes Consult Physician Routine Consulting Provider: Jesus Alberto Dominguez Consult Reason/Comments: med mgmt Do you want consulting provider notified?: Yes Primary care physician: Jesus Alberto Dominguez Hospital Course: FINAL DIAGNOSIS: 1. Severe bicuspid aortic valve stenosis 2. History of hypertension 3. Hyperlipidemia 4. Chronic atrial fibrillation on Eliquis for anticoagulation, status post cardioversion in January 2019 5. Recent osteomyelitis of the right third toe 6. Diet-controlled diabetes mellitus with preoperative hemoglobin A1c 6.5% 7. Remote history of pneumonia 8. History of gastroplasty 9. Postoperative acute blood loss anemia and thrombocytopenia, expected 10. Postoperative leukocytosis, reactive PRINCIPAL PROCEDURE: 1. Aortic valve replacement using a 23 mm Inspiris pericardial bioprosthesis 2. Exclusion of the left atrial appendage using a 50 mm AtriClip 3. Intraoperative transesophageal echocardiogram and epi-aortic scanning HISTORY OF PRESENT ILLNESS: This is a 69-year-old active gentleman who follows on an outpatient basis with Dr. Dominguez for primary care and Dr. Jaffe for cardiology. The patient had recently been having symptoms of chest tightness with radiation to his jaw associated with shortness of breath. In December of this year while in [place] he was hospitalized for an episode of chest pain. At that time he had cardiac workup and was offered aortic valve surgery. The patient opted to follow with Dr. Jaffe here in [place] for further evaluation. He underwent elective transesophageal echocardiogram and cardiac catheterization. The GINNY demonstrated severe aortic stenosis with valve area 0.8 cm involving a heavily calcified bicuspid aortic valve with normal left ventricular size and function. Heart catheterization demonstrated normal coronary arteries. The patient was referred to Dr. Nash from cardiothoracic surgery. He was recommended to undergo aortic valve replacement. The usual perioperative course was discussed in detail with the patient and his family, all risks and benefits were explained, all questions were answered, and consent was obtained to proceed with surgery. The patient was discharged to home on maximal medical therapy to return as an outpatient for surgery after obtaining dental clearance and received treatment for osteomyelitis of the right third toe. HOSPITAL COURSE: The patient was brought to the hospital on 03/19/2020, taken to the preoperative area, prepared in the usual fashion, and subsequently taken to the operating room where Dr. Nash performed bioprosthetic aortic valve replacement. Upon completion of surgery the patient was transferred to the [facility] intensive care unit where he was recovered, monitored hemodynamically, and where he progressed to cardiac rehabilitation phase 1. He was extubated, all lines, tubes, and drips were discontinued when appropriate, and transfer orders were placed for 3 S. cardiac stepdown unit, however there was no bed availability and the patient remained on ICU as a stepdown patient until discharge. His oxygen was titrated down, he continued to work with physical and occupational therapy, he was tolerating oral diet, his pain was controlled, and he was ready to be discharged to home with [facility] care on postoperative day #4. He received written and verbal instruction regarding his medications, activity restrictions, signs and symptoms requiring physician notification, and follow-up appointments. COMPLICATIONS: The patient experienced postoperative acute blood loss anemia, thrombocytopenia, leukocytosis, all expected without the need for treatment. Patient Condition at Discharge: Stable Plan - Discharge Summary Discharge Rx Participant: Yes New Discharge Prescriptions: New Aspirin 81 mg PO DAILY #30 chewable Sennosides-Docusate Sodium [Senokot-S] 2 each PO HS PRN #14 tab PRN Reason: Constipation Acetaminophen Tab [Tylenol] 1,000 mg PO Q6HR PRN #120 tab PRN Reason: Fever And/ Or Pain Pantoprazole Sodium [Protonix] 40 mg PO AC-BRKFST #30 tablet. Continue Vitamin B Complex 1 each PO HS Cholecalciferol (Vitamin D3) [Vitamin D3] 5,000 unit PO HS Ascorbic Acid [Vitamin C] 1,000 mg PO HS lisinopriL [Zestril] 2.5 mg PO HS Cyanocobalamin (Vitamin B-12) [Vitamin B-12] 1,000 mcg PO HS Atorvastatin [Lipitor] 40 mg PO HS Metoprolol Succinate (ER) [Toprol XL] 25 mg PO DAILY Apixaban [Eliquis] 5 mg PO BID Cy Zaidi B.lactis [Probiotic] 1 each PO TID Moose-3 Fatty Acids [Moose-3] 1,000 mg PO HS Calcium/Magnesium/Zinc [Bdhsbcq-Ejhhugggz-Jpky Tablet] 1 each PO HS Discontinued amLODIPine BESYLATE [Norvasc] 5 mg PO HS Aspirin 1 tab PO ONCE Discharge Medication List Ascorbic Acid [Vitamin C] 1,000 mg PO HS 02/05/19 [History] Cholecalciferol (Vitamin D3) [Vitamin D3] 5,000 unit PO HS 02/05/19 [History] Cyanocobalamin (Vitamin B-12) [Vitamin B-12] 1,000 mcg PO HS 02/05/19 [History] Vitamin B Complex 1 each PO HS 02/05/19 [History] lisinopriL [Zestril] 2.5 mg PO HS 02/05/19 [History] Apixaban [Eliquis] 5 mg PO BID 02/08/20 [History] Atorvastatin [Lipitor] 40 mg PO HS 02/08/20 [History] Calcium/Magnesium/Zinc [Ktifnlw-Gopfiqsnm-Etpk Tablet] 1 each PO HS 02/08/20 [History] L.acidoph,Paracasei, B.lactis [Probiotic] 1 each PO TID 02/08/20 [History] Metoprolol Succinate (ER) [Toprol XL] 25 mg PO DAILY 02/08/20 [History] Moose-3 Fatty Acids [Moose-3] 1,000 mg PO HS 02/08/20 [History] Acetaminophen Tab [Tylenol] 1,000 mg PO Q6HR PRN #120 tab 03/22/20 [Rx] Aspirin 81 mg PO DAILY #30 chewable 03/22/20 [Rx] Sennosides-Docusate Sodium [Senokot-S] 2 each PO HS PRN #14 tab 03/22/20 [Rx] Pantoprazole Sodium [Protonix] 40 mg PO AC-BRKFST #30 tablet. 03/23/20 [Rx] Follow up Appointment(s)/Referral(s): Arelis Batres MD [STAFF PHYSICIAN] - 04/15/20 1:45 pm Jesus Alberto Dominguez MD [Primary Care Provider] - 04/04/20 10:30 am Ayse Hicks NPC [Nurse Practitioner] - 03/27/20 1:30 pm (In the surgeons office in [facility] which is behind the hospital, [address], [place]) Rehab [facility] ,Cardiac [NON-STAFF] - 4 Weeks (You will receive a phone call for evaluation for cardiac rehab approximately 4-6 weeks after surgery) Misit Nash MD [STAFF PHYSICIAN] - 04/11/20 10:00 am [facility], [NON-STAFF] - 1-2 Days Scott Jaffe MD [STAFF PHYSICIAN] - 04/07/20 11:30 am Ambulatory/Diagnostic Orders: Complete Blood Count w/diff [LAB.AMB] Time Frame: 3 Days, Location: None Selected Comprehensive Metabolic Panel [LAB.AMB] Time Frame: 3 Days, Location: None Selected Activity/Diet/Wound Care/Special Instructions: DISCHARGE INSTRUCTIONS: 1. No driving for 4 weeks, or until physician gives their ok. 2. The patient should sleep in their own bed, no medical bed needed. 3. Stairs are not an issue. If the bedroom is upstairs, it is advised that the patient go up at night and down in the morning for the first week. Go slowly, using handrail and take 1 step at a time. 4. DAVID hose are to be worn for 30 days or until physician discontinues. 5. Heart hugger is to be worn 100% of the time until physician discontinues.(except when showering) 6. No lifting, pushing, or pulling more than 10 pounds for 12 weeks. The physician will advise of any restriction changes. 7. The patient is expected to continue the prescribed walking program. 8. Continue pain control per as needed orders. 9. Continue with incentive spirometry and splinting/heart hugger until otherwise directed by the physician. 10. Must shower daily using liquid antibacterial soap and a separate white washcloth for each individual incision. 11. Routine sternal incision care. No powders, lotions, ointments on incisions. No dressings are necessary on incisions unless they are draining. Dermabond tape is to remain on sternal incision until surgeon follow-up. 12. Please call surgeon/DIRECTOR SHIP for temp greater than 101 F or purulent drainage from incisions. 13. All prescriptions given by surgeon for 30 days. Refills need to be filled through zoning technician/primary care physician. 14. A Red armband has been placed on the patient. It should be worn for 30 days post surgery and will be removed by the cardiac surgeons. If an ER visit is necessary, please make sure the number on the Red armband is called. 15. You have been referred to and are expected to begin Cardiac Rehab in approximately 4-6 weeks. HOME HEALTH SERVICES TO PROVIDE: RN SKILLED HOME CARE SERVICES FOR POST-OP SURGICAL PATIENTS WITH THE FOLLOWING: Coronary Artery Bypass Surgery (CABG), Mitral Valve Replacement/Repair ( MVR), Aortic Valve Replacement/Repair (AVR) RN TO CONTINUE EDUCATION FROM ``ROAD TO A HEALTH HEART PATIENT EDUCATION MANUAL (GIVEN TO PATIENT IN THE HOSPITAL) MEDICATION RECONCILIATION WITH EDUCATION NEEDED ON FIRST HOME VISIT EMPHASIZE IMPORTANCE OF WEARING BREAST SUPPORT/HEART HUGGER ENCOURAGE USE OF INCENTIVE SPIROMETER 10 X EVERY HOUR WHILE AWAKE ENCOURAGE UTILIZATION OF LOWER EXTREMITY COMPRESSION STOCKINGS/DAVID HOSE and ELEVATE LEGS ABOVE LEVEL OF HEART WHILE AT REST. ENCOURAGE AMBULATION 3-5x/day INCREASING TOLERATES, WHILE AVOIDING EXTREMES IN TEMPERATURE FREQUENCY: RN TO OPEN THE PATIENT WITHIN 24 HOURS OF DISCHARGE FROM THE HOSPITAL WITH TELEHEALTH INSTALLED AT [facility], RN TO VISIT 2-3 X A WEEK FOR 4 WEEKS ESTABLISHED BY PATIENT NEEDS. LABORATORY: CBC, CMP TO BE DRAWN ON THE THIRD DAY HOME, (RAN STAT) FAX RESULTS TO [phone]. TELEHEALTH PARAMETERS: WEIGHT: NOTIFY MD OF WEIGHT GAIN OF 2 LBS IN 24 HOURS OR 5 LBS IN ONE WEEK HR: NOTIFY MD OF HR <55 BPM OR HR>100 BPM BP: NOTIFY MD IF BP <90/55 OR BP>140/100 O2 SAT: NOTIFY MD IF PO2<93% ON ROOM AIR SEND TELEHEALTH REPORT TO ACADEMIC COACH AND CARDIOVASCULAR SURGEON THE FIRST WEEK OF CARE AND THEN BI-WEEKLY. PLEASE ADDITIONALLY COMMUNICATE ANY ABNORMALS AND NEW FINDINGS TO THE SURGEONS OFFICE. For any questions or concerns please call forensic analyst Ayse @ or Regis @ Discharge Disposition: HOME WITH HOME HEALTH SERVICES
== END 2020-03-23 11:05 | disposition home health service (06) | DRG 220 ==
LOC: 2ORMAIN 05:31 → 2SICU 13:22
PROVIDERS: ADMIT Surgery; ATTEND Surgery
PROC: B24BZZ4 Ultrasonography of Heart with Aorta, Transesophageal (ICD-10-PCS; principal; 2020-03-19 08:00)
PROC: 02RF08Z Replacement of Aortic Valve with Zooplastic Tissue, Open Approach (ICD-10-PCS; principal; 2020-03-19 08:00)
PROC: 02L70CK Occlusion of Left Atrial Appendage with Extraluminal Device, Open Approach (ICD-10-PCS; principal; 2020-03-19 08:00)
PROC: 5A1221Z Performance of Cardiac Output, Continuous (ICD-10-PCS; principal; 2020-03-19 08:00)
PROC: 5A1223Z Performance of Cardiac Pacing, Continuous (ICD-10-PCS; principal; 2020-03-19 08:00)
DX: I08.0 Rheumatic disorders of both mitral and aortic valves (principal); D62 Acute posthemorrhagic anemia; J98.11 Atelectasis; J90 Pleural effusion, not elsewhere classified; D69.6 Thrombocytopenia, unspecified; L97.519 Non-pressure chronic ulcer of other part of right foot with unspecified severity; E11.319 Type 2 diabetes mellitus with unspecified diabetic retinopathy without macular edema; J98.6 Disorders of diaphragm; E11.621 Type 2 diabetes mellitus with foot ulcer; D72.829 Elevated white blood cell count, unspecified; E78.00 Pure hypercholesterolemia, unspecified; E78.5 Hyperlipidemia, unspecified; H35.30 Unspecified macular degeneration; I10 Essential (primary) hypertension; I44.0 Atrioventricular block, first degree; I48.0 Paroxysmal atrial fibrillation; R63.0 Anorexia; Z86.79 Personal history of other diseases of the circulatory system; Z87.448 Personal history of other diseases of urinary system; Z79.01 Long term (current) use of anticoagulants; Z79.899 Other long term (current) drug therapy; Z87.01 Personal history of pneumonia (recurrent); Z88.8 Allergy status to other drugs, medicaments and biological substances; Z98.84 Bariatric surgery status; Z90.89 Acquired absence of other organs; Z98.890 Other specified postprocedural states; Z82.1 Family history of blindness and visual loss; Z82.49 Family history of ischemic heart disease and other diseases of the circulatory system; Z82.5 Family history of asthma and other chronic lower respiratory diseases; Z83.3 Family history of diabetes mellitus; Z80.9 Family history of malignant neoplasm, unspecified
CPT/HCPCS: 71045; 71046; 80048; 80053; 82330; 82805; 83735; 84132; 85025; 85027; 85610; 85730; 86850; 86891; 86900; 86901; 86920; 88305; 88311; 94002; 94640

== ENCOUNTER 2020-04-04 11:51 | Inpatient (IN) | payer MEDICARE, OTHER ==
[2020-04-04] MEDS ORDERED: VANCOMYCIN 1,000 MG in SODIUM CHLORIDE 0.9% 250 ML IVPB STA (11:58)
[2020-04-04] MEDS ORDERED: FUROSEMIDE 10 MG/ML 4 ML VIAL IV STA (11:59)
[2020-04-04] MEDS ORDERED: VANCOMYCIN 1,750 MG in SODIUM CHLORIDE 0.9% 500 ML 500 ML IVPB ONE (12:15)
--- NOTE | 2020-04-04 12:25 | ED ---
Recheck HPI <TripCharly - Last Filed: 04/04/20 12:35> - General Source: patient Mode of arrival: wheelchair Limitations: no limitations <Shannan Dasilva - Last Filed: 04/04/20 14:31> - General Chief Complaint: Recheck/Abnormal Lab/Rx Stated Complaint: post cabg infection 03/19/20 Time Seen by Provider: 04/04/20 11:57 - History of Present Illness Initial Comments: Patient is a 69-year-old male, s/p 2 weeks from CABG surgery by Dr. Nash, presenting to the emergency department from their office with complaints of a possible infection of his chest incision. Patient denies any fever, chills. Patient states he is a normally diet controlled diabetic however the past week his blood sugars have been fluctuating and he has had an episode of vomiting when his sugars are in the 300s. He describes some intermittent nausea, no nausea or vomiting today. He does describe some intermittent dizziness at times. He denies any chest pains, lightheadedness, abdominal pain at this time. Patient's doctor's office sent him into the ER for admission as well as a consult with infectious disease regarding this wound infection. Patient does also admit to some increase in bilateral lower leg edema over the past few days. Patient was started on Keflex yesterday by his PCPs office. Patient has no further complaints at this time. Upon arrival to the ER, his vital signs are stable, afebrile. (Shannan Dasilva) - Related Data Home Medications Medication Instructions Recorded Confirmed Ascorbic Acid [Vitamin C] 1,000 mg PO HS 02/05/19 04/04/20 Cholecalciferol (Vitamin D3) 5,000 unit PO HS 02/05/19 04/04/20 [Vitamin D3] Vitamin B Complex 1 cap PO HS 02/05/19 04/04/20 lisinopriL [Zestril] 2.5 mg PO HS 02/05/19 04/04/20 Apixaban [Eliquis] 5 mg PO BID 02/08/20 04/04/20 Atorvastatin [Lipitor] 40 mg PO HS 02/08/20 04/04/20 Calcium/Magnesium/Zinc 1 tab PO HS 02/08/20 04/04/20 [Uwdzlao-Wxmqjxvob-Ddoz Tablet] L.acidoph,Paracasei, B.lactis 1 cap PO TID 02/08/20 04/04/20 [Probiotic] Metoprolol Succinate (ER) [Toprol 25 mg PO DAILY 02/08/20 04/04/20 XL] Rampart-3 Fatty Acids [Rampart-3] 1,000 mg PO HS 02/08/20 04/04/20 Aspirin 81 mg PO HS 04/04/20 04/04/20 Cyanocobalamin (Vitamin B-12) 1,000 mcg PO HS 04/04/20 04/04/20 [Vitamin B-12] Sennosides-Docusate Sodium 2 tab PO HS PRN 04/04/20 04/04/20 [Senokot-S] Previous Rx's Medication Instructions Recorded Acetaminophen Tab [Tylenol] 1,000 mg PO Q6HR PRN #120 tab 03/22/20 Pantoprazole Sodium [Protonix] 40 mg PO AC-BRKFST #30 tablet. 03/23/20 Cephalexin [Keflex] 500 mg PO Q6HR 7 Days #28 cap 04/03/20 Allergies Allergy/AdvReac Type Severity Reaction Status Date / Time thiopental [From Pentothal] Allergy Anaphylaxis, Verified 04/04/20 13:29 TROUBLE BREATHING metformin AdvReac VERY WEAK, Verified 04/04/20 13:29 SEVERE JOINT PAIN , MUSCLE PAIN rivaroxaban [From Xarelto] AdvReac bruising Verified 04/04/20 13:29 Review of Systems ROS Other: All systems not noted in ROS Statement are negative. <Charly Dominique - Last Filed: 04/04/20 12:35> ROS Other: All systems not noted in ROS Statement are negative. <Shannan Dasilva - Last Filed: 04/04/20 14:31> ROS Statement: Those systems with pertinent positive or pertinent negative responses have been documented in the HPI. 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 no problem with anesthesia since Past Psychological History: No Psychological Hx Reported Smoking Status: Never smoker Past Alcohol Use History: None Reported Past Drug Use History: None Reported - Past Family History Mother Family Medical History: COPD, Diabetes Mellitus Additional Family Medical History / Comment(s): Macular degeneration, legally blind Sister(s) Family Medical History: Cancer Father Family Medical History: Myocardial Infarction (NM) <Shannan Dasilva L - Last Filed: 04/04/20 14:31> General Exam Limitations: no limitations <Shannan Dasilva L - Last Filed: 04/04/20 14:31> - General Exam Comments Initial Comments: GENERAL: Patient is well-developed and well-nourished. Patient is nontoxic and in no acute distress. HEAD: Atraumatic, normocephalic. EYES: Pupils equal round and reactive to light, extraocular movements intact, sclera anicteric, conjunctiva are normal. Eyelids were unremarkable. ENT: TMs normal, nares patent, oropharynx clear without exudates. Moist mucous membranes. NECK: Normal range of motion, supple without lymphadenopathy or JVD. LUNGS: Unlabored respirations. Breath sounds clear to auscultation bilaterally and equal. No wheezes rales or rhonchi. HEART: Regular rate and rhythm without murmurs, rubs or gallops. Patient has recent sternal incision from a CABG surgery, distal end of incision is opened with some mild drainage and bleeding, there is also packing present that was done today by his doctor's office. There is some very mild surrounding erythema, no swelling. ABDOMEN: Soft, nontender, normoactive bowel sounds. No guarding, no rebound. No masses appreciated. : Deferred MUSCULOSKELETAL: Normal extremities with adequate strength and normal range of motion. Mild bilateral lower leg edema. Neurovascular intact. No clubbing or cyanosis. NEUROLOGICAL: Patient is alert and oriented x 3. Motor and sensory are also intact. Cranial nerves II through XII grossly intact. Symmetrical smile. Normal speech, normal gait. PSYCH: Normal mood, normal affect. SKIN: Warm, Dry, normal turgor, no rashes or lesions, other than what's noted above. (Shannan Dasilva) Course Vital Signs 04/04/20 04/04/20 04/04/20 11:53 13:05 13:56 Temperature 98.1 F 97.8 F Pulse Rate 64 65 Pulse Rate [ 59 L Pulse Oximetery ] Respiratory 16 18 16 Rate Blood Pressure 136/60 124/68 Blood Pressure 130/73 [Right Arm] O2 Sat by Pulse 99 93 L 95 Oximetry Medical Decision Making <Charly Dominique - Last Filed: 04/04/20 12:35> - Lab Data Result diagrams: 04/04/20 12:18 04/04/20 12:18 <Shannan Dasilva - Last Filed: 04/04/20 14:31> - Medical Decision Making Patient reevaluated and reexamined by myself, Dr. Dominique. Patient resting comfortably in bed. Incision with packing. Skin appears well. Family reported there was some minimal green discharge and side. Case was discussed in detail with Dr. Dominguez who is made aware of this patient and will admit his patient. Consult will be placed for ID as well as cardiothoracic surgery. Faye Jaramillo aware and has already started orders. (Charly Dominique) Patient is a 69-year-old male that is status post 2 weeks from CABG surgery by Dr. Nash, presenting from their office with concerns of an infection in his incision. They recommended admission for observation with consult to infectious disease. Patient's vital signs are stable, he is afebrile on arrival. Labs show a mild white count of 12.1, stable hemoglobin. CRP is 54. He did do a chest x-ray that shows a moderate sized left pleural effusion. KANU Jaramillo has already and put orders, Dr. Dominguez was already made aware and agreed to adm ission. There was consults for infectious disease as well as pulmonary secondary to the pleural effusion. Patient is in agreement with this plan of care. Case discussed with Dr. Dominique. (Shannan Dasilva) - Lab Data Lab Results 04/04/20 04/04/20 Range/Units 12:18 12:18 WBC 12.1 H (3.8-10.6) k/uL RBC 3.17 L (4.30-5.90) m/uL Hgb 9.1 L (13.0-17.5) gm/dL Hct 29.2 L (39.0-53.0) % MCV 92.1 (80.0-100.0) fL MCH 28.7 (25.0-35.0) pg MCHC 31.2 (31.0-37.0) g/dL RDW 13.0 (11.5-15.5) % Plt Count 497 H D (150-450) k/uL Neutrophils % 71 % Lymphocytes % 18 % Monocytes % 8 % Eosinophils % 1 % Basophils % 1 % Neutrophils # 8.6 H (1.3-7.7) k/uL Lymphocytes # 2.2 (1.0-4.8) k/uL Monocytes # 1.0 (0-1.0) k/uL Eosinophils # 0.2 (0-0.7) k/uL Basophils # 0.1 (0-0.2) k/uL Hypochromasia Moderate Sodium 138 (137-145) mmol/L Potassium 4.4 (3.5-5.1) mmol/L Chloride 107 (98-107) mmol/L Carbon Dioxide 27 (22-30) mmol/L Anion Gap 4 mmol/L BUN 28 H (9-20) mg/dL Creatinine 0.74 (0.66-1.25) mg/dL Est GFR (CKD-EPI)AfAm >90 (>60 ml/min/1.73 sqM) Est GFR (CKD-EPI)NonAf >90 (>60 ml/min/1.73 sqM) Glucose 150 H (74-99) mg/dL Calcium 8.7 (8.4-10.2) mg/dL Total Bilirubin 0.4 (0.2-1.3) mg/dL AST 20 (17-59) U/L ALT 12 (4-49) U/L Alkaline Phosphatase 73 (38-126) U/L C-Reactive Protein 54.6 H (<10.0) mg/L Total Protein 5.6 L (6.3-8.2) g/dL Albumin 2.7 L (3.5-5.0) g/dL Disposition <Charly Dominique - Last Filed: 04/04/20 12:35> Is patient prescribed a controlled substance at d/c from ED?: No Decision Date: 04/04/20 Decision Time: 12:30 <Shannan Dasilva - Last Filed: 04/04/20 14:31> Clinical Impression: Superficial incisional surgical site infection, Status post coronary artery b ypass graft Disposition: ADMITTED IP TO THIS HOSP Condition: Stable
[2020-04-04] MEDS ORDERED: NALOXONE 0.4 MG/ML 1 ML VIAL IV PRN (12:26)
[2020-04-04] MEDS ORDERED: ACETAMINOPHEN TAB 325 MG TAB PO PRN (12:26)
[2020-04-04 12:50] LABS: Basophils # (A) 0.1 k/uL (0-0.2); Basophils % (A) 1 %; Eosinophils # (A) 0.2 k/uL (0-0.7); Eosinophils % (A) 1 %; HCT 29.2 % (39.0-53.0); HGB 9.1 gm/dL (13.0-17.5); Hypochromasia Moderate; Lymphocytes # (A) 2.2 k/uL (1.0-4.8); Lymphocytes % (A) 18 %; MCH 28.7 pg (25.0-35.0); MCHC 31.2 g/dL (31.0-37.0); MCV 92.1 fL (80.0-100.0); Mean Platelet Volume 6.9; Monocytes % (A) 8 %; Neutrophils # (A) 8.6 k/uL (1.3-7.7); Neutrophils % (A) 71 %; RBC 3.17 m/uL (4.30-5.90); WBC 12.1 k/uL (3.8-10.6)
[2020-04-04 12:51] LABS: Platelet Count 497 k/uL (150-450)
[2020-04-04 12:53] LABS: ALT 12 U/L (4-49); AST 20 U/L (17-59); African American GFR (CKD) >90 (>60 ml/min/1.73 sqM); Albumin 2.7 g/dL (3.5-5.0); Alkaline Phosphatase 73 U/L (38-126); Anion Gap 4 mmol/L; Blood Urea Nitrogen 28 mg/dL (9-20); C Reactive Protein 54.6 mg/L (<10.0); Calcium 8.7 mg/dL (8.4-10.2); Carbon Dioxide 27 mmol/L (22-30); Chloride 107 mmol/L (98-107); Glucose 150 mg/dL (74-99); Non-African American GFR(CKD) >90 (>60 ml/min/1.73 sqM); Potassium 4.4 mmol/L (3.5-5.1); Sodium 138 mmol/L (137-145); Total Bilirubin 0.4 mg/dL (0.2-1.3); Total Protein 5.6 g/dL (6.3-8.2)
--- NOTE | 2020-04-04 13:08 | XR ---
EXAMINATION TYPE: XR chest 2V DATE OF EXAM: 04/04/2020 COMPARISON: Prior chest x-ray 12 days ago HISTORY: Recent open cardiac surgery. TECHNIQUE: Frontal and lateral views of the chest are obtained. FINDINGS: Right lung remains clear. Moderate left-sided pleural effusion slightly increased in size from prior. Associated left basilar compressive atelectasis. The cardiac silhouette size is stable a nd enlarged. Overlying sternal wires along with left atrial appendage clipping and metallic cardiac valve are redemonstrated. Surgical clips epigastric region again seen. The osseous structures are int act. IMPRESSION: Cardiomegaly and chronic changes with moderate left pleural effusion increased in size f rom most recent chest x-ray.
[2020-04-04] MEDS ORDERED: SENNOSIDES-DOCUSATE SODIUM 1 EACH TAB PO PRN (14:00)
--- NOTE | 2020-04-04 14:21 | US ---
EXAMINATION TYPE: US chest DATE OF EXAM: 04/04/2020 COMPARISON: Chest x-ray same date CLINICAL HISTORY: left pleural effusion. TECHNIQUE: Targeted ultrasound of the posterior lower left hemithorax EXAM MEASUREMENTS: Left Pleural Effusion pocket size: 9.0 cm Left skin surface to fluid distance: 3.7 cm Left side marked for possible thoracentesis outside the dept. Pulmonologists are able to review the images in the patient?s EMR. IMPRESSIONS: Large left pleural effusion
--- NOTE | 2020-04-04 15:30 | P.GSCN ---
History of Present Illness Consult date: 04/04/20 Reason for Consult: Superficial sternal wound infection, status post aortic valve replacement on 03/19/2020. Requesting physician: Jesus Alberto Dominguez History of present illness: This is a 69-year-old gentleman who is followed by Dr. Jesus Alberto Dominguez on an outpatient basis. He is a past medical history significant for severe aortic valve stenosis status post aortic valve replacement on 03/19/2020, hypertension, hyperlipidemia, diet-controlled diabetes mellitus type 2, history of small ulceration to his third toe right foot, chronic persistent atrial fibrillation on Eliquis for anticoagulation and macular degeneration. The patient also follows with Dr. Rain Jaffe on an outpatient basis for his cardiac care treatment. On 03/23/2020 the patient was discharged home with home health care status post his aortic valve replacement. The patient reports on 03/31/2020 he started to have some elevated blood sugars as high as 300, nausea, and episode of vomiting, episodes of dizziness with some hallucinations, some redness with scant serous drainage from his distal sternal incision and a productive cough with scant thin sputum and pain to his sternum with coughing. Subsequently, he was seen in the office on 04/02/2020, a wound culture was obtained from his distal sternal incision which the preliminary results showed a few gram-positive cocci. Due to the culture results he was started on Keflex 500 mg by mouth every 6 hours. He denies any clicking or movement in his sternum, fevers, chills, diaphoresis, syncope, orthopnea, or dyspnea. Today on 04/04/2020, the patient was seen by Dr. Nash in the office as scheduled. The patient did have some scant serosanguineous drainage from his distal sternal incision which was subsequently opened around 4 cm and packed with iodoform half-inch gauze. Due to the patient's elevated blood glucose levels at home, the superficial sternal incision infection and increase edema to his bilateral lower extremities it was felt that the patient needed to be admitted as an observation patient to the hospital for further evaluation and treatment. Dr. Dominguez the patient's primary care physician was updated by Dr. Nash and Dr. Dominguez agreed with this plan. Review of Systems A 14 point review of systems was completed and was negative except as mentioned in the HPI. Past Medical History Past Medical History: Atrial Fibrillation, Chest Pain / Angina, Diabetes Mellitus, Eye Disorder (Macular degeneration), Hyperlipidemia, Hypertension, Pneumonia Additional Past Medical History / Comment(s): "no diabetic medication since wt loss" checks blood sugar at home and watches diet , MIGRAINE HEADACHES A CHILD, heart murmer, heart valve problem, "macular buildup in both eyes". Episodes of dizziness and hallucinations. History of Any Multi-Drug Resistant Organisms: None Reported Past Surgical History: Bariatric Surgery, Cardiac Valve Replacement (Aortic valve replacement on 03/19/[address] Misti Nash.), Heart Catheterization, Orthopedic Surgery, Tonsillectomy Past Anesthesia/Blood Transfusion Reactions: Previous Problems w/ Anesthesia Additional Past Anesthesia/Blood Transfusion Reaction / Comm: reaction with sodium pentothall years ago-"almost ". no problem with anesthesia since Past Psychological History: No Psychological Hx Reported Smoking Status: Never smoker Past Alcohol Use History: None Reported Past Drug Use History: None Reported - Past Family History Mother Family Medical History: COPD, Diabetes Mellitus Additional Family Medical History / Comment(s): Macular degeneration, legally blind Sister(s) Family Medical History: Cancer Father Family Medical History: Myocardial Infarction ([place]) Additional Family Medical History / Comment(s): Father had his first [place] at the age of 82 yrs. He is . Medications and Allergies Home Medications Medication Instructions Recorded Confirmed Type Ascorbic Acid [Vitamin C] 1,000 mg PO HS 02/05/19 04/04/20 History Cholecalciferol (Vitamin D3) 5,000 unit PO HS 02/05/19 04/04/20 History [Vitamin D3] Vitamin B Complex 1 cap PO HS 02/05/19 04/04/20 History lisinopriL [Zestril] 2.5 mg PO HS 02/05/19 04/04/20 History Apixaban [Eliquis] 5 mg PO BID 02/08/20 04/04/20 History Atorvastatin [Lipitor] 40 mg PO HS 02/08/20 04/04/20 History Calcium/Magnesium/Zinc 1 tab PO HS 02/08/20 04/04/20 History [Lfzqhfq-Iwkdqrkpg-Ledu Tablet] L.acidoph,Paracasei, B.lactis 1 cap PO TID 02/08/20 04/04/20 History [Probiotic] Metoprolol Succinate (ER) [Toprol 25 mg PO DAILY 02/08/20 04/04/20 History XL] [place]-3 Fatty Acids [[place]-3] 1,000 mg PO HS 02/08/20 04/04/20 History Acetaminophen Tab [Tylenol] 1,000 mg PO Q6HR PRN #120 tab 03/22/20 04/04/20 Rx Pantoprazole Sodium [Protonix] 40 mg PO AC-CYNKFST #30 tablet. 03/23/20 0 04/04/20 Rx Cephalexin [Keflex] 500 mg PO Q6HR 7 Days #28 cap 04/03/20 04/04/20 Rx Aspirin 81 mg PO HS 04/04/20 04/04/20 History Cyanocobalamin (Vitamin B-12) 1,000 mcg PO HS 04/04/20 04/04/20 History [Vitamin B-12] Sennosides-Docusate Sodium 2 tab PO HS PRN 04/04/20 04/04/20 History [Senokot-S] Allergies Allergy/AdvReac Type Severity Reaction Status Date / Time thiopental [From Pentothal] Allergy Anaphylaxis, Verified 04/04/20 13:29 TROUBLE BREATHING metformin AdvReac VERY WEAK, Verified 04/04/20 13:29 SEVERE JOINT PAIN , MUSCLE PAIN rivaroxaban [From Xarelto] AdvReac bruising Verified 04/04/20 13:29 Surgical - Exam Vital Signs Temp Pulse Resp BP Pulse Ox 98.1 F 64 16 136/60 99 04/04/20 11:53 04/04/20 11:53 04/04/20 11:53 04/04/20 11:53 04/04/20 11:53 - General well developed, well nourished, no distress, no pain, obese - Eyes PERRL, normal ocular movement, no icteric - ENT normal pinna, normal nares, normal mucosa, no hearing loss, no congestion - Neck Bilateral JVD. Neck is supple, no lymphadenopathy. no masses, no bruits, trachea midline - Respiratory Lung sounds are essentially clear throughout, diminished to his left lower lobe. No wheezes, rhonchi or crackles. Respirations are symmetrical and nonlabored. - Cardiovascular Regular rhythm and bradycardic rate. S1 and S2 present, negative for S3, gallop or murmur. +2 edema to his bilateral lower extremities. Knee-high DAVID hose in place to his bilateral lower extremities. - Abdomen Abdomen is soft, nontender and nondistended. Active bowel sounds present for abdominal quadrants. No guarding or rigidity. No organomegaly appreciated. - Genitourinary Deferred - Rectum Deferred - Integumentary Skin is warm and dry. No clubbing or cyanosis is present. Sternal incision with distal incision with around 4 cm opening, packed with half inch iodoform gauze and covered with 4 x 4 gauze. Scant serosanguineous drainage. no rash, no growths - Neurologic Cranial nerves II through XII intact. normal coordination, normal sensation - Musculoskeletal normal gait, normal posture - Psychiatric oriented to time, oriented to person, oriented to place, speech is normal, memory intact Results - Labs 04/04/20 12:18 04/04/20 12:18 Abnormal Lab Results - Last 24 Hours (Table) 04/04/20 04/04/20 Range/Units 12:18 12:18 WBC 12.1 H (3.8-10.6) k/uL RBC 3.17 L (4.30-5.90) m/uL Hgb 9.1 L (13.0-17.5) gm/dL Hct 29.2 L (39.0-53.0) % Plt Count 497 H D (150-450) k/uL Neutrophils # 8.6 H (1.3-7.7) k/uL BUN 28 H (9-20) mg/dL Glucose 150 H (74-99) mg/dL C-Reactive Protein 54.6 H (<10.0) mg/L Total Protein 5.6 L (6.3-8.2) g/dL Albumin 2.7 L (3.5-5.0) g/dL Diabetes panel 04/04/20 Range/Units 12:18 Sodium 138 (137-145) mmol/L Potassium 4.4 (3.5-5.1) mmol/L Chloride 107 (98-107) mmol/L Carbon Dioxide 27 (22-30) mmol/L BUN 28 H (9-20) mg/dL Creatinine 0.74 (0.66-1.25) mg/dL Glucose 150 H (74-99) mg/dL Calcium 8.7 (8.4-10.2) mg/dL AST 20 (17-59) U/L ALT 12 (4-49) U/L Alkaline Phosphatase 73 (38-126) U/L Total Protein 5.6 L (6.3-8.2) g/dL Albumin 2.7 L (3.5-5.0) g/dL Calcium panel 04/04/20 Range/Units 12:18 Calcium 8.7 (8.4-10.2) mg/dL Albumin 2.7 L (3.5-5.0) g/dL Pituitary panel 04/04/20 Range/Units 12:18 Sodium 138 (137-145) mmol/L Potassium 4.4 (3.5-5.1) mmol/L Chloride 107 (98-107) mmol/L Carbon Dioxide 27 (22-30) mmol/L BUN 28 H (9-20) mg/dL Creatinine 0.74 (0.66-1.25) mg/dL Glucose 150 H (74-99) mg/dL Calcium 8.7 (8.4-10.2) mg/dL Adrenal panel 04/04/20 Range/Units 12:18 Sodium 138 (137-145) mmol/L Potassium 4.4 (3.5-5.1) mmol/L Chloride 107 (98-107) mmol/L Carbon Dioxide 27 (22-30) mmol/L BUN 28 H (9-20) mg/dL Creatinine 0.74 (0.66-1.25) mg/dL Glucose 150 H (74-99) mg/dL Calcium 8.7 (8.4-10.2) mg/dL Total Bilirubin 0.4 (0.2-1.3) mg/dL AST 20 (17-59) U/L ALT 12 (4-49) U/L Alkaline Phosphatase 73 (38-126) U/L Total Protein 5.6 L (6.3-8.2) g/dL Albumin 2.7 L (3.5-5.0) g/dL - Imaging Chest x-ray: report reviewed, image reviewed Additional studies: Ultrasound of the chest results reviewed. Left pleural effusion pocket size 9.0 cm. Assessment and Plan Assessment: 1. Superficial sternal incisional surgical site infection 2. Diabetes mellitus type 2 with Elevated blood glucose levels, most recent he moglobin A1c 6.5% 3. Postoperative left pleural effusion 4. Leukocytosis 5. Severe bicuspid aortic valve stenosis, status post aortic valve replacement using a 23 mm Inspiris pericardial bioprosthesis 6. History of hypertension 7. Hyperlipidemia 8. Chronic paroxysmal atrial fibrillation on eliquis for anticoagulation, status post cardioversion January 2019 9. History of gastroplasty Plan: The patient was seen and examined at his bedside on the observation unit, his was at his bedside. The patient is awake, alert and oriented 3 and is in no acute distress. His chest x-ray was reviewed which demonstrated a moderate sized left pleural effusion. An ultrasound of his left chest was ordered with markings and it demonstrated a 9 cm left pleural fluid pocket. Dr. Bach from pulmonary medicine was consulted for the left pleural effusion. The patient's eliquis is currently on hold for possible left thoracentesis. Lasix 40 mg IV 1 now for lower extremity edema. Continue GI and DVT prophylaxis. Encourage use of his incentive spirometry 10 times every hour while awake. 2-D echocardiogram ordered for evaluation of LV function. Dr. Bansal from infectious disease was consulted for antibiotic and wound care management, one dose of vancomycin 1750 mg IV piggyback 1 now ordered. Blood cultures and urinalysis with reflex culture have been ordered. Cardiology has been consulted. Medical management/diabetes management and other comorbidities per Dr. Dominguez's recommendations. Continue to optimize medical management with aspirin, statin, YAYA inhibitor and beta amairani. Postoperative aortic valve replacement care orders were reviewed with the patient, encouraged to continue to use his heart hugger, reminded the patient of his lifting, pushing and pulling restrictions of nothing greater than 10 pounds or jug of milk for 12 full weeks. We will continue to follow his labs and daily chest x-rays. Thank you Dr. Dominguez for this consult and we look 4 to working with you in the care of this patient. Time with Patient: Greater than 30
--- NOTE | 2020-04-04 16:04 | P.PCN ---
Date of Procedure: 04/04/20 Preoperative Diagnosis: left-sided pleural effusion Postoperative Diagnosis: left-sided pleural effusion Procedure(s) Performed: left-sided thoracentesis Anesthesia: local Surgeon: Angelica Bach Estimated Blood Loss (ml): 0 Pathology: none sent Condition: stable Disposition: same day Operative Findings: Indication: Pleural effusion. A time-out was completed verifying correct patient, procedure, site, positioning, and implant (s) or special equipment if applicable. Ultrasound guidance [was/was not] used and appropriate fluid pocket was identified and marked. Patient was positioned, prepped and draped in usual sterile fashion. Lidocaine was used to anesthetize the area. A Thoracentesis catheter was introduced into the pleural space and fluid was removed. Blood loss was none. A chest x-ray was ordered to evaluate for pneumothorax. Total Fluid Removed: 1700cc Color of Fluid: Bloody Fluid was sent for appropriate laboratory tests. Patient tolerated the procedure well and there were no complications.
--- NOTE | 2020-04-04 16:05 | P.CNPUL ---
History of Present Illness Consult date: 04/04/20 Requesting physician: Wesley Jaramillo Reason for consult: dyspnea, pleural effusion, abnormal CXR/CT Chief complaint: Large left-sided pleural effusion History of present illness: 69-year-old white female patient with the recent history of aortic valve replacement for severe aortic valve stenosis related to have a calcified bicuspid aortic valve with symptoms of chest pain or shortness of breath on 03/19/2020, only previously seen in consultation following his surgery for ICU, and ventilator management. Patient recovered after his surgery well, she was discharged home with [facility] on 03/23/2020. Patient was being seen in the follow-up appointment by Dr. Nash today on 04/04/2020. Patient was having increased shortness of breath, chest x-ray showed moderate-sized left pleural effusion which increased in size from his most recent chest x-ray 12 days ago. Patient was given a dose of Lasix in the office, with orders for ultrasound of the chest and patient may need a left-sided thoracentesis, patient also has a possible infection of his chest incision with drainage from the distal portion of his midsternal incision. Patient has been having hypoglycemia, his blood sugars were running in the 300s, and patient did have some intermittent nausea, but no nausea today. Admits to one episode of vomiting at home. Infectious disease consultation was placed for antibiotic management. In addition patient admits to increase in the bilateral lower leg edema over the past few days. He was started on Keflex by his primary care provider office. His vital signs are stable upon arrival, patient is afebrile. Ultrasound the chest showed 9.0 cm pocket on the left. Labs reviewed showing white blood cell count of 12.1, hemoglobin of 9.1, platelet count is 497, electrolytes were within normal limits, B1 is 20 creatinine 0.74, LFTs are within normal limits, CRP was 54.6. Patient received a dose of IV Lasix in the emergency department, he was started on vancomycin, and we're asked to see the patient in regards to monitor size left-sided pleural effusion for possibility of left thoracentesis Review of Systems All systems: negative Constitutional: Denies chills, Denies fever Eyes: denies blurred vision, denies pain Ears, nose, mouth and throat: Denies headache, Denies sore throat Cardiovascular: Denies chest pain, Denies shortness of breath Respiratory: Reports dyspnea, Denies cough Gastrointestinal: Denies abdominal pain, Denies diarrhea, Denies nausea, Denies vomiting Musculoskeletal: Denies myalgias Integumentary: Denies pruritus, Denies rash Neurological: Denies numbness, Denies weakness Psychiatric: Denies anxiety, Denies depression Endocrine: Denies fatigue, Denies weight change Past Medical History Past Medical History: Atrial Fibrillation, Chest Pain / Angina, Diabetes Mellitus, Eye Disorder, Hyperlipidemia, Hypertension, Pneumonia Additional Past Medical History / Comment(s): "no diabetic mediication since wt loss" checks blood sugar at home and watches diet , MIGRAINE HEADACHES A CHILD, heart murmer, heart valve problem, "macular buildup in both eyes" History of Any Multi-Drug Resistant Organisms: None Reported Past Surgical History: Bariatric Surgery, Orthopedic Surgery, Tonsillectomy Additional Past Surgical History / Comment(s): CABG Past Anesthesia/Blood Transfusion Reactions: Previous Problems w/ Anesthesia Additional Past Anesthesia/Blood Transfusion Reaction / Comment(s): reaction with sodium pentothall years ago-"almost ". no problem with anesthesia since Past Psychological History: No Psychological Hx Reported Smoking Status: Never smoker Past Alcohol Use History: None Reported Past Drug Use History: None Reported - Past Family History Mother Family Medical History: COPD, Diabetes Mellitus Additional Family Medical History / Comment(s): Macular degeneration, legally blind Sister(s) Family Medical History: Cancer Father Family Medical History: Myocardial Infarction ([place]) Additional Family Medical History / Comment(s): Father had his first [place] at the age of 82 yrs. He is . Medications and Allergies Home Medications Medication Instructions Recorded Confirmed Type Ascorbic Acid [Vitamin C] 1,000 mg PO 02/05/19 04/04/20 History Cholecalciferol (Vitamin D3) 5,000 unit PO 02/05/19 04/04/20 History [Vitamin D3] Vitamin B Complex 1 cap PO 02/05/19 04/04/20 History lisinopriL [Zestril] 2.5 mg PO 02/05/19 04/04/20 History Apixaban [Eliquis] 5 mg PO BID 02/08/20 04/04/20 History Atorvastatin [Lipitor] 40 mg PO 02/08/20 04/04/20 History Calcium/Magnesium/Zinc 1 tab PO 02/08/20 04/04/20 History [Vvblqrt-Rvckexhrv-Gwqk Tablet] L.acidoph,Paracasei, B.lactis 1 cap PO TID 02/08/20 04/04/20 History [Probiotic] Metoprolol Succinate (ER) [Toprol 25 mg PO DAILY 02/08/20 04/04/20 History XL] [place]-3 Fatty Acids [[place]-3] 1,000 mg PO HS 02/08/20 04/04/20 History Acetaminophen Tab [Tylenol] 1,000 mg PO Q6HR PRN #120 tab 03/22/20 04/04/20 Rx Pantoprazole Sodium [Protonix] 40 mg PO AC-BRKFST #30 tablet. 03/23/20 04/04/20 Rx Cephalexin [Keflex] 500 mg PO Q6HR 7 Days #28 cap 04/03/20 04/04/20 Rx Aspirin 81 mg PO HS 04/04/20 04/04/20 History Cyanocobalamin (Vitamin B-12) 1,000 mcg PO HS 04/04/20 04/04/20 History [Vitamin B-12] Sennosides-Docusate Sodium 2 tab PO HS PRN 04/04/20 04/04/20 History [Senokot-S] Allergies Allergy/AdvReac Type Severity Reaction Status Date / Time thiopental [From Pentothal] Allergy Anaphylaxis, Verified 04/04/20 13:29 TROUBLE BREATHING metformin AdvReac VERY WEAK, Verified 04/04/20 13:29 SEVERE JOINT PAIN , MUSCLE PAIN rivaroxaban [From Xarelto] AdvReac bruising Verified 04/04/20 13:29 Physical Exam Vitals: Vital Signs Temp Pulse Pulse Resp BP BP Pulse Ox 04/04/20 13:56 97.8 F 59 L 16 130/73 95 04/04/20 13:05 65 18 124/68 93 L 04/04/20 11:53 98.1 F 64 16 136/60 99 Intake and Output 04/03/20 04/04/20 04/04/20 22:59 06:59 14:59 Other: Weight 106.141 kg GENERAL EXAM: Alert, very pleasant, 69-year-old white male on room air with pulse ox of 95%, comfortable in no apparent distress. HEAD: Normocephalic/atraumatic. EYES: Normal reaction of pupils, equal size. Conjunctiva pink, sclera white. NOSE: Clear with pink turbinates. THROAT: No erythema or exudates. NECK: No masses, no JVD, no thyroid enlargement, no adenopathy. CHEST: No chest wall deformity. Symmetrical expansion. LUNGS: Diminished air entry over left lower lung with limited crackles, but no wheeze, rhonchi or dullness. CVS: Regular rate and rhythm, normal S1 and S2, no gallops, no murmurs, no rubs ABDOMEN: Soft, nontender. No hepatosplenomegaly, normal bowel sounds, no guarding or rigidity. EXTREMITIES: No clubbing, no edema, no cyanosis, 2+ pulses and upper and lower extremities. MUSCULOSKELETAL: Muscle strength and tone normal. SPINE: No scoliosis or deformity SKIN: No rashes CENTRAL NERVOUS SYSTEM: Alert and oriented -3. No focal deficits, tone is normal in all 4 extremities. PSYCHIATRIC: Alert and oriented -3. Appropriate affect. Intact judgment and insight. Results - Laboratory Findings CBC and BMP: 04/04/20 12:18 04/04/20 12:18 Abnormal lab findings: Abnormal Labs 04/04/20 04/04/20 12:18 12:18 WBC 12.1 H RBC 3.17 L Hgb 9.1 L Hct 29.2 L Plt Count 497 H D Neutrophils # 8.6 H BUN 28 H Glucose 150 H C-Reactive Protein 54.6 H Total Protein 5.6 L Albumin 2.7 L - Diagnostic Findings Chest x-ray: report reviewed, image reviewed Additional studies: Ultrasound of the chest reviewed Assessment and Plan Plan: Assessment: #1. Dyspnea related to moderately sized left-sided pleural effusion with ultrasound the chest showing 9 cm fluid pocket on the left #2. Sternal wound infection #3. Hyperglycemia #4. Nausea, 1 episode of vomiting, possibly related to hyperglycemia #5. Recent history of aortic valve replacement with bioprosthetic Inspiris valve, exclusion of the left atrial appendage, on 03/19/2020, patient was discharged home on 03/23/2020 #6. Hypertension #7. Hyperlipidemia #8. Diabetes mellitus type 2 #9. Diabetis mellitus type II #10. Diabetic ulcer on the right foot tendon third toe #11. Paroxysmal atrial fibrillation, on Eliquis which is currently on hold for possibility of left-sided thoracentesis #12. Macular degeneration #13. Lifetime nonsmoker Plan: We'll hold Eliquis, we'll proceed with a left-sided thoracentesis today at the bedside, and the pleural fluid cultures will be sent as well as cytology, and fluid for analysis. We will restart Eliquis following the procedure tonight. Hemodynamically patient is stable, follow-up chest x-ray in the morning, we'll give additional diuretics, daily weight, follow-up labs including electrolytes, and renal profile, monitor febrile pattern, monitor serum glucose, ID service consultation has been requested and is pending at this time, patient has been started on broad-spectrum antibiotics. We'll continue to follow I performed a history & physical examination of the patient and discussed their management with my nurse practitioner, Lucretia Howard. I reviewed the nurse practitioner's note and agree with the documented findings and plan of care. Lung sounds are positive for diminished breath sounds over left lower lobe. The findings and the impression was discussed with the patient. I attest to the documentation by the nurse practitioner. Time with Patient: Greater than 30
--- NOTE | 2020-04-04 16:06 | XR ---
EXAMINATION TYPE: XR chest 1V DATE OF EXAM: 04/04/2020 COMPARISON: 04/04/2020 INDICATION: Postthoracentesis TECHNIQUE: Single frontal view of the chest is obtained. FINDINGS: The heart size is normal. The pulmonary vasculature is normal. Small left pleural effusion remains present. This is diminished from comparison. No pneumothorax is e vident. IMPRESSION: 1. No pneumothorax postthoracentesis. 2. Diminished small left pleural effusion
[2020-04-04] MEDS: PANTOPRAZOLE 40 MG TABLET PO SCH (16:17)
[2020-04-04] MEDS: ACETAMINOPHEN TAB 500 MG TAB PO PRN (16:17)
[2020-04-04 16:30] LABS: Glucose,Whole Blood 131 mg/dL (75-99)
[2020-04-04] MEDS: LACTOBACILLUS ACIDOPH & BULGAR 1 EACH PACKET PO SCH ×2 (16:56→21:52)
[2020-04-04] MEDS: METOPROLOL SUCCINATE (ER) 25 MG TAB.ER.24H PO SCH (16:56)
[2020-04-04] MEDS: INSULIN ASPART (NovoLOG) 100 UNIT/ML VIAL SQ SCH (17:26)
[2020-04-04] MEDS ORDERED: HYDROmorphone 1 MG/ML 1 ML SYRINGE IVP STA (17:55)
[2020-04-04] MEDS ORDERED: HYDROmorphone 1 MG/ML 1 ML SYRINGE ONE (17:55)
[2020-04-04 18:00] LABS: Appearance,Urine Clear (Clear); Bilirubin,Urine Negative (Negative); Blood,Urine Negative (Negative); Color,Urine Colorless; Glucose,Urine (UA) Negative (Negative); Ketones,Urine Negative (Negative); Leukocyte Esterase,Urine Negative (Negative); Nitrite,Urine Negative (Negative); Protein,Urine Negative (Negative); Specific Gravity,Urine 1.007 (1.001-1.035); Urobilinogen,Urine <2.0 mg/dL (<2.0)
--- NOTE | 2020-04-04 18:34 | XR ---
EXAMINATION TYPE: XR chest 1V DATE OF EXAM: 04/04/2020 COMPARISON: 04/04/2020 HISTORY: Chest pain TECHNIQUE: FINDINGS: There are sternal wires. There is some infiltrate and atelectasis left lung base. There is slight blunting left costophrenic angle. There is no gross heart failure. Right lung is clear. Heart is enlarged. IMPRESSION: Pleural reaction and infiltrate and atelectasis left lung base unchanged compared to exam 2 hours ago. Stable cardiomegaly. No obvious heart failure.
[2020-04-04 20:21] LABS: Glucose,Whole Blood 116 mg/dL (75-99)
[2020-04-04] MEDS ORDERED: APIXABAN 5 MG TAB PO SCH (21:00)
[2020-04-04] MEDS ORDERED: NON FORMULARY DRUG (Omega-3 Fatty Acids [Omega-3] 1,000 MG Capsule) PO SCH (21:00)
[2020-04-04] MEDS ORDERED: NON FORMULARY DRUG (Vitamin B Complex [Vitamin B Complex] 1 EACH Capsule) PO SCH (21:00)
[2020-04-04] MEDS ORDERED: NON FORMULARY DRUG (Calcium/Magnesium/Zinc [Calcium-Magnesium-Zinc Tablet] 1 EACH Tablet) PO SCH (21:00)
[2020-04-04 21:46] LABS: Color,BF Red
[2020-04-04 21:47] LABS: Appearance,BF Bloody; Nucleated Cells, Body Fluid 400 /uL; RBC, Body Fluid 119200 /uL
[2020-04-04 21:49] LABS: Mononuclear WBC,Body Fluid 72 %; Polynuclear WBC,Body Fluid 28 %; Total Cells Counted,Body Fluid 100
[2020-04-04] MEDS: CHOLECALCIFEROL 1,000 UNIT TAB PO SCH (21:52)
[2020-04-04] MEDS: ASPIRIN 81 MG PO SCH (21:54)
[2020-04-04] MEDS: ATORVASTATIN 40 MG TAB PO SCH (21:54)
--- NOTE | 2020-04-04 23:25 | P.CONS ---
History of Present Illness - Reason for Consult Consult date: 04/04/20 Sternal wound infection Requesting physician: Misti Nash - Chief Complaint Sternal wound opening and drainage and redness x few days - History of Present Illness Patient is a 69 year male who is status post aortic valve replacement on 03/19/2020 patient was subsequently short home on 03/23/2020 patient started noticing some redness and scaliness there is drainage from the distal sternal incision around 03/31/2020 and the patient was complaining of some dull aching at times sharp pain the lower end of the sternal incision intensity (selected and no radiation patient apparently [facility]2020 patient did have a local wound cultures obtained and the patient was started on oral Keflex, patient subsequently was reevaluated at the surgery office on 04/04/2020 with the patient had did have a debridement of the distal sternal incision drainage and deep cultures and the patient has been subsequently admitted to the hospital for further workup, on arrival to the ER the patient has been afebrile he did have mildly elevated white count of 12.17 cultures from 6 in the setting pending patient has been empirically started on vancomycin and infectious disease was consulted for further management of antibiotic therapy Review of Systems Positive point has been mentioned in the HPI rest of the systems are negative Past Medical History Past Medical History: Atrial Fibrillation, Chest Pain / Angina, Diabetes Mellitus, Eye Disorder, Hyperlipidemia, Hypertension, Pneumonia Additional Past Medical History / Comment(s): "no diabetic mediication since wt loss" checks blood sugar at home and watches diet , MIGRAINE HEADACHES A CHILD, heart murmer, heart valve problem, "macular buildup in both eyes" History of Any Multi-Drug Resistant Organisms: None Reported Past Surgical History: Bariatric Surgery, Orthopedic Surgery, Tonsillectomy Additional Past Surgical History / Comment(s): CABG Past Anesthesia/Blood Transfusion Reactions: Previous Problems w/ Anesthesia Additional Past Anesthesia/Blood Transfusion Reaction / Comm: reaction with sodium pentothall years ago-"almost ". no problem with anesthesia since Past Psychological History: No Psychological Hx Reported Smoking Status: Never smoker Past Alcohol Use History: None Reported Past Drug Use History: None Reported - Past Family History Mother Family Medical History: COPD, Diabetes Mellitus Additional Family Medical History / Comment(s): Macular degeneration, legally blind Sister(s) Family Medical History: Cancer Father Family Medical History: Myocardial Infarction (OR) Additional Family Medical History / Comment(s): Father had his first OR at the age of 82 yrs. He is . Medications and Allergies Home Medications Medication Instructions Recorded Confirmed Type Ascorbic Acid [Vitamin C] 1,000 mg PO HS 02/05/19 04/04/20 History Cholecalciferol (Vitamin D3) 5,000 unit PO HS 02/05/19 04/04/20 History [Vitamin D3] Vitamin B Complex 1 cap PO HS 02/05/19 04/04/20 History lisinopriL [Zestril] 2.5 mg PO HS 02/05/19 04/04/20 History Apixaban [Eliquis] 5 mg PO BID 02/08/20 04/04/20 History Atorvastatin [Lipitor] 40 mg PO HS 02/08/20 04/04/20 History Calcium/Magnesium/Zinc 1 tab PO HS 02/08/20 04/04/20 History [Sgamtxd-Nwquvgwsv-Fahb Tablet] L.acidoph,Paracasei, B.lactis 1 cap PO TID 02/08/20 04/04/20 History [Probiotic] Metoprolol Succinate (ER) [Toprol 25 mg PO DAILY 02/08/20 04/04/20 History XL] Dundee-3 Fatty Acids [Dundee-3] 1,000 mg PO HS 02/08/20 04/04/20 History Acetaminophen Tab [Tylenol] 1,000 mg PO Q6HR PRN #120 tab 03/22/20 04/04/20 Rx Pantoprazole Sodium [Protonix] 40 mg PO AC-BRKFST #30 tablet. 03/23/20 04/04/20 Rx Cephalexin [Keflex] 500 mg PO Q6HR 7 Days #28 cap 04/03/20 04/04/20 Rx Aspirin 81 mg PO HS 04/04/20 04/04/20 History Cyanocobalamin (Vitamin B-12) 1,000 mcg PO HS 04/04/20 04/04/20 History [Vitamin B-12] Sennosides-Docusate Sodium 2 tab PO HS PRN 04/04/20 04/04/20 History [Senokot-S] Allergies Allergy/AdvReac Type Severity Reaction Status Date / Time thiopental [From Pentothal] Allergy Anaphylaxis, Verified 04/04/20 13:29 TROUBLE BREATHING metformin AdvReac VERY WEAK, Verified 04/04/20 13:29 SEVERE JOINT PAIN , MUSCLE PAIN rivaroxaban [From Xarelto] AdvReac bruising Verified 04/04/20 13:29 Physical Exam Vitals: Vital Signs Temp Pulse Pulse Resp BP BP Pulse Ox 04/04/20 13:56 97.8 F 59 L 16 130/73 95 04/04/20 13:05 65 18 124/68 93 L 04/04/20 11:53 98.1 F 64 16 136/60 99 Intake and Output 04/03/20 04/04/20 04/04/20 22:59 06:59 14:59 Other: Weight 106.141 kg GENERAL DESCRIPTION: An elderly male lying in bed, no distress. No tachypnea or accessory muscle of respiration use. HEENT: Shows Pallor , no scleral icterus. Oral mucous membrane is dry. No pharyngeal erythema or thrush NECK: Trachea central, no thyromegaly. LUNGS: Unlabored breathing. Decreased In the Base. No wheeze or crackle. HEART: S1, S2, regular rate and rhythm. Lower sternal wound post-deployment packed with iodoform no sniffing surrounding redness or drainage ABDOMEN: Soft, no tenderness , guarding or rigidity, no organomegaly EXTREMITIES: No edema of feet. SKIN: No rash, no masses palpable. NEUROLOGICAL: The patient is awake, alert, oriented x3, mood and affect normal. Results CBC & Chem 7: 04/04/20 12:18 04/04/20 12:18 Labs: Abnormal Lab Results - Last 24 Hours (Table) 04/04/20 04/04/20 Range/Units 12:18 12:18 WBC 12.1 H (3.8-10.6) k/uL RBC 3.17 L (4.30-5.90) m/uL Hgb 9.1 L (13.0-17.5) gm/dL Hct 29.2 L (39.0-53.0) % Plt Count 497 H D (150-450) k/uL Neutrophils # 8.6 H (1.3-7.7) k/uL BUN 28 H (9-20) mg/dL Glucose 150 H (74-99) mg/dL C-Reactive Protein 54.6 H (<10.0) mg/L Total Protein 5.6 L (6.3-8.2) g/dL Albumin 2.7 L (3.5-5.0) g/dL Assessment and Plan Assessment: 1- patient with possible superficial sternal wound infection in this patient who did have debridement of the wound and cultures are currently pending, cultures 2 days ago showing gram-positive cocci with concern for possible Streptococcus or Staphylococcus aureus, clinically not behaving as a deep infection in this patient with no fever or significantly elevated white count (1) Cellulitis of sternum Current Visit: Yes Status: Acute Code(s): L03.313 - CELLULITIS OF CHEST WALL SNOMED Code(s): 33023198 (2) Superficial incisional surgical site infection Current Visit: Yes Status: Acute Code(s): T81.41XA - INFCT FOL A PROC, SUPERFIC INCISIONAL SURGICAL SITE, INIT SNOMED Code(s): 289364647 Plan: 1- Vancomycin pharmacy to dose target trough of 15 while watching his kidney function and Vanco trough closely 2-Aquacel silver packing of the wound To be changed daily We will follow on clinical condition and cultures to further adjust medication if needed Thank you for this consultation will follow this patient with you Time with Patient: Greater than 30
[2020-04-05] MEDS: ASCORBIC ACID 500 MG TAB PO SCH ×2 (00:33→20:01)
[2020-04-05 03:46] LABS: Hemoglobin A1C 6.4 % (4.0-6.0)
[2020-04-05 04:34] LABS: Glucose, BF Source Pleural Fluid; Glucose, Body Fluid 143 mg/dL; LDH, Body Fluid Source Pleural Fluid
[2020-04-05 05:01] LABS: Basophils # (A) 0.1 k/uL (0-0.2); Basophils % (A) 0 %; Eosinophils # (A) 0.1 k/uL (0-0.7); Eosinophils % (A) 1 %; HCT 27.2 % (39.0-53.0); HGB 8.2 gm/dL (13.0-17.5); Hypochromasia Marked; Lymphocytes # (A) 1.6 k/uL (1.0-4.8); Lymphocytes % (A) 11 %; MCH 28.5 pg (25.0-35.0); MCHC 30.3 g/dL (31.0-37.0); MCV 94.1 fL (80.0-100.0); Mean Platelet Volume 6.8; Monocytes # (A) 0.9 k/uL (0-1.0); Monocytes % (A) 6 %; Neutrophils # (A) 12.3 k/uL (1.3-7.7); Neutrophils % (A) 82 %; Platelet Count 457 k/uL (150-450); Poikilocytosis Slight; RBC 2.89 m/uL (4.30-5.90); RDW 13.4 % (11.5-15.5); WBC 15.1 k/uL (3.8-10.6)
[2020-04-05 05:15] LABS: African American GFR (CKD) >90 (>60 ml/min/1.73 sqM); Anion Gap 3 mmol/L; Blood Urea Nitrogen 24 mg/dL (9-20); Calcium 8.4 mg/dL (8.4-10.2); Carbon Dioxide 30 mmol/L (22-30); Chloride 103 mmol/L (98-107); Glucose 138 mg/dL (74-99); Non-African American GFR(CKD) >90 (>60 ml/min/1.73 sqM); Potassium 4.3 mmol/L (3.5-5.1); Sodium 136 mmol/L (137-145)
[2020-04-05 06:12] LABS: Glucose,Whole Blood 151 mg/dL (75-99)
--- NOTE | 2020-04-05 06:46 | XR ---
EXAMINATION TYPE: XR chest 2V DATE OF EXAM: 04/05/2020 COMPARISON: Chest x-ray from yesterday and older studies. HISTORY: Left-sided pleural effusion. TECHNIQUE: Frontal and lateral views of the chest are obtained. FINDINGS: Right lung shows patchy medial right basilar acute atelectasis and/or infiltrate silhouett ing right heart border. Persistent Moderate left-sided pleural effusion with associated left basilar compressive atelectasis. No significant interval change. The cardiac silhouette size is stable and en larged. Overlying sternal wires along with left atrial appendage clipping and metallic cardiac valve are all redemonstrated. Surgical clips epigastric region again seen. Multilevel spurring in the spin e is present. IMPRESSION: Cardiomegaly with moderate size left pleural effusion and associated left basilar andrew sive atelectasis redemonstrated. No significant interval change. New patchy medial right basilar acut e atelectasis and/or infiltrate is noted.
[2020-04-05] MEDS: INSULIN ASPART (NovoLOG) 100 UNIT/ML VIAL SQ SCH ×3 (07:28→17:11)
[2020-04-05] MEDS: INSULIN DETEMIR (LEVEMIR) 100 UNIT/ML SYR SQ SCH (07:28)
[2020-04-05] MEDS: PANTOPRAZOLE 40 MG TABLET PO SCH (07:29)
[2020-04-05] MEDS: ACETAMINOPHEN TAB 500 MG TAB PO PRN ×2 (08:48→15:43)
[2020-04-05] MEDS: LACTOBACILLUS ACIDOPH & BULGAR 1 EACH PACKET PO SCH ×3 (08:48→20:02)
[2020-04-05] MEDS: METOPROLOL SUCCINATE (ER) 25 MG TAB.ER.24H PO SCH (08:49)
[2020-04-05] MEDS ORDERED: APIXABAN 5 MG TAB PO SCH (09:00)
[2020-04-05] MEDS ORDERED: FUROSEMIDE 10 MG/ML 4 ML VIAL IV STA (09:15)
--- NOTE | 2020-04-05 09:16 | P.PN ---
Subjective Progress Note Date: 04/05/20 Principal diagnosis: Superficial sternal incision site infection, left-sided pleural effusion, leukocytosis, hyperglycemia. Past medical history significant for severe bicuspid aortic valve stenosis, status post aortic valve replacement using a 23 mm Inspiris pericardial bioprosthesis, hypertension, hyperlipidemia, chronic paroxysmal atrial fibrillation on eliquis for anticoagulation and status post cardioversion in January 2019, history of morbid obesity status post gastroplasty, diabetes mellitus type 2 with most recent hemoglobin A1c of 6.4%, diabetic ulcer of the right foot third toe and macular degeneration. The patient was seen in follow-up today 04/05/2020 at his bedside on the observation unit. He is awake, alert and oriented 3 and is in no acute distress. He is sitting up to the bedside edge tolerating his breakfast and reports he is feeling much improved today. The patient is complaining of some burning type pain to his left chest draining his pain 2 out of 10 on the pain scale. Oxygen saturations are 96% on room air and he is achieving 1500 mL on hi s incentive spirometry. He remains hemodynamically stable and is currently on no inotropic or pressor support. He has been afebrile the last 24 hours. Laboratory results this morning show his WBC count 15.1 which is trending up from yesterday, hemoglobin 8.2, platelets 457, BUN 24, creatinine 0.73, and glucose 138. Dr. Bach performed a left-sided thoracentesis yesterday 04/04/2020 with 1.7 L of thin serosanguineous colored fluid drained. Gram stain results from the pleural fluid showed no polymorphic ventricular leukocytes and no organism seen. Final culture results remain pending. The patient was seen by infectious disease yesterday, vancomycin for antibiotic coverage ordered and wound care orders using Aquacel silver noted. Dressing to his distal sternal incision remains clean, intact with some scant serosanguineous drainage present. Chest x-ray report this morning shows cardiomegaly with moderate size left pleural effusion and associated left basilar compressive atelectasis redemonstrated. Reinforced with the patient the importance of continuing to follow postoperative aortic valve discharge instructions. His blood sugars have been ranging from 116 mg/dL to 151 mg/dL since his admission, he has been started on insulin coverage managed by primary care service. He denies any further complaints of nausea, vomiting, dizziness or hallucinations. Objective - Vital Signs Vital signs: Vital Signs Temp 98.5 F 04/05/20 02:20 Pulse 57 L 04/05/20 02:20 Resp 15 04/05/20 02:20 BP 141/78 04/05/20 02:20 Pulse Ox 96 04/05/20 02:20 Intake & Output 04/04/20 04/05/20 04/05/20 18:59 06:59 18:59 Weight 106.141 kg Other: Voiding Method Toilet Toilet # Voids 1 - Constitutional General appearance: Present: cooperative, no acute distress, obese - EENT Eyes: Present: PERRLA, dentition normal, normal appearance. Absent: scleral icterus ENT: Present: hearing grossly normal - Neck Details: Neck is supple, no JVD, no lymphadenopathy. - Respiratory Details: Lung sounds are essentially clear to his bilateral upper lobes, diminished to his bilateral bases left greater than right. No wheezes, rhonchi or crackles. Respirations are symmetrical and nonlabored. Oxygen saturation 96% on room air. Achieving 1500 mL on his incentive spirometry. - Cardiovascular Details: Regular rhythm and rate. S1 and S2 present, negative for S3, gallop or murmur. +1 edema to his bilateral lower extremities. Knee-high DAVID hose and sequential compression devices in place to his bilateral lower extremities. Sternum is stable. Heart hugger is in place and he is demonstrating appropriate use. - Gastrointestinal Gastrointestinal Comment(s): Abdomen is soft, nontender and nondistended. Active bowel sounds present L4 abdominal quadrants. No guarding or rigidity. Tolerating oral intake. - Genitourinary Genitourinary Comment(s): Continues to void. - Integumentary Integumentary Comment(s): Skin is warm and dry. No clubbing or cyanosis is present. Dressing to his distal sternal incision is clean, and intact with some scant serosanguineous drainage. - Neurologic Neurologic: Present: CNII-XII intact - Musculoskeletal Musculoskeletal: Present: gait normal, strength equal bilaterally - Psychiatric Psychiatric: Present: A&O x's 3, appropriate affect, intact judgment & insight - Allied health notes Allied health notes reviewed: nursing - Labs CBC & Chem 7: 04/05/20 04:22 04/05/20 04:22 Labs: Abnormal Lab Results - Last 24 Hours (Table) 04/04/20 04/04/20 04/04/20 Range/Units 12:18 12:18 12:18 WBC 12.1 H (3.8-10.6) k/uL RBC 3.17 L (4.30-5.90) m/uL Hgb 9.1 L (13.0-17.5) gm/dL Hct 29.2 L (39.0-53.0) % MCHC (31.0-37.0) g/dL Plt Count 497 H D (150-450) k/uL Neutrophils # 8.6 H (1.3-7.7) k/uL Sodium (137-145) mmol/L BUN 28 H (9-20) mg/dL Glucose 150 H (74-99) mg/dL POC Glucose (mg/dL) (75-99) mg/dL Hemoglobin A1c 6.4 H (4.0-6.0) % C-Reactive Protein 54.6 H (<10.0) mg/L Total Protein 5.6 L (6.3-8.2) g/dL Albumin 2.7 L (3.5-5.0) g/dL 04/04/20 04/04/20 04/05/20 Range/Units 16:28 20:20 04:22 WBC 15.1 H (3.8-10.6) k/uL RBC 2.89 L (4.30-5.90) m/uL Hgb 8.2 L (13.0-17.5) gm/dL Hct 27.2 L (39.0-53.0) % MCHC 30.3 L (31.0-37.0) g/dL Plt Count 457 H (150-450) k/uL Neutrophils # 12.3 H (1.3-7.7) k/uL Sodium (137-145) mmol/L BUN (9-20) mg/dL Glucose (74-99) mg/dL POC Glucose (mg/dL) 131 H 116 H (75-99) mg/dL Hemoglobin A1c (4.0-6.0) % C-Reactive Protein (<10.0) mg/L Total Protein (6.3-8.2) g/dL Albumin (3.5-5.0) g/dL 04/05/20 04/05/20 Range/Units 04:22 06:10 WBC (3.8-10.6) k/uL RBC (4.30-5.90) m/uL Hgb (13.0-17.5) gm/dL Hct (39.0-53.0) % MCHC (31.0-37.0) g/dL Plt Count (150-450) k/uL Neutrophils # (1.3-7.7) k/uL Sodium 136 L (137-145) mmol/L BUN 24 H (9-20) mg/dL Glucose 138 H (74-99) mg/dL POC Glucose (mg/dL) 151 H (75-99) mg/dL Hemoglobin A1c (4.0-6.0) % C-Reactive Protein (<10.0) mg/L Total Protein (6.3-8.2) g/dL Albumin (3.5-5.0) g/dL Microbiology - Last 24 Hours (Table) 04/04/20 15:25 Fungal Culture - Preliminary Pleural Fluid 04/04/20 15:25 Acid Fast Bacilli Culture - Preliminary Pleural Fluid 04/04/20 15:25 Anaerobic Culture - Preliminary Pleural Fluid 04/04/20 15:25 Body Fluid Culture - Preliminary Pleural Fluid 04/04/20 17:00 Gram Stain - Preliminary Chest Wound Culture - Preliminary 04/04/20 17:00 Anaerobic Culture - Preliminary Chest - Imaging and Cardiology Chest x-ray: report reviewed, image reviewed Assessment and Plan Assessment: 1. Superficial sternal incisional surgical site infection 2. Diabetes mellitus type 2 with Elevated blood glucose levels, most recent hem oglobin A1c 6.4% 3. Postoperative left pleural effusion, status post left-sided thoracentesis with 1.7 L of thin serosanguineous colored drainage drained 4. Leukocytosis, multifactorial 5. Severe bicuspid aortic valve stenosis, status post aortic valve replacement using a 23 mm Inspiris pericardial bioprosthesis 6. History of hypertension 7. Hyperlipidemia 8. Chronic paroxysmal atrial fibrillation on eliquis for anticoagulation, status post cardioversion January 2019 9. History of gastroplasty 10. History of diabetic ulcer to his right foot third toe 11. Macular degeneration Plan: 1. Continue to optimize medical management with low-dose aspirin, statin, YAYA inhibitor and beta amairani. 2. Continue to encourage use of incentive spirometry 10 times every hour while awake. 3. Continue to monitor daily labs and chest x-rays. 4. Continue to reinforce the importance of the postoperative aortic valve replacement discharge instructions. 5. Activity as tolerated, out of bed for meals and ambulate in the hallway as tolerated. 6. Monitor accurate I's and O's. 7. Antibiotic management and wound care orders per infectious disease. 8. Pleural effusion management per pulmonary/ critical care medicine. 9. Medical management/diabetes management per primary care service. 10. Lasix 40 mg IV 1 now. 11. Dressing to his distal sternal incision changed using Aquacel silver, covered with 4 x 4 gauze and secured with tape. 12. GI and DVT prophylaxis. 13. Pain control per current when necessary orders. 14. We will hold eliquis and restart prior to discharge. 15. More recommendations to follow based on patient's clinical course. Time with Patient: Greater than 30
[2020-04-05] MEDS ORDERED: VANCOMYCIN IV PER PHARMACY 1 EACH MISC MISCELLANE PRN (10:19)
--- NOTE | 2020-04-05 11:43 | P.PN ---
Subjective Progress Note Date: 04/05/20 69-year-old white female patient with the recent history of aortic valve replac ement for severe aortic valve stenosis related to have a calcified bicuspid aortic valve with symptoms of chest pain or shortness of breath on 03/19/2020, only previously seen in consultation following his surgery for ICU, and ventilator management. Patient recovered after his surgery well, she was discharged home with [facility] care on 03/23/2020. Patient was being seen in the follow-up appointment by Dr. Nash today on 04/04/2020. Patient was having increased shortness of breath, chest x-ray showed moderate-sized left pleural effusion which increased in size from his most recent chest x-ray 12 days ago. Patient was given a dose of Lasix in the office, with orders for ultrasound of the chest and patient may need a left-sided thoracentesis, patient also has a possible infection of his chest incision with drainage from the distal portion of his midsternal incision. Patient has been having hypoglycemia, his blood sugars were running in the 300s, and patient did have some intermittent nausea, but no nausea today. Admits to one episode of vomiting at home. Infectious disease consultation was placed for antibiotic management. In addition patient admits to increase in the bilateral lower leg edema over the past few days. He was started on Keflex by his primary care provider office. His vital signs are stable upon arrival, patient is afebrile. Ultrasound the chest showed 9.0 cm pocket on the left. Labs reviewed showing white blood cell count of 12.1, hemoglobin of 9.1, platelet count is 497, electrolytes were within normal limits, B1 is 20 creatinine 0.74, LFTs are within normal limits, CRP was 54.6. Patient received a dose of IV Lasix in the emergency department, he was started on vancomycin, and we're asked to see the patient in regards to monitor size left-sided pleural effusion for possibility of left thoracentesis 04/05/2020 the patient is feeling well. Thoracentesis was done yesterday. A total of 1.7 L of fluid was removed. Following the procedure the patient stated some pain across the left chest. A dose of Dilaudid was given and the pain was completely recovered following that. The chest x-ray shows some volume loss in the left lower lobe and there is some residual effusion on today's chest x-ray. The patient otherwise is afebrile. He is on room air oxygen. He is using incentive spirometer.hemoglobin was done at 8.2. No other significant events otherwise for now. Objective - Vital Signs Vital signs: Vital Signs Temp 99.1 F 04/05/20 09:00 Pulse 75 04/05/20 09:00 Resp 19 04/05/20 09:00 BP 120/67 04/05/20 09:00 Pulse Ox 93 L 04/05/20 09:00 Intake & Output 04/04/20 04/05/20 04/05/20 18:59 06:59 18:59 Weight 106.141 kg Other: Voiding Method Toilet Toilet # Voids 2 - Exam GENERAL EXAM: Alert, very pleasant, 69-year-old white male on room air with pulse ox of 95%, comfortable in no apparent distress. HEAD: Normocephalic/atraumatic. EYES: Normal reaction of pupils, equal size. Conjunctiva pink, sclera white. NOSE: Clear with pink turbinates. THROAT: No erythema or exudates. NECK: No masses, no JVD, no thyroid enlargement, no adenopathy. CHEST: No chest wall deformity. Symmetrical expansion. LUNGS: Diminished breath sounds and dullness to percussion in the left lung base. CVS: Regular rate and rhythm, normal S1 and S2, no gallops, no murmurs, no rubs ABDOMEN: Soft, nontender. No hepatosplenomegaly, normal bowel sounds, no guarding or rigidity. EXTREMITIES: No clubbing, no edema, no cyanosis, 2+ pulses and upper and lower extremities. MUSCULOSKELETAL: Muscle strength and tone normal. SPINE: No scoliosis or deformity SKIN: No rashes CENTRAL NERVOUS SYSTEM: Alert and oriented -3. No focal deficits, tone is normal in all 4 extremities. PSYCHIATRIC: Alert and oriented -3. Appropriate affect. Intact judgment and insight. - Labs CBC & Chem 7: 04/05/20 04:22 04/05/20 04:22 Labs: Abnormal Lab Results - Last 24 Hours (Table) 04/04/20 04/04/20 04/04/20 Range/Units 12:18 12:18 12:18 WBC 12.1 H (3.8-10.6) k/uL RBC 3.17 L (4.30-5.90) m/uL Hgb 9.1 L (13.0-17.5) gm/dL Hct 29.2 L (39.0-53.0) % MCHC (31.0-37.0) g/dL Plt Count 497 H D (150-450) k/uL Neutrophils # 8.6 H (1.3-7.7) k/uL Sodium (137-145) mmol/L BUN 28 H (9-20) mg/dL Glucose 150 H (74-99) mg/dL POC Glucose (mg/dL) (75-99) mg/dL Hemoglobin A1c 6.4 H (4.0-6.0) % C-Reactive Protein 54.6 H (<10.0) mg/L Total Protein 5.6 L (6.3-8.2) g/dL Albumin 2.7 L (3.5-5.0) g/dL 04/04/20 04/04/20 04/05/20 Range/Units 16:28 20:20 04:22 WBC 15.1 H (3.8-10.6) k/uL RBC 2.89 L (4.30-5.90) m/uL Hgb 8.2 L (13.0-17.5) gm/dL Hct 27.2 L (39.0-53.0) % MCHC 30.3 L (31.0-37.0) g/dL Plt Count 457 H (150-450) k/uL Neutrophils # 12.3 H (1.3-7.7) k/uL Sodium (137-145) mmol/L BUN (9-20) mg/dL Glucose (74-99) mg/dL POC Glucose (mg/dL) 131 H 116 H (75-99) mg/dL Hemoglobin A1c (4.0-6.0) % C-Reactive Protein (<10.0) mg/L Total Protein (6.3-8.2) g/dL Albumin (3.5-5.0) g/dL 04/05/20 04/05/20 Range/Units 04:22 06:10 WBC (3.8-10.6) k/uL RBC (4.30-5.90) m/uL Hgb (13.0-17.5) gm/dL Hct (39.0-53.0) % MCHC (31.0-37.0) g/dL Plt Count (150-450) k/uL Neutrophils # (1.3-7.7) k/uL Sodium 136 L (137-145) mmol/L BUN 24 H (9-20) mg/dL Glucose 138 H (74-99) mg/dL POC Glucose (mg/dL) 151 H (75-99) mg/dL Hemoglobin A1c (4.0-6.0) % C-Reactive Protein (<10.0) mg/L Total Protein (6.3-8.2) g/dL Albumin (3.5-5.0) g/dL Microbiology - Last 24 Hours (Table) 04/04/20 15:25 Gram Stain - Preliminary Pleural Fluid Body Fluid Culture - Preliminary 04/04/20 15:25 Fungal Culture - Preliminary Pleural Fluid 04/04/20 15:25 Acid Fast Bacilli Culture - Preliminary Pleural Fluid 04/04/20 15:25 Anaerobic Culture - Preliminary Pleural Fluid 04/04/20 17:00 Gram Stain - Preliminary Chest Wound Culture - Preliminary 04/04/20 17:00 Anaerobic Culture - Preliminary Chest Assessment and Plan Plan: #1. Dyspnea related to moderately sized left-sided pleural effusion and the patient is post thoracentesis and removal of 1.73 pleural fluid that was somewhat bloody. This was successful. The patient had incomplete expansion of the left lung. There is still volume loss and some residual effusion left lung base. Consider trapped lung. #2. Sternal wound infection #3. Hyperglycemia #4. Nausea, 1 episode of vomiting, possibly related to hyperglycemia #5. Recent history of aortic valve replacement with bioprosthetic Inspiris valve, exclusion of the left atrial appendage, on 03/19/2020, patient was discharged home on 03/23/2020 #6. Hypertension #7. Hyperlipidemia #8. Diabetes mellitus type 2 #9. Diabetis mellitus type II #10. Diabetic ulcer on the right foot tendon third toe #11. Paroxysmal atrial fibrillation, on Eliquis which is currently on hold for possibility of left-sided thoracentesis #12. Macular degeneration #13. Lifetime nonsmoker plan Repeat chest x-ray in the morning Continue using incentive spirometer Aggressive pulmonary toileting May consider another thoracentesis of the left lung At a later stage if the patient reaccumulated pleural fluid and/or there is persistent shortness of breath. I think the left lower lobe was somewhat trapped and is causing incomplete reexpansion post thoracentesis and this is probably what we encountered following the first procedure. Eliquis is currently on hold according to the recommendations made by CT surgery.
[2020-04-05 11:50] LABS: Glucose,Whole Blood 253 mg/dL (75-99)
[2020-04-05] MEDS: VANCOMYCIN 1,750 MG in SODIUM CHLORIDE 0.9% 500 ML 500 ML IVPB SCH ×2 (11:51→22:14)
--- NOTE | 2020-04-05 12:14 | P.CRDCN ---
History of Present Illness Consult date: 04/05/20 History of present illness: CHIEF COMPLAINT: Postop wound infection HISTORY OF PRESENT ILLNESS: This is a 69-year old male with a past medical history significant for atrial fibrillation, diabetes mellitus, hypertension, and hyperlipidemia. Patient follows in the office with Dr. Jaffe. We have been asked to see the patient in consultation for postoperative infection. Patient examined this morning at the bedside. Patient is status post aortic valve replacement on 03/19/2020. Patient is admitted to the hospital secondary to sternal wound infection. He is being followed by infectious disease, pulmonary, cardiothoracic surgery. Patient is status post left thoracentesis with removal of 1.7 L. Patient reports improvement in his SOB. He currently denies chest discomfort unless he is taking a deep breath. DIAGNOSTICS: Chest xray cardiomegaly with moderate size left pleural effusion and associated left basilar compressive atelectasis. Laboratory data: WBC 15.1. Hemoglobin 8.2. Platelet count 457. Sodium 136. Potassium 4.3. BUN 24. Creatinine 0.73. Current home cardiac medications include lisinopril 2.5 mg daily, Toprol-XL 25 mg daily, Lipitor 40 mg daily, aspirin 81 mg daily, Eliquis 5 mg BID. REVIEW OF SYSTEMS: At the time of my exam: CONSTITUTIONAL: Denies fever or chills. HEENT: Denies blurred vision, vision changes, or eye pain. Denies hemoptysis CARDIOVASCULAR: Denies chest pain, orthopnea, PND or palpitations RESPIRATORY: Reoorts mild shortness of breath. GASTROINTESTINAL: Denies abdominal pain. Denies nausea or vomiting. HEMATOLOGIC: Denies bleeding disorders. GENITOURINARY: Denies any blood in urine. SKIN: Denies pruitis. Denies rash. PHYSICAL EXAM: VITAL SIGNS: Reviewed. GENERAL: Well-developed in no acute distress. HEENT: Head is normocephalic. Pupils are equal, round. Sclerae anicteric. Mucous membranes of the mouth are moist. Neck supple. No JVD or thyromegaly LUNGS: Respirations even and unlabored. Lungs essentially clear to auscultation bilaterally. HEART: Regular rate and rhythm. S1 and S2 heard. ABDOMEN: Soft. Nondistended. Nontender. EXTREMITIES: Normal range of motion. No clubbing or cyanosis. Peripheral pulses intact. 1+ bilateral lower extremity edema NEUROLOGIC: Awake and alert. Oriented x 3. ASSESSMENT: Sternal wound infection Status post aortic valve replacement Dyspnea, status post left thoracentesis Paroxysmal atrial fibrillation Hypertension Hyperlipidemia Diabetes mellitus, type II PLAN: Begin Lasix 40 mg by mouth daily Continue to hold Eliquis per CTS surgery Continue additional cardiac medications Further recommendations pending patient course Nurse practitioner note has been reviewed by physician. Signing provider agrees with the documented findings, assessment, and plan of care. 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 no problem with anesthesia since Past Psychological History: No Psychological Hx Reported Smoking Status: Never smoker Past Alcohol Use History: None Reported Past Drug Use History: None Reported - Past Family History Mother Family Medical History: COPD, Diabetes Mellitus Additional Family Medical History / Comment(s): Macular degeneration, legally blind Sister(s) Family Medical History: Cancer Father Family Medical History: Myocardial Infarction ([facility]) Additional Family Medical History / Comment(s): Father had his first [facility] at the age of 82 yrs. He is . Medications and Allergies Home Medications Medication Instructions Recorded Confirmed Type Ascorbic Acid [Vitamin C] 1,000 mg PO HS 02/05/19 04/04/20 History Cholecalciferol (Vitamin D3) 5,000 unit PO HS 02/05/19 04/04/20 History [Vitamin D3] Vitamin B Complex 1 cap PO HS 02/05/19 04/04/20 History lisinopriL [Zestril] 2.5 mg PO HS 02/05/19 04/04/20 History Apixaban [Eliquis] 5 mg PO BID 02/08/20 04/04/20 History Atorvastatin [Lipitor] 40 mg PO HS 02/08/20 04/04/20 History Calcium/Magnesium/Zinc 1 tab PO HS 02/08/20 04/04/20 History [Toksyxp-Szlwmabsw-Pehi Tablet] L.acidoph,Paracasei, B.lactis 1 cap PO TID 02/08/20 04/04/20 History [Probiotic] Metoprolol Succinate (ER) [Toprol 25 mg PO DAILY 02/08/20 04/04/20 History XL] [place]-3 Fatty Acids [[place]-3] 1,000 mg PO HS 02/08/20 04/04/20 History Acetaminophen Tab [Tylenol] 1,000 mg PO Q6HR PRN #120 tab 03/22/20 04/04/20 Rx Pantoprazole Sodium [Protonix] 40 mg PO AC-BRKFST #30 tablet. 03/23/20 04/04/20 Rx Cephalexin [Keflex] 500 mg PO Q6HR 7 Days #28 cap 04/03/20 04/04/20 Rx Aspirin 81 mg PO HS 04/04/20 04/04/20 History Cyanocobalamin (Vitamin B-12) 1,000 mcg PO HS 04/04/20 04/04/20 History [Vitamin B-12] Sennosides-Docusate Sodium 2 tab PO HS PRN 04/04/20 04/04/20 History [Senokot-S] Allergies Allergy/AdvReac Type Severity Reaction Status Date / Time thiopental [From Pentothal] Allergy Anaphylaxis, Verified 04/04/20 13:29 TROUBLE BREATHING metformin AdvReac VERY WEAK, Verified 04/04/20 13:29 SEVERE JOINT PAIN , MUSCLE PAIN rivaroxaban [From Xarelto] AdvReac bruising Verified 04/04/20 13:29 Physical Exam Vitals: Vital Signs Temp Pulse Pulse Resp BP BP Pulse Ox 04/05/20 09:00 99.1 F 75 18 120/67 93 L 04/05/20 02:20 98.5 F 57 L 15 141/78 96 04/04/20 19:40 97.9 F 56 L 16 110/60 96 04/04/20 13:56 97.8 F 59 L 16 130/73 95 04/04/20 13:05 65 18 124/68 93 L 04/04/20 11:53 98.1 F 64 16 136/60 99 Intake and Output 04/04/20 04/05/20 04/05/20 22:59 06:59 14:59 Other: Voiding Method Toilet Toilet # Voids 1 2 Results 04/05/20 04:22 04/05/20 04:22 Cardiac Enzymes 04/04/20 Range/Units 12:18 AST 20 (17-59) U/L CBC 04/04/20 04/05/20 Range/Units 12:18 04:22 WBC 12.1 H 15.1 H (3.8-10.6) k/uL RBC 3.17 L 2.89 L (4.30-5.90) m/uL Hgb 9.1 L 8.2 L (13.0-17.5) gm/dL Hct 29.2 L 27.2 L (39.0-53.0) % Plt Count 497 H D 457 H (150-450) k/uL Comprehensive Metabolic Panel 04/04/20 04/05/20 Range/Units 12:18 04:22 Sodium 138 136 L (137-145) mmol/L Potassium 4.4 4.3 (3.5-5.1) mmol/L Chloride 107 103 (98-107) mmol/L Carbon Dioxide 27 30 (22-30) mmol/L BUN 28 H 24 H (9-20) mg/dL Creatinine 0.74 0.73 (0.66-1.25) mg/dL Glucose 150 H 138 H (74-99) mg/dL Calcium 8.7 8.4 (8.4-10.2) mg/dL AST 20 (17-59) U/L ALT 12 (4-49) U/L Alkaline Phosphatase 73 (38-126) U/L Total Protein 5.6 L (6.3-8.2) g/dL Albumin 2.7 L (3.5-5.0) g/dL Current Medications Generic Name Dose Route Start Last Admin Trade Name Freq PRN Reason Stop Dose Admin Acetaminophen 650 mg 04/04/20 12:26 Acetaminophen Tab 325 Mg Tab PO Q6HR PRN Mild Pain or Fever > 100.5 Acetaminophen 1,000 mg 04/04/20 14:00 04/05/20 08:48 Acetaminophen Tab 500 Mg Tab PO 1,000 mg Q6HR PRN Administration Fever and/ or Pain Ascorbic Acid 1,000 mg 04/04/20 21:00 04/05/20 00:33 Ascorbic Acid 500 Mg Tab PO Not Given HS NIKKI Aspirin 81 mg 04/04/20 21:00 04/04/20 21:54 Aspirin 81 Mg PO 81 mg HS NIKKI Administration Atorvastatin Calcium 40 mg 04/04/20 21:00 04/04/20 21:54 Atorvastatin 40 Mg Tab PO 40 mg HS NIKKI Administration Cholecalciferol 5,000 unit 04/04/20 21:00 04/04/20 21:52 Cholecalciferol 1,000 Unit Tab PO 5,000 unit HS NIKKI Administration Vancomycin HCl 1,750 mg/ 500 mls @ 167 mls/hr 04/05/20 11:00 Sodium Chloride IVPB Q12H NIKKI Insulin Aspart 4 unit 04/04/20 17:30 04/05/20 07:28 Insulin Aspart (Novolog) 100 Unit/Ml Vial SQ 4 unit AC-TID NIKKI Administration Insulin Detemir 10 unit 04/05/20 07:00 04/05/20 07:28 Insulin Detemir (Levemir) 100 Unit/Ml Syr SQ 10 unit DAILY@0700 NIKKI Administration Lactobacillus Acidoph/Bulgaricus 1 each 04/04/20 16:00 04/05/20 08:48 Lactobacillus Acidoph & Bulgar 1 Each Packet PO 1 each TID NIKKI Administration Lisinopril 2.5 mg 04/04/20 21:00 04/04/20 21:52 Lisinopril 2.5 Mg Tab PO 2.5 mg HS [facility] Administration Metoprolol Succinate 25 mg 04/04/20 14:15 04/05/20 08:49 Metoprolol Succinate (Er) 25 Mg Tab.Er.24h PO 25 mg DAILY [facility] Administration Naloxone HCl 0.2 mg 04/04/20 12:26 Naloxone 0.4 Mg/Ml 1 Ml Vial IV Q2M PRN Opioid Reversal Pantoprazole Sodium 40 mg 04/04/20 14:15 04/05/20 07:29 Pantoprazole 40 Mg Tablet PO 40 mg AC-BRKFST [facility] Administration Senna/Docusate Sodium 2 each 04/04/20 14:00 Sennosides-Docusate Sodium 1 Each Tab PO HS PRN Constipation Intake and Output 04/04/20 04/05/20 04/05/20 22:59 06:59 14:59 Other: Voiding Method Toilet Toilet # Voids 1 2 04/05/20 04:22 04/05/20 04:22
--- NOTE | 2020-04-05 13:27 | ECHOF ---
Referral Reason:post op AVR MEASUREMENTS -------- HEIGHT: 180.3 cm WEIGHT: 106.1 kg BP: IVSd: 1.2 cm (0.6 - 1.1) LVIDd: 3.0 cm (3.9 - 5.3) LVPWd: 1.0 cm (0.6 - 1.1) IVSs: 1.8 cm LVIDs: 1.5 cm LVPWs: 1.4 cm LAESV Index (A-L): 36.89 ml/m MV E Dalton: 1.27 m/s MV DecT: 219 ms MV A Dalton: 0.64 m/s MV E/A Ratio: 1.97 AV maxP.56 mmHg AV meanP.64 mmHg RAP: 5.00 mmHg RVSP: 20.18 mmHg FINDINGS -------- This was a technically adequate study. TDS due to CABG and Bandages. The left ventricular size is normal. There is mild concentric left ventricular hypertrophy. Overa ll left ventricular systolic function is normal with, an EF between 55 - 60 %. The right ventricle is normal in size. LA is moderately dilated 34-39 ml/m2 The right atrial size is normal. Peak/mean gradient across the Aortic Valve is 27.56mmHg / 14.64mmHg. Normally functioning bioprosth etic valve. The mitral valve is normal. There is trace mitral regurgitation. The tricuspid valve appears structurally normal. Trace tricuspid regurgitation present. Right markell tricular systolic pressure is normal at < 35 mmHg. There is no pulmonic regurgitation present. The aortic root size is normal. IVC Not well visulized. There is a trivial pericardial effusion present. CONCLUSIONS -------- 1. The left ventricular size is normal. 2. There is mild concentric left ventricular hypertrophy. 3. Overall left ventricular systolic function is normal with, an EF between 55 - 60 %. 4. LA is moderately dilated 34-39 ml/m2 5. Peak/mean gradient across the Aortic Valve is 27.56mmHg / 14.64mmHg. 6. Normally functioning bioprosthetic valve. 7. There is trace mitral regurgitation. 8. Trace tricuspid regurgitation present. 9. There is a trivial pericardial effusion present. JOB RECRUITER: Ayse Mcknight RDCS
[2020-04-05 16:55] LABS: Glucose,Whole Blood 129 mg/dL (75-99)
--- NOTE | 2020-04-05 16:58 | PN ---
PROGRESS NOTE DATE OF SERVICE: 04/05/2020 REASON FOR FOLLOWUP: Lower sternal wound infection. INTERVAL HISTORY: Patient is currently afebrile. The patient is breathing comfortably. Still complains of slight chest pain especially with deep breath. Minimal cough. No nausea. No vomiting. No abdominal pain. No diarrhea. PHYSICAL EXAMINATION: Blood pressure 120/67 with a pulse of 65, temperature 98.1. He is 93% on room air. General description is an elderly male up in the chair in no distress. Respiratory system: Unlabored breathing, decreased breath sounds at bases. No wheeze. Heart S1, S2. Regular rate and rhythm. ABDOMEN: Soft. No tenderness. LABS: Hemoglobin 8.8, white count 15.9. BUN of 24, creatinine 0.73. Cultures currently pending. DIAGNOSTIC IMPRESSION AND PLAN: Patient with sternal lower chest wall surgical site infection, possible superficial status post debridement. Culture so far negative. Continue with vancomycin and monitor clinical course closely. MMODL / IJN: [id number] /
[2020-04-05 19:57] LABS: Glucose,Whole Blood 140 mg/dL (75-99)
[2020-04-05] MEDS: CHOLECALCIFEROL 1,000 UNIT TAB PO SCH (20:00)
[2020-04-05] MEDS: ATORVASTATIN 40 MG TAB PO SCH (20:00)
[2020-04-05] MEDS: ASPIRIN 81 MG PO SCH (20:00)
--- NOTE | 2020-04-05 21:10 | HP ---
HISTORY AND PHYSICAL CHIEF COMPLAINT: Wound infection in the sternotomy wound. HISTORY OF PRESENT ILLNESS: This gentleman was doing well after surgery, but then developed wound infection in the lower sternotomy area. He is admitted for wound care, IV antibiotics and management of his diabetes. His diabetes has been well under control diet carranza. After his surgery, however, his sugars started to rise and apparently he had been going up into the 300s. REVIEW OF SYSTEMS: He has had no headaches, neurologic problems, chest pain, shortness of breath, orthopnea, PND, abdominal pain, nausea, vomiting, diarrhea, melena, hematochezia, dysuria, frequency, urgency, hematuria, incontinence, chills, fever, etc. Past medical history, family history and personal and social histories are all otherwise unremarkable or noncontributory and can be found in the discharge documents from his surgery. PHYSICAL EXAMINATION: Blood pressure is 118/74 with a pulse 69, respirations of 30 and he is afebrile. In general, appeared to be well developed, well nourished, no acute distress. Skin color is normal. Skin is warm, dry. Lymph nodes not enlarged. Head, ears, eyes, nose, mouth, and throat were normal. Neck veins not distended. Thyroid is not enlarged. Chest is clear. Breath sounds are diminished at the right base. Cardiac exam demonstrated sinus rhythm with a grade 2/6 systolic murmur through his new valve. Abdomen is soft, nontender. Extremities are normal. Neurologic is intact. He does have an open lower sternotomy wound. IMPRESSION: 1. Sternotomy with wound infection. 2. Recent aortic valve replacement. 3. Right pleural effusion. 4. Type 2 diabetes mellitus. PLAN: 1. Bed rest. 2. IV fluids. 3. IV antibiotics. 4. Consult with Infectious Disease. 5. Consult with thoracic surgery. 6. Consult with Cardiology. MMODL / IJN: [id number] /
--- NOTE | 2020-04-05 21:31 | PN ---
PROGRESS NOTE DATE OF SERVICE: 04/05/2020. CHIEF COMPLAINT: Wound infection. HISTORY OF PRESENT ILLNESS: This gentleman is doing well. The wound is cleaned out, doing well. He is not having any pain or fever. Blood sugars are good. PHYSICAL EXAM: CHEST: Clear. Cardiac exam is normal. Abdomen is soft and nontender. He does have some decreased breath sounds at the left base. Cardiac murmur is the same. Abdomen is soft. Extremities normal. IMPRESSION: 1. Sternotomy wound infection. 2. Status post aortic valve replacement. 3. Left pleural effusion. PLAN: Continue management of his wound while blood sugars are being evaluated. This time they seemed to be low enough to be safe. MMODL / IJN: [id number] /
[2020-04-06 06:28] LABS: Glucose,Whole Blood 120 mg/dL (75-99)
[2020-04-06] MEDS: PANTOPRAZOLE 40 MG TABLET PO SCH (07:27)
[2020-04-06] MEDS: INSULIN DETEMIR (LEVEMIR) 100 UNIT/ML SYR SQ SCH (07:27)
[2020-04-06] MEDS: INSULIN ASPART (NovoLOG) 100 UNIT/ML VIAL SQ SCH ×3 (07:35→17:15)
[2020-04-06 07:46] LABS: Basophils # (A) 0.1 k/uL (0-0.2); Basophils % (A) 1 %; Eosinophils # (A) 0.3 k/uL (0-0.7); Eosinophils % (A) 3 %; HCT 27.6 % (39.0-53.0); HGB 8.5 gm/dL (13.0-17.5); Hypochromasia Marked; Lymphocytes # (A) 2.3 k/uL (1.0-4.8); Lymphocytes % (A) 20 %; MCH 28.8 pg (25.0-35.0); MCHC 30.8 g/dL (31.0-37.0); MCV 93.3 fL (80.0-100.0); Mean Platelet Volume 7.5; Monocytes # (A) 0.7 k/uL (0-1.0); Monocytes % (A) 7 %; Neutrophils # (A) 7.5 k/uL (1.3-7.7); Neutrophils % (A) 68 %; Platelet Count 421 k/uL (150-450); RBC 2.96 m/uL (4.30-5.90); RDW 13.1 % (11.5-15.5); WBC 11.1 k/uL (3.8-10.6)
[2020-04-06 08:02] LABS: ALT 11 U/L (4-49); AST 17 U/L (17-59); African American GFR (CKD) >90 (>60 ml/min/1.73 sqM); Albumin 2.6 g/dL (3.5-5.0); Alkaline Phosphatase 67 U/L (38-126); Anion Gap 5 mmol/L; Blood Urea Nitrogen 26 mg/dL (9-20); Calcium 8.3 mg/dL (8.4-10.2); Carbon Dioxide 31 mmol/L (22-30); Chloride 105 mmol/L (98-107); Glucose 115 mg/dL (74-99); Non-African American GFR(CKD) 90 (>60 ml/min/1.73 sqM); Potassium 3.9 mmol/L (3.5-5.1); Sodium 141 mmol/L (137-145); Total Bilirubin 0.5 mg/dL (0.2-1.3); Total Protein 5.4 g/dL (6.3-8.2)
--- NOTE | 2020-04-06 08:07 | XR ---
EXAMINATION TYPE: XR chest 1V portable DATE OF EXAM: 04/06/2020 COMPARISON: Prior chest x-ray 04/05/2020 HISTORY: Left pleural effusion TECHNIQUE: Single frontal view of the chest is obtained. FINDINGS: Patient is post median sternotomy and atrial appendage clipping placement. There is no pne umothorax. Heart is likely enlarged. Retrocardiac density is present, the left hemidiaphragm is obscu red by density at the left lung base. Surgical clips are present in the upper abdomen. Interstitium a ppears prominently. Patient is rotated. There are overlying artifacts. IMPRESSION: Findings are similar to prior exam, correlate for possible interstitial edema, left lowe r lobe atelectasis versus pneumonia and associated pleural effusion. Expiratory rotated exam.
[2020-04-06] MEDS ORDERED: Potassium Replacement Protocol 1 EACH MISC MISCELLANE PRN (08:26)
--- NOTE | 2020-04-06 08:30 | P.PN ---
Subjective Progress Note Date: 04/06/20 Principal diagnosis: Superficial sternal incision site infection, left-sided pleural effusion, leukocytosis, hyperglycemia. Past medical history significant for severe bicuspid aortic valve stenosis, status post aortic valve replacement using a 23 mm Inspiris pericardial bioprosthesis, hypertension, hyperlipidemia, chronic paroxysmal atrial fibrillation on eliquis for anticoagulation and status post cardioversion in January 2019, history of morbid obesity status post gastroplasty, diabetes mellitus type 2 with most recent hemoglobin A1c of 6.4%, diabetic ulcer of the right foot third toe and macular degeneration. The patient was seen in follow-up today 04/06/2020 at his bedside on the observation unit. He is awake, alert and oriented 3 and is in no acute distress. He remains hemodynamically stable and is currently on no inotropic pressure support. Reports that he feels much improved since being admitted to the hospital. He states that he ambulated in the observation unit hallway yesterday and felt fairly fatigued during the walk. Denies any complaints of pain or shortness of breath at this time. Oxygen saturations 97% on room air and he is achieving 3000 mL on his incentive spirometry. Laboratory results this morning show his WBC count trending down and is 11.1, hemoglobin 8.5, platelets 421, BUN 26, creatinine 0.86 and glucose 115. A repeat chest x-ray was completed this a.m. which the report showed possible interstitial edema, left lower lobe atelectasis versus pneumonia and associated pleural effusion. Objective - Vital Signs Vital signs: Vital Signs Temp 98.2 F 04/06/20 02:00 Pulse 59 L 04/06/20 02:15 Resp 16 04/06/20 02:15 BP 128/68 04/06/20 02:00 Pulse Ox 97 04/06/20 02:00 Intake & Output 04/05/20 04/06/20 04/06/20 18:59 06:59 18:59 Other: Voiding Method Toilet # Voids 2 1 # Bowel Movements 1 - Constitutional General appearance: Present: cooperative, no acute distress, obese - EENT Eyes: Present: PERRLA, normal appearance. Absent: scleral icterus ENT: Present: hearing grossly normal - Neck Details: Neck is supple, no JVD, no lymphadenopathy. - Respiratory Details: Lungs essentially clear throughout, diminished to his bilateral bases left greater than right. No wheezes, rhonchi or crackles. Respirations are split: Nonlabored. Oxygen saturation is 97% on room air. Achieving 3000 mL on his incentive spirometry. - Cardiovascular Details: Regular rhythm with a bradycardic rate. S1 and S2 present, negative for S3, gallop or murmur. +1 edema to his bilateral lower extremities left greater than right. Knee-high DAVID hose and sequential compression devices in place was bilateral lower extremities. Sternum is stable. Heart hugger is in place and instrument string appropriate use. - Gastrointestinal Gastrointestinal Comment(s): Abdomen is soft, nontender and nondistended. Active bowel sounds present in all 4 abdominal quadrants. No guarding or rigidity. No organ Sanna appreciated. Tolerating oral intake. - Genitourinary Genitourinary Comment(s): Continues to void. - Integumentary Integumentary Comment(s): Skin is warm and dry. No clubbing or cyanosis present. Dressing to his distal sternal incision is clean, and intact with some serosanguineous drainage. - Neurologic Neurologic: Present: CNII-XII intact - Musculoskeletal Musculoskeletal: Present: gait normal, strength equal bilaterally - Psychiatric Psychiatric: Present: A&O x's 3, appropriate affect, intact judgment & insight - Allied health notes Allied health notes reviewed: nursing - Labs CBC & Chem 7: 04/06/20 07:27 04/05/20 04:22 Labs: Abnormal Lab Results - Last 24 Hours (Table) 04/05/20 04/05/20 04/05/20 Range/Units 11:49 16:54 19:56 WBC (3.8-10.6) k/uL RBC (4.30-5.90) m/uL Hgb (13.0-17.5) gm/dL Hct (39.0-53.0) % MCHC (31.0-37.0) g/dL POC Glucose (mg/dL) 253 H 129 H 140 H (75-99) mg/dL 04/06/20 04/06/20 Range/Units 06:26 07:27 WBC 11.1 H (3.8-10.6) k/uL RBC 2.96 L (4.30-5.90) m/uL Hgb 8.5 L (13.0-17.5) gm/dL Hct 27.6 L (39.0-53.0) % MCHC 30.8 L (31.0-37.0) g/dL POC Glucose (mg/dL) 120 H (75-99) mg/dL Microbiology - Last 24 Hours (Table) 04/04/20 15:25 Acid Fast Bacilli Smear - Final Pleural Fluid Acid Fast Bacilli Culture - Preliminary 04/04/20 15:25 Gram Stain - Preliminary Pleural Fluid Body Fluid Culture - Preliminary 04/04/20 13:01 Blood Culture - Preliminary Blood No Growth after 24 hours - Imaging and Cardiology Chest x-ray: report reviewed, image reviewed Assessment and Plan Assessment: 1. Superficial sternal incisional surgical site infection 2. Diabetes mellitus type 2 with Elevated blood glucose levels, most recent hemoglobin A1c 6.4% 3. Postoperative left pleural effusion, status post left-sided thoracentesis with 1.7 L of thin serosanguineous colored drainage drained 4. Leukocytosis, multifactorial 5. Severe bicuspid aortic valve stenosis, status post aortic valve replacement using a 23 mm Inspiris pericardial bioprosthesis 6. History of hypertension 7. Hyperlipidemia 8. Chronic paroxysmal atrial fibrillation on eliquis for anticoagulation, status post cardioversion January 2019 9. History of gastroplasty 10. History of diabetic ulcer to his right foot third toe 11. Macular degeneration Plan: 1. Continue to optimize medical management with low-dose aspirin, statin, YAYA inhibitor and beta amairani. 2. Continue to encourage use of incentive spirometry 10 times every hour while awake. 3. Continue to monitor daily labs and chest x-rays. 4. Continue to reinforce the importance of the postoperative aortic valve replacement discharge instructions. 5. Activity as tolerated, out of bed for meals and ambulate in the hallway as tolerated. 6. Monitor accurate I's and O's and record daily weights. 7. Antibiotic management and wound care orders per infectious disease. WBC count trending down 11.1 today and he remains afebrile. 8. Pleural effusion management per pulmonary/ critical care medicine. We will order a computed tomography scan of his chest without contrast today. 9. Medical management/diabetes management per primary care service. 10. The patient has been started on Lasix 40 mg by mouth daily by cardiology. 11. Dressing to his distal sternal incision changed using Aquacel silver, covered with 4 x 4 gauze and secured with tape. 12. GI and DVT prophylaxis. 13. Pain control per current when necessary orders. 14. We will hold eliquis and restart prior to discharge. 15. More recommendations to follow based on patient's clinical course. Time with Patient: Greater than 30
[2020-04-06] MEDS: FUROSEMIDE 40 MG TAB PO SCH (08:59)
[2020-04-06] MEDS: LACTOBACILLUS ACIDOPH & BULGAR 1 EACH PACKET PO SCH ×3 (09:00→20:18)
[2020-04-06] MEDS: METOPROLOL SUCCINATE (ER) 25 MG TAB.ER.24H PO SCH (09:00)
[2020-04-06] MEDS ORDERED: POTASSIUM CHLORIDE ER 20 MEQ TAB.ER PO SCH (09:00)
--- NOTE | 2020-04-06 11:26 | P.PN ---
Subjective Progress Note Date: 04/06/20 CHIEF COMPLAINT: Postop wound infection HISTORY OF PRESENT ILLNESS: Patient examined this morning at the bedside. He denies chest pain. He denies shortness of breath. Patient states his lower extremity edema has improved today. Chest x-ray reveals possible interstitial edema, left lower lobe atelectasis versus pneumonia and associated pleural effusion. Vital signs are stable. PHYSICAL EXAM: VITAL SIGNS: Reviewed. GENERAL: Well-developed in no acute distress. HEENT: Head is normocephalic. Pupils are equal, round. Sclerae anicteric. Mucous membranes of the mouth are moist. Neck supple. No JVD or thyromegaly LUNGS: Respirations even and unlabored. Lungs diminished. No rales or wheezing noted. HEART: Regular rate and rhythm. S1 and S2 heard. ABDOMEN: Soft. Nondistended. Nontender. EXTREMITIES: Normal range of motion. No clubbing or cyanosis. Peripheral pulses intact. Trace bilateral lower extremity edema NEUROLOGIC: Awake and alert. Oriented x 3. ASSESSMENT: Sternal wound infection Status post aortic valve replacement Dyspnea, status post left thoracentesis Paroxysmal atrial fibrillation Hypertension Hyperlipidemia Diabetes mellitus, type II PLAN: Continue Lasix 40 mg daily. Case discussed with CTS. Patient also received one time dose of IV lasix. CT chest ordered per CTS. Further management of pleural effusion per pulmonary. Continue to hold Eliquis per CTS surgery. Will resume at discharge Further recommendations pending patient course Nurse practitioner note has been reviewed by physician. Signing provider agrees with the documented findings, assessment, and plan of care. Objective - Vital Signs Vital signs: Vital Signs Temp 98.3 F 04/06/20 09:00 Pulse 77 04/06/20 09:00 Resp 16 04/06/20 09:00 BP 132/65 04/06/20 09:00 Pulse Ox 97 04/06/20 09:00 Intake & Output 04/05/20 04/06/20 04/06/20 18:59 06:59 18:59 Output Total 425 Balance -425 Weight 102.5 kg Output: Urine 425 Other: Voiding Method Toilet # Voids 2 1 1 # Bowel Movements 1 - Labs CBC & Chem 7: 04/06/20 07:27 04/06/20 07:27 Labs: Abnormal Lab Results - Last 24 Hours (Table) 04/05/20 04/05/20 04/05/20 Range/Units 11:49 16:54 19:56 WBC (3.8-10.6) k/uL RBC (4.30-5.90) m/uL Hgb (13.0-17.5) gm/dL Hct (39.0-53.0) % MCHC (31.0-37.0) g/dL Carbon Dioxide (22-30) mmol/L BUN (9-20) mg/dL Glucose (74-99) mg/dL POC Glucose (mg/dL) 253 H 129 H 140 H (75-99) mg/dL Calcium (8.4-10.2) mg/dL Total Protein (6.3-8.2) g/dL Albumin (3.5-5.0) g/dL 04/06/20 04/06/20 04/06/20 Range/Units 06:26 07:27 07:27 WBC 11.1 H (3.8-10.6) k/uL RBC 2.96 L (4.30-5.90) m/uL Hgb 8.5 L (13.0-17.5) gm/dL Hct 27.6 L (39.0-53.0) % MCHC 30.8 L (31.0-37.0) g/dL Carbon Dioxide 31 H (22-30) mmol/L BUN 26 H (9-20) mg/dL Glucose 115 H (74-99) mg/dL POC Glucose (mg/dL) 120 H (75-99) mg/dL Calcium 8.3 L (8.4-10.2) mg/dL Total Protein 5.4 L (6.3-8.2) g/dL Albumin 2.6 L (3.5-5.0) g/dL Microbiology - Last 24 Hours (Table) 04/04/20 15:25 Acid Fast Bacilli Smear - Final Pleural Fluid Acid Fast Bacilli Culture - Preliminary 04/04/20 15:25 Gram Stain - Preliminary Pleural Fluid Body Fluid Culture - Preliminary 04/04/20 13:01 Blood Culture - Preliminary Blood No Growth after 24 hours
--- NOTE | 2020-04-06 11:33 | CT ---
EXAMINATION TYPE: CT chest wo con DATE OF EXAM: 04/06/2020 COMPARISON: Chest x-ray 04/06/2020 HISTORY: Chest discomfort and left pleural effusion CT DLP: 547.7 mGycm. Automated Exposure Control for Dose Reduction was Utilized. TECHNIQUE: CT scan of the thorax is performed without IV contrast. FINDINGS: Lack of intravenous contrast could compromise sensitivity. Patient is status post left atri al appendage clipping placement, post median sternotomy LUNGS: There is a left pleural effusion and associated atelectasis greater than right. MEDIASTINUM: Lack of IV contrast is noted to limit evaluation for mediastinal and especially hilar ad enopathy. There are no definitive greater than 1 cm hilar or mediastinal lymph nodes. There is a smal l pericardial effusion noted at the level of the cardiac apex measuring 8 to 9 mm in thickness on cor onal image #38. There are coronary artery calcifications. Small prevascular nodes are present. Retroc ardiac table pretracheal node is borderline enlarged. There is metallic density through the aorta. Pu lmonary artery is dilated, consider pulmonary artery hypertension. OTHER: Possible lipoma present at the medial aspect of the right clavicle extending cephalad. Depende nt high attenuation in the gallbladder is consistent with stone. Patient shows metallic clips in the right upper quadrant as well as anterior abdomen, some high attenuation present within the stomach ma y be due to radio dense medications. There is some anasarca change within the subcutaneous fat. In th e xiphoid level there is a small area of open wound noted anteriorly. IMPRESSION: Postop changes. Left greater than right pleural effusions. There is associated atelectasi s, correlate to exclude pneumonia. Pericardial effusion. Correlate for pulmonary artery hypertension. Cholelithiasis. Additional findings above.
--- NOTE | 2020-04-06 11:36 | XR ---
EXAMINATION TYPE: XR chest 1V portable DATE OF EXAM: 04/06/2020 COMPARISON: Prior chest x-ray 04/06/2020 at earlier time HISTORY: Abnormal chest x-ray, status post thoracentesis TECHNIQUE: Single frontal view of the chest is obtained. FINDINGS: There is some improvement in aeration at the left lung base. No evident pneumothorax. IMPRESSION: No evident complication status post thoracentesis, no evident other significant interval change
--- NOTE | 2020-04-06 12:00 | P.PN ---
Subjective Progress Note Date: 04/06/20 69-year-old white female patient with the recent history of aortic valve replac ement for severe aortic valve stenosis related to have a calcified bicuspid aortic valve with symptoms of chest pain or shortness of breath on 03/19/2020, only previously seen in consultation following his surgery for ICU, and ventilator management. Patient recovered after his surgery well, she was discharged home with [facility] care on 03/23/2020. Patient was being seen in the follow-up appointment by Dr. Nash today on 04/04/2020. Patient was having increased shortness of breath, chest x-ray showed moderate-sized left pleural effusion which increased in size from his most recent chest x-ray 12 days ago. Patient was given a dose of Lasix in the office, with orders for ultrasound of the chest and patient may need a left-sided thoracentesis, patient also has a possible infection of his chest incision with drainage from the distal portion of his midsternal incision. Patient has been having hypoglycemia, his blood sugars were running in the 300s, and patient did have some intermittent nausea, but no nausea today. Admits to one episode of vomiting at home. Infectious disease consultation was placed for antibiotic management. In addition patient admits to increase in the bilateral lower leg edema over the past few days. He was started on Keflex by his primary care provider office. His vital signs are stable upon arrival, patient is afebrile. Ultrasound the chest showed 9.0 cm pocket on the left. Labs reviewed showing white blood cell count of 12.1, hemoglobin of 9.1, platelet count is 497, electrolytes were within normal limits, B1 is 20 creatinine 0.74, LFTs are within normal limits, CRP was 54.6. Patient received a dose of IV Lasix in the emergency department, he was started on vancomycin, and we're asked to see the patient in regards to monitor size left-sided pleural effusion for possibility of left thoracentesis 04/05/2020 the patient is feeling well. Thoracentesis was done yesterday. A total of 1.7 L of fluid was removed. Following the procedure the patient stated some pain across the left chest. A dose of Dilaudid was given and the pain was completely recovered following that. The chest x-ray shows some volume loss in the left lower lobe and there is some residual effusion on today's chest x-ray. The patient otherwise is afebrile. He is on room air oxygen. He is using incentive spirometer.hemoglobin was done at 8.2. No other significant events otherwise for now. And no complaints. Wound VAC was applied to the anterior chest. Recurrence of the left-sided pleural effusion was noted. CAT scan of the chest was done this morning 04/06/2020, patient is doing well and the CAT scan showed postop changes with small bilateral pleural effusion left more than right and atelectasis in the left lung base.Patient is afebrile. The patient is hemodynamically stable. I was asked to perform another thoracentesis on this patient by CV surgery. I performed a another is a pleural fluid was aspirated from the left lung. This was done successfully without any complications and there is no evidence of any pneumothorax. Objective - Vital Signs Vital signs: Vital Signs Temp 98.3 F 04/06/20 09:00 Pulse 55 L 04/06/20 11:24 Resp 18 04/06/20 11:24 BP 108/57 04/06/20 11:24 Pulse Ox 97 04/06/20 11:24 Intake & Output 04/05/20 04/06/20 04/06/20 18:59 06:59 18:59 Output Total 425 Balance -425 Weight 102.5 kg Output: Urine 425 Other: Voiding Method Toilet # Voids 2 1 1 # Bowel Movements 1 - Exam GENERAL EXAM: Alert, very pleasant, 69-year-old white male on room air with pulse ox of 95%, comfortable in no apparent distress. HEAD: Normocephalic/atraumatic. EYES: Normal reaction of pupils, equal size. Conjunctiva pink, sclera white. NOSE: Clear with pink turbinates. THROAT: No erythema or exudates. NECK: No masses, no JVD, no thyroid enlargement, no adenopathy. CHEST: No chest wall deformity. Symmetrical expansion. LUNGS: Diminished breath sounds and dullness to percussion in the left lung base. A wound VAC was applied to the anterior chest CVS: Regular rate and rhythm, normal S1 and S2, no gallops, no murmurs, no rubs ABDOMEN: Soft, nontender. No hepatosplenomegaly, normal bowel sounds, no guarding or rigidity. EXTREMITIES: No clubbing, no edema, no cyanosis, 2+ pulses and upper and lower extremities. MUSCULOSKELETAL: Muscle strength and tone normal. SPINE: No scoliosis or deformity SKIN: No rashes CENTRAL NERVOUS SYSTEM: Alert and oriented -3. No focal deficits, tone is normal in all 4 extremities. PSYCHIATRIC: Alert and oriented -3. Appropriate affect. Intact judgment and insight. - Labs CBC & Chem 7: 04/06/20 07:27 04/06/20 07:27 Labs: Abnormal Lab Results - Last 24 Hours (Table) 04/05/20 04/05/20 04/06/20 Range/Units 16:54 19:56 06:26 WBC (3.8-10.6) k/uL RBC (4.30-5.90) m/uL Hgb (13.0-17.5) gm/dL Hct (39.0-53.0) % MCHC (31.0-37.0) g/dL Carbon Dioxide (22-30) mmol/L BUN (9-20) mg/dL Glucose (74-99) mg/dL POC Glucose (mg/dL) 129 H 140 H 120 H (75-99) mg/dL Calcium (8.4-10.2) mg/dL Total Protein (6.3-8.2) g/dL Albumin (3.5-5.0) g/dL 04/06/20 04/06/20 Range/Units 07:27 07:27 WBC 11.1 H (3.8-10.6) k/uL RBC 2.96 L (4.30-5.90) m/uL Hgb 8.5 L (13.0-17.5) gm/dL Hct 27.6 L (39.0-53.0) % MCHC 30.8 L (31.0-37.0) g/dL Carbon Dioxide 31 H (22-30) mmol/L BUN 26 H (9-20) mg/dL Glucose 115 H (74-99) mg/dL POC Glucose (mg/dL) (75-99) mg/dL Calcium 8.3 L (8.4-10.2) mg/dL Total Protein 5.4 L (6.3-8.2) g/dL Albumin 2.6 L (3.5-5.0) g/dL Microbiology - Last 24 Hours (Table) 04/04/20 15:25 Acid Fast Bacilli Smear - Final Pleural Fluid Acid Fast Bacilli Culture - Preliminary 04/04/20 15:25 Gram Stain - Preliminary Pleural Fluid Body Fluid Culture - Preliminary 04/04/20 13:01 Blood Culture - Preliminary Blood No Growth after 24 hours Assessment and Plan Plan: #1. Dyspnea related to moderately sized left-sided pleural effusion and the patient is post thoracentesis and removal of 1.73 pleural fluid that was somewhat bloody. This was successful. The patient had incomplete expansion of the left lung. There is still volume loss and some residual effusion left lung base. Consider trapped lung. A CAT scan of the chest was done and showed some small left-sided pleural effusion and atelectasis in left lung base. A repeat thoracentesis was done and another 3 months of the pleural fluid was aspirated from the left lung. No complications. No pneumothorax. #2. Sternal wound infection, currently has a wound VAC with vancomycin on board and the cultures are still negative for now #3. Shortness of breath secondary to above #4. Nausea, 1 episode of vomiting, possibly related to hyperglycemia, recovered #5. Recent history of aortic valve replacement with bioprosthetic Inspiris valve, exclusion of the left atrial appendage, on 03/19/2020, patient was discharged home on 03/23/2020 #6. Hypertension #7. Hyperlipidemia #8. Diabetes mellitus type 2 #9. Diabetis mellitus type II #10. Diabetic ulcer on the right foot tendon third toe #11. Paroxysmal atrial fibrillation, on Eliquis which is currently on hold for possibility of left-sided thoracentesis #12. Macular degeneration #13. Lifetime nonsmoker plan Continue using incentive spirometer Aggressive pulmonary toileting A second thoracentesis was done and another 2 ounces of pleural fluid was asp irated. Aggressive pulmonary toileting. Chest PT. We'll continue to follow. Meanwhile, the patient has a wound VAC and he is still on antibiotics coverage.
--- NOTE | 2020-04-06 12:00 | P.PCN ---
Date of Procedure: 04/06/20 Preoperative Diagnosis: Left-sided pleural effusion Postoperative Diagnosis: Left-sided pleural effusion Procedure(s) Performed: Thoracentesis Anesthesia: local Surgeon: Angelica Bach Pathology: none sent Condition: stable Disposition: floor Operative Findings: Indication: Pleural effusion. A time-out was completed verifying correct patient, procedure, site, positioning, and implant (s) or special equipment if applicable. Ultrasound guidance [was/was not] used and appropriate fluid pocket was i dentified and marked. Patient was positioned, prepped and draped in usual sterile fashion. Lidocaine was used to anesthetize the area. A Thoracentesis catheter was introduced into the pleural space and fluid was removed. Blood loss was none. A chest x-ray was ordered to evaluate for pneumothorax. Total Fluid Removed: 300cc Color of Fluid: Bloody Fluid was sent for appropriate laboratory tests. Patient tolerated the procedure well and there were no complications.
[2020-04-06 12:04] LABS: Glucose,Whole Blood 111 mg/dL (75-99)
[2020-04-06] MEDS: VANCOMYCIN 1,750 MG in SODIUM CHLORIDE 0.9% 500 ML 500 ML IVPB SCH ×2 (12:19→23:00)
[2020-04-06] MEDS: ACETAMINOPHEN TAB 500 MG TAB PO PRN (12:19)
[2020-04-06 17:13] LABS: Glucose,Whole Blood 150 mg/dL (75-99)
[2020-04-06 18:00] LABS: INR 1.2 (<1.2); Prothrombin Time 11.8 sec (9.0-12.0)
[2020-04-06 20:05] LABS: Glucose,Whole Blood 165 mg/dL (75-99)
[2020-04-06] MEDS: ATORVASTATIN 40 MG TAB PO SCH (20:18)
[2020-04-06] MEDS: ASPIRIN 81 MG PO SCH (20:18)
[2020-04-06] MEDS: CHOLECALCIFEROL 1,000 UNIT TAB PO SCH (20:18)
[2020-04-06] MEDS: ASCORBIC ACID 500 MG TAB PO SCH (20:18)
--- NOTE | 2020-04-06 23:07 | PN ---
PROGRESS NOTE DATE OF SERVICE: 04/06/2020 REASON FOR FOLLOWUP: Lower sternal wound infection with Staph epidermidis. INTERVAL HISTORY: The patient is currently afebrile. The patient is feeling better. Breathing comfortably. The patient is status post repeat thoracentesis with Pulmonary, tolerated the procedure. No nausea, no vomiting. No abdominal pain, no diarrhea. PHYSICAL EXAMINATION: On examination, blood pressure 117/64 with a pulse of 67, temperature is 97.8. He is 95% on room air. General description is an elderly male up in the chair in no distress. RESPIRATORY SYSTEM: Unlabored breathing, decreased breath sounds at the bases, no wheeze. HEART: S1, S2. Regular rate and rhythm. Sternal wound is currently covered with a wound VAC. ABDOMEN: Soft. There is no tenderness. LABS: Hemoglobin 8.5, white count 11.1, BUN of 26, creatinine 0.86. Abdominal cultures done on the showing Staph epidermidis, oxacillin resistant. DIAGNOSTIC IMPRESSION AND PLAN: Patient with lower sternal wound infection with . Cultured with Staphylococcus epidermidis. Patient is covered with vancomycin. Plan on PICC line and 2 weeks of IV antibiotic therapy and in addition to that local wound care with wound VAC. Continue with supportive care. MMODL / IJN: [id number] /
[2020-04-07 06:26] LABS: African American GFR (CKD) >90 (>60 ml/min/1.73 sqM); Anion Gap 3 mmol/L; Blood Urea Nitrogen 22 mg/dL (9-20); Calcium 8.3 mg/dL (8.4-10.2); Carbon Dioxide 28 mmol/L (22-30); Chloride 107 mmol/L (98-107); Glucose 90 mg/dL (74-99); Non-African American GFR(CKD) >90 (>60 ml/min/1.73 sqM); Sodium 138 mmol/L (137-145)
[2020-04-07 06:36] LABS: Basophils # (A) 0.1 k/uL (0-0.2); Basophils % (A) 1 %; Eosinophils # (A) 0.3 k/uL (0-0.7); Eosinophils % (A) 3 %; HCT 26.8 % (39.0-53.0); Hypochromasia Marked; Lymphocytes # (A) 2.3 k/uL (1.0-4.8); Lymphocytes % (A) 23 %; MCH 27.6 pg (25.0-35.0); MCHC 29.9 g/dL (31.0-37.0); MCV 92.5 fL (80.0-100.0); Mean Platelet Volume 7.1; Monocytes # (A) 0.6 k/uL (0-1.0); Monocytes % (A) 6 %; Neutrophils # (A) 6.5 k/uL (1.3-7.7); Neutrophils % (A) 66 %; Platelet Count 414 k/uL (150-450); RBC 2.89 m/uL (4.30-5.90); RDW 13.1 % (11.5-15.5); WBC 9.9 k/uL (3.8-10.6)
[2020-04-07 06:39] LABS: Glucose,Whole Blood 107 mg/dL (75-99)
[2020-04-07] MEDS: INSULIN ASPART (NovoLOG) 100 UNIT/ML VIAL SQ SCH ×3 (07:50→16:57)
[2020-04-07] MEDS: METOPROLOL SUCCINATE (ER) 25 MG TAB.ER.24H PO SCH (07:51)
[2020-04-07] MEDS: FUROSEMIDE 40 MG TAB PO SCH (07:51)
[2020-04-07] MEDS: INSULIN DETEMIR (LEVEMIR) 100 UNIT/ML SYR SQ SCH (07:51)
[2020-04-07] MEDS: LACTOBACILLUS ACIDOPH & BULGAR 1 EACH PACKET PO SCH ×3 (07:51→21:10)
[2020-04-07] MEDS: PANTOPRAZOLE 40 MG TABLET PO SCH (07:51)
[2020-04-07] MEDS ORDERED: bisacodyL 10 MG SUPP RECTAL STA (08:39)
--- NOTE | 2020-04-07 08:54 | XR ---
EXAMINATION TYPE: XR chest 1V portable DATE OF EXAM: 04/07/2020 Comparison: 04/06/2020 Clinical History: 69-year-old male left pleural effusion. Findings: Median sternotomy wires are present. Heart mildly enlarged. Moderate effusion on the left slightly in creased in the interval. Bony vasculature and interstitium shows increasing prominence. Median sterno thiago wires. Impression: Cardiomegaly and pulmonary vascular congestion. Increasing moderate left pleural effusion with adjace nt atelectasis and/or consolidation.
--- NOTE | 2020-04-07 09:05 | P.PN ---
Subjective Progress Note Date: 04/07/20 Principal diagnosis: Superficial sternal incision site infection, left-sided pleural effusion, leukocytosis, hyperglycemia. Previous medical history of severe bicuspid aortic valve stenosis status post bioprosthetic aortic valve replacement on 03/19/2020, hypertension, hyperlipidemia, chronic paroxysmal atrial fibrillation status post cardioversion and ligation of the left atrial appendage on chronic Eliquis for anticoagulation, morbid obesity status post gastroplasty, diabetes mellitus type 2 with recent hemoglobin A1c 6.4%, diabetic ulcer of the right foot third toe and macular degeneration. POD #3, 1 left sided thoracentesis by Dr. Bach, 1.7 L the first time and 300 mL the second time POD #1 placement of wound VAC The patient is currently sitting up in bed in the absence unit in no acute distress. Denies any pain or shortness of breath. States he feels much better than when he came in. Wound VAC was placed yesterday to his distal sternal incision. Currently on IV vancomycin per infectious disease. No new questions. Objective - Vital Signs Vital signs: Vital Signs Temp 98.3 F 04/07/20 02:42 Pulse 59 L 04/07/20 02:42 Resp 18 04/07/20 02:42 BP 146/75 04/07/20 02:42 Pulse Ox 95 04/07/20 02:42 Intake & Output 04/06/20 04/07/20 04/07/20 18:59 06:59 18:59 Intake Total 1290 Output Total 1326 200 Balance -1326 1090 Weight 102.5 kg Intake: Intake, IV Titration 500 Amount Vancomycin 1,750 mg In 500 Sodium Chloride 0.9% 500 ml 500 ml @ 167 mls/hr IVPB Q12H [facility] Rx#: [id number] Oral 790 Output: Drainage 200 Right Upper Abdomen 200 Urine 1325 Stool 1 Other: Voiding Method Toilet # Voids 1 2 # Bowel Movements 1 - Constitutional General appearance: Present: cooperative, no acute distress - Respiratory Details: Lungs sounds diminished bilaterally, left greater than right. Respirations even, nonlabored. Currently on room air with oxygen saturation 95%. Able to achieve 3000 mL on his incentive spirometry. Strong cough. - Cardiovascular Details: S1, S2 present. Regular rate and rhythm. Sternum stable. Palpable peripheral pulses bilaterally. Trace bilateral lower extremity edema present. No calf pain or tenderness noted. Heart hugger in place with patient demonstrating appropriate use. Antiembolism stockings, SCDs present. Wound VAC present to distal sternal incision. - Gastrointestinal Gastrointestinal Comment(s): Abdomen soft, nontender, nondistended. Active bowel sounds present 4 quadrants. Tolerating diet. Positive bowel movement yesterday. - Genitourinary Genitourinary Comment(s): Continues to void - Integumentary Integumentary Comment(s): Skin is warm and dry with evidence of good perfusion. Anterior chest incision well approximated until the distal end of the incision which was opened and currently has a wound VAC in place. - Neurologic Neurologic: Present: CNII-XII intact - Musculoskeletal Musculoskeletal: Present: gait normal, strength equal bilaterally - Psychiatric Psychiatric: Present: A&O x's 3, appropriate affect, intact judgment & insight - Allied health notes Allied health notes reviewed: nursing - Labs CBC & Chem 7: 04/07/20 05:53 04/07/20 05:53 Labs: Abnormal Lab Results - Last 24 Hours (Table) 04/06/20 04/06/20 04/06/20 Range/Units 07:27 12:02 17:11 RBC (4.30-5.90) m/uL Hgb (13.0-17.5) gm/dL Hct (39.0-53.0) % MCHC (31.0-37.0) g/dL INR (<1.2) Carbon Dioxide 31 H (22-30) mmol/L BUN 26 H (9-20) mg/dL Glucose 115 H (74-99) mg/dL POC Glucose (mg/dL) 111 H 150 H (75-99) mg/dL Calcium 8.3 L (8.4-10.2) mg/dL Total Protein 5.4 L (6.3-8.2) g/dL Albumin 2.6 L (3.5-5.0) g/dL 04/06/20 04/06/20 04/07/20 Range/Units 17:42 20:04 05:53 RBC 2.89 L (4.30-5.90) m/uL Hgb 8.0 L (13.0-17.5) gm/dL Hct 26.8 L (39.0-53.0) % MCHC 29.9 L (31.0-37.0) g/dL INR 1.2 H (<1.2) Carbon Dioxide (22-30) mmol/L BUN (9-20) mg/dL Glucose (74-99) mg/dL POC Glucose (mg/dL) 165 H (75-99) mg/dL Calcium (8.4-10.2) mg/dL Total Protein (6.3-8.2) g/dL Albumin (3.5-5.0) g/dL 04/07/20 04/07/20 Range/Units 05:53 06:37 RBC (4.30-5.90) m/uL Hgb (13.0-17.5) gm/dL Hct (39.0-53.0) % MCHC (31.0-37.0) g/dL INR (<1.2) Carbon Dioxide (22-30) mmol/L BUN 22 H (9-20) mg/dL Glucose (74-99) mg/dL POC Glucose (mg/dL) 107 H (75-99) mg/dL Calcium 8.3 L (8.4-10.2) mg/dL Total Protein (6.3-8.2) g/dL Albumin (3.5-5.0) g/dL Microbiology - Last 24 Hours (Table) 04/04/20 17:00 Anaerobic Culture - Preliminary Chest 04/04/20 15:25 Anaerobic Culture - Preliminary Pleural Fluid 04/04/20 15:25 Gram Stain - Preliminary Pleural Fluid Body Fluid Culture - Preliminary 04/04/20 17:00 Gram Stain - Preliminary Chest Wound Culture - Preliminary Coagulase Negative Staph 04/04/20 13:01 Blood Culture - Preliminary Blood No Growth after 48 hours - Imaging and Cardiology Chest x-ray: image reviewed Assessment and Plan Assessment: 1. Superficial sternal incision site infection, status post placement of wound VAC, preliminary Gram stain coag-negative staph, currently on IV vancomycin 2. Left-sided pleural effusion, status post thoracentesis 2, preliminary Gram stain negative for organisms 3. Leukocytosis, resolved 4. History of severe bicuspid aortic valve stenosis, status post bioprosthetic aortic valve replacement on 03/19/2020 5. History of hypertension 6. History of hyperlipidemia 7. Chronic paroxysmal atrial fibrillation, status post cardioversion and ligation of the left atrial appendage on chronic Eliquis for anticoagulation 8. Morbid obesity status post gastroplasty 9. Diabetes mellitus type 2 with recent hemoglobin A1c 6.4% 10. History of diabetic ulcer of the right foot third toe 11. Macular degeneration Plan: 1. Continue low-dose aspirin, statin, YAYA inhibitor and beta amairani. 2. Encourage use of incentive spirometry 10 times every hour while awake. 3. Will monitor daily labs and chest x-rays. 4. Activity as tolerated, out of bed for meals and ambulate in the hallway as tolerated. 5. Monitor accurate I's and O's and record daily weights. 6. Antibiotic and wound vac management per infectious disease. Patient received PICC line today. to be taught IV antibiotic administration 7. Medical management/diabetes management per primary care service. Consultation placed to asthma educator for insulin teaching 8. Continue Lasix 40 mg by mouth daily by cardiology. 9. GI/DVT prophylaxis. 10. Pain control per current medication regimen. 11. Dulcolax suppository 1 12. Will restart Eliquis prior to discharge. 13. Discharge planning in progress. Logistics of discharge discussed with case management as patient is currently residing in a hotel, not sure if IV antibiotics can be delivered to the hotel. Patient will continue to need home care. 14. More recommendations to follow based on patient's progress. Time with Patient: Greater than 30
[2020-04-07] MEDS ORDERED: VANCOMYCIN TROUGH DUE 1 EACH MISC MISCELLANE ONE (10:00)
[2020-04-07] MEDS: VANCOMYCIN 1,750 MG in SODIUM CHLORIDE 0.9% 500 ML 500 ML IVPB SCH (10:47)
[2020-04-07] MEDS: COLCHICINE 0.6 MG EACH PO SCH ×2 (10:47→21:09)
--- NOTE | 2020-04-07 11:46 | P.PN ---
Subjective Progress Note Date: 04/07/20 Principal diagnosis: Sternal wound infection and left pleural effusion 69-year-old white female patient with the recent history of aortic valve replacement for severe aortic valve stenosis related to have a calcified bicuspid aortic valve with symptoms of chest pain or shortness of breath on 03/19/2020, only previously seen in consultation following his surgery for ICU, and ventilator management. Patient recovered after his surgery well, she was discharged home with [facility] care on 03/23/2020. Patient was being seen in the follow-up appointment by Dr. Nash today on 04/04/2020. Patient was having increased shortness of breath, chest x-ray showed moderate-sized left pleural effusion which increased in size from his most recent chest x-ray 12 days ago. Patient was given a dose of Lasix in the office, with orders for ultrasound of the chest and patient may need a left-sided thoracentesis, patient also has a possible infection of his chest incision with drainage from the distal portion of his midsternal incision. Patient has been having hypoglycemia, his blood sugars were running in the 300s, and patient did have some intermittent nausea, but no nausea today. Admits to one episode of vomiting at home. Infectious disease consultation was placed for antibiotic management. In addition patient admits to increase in the bilateral lower leg edema over the past few days. He was started on Keflex by his primary care provider office. His vital signs are stable upon arrival, patient is afebrile. Ultrasound the chest showed 9.0 cm pocket on the left. Labs reviewed showing white blood cell count of 12.1, hemoglobin of 9.1, platelet count is 497, electrolytes were within normal limits, B1 is 20 creatinine 0.74, LFTs are within normal limits, CRP was 54.6. Patient received a dose of IV Lasix in the emergency department, he was started on vancomycin, and we're asked to see the patient in regards to monitor size left-sided pleural effusion for possibility of left thoracentesis 04/05/2020 the patient is feeling well. Thoracentesis was done yesterday. A total of 1.7 L of fluid was removed. Following the procedure the patient stated some pain across the left chest. A dose of Dilaudid was given and the pain was completely recovered following that. The chest x-ray shows some volume loss in the left lower lobe and there is some residual effusion on today's chest x-ray. The patient otherwise is afebrile. He is on room air oxygen. He is using incentive spirometer.hemoglobin was done at 8.2. No other significant events otherwise for now. And no complaints. Wound VAC was applied to the anterior chest. Recurrence of the left-sided pleural effusion was noted. CAT scan of the chest was done this morning 04/06/2020, patient is doing well and the CAT scan showed postop changes with small bilateral pleural effusion left more than right and atelectasis in the left lung base.Patient is afebrile. The patient is hemodynamically stable. I was asked to perform another thoracentesis on this patient by CV surgery. I performed a another is a pleural fluid was aspirated from the left lung. This was done successfully without any complications and there is no evidence of any pneumothorax. Patient was reevaluated today on 04/07/20, remains in the observation unit, patient had thoracentesis done by Dr. Bach yesterday, 300 mL of bloody effusion was drained from the left pleural space. Patient felt better, however his chest x-ray shows again a small amount of pleural effusion and atelectasis. Ultrasound was ordered, may consider a pigtail catheter placement if the fluid is large enough to be drained again, otherwise we'll continue to monitor. Patient is receiving antibiotics for his sternal wound infection and he has a wound VAC in place. Cultures of the sternal wound came back positive for coagulase negative staph. WBC count today is 9.9 index right side normal renal profile is normal patient remains on antibiotics as per infectious disease on the case Objective - Vital Signs Vital signs: Vital Signs Temp 98.4 F 04/07/20 07:58 Pulse 76 04/07/20 07:58 Resp 16 04/07/20 07:58 BP 137/78 04/07/20 07:58 Pulse Ox 93 L 04/07/20 07:58 Intake & Output 04/06/20 04/07/20 04/07/20 18:59 06:59 18:59 Intake Total 1290 Output Total 1326 200 450 Balance -1326 1090 -450 Weight 102.5 kg 101.9 kg Intake: Intake, IV Titration 500 Amount Vancomycin 1,750 mg In 500 Sodium Chloride 0.9% 500 ml 500 ml @ 167 mls/hr IVPB Q12H [facility] Rx#: [id number] Oral 790 Output: Drainage 200 Right Upper Abdomen 200 Urine 1325 450 Stool 1 Other: Voiding Method Toilet Toilet # Voids 1 2 # Bowel Movements 1 - Exam GENERAL EXAM: Physical exam revealed a 69-year-old white male in no distress. Head: Atraumatic, normocephalic. EENT: PERRLA, EOMI, no icterus. Moist mucous membranes. Throat is clear. CHEST: No chest wall deformity. Symmetrical expansion. LUNGS: Diminished breath sounds and dullness to percussion in the left lung base. A wound VAC was applied to the anterior chest CVS: Regular rate and rhythm, normal S1 and S2, no gallops, no murmurs, no rubs ABDOMEN: Soft, nontender. No hepatosplenomegaly, normal bowel sounds, no guarding or rigidity. EXTREMITIES: No clubbing edema or cyanosis. MUSCULOSKELETAL: No deformities, no limitation in range of motion. SPINE: No scoliosis or deformity SKIN: No rashes CENTRAL NERVOUS SYSTEM: Alert and oriented 3 focal neurologic deficits. PSYCHIATRIC: Normal mood, affect and normal mental status examination - Labs CBC & Chem 7: 04/07/20 05:53 04/07/20 05:53 Labs: Abnormal Lab Results - Last 24 Hours (Table) 04/06/20 04/06/20 04/06/20 Range/Units 12:02 17:11 17:42 RBC (4.30-5.90) m/uL Hgb (13.0-17.5) gm/dL Hct (39.0-53.0) % MCHC (31.0-37.0) g/dL INR 1.2 H (<1.2) BUN (9-20) mg/dL POC Glucose (mg/dL) 111 H 150 H (75-99) mg/dL Calcium (8.4-10.2) mg/dL 04/06/20 04/07/20 04/07/20 Range/Units 20:04 05:53 05:53 RBC 2.89 L (4.30-5.90) m/uL Hgb 8.0 L (13.0-17.5) gm/dL Hct 26.8 L (39.0-53.0) % MCHC 29.9 L (31.0-37.0) g/dL INR (<1.2) BUN 22 H (9-20) mg/dL POC Glucose (mg/dL) 165 H (75-99) mg/dL Calcium 8.3 L (8.4-10.2) mg/dL 04/07/20 Range/Units 06:37 RBC (4.30-5.90) m/uL Hgb (13.0-17.5) gm/dL Hct (39.0-53.0) % MCHC (31.0-37.0) g/dL INR (<1.2) BUN (9-20) mg/dL POC Glucose (mg/dL) 107 H (75-99) mg/dL Calcium (8.4-10.2) mg/dL Microbiology - Last 24 Hours (Table) 04/04/20 17:00 Anaerobic Culture - Preliminary Chest 04/04/20 15:25 Anaerobic Culture - Preliminary Pleural Fluid 04/04/20 15:25 Gram Stain - Preliminary Pleural Fluid Body Fluid Culture - Preliminary 04/04/20 17:00 Gram Stain - Preliminary Chest Wound Culture - Preliminary Coagulase Negative Staph 04/04/20 13:01 Blood Culture - Preliminary Blood No Growth after 48 hours Assessment and Plan Assessment: Impression:\ Moderate sized left pleural effusion, status post thoracentesis 2. However the fluid keeps reaccumulating, patient will need to have a pigtail catheter placement by interventional radiology. In the meantime I added colchicine. Sternal wound infection with MSSA status post wound VAC placement patient remains on antibiotics/vancomycin. Infectious disease is following Recent history of aortic valve replacement with bioprosthetic valve. Discharge home on 03/23/20. Type 2 diabetes. Paroxysmal atrial fibrillation. Status post left sided thoracentesis 2. Life time nonsmoker. History of macular degeneration. Benign essential hypertension. Shortness of breath secondary to left pleural effusion. Recommendation: Continue present treatment plan. Continue diuretics. Continue antibiotics. Continue wound VAC. Start patient on colchicine 0.6 mg twice a day. Consider pigtail catheter placement in the fluid re-accumulates and requires frequent thoracentesis procedures. We'll continue to follow. Time with Patient: Less than 30
[2020-04-07 12:10] LABS: Glucose,Whole Blood 118 mg/dL (75-99)
--- NOTE | 2020-04-07 13:01 | P.PN ---
Subjective Progress Note Date: 04/07/20 CHIEF COMPLAINT: Postop wound infection HISTORY OF PRESENT ILLNESS: Patient examined this morning at the bedside. Patient is s/p second left thoracentesis yesterday. He denies chest pain. He denies shortness of breath. Denies lower extremity edema. A wound vac has been placed to his chest. Vital signs stable. PHYSICAL EXAM: VITAL SIGNS: Reviewed. GENERAL: Well-developed in no acute distress. HEENT: Head is normocephalic. Pupils are equal, round. Sclerae anicteric. Mucous membranes of the mouth are moist. Neck supple. No JVD or thyromegaly LUNGS: Respirations even and unlabored. Lungs diminished. No rales or wheezing noted. HEART: Regular rate and rhythm. S1 and S2 heard. ABDOMEN: Soft. Nondistended. Nontender. EXTREMITIES: Normal range of motion. No clubbing or cyanosis. Peripheral pulses intact. No lower extremity edema NEUROLOGIC: Awake and alert. Oriented x 3. ASSESSMENT: Sternal wound infection Status post aortic valve replacement Dyspnea, status post left thoracentesis Paroxysmal atrial fibrillation Hypertension Hyperlipidemia Diabetes mellitus, type II PLAN: Continue Lasix 40 mg daily Further management of pleural effusion per pulmonary. Possible pigtail catheter insertion per IR Continue to hold Eliquis per CTS surgery. Will resume at discharge Further recommendations pending patient course Nurse practitioner note has been reviewed by physician. Signing provider agrees with the documented findings, assessment, and plan of care. Objective - Vital Signs Vital signs: Vital Signs Temp 98.4 F 04/07/20 07:58 Pulse 76 04/07/20 07:58 Resp 16 04/07/20 07:58 BP 137/78 04/07/20 07:58 Pulse Ox 93 L 04/07/20 07:58 Intake & Output 04/06/20 04/07/20 04/07/20 18:59 06:59 18:59 Intake Total 1290 Output Total 1326 200 450 Balance -1326 1090 -450 Weight 102.5 kg 101.9 kg Intake: Intake, IV Titration 500 Amount Vancomycin 1,750 mg In 500 Sodium Chloride 0.9% 500 ml 500 ml @ 167 mls/hr IVPB Q12H [facility] Rx#: [id number] Oral 790 Output: Drainage 200 Right Upper Abdomen 200 Urine 1325 450 Stool 1 Other: Voiding Method Toilet Toilet # Voids 1 2 # Bowel Movements 1 1 - Labs CBC & Chem 7: 04/07/20 05:53 04/07/20 05:53 Labs: Abnormal Lab Results - Last 24 Hours (Table) 04/06/20 04/06/20 04/06/20 Range/Units 17:11 17:42 20:04 RBC (4.30-5.90) m/uL Hgb (13.0-17.5) gm/dL Hct (39.0-53.0) % MCHC (31.0-37.0) g/dL INR 1.2 H (<1.2) BUN (9-20) mg/dL POC Glucose (mg/dL) 150 H 165 H (75-99) mg/dL Calcium (8.4-10.2) mg/dL 04/07/20 04/07/20 04/07/20 Range/Units 05:53 05:53 06:37 RBC 2.89 L (4.30-5.90) m/uL Hgb 8.0 L (13.0-17.5) gm/dL Hct 26.8 L (39.0-53.0) % MCHC 29.9 L (31.0-37.0) g/dL INR (<1.2) BUN 22 H (9-20) mg/dL POC Glucose (mg/dL) 107 H (75-99) mg/dL Calcium 8.3 L (8.4-10.2) mg/dL 04/07/20 Range/Units 12:09 RBC (4.30-5.90) m/uL Hgb (13.0-17.5) gm/dL Hct (39.0-53.0) % MCHC (31.0-37.0) g/dL INR (<1.2) BUN (9-20) mg/dL POC Glucose (mg/dL) 118 H (75-99) mg/dL Calcium (8.4-10.2) mg/dL Microbiology - Last 24 Hours (Table) 04/04/20 17:00 Anaerobic Culture - Preliminary Chest 04/04/20 15:25 Anaerobic Culture - Preliminary Pleural Fluid 04/04/20 15:25 Gram Stain - Preliminary Pleural Fluid Body Fluid Culture - Preliminary 04/04/20 17:00 Gram Stain - Preliminary Chest Wound Culture - Preliminary Coagulase Negative Staph 04/04/20 13:01 Blood Culture - Preliminary Blood No Growth after 48 hours
--- NOTE | 2020-04-07 13:24 | US ---
EXAMINATION TYPE: US chest DATE OF EXAM: 04/07/2020 COMPARISON: US 04/04/2020 CLINICAL HISTORY: 69-year-old male Markings for thoracentesis by pulmonary staff. TECHNIQUE: Targeted ultrasound of the posterior lower left hemithorax FINDINGS: EXAM MEASUREMENTS: Left Pleural Effusion pocket size: 9.4 cm Left skin surface to fluid distance: 3.1 cm Left side marked for possible thoracentesis outside the dept. Lung visualized within pocket 3.1 cm fr om lining Pulmonologists are able to review the images in the patient?s EMR. IMPRESSIONS: Moderate left-sided pleural effusion with marking performed. Note lung tissue interposed within the f luid pocket.
[2020-04-07] MEDS ORDERED: LIDOCAINE 1% INJ 10MG/ML (20 ML MDV) ONE (13:52)
[2020-04-07] MEDS ORDERED: LIDOCAINE 1% INJ 10MG/ML (20 ML MDV) SQ ONE (13:56)
--- NOTE | 2020-04-07 15:54 | IR ---
PICC LINE PLACEMENT: HISTORY: Infection requiring long-term antibiotic therapy PROCEDURE: Ultrasound and fluoroscopic guidance of PICC line placement. COMPLICATIONS: None ANESTHESIA: 1. 1% Lidocaine locally. FINDINGS/TECHNIQUE: The procedure was explained to the patient. The risks, complications, benefits and alternatives were discussed and any questions were answered. Informed consent was obtained. The patient was placed supine on the fluoroscopic table and prepped and draped in the usual sterile fash ion. Utilizing a 21 gauge needle and sonographic and fluoroscopic guidance, access in the left basi lic vein was achieved and there is placement of a 0.018 guidewire. The vein is patent. A 4-F sheath was placed over the guidewire. The guidewire and dilator were removed and a 4-F. PICC line was plac ed through the sheath with the tip at the level of the SVC. The sheath was removed, the catheter was flushed and sutured into position. The patient was stable throughout the procedure and remained sta ble upon discharge from the Department of Radiology. The vein puncture was patent under ultrasound. A mata scale image was obtained to document patency of the vein punctured. All elements of the maximal barrier technique were utilized. FLUOROSCOPY TIME: 0.2 minutes and one images submitted IMPRESSION: Successful PICC line placement under ultrasound and fluoroscopic guidance.
--- NOTE | 2020-04-07 15:54 | P.CONS ---
History of Present Illness - Chief Complaint Cardiac debility - History of Present Illness I had the opportunity see patient for inpatient rehab consultation with regard to cardiac debility. Patient admitted to [facility] the left pleural effusion and calcified aortic valve. Seen in consultation by pulmonary, Dr. Johnson as well as cardiology the patient known to them. Patient did undergo CABG. Chest x-ray demonstrates cardiomegaly, congestion and left pleural effusion. Ultrasound done and demonstrates left pleural effusion as well. PT and OT prescribed. Previous functional history as elicited from patient: 69-year-old right-handed white male is lives and 2 floor home with . Patient retired and and retired/disabled. does cooking and driving. Patient dependent laundry, standing shower and gait without device. PMD Dr. Dominguez. Denies tobacco or alcohol. family history mother and father with VT. Review of Systems Review of systems: ENT: Denies sneezes or discharge. Eyes: Denies discharge or photophobia. Cardiac: Very mild chest discomfort only. Pulmonary: Denies cough or shortness of breath. Gastrointestinal: Denies nausea, emesis, constipation, diarrhea. Genitourinary: Denies discharge or frequency. Musculoskeletal: Denies muscle or bone aches. Neurologic: Denies motor or sensory change. Endocrine: Denies shakes or sweats. Oncology: Denies cancers. Dermatologic: Denies rash, itching, pruritus. ALLERGY/immunology: Denies sneezes, rashes. Past Medical History Past Medical History: Atrial Fibrillation, Chest Pain / Angina, Diabetes Mellitus, Eye Disorder, Hyperlipidemia, Hypertension, Pneumonia Additional Past Medical History / Comment(s): "no diabetic mediication since wt loss" checks blood sugar at home and watches diet , MIGRAINE HEADACHES A CHILD, heart murmer, heart valve problem, "macular buildup in both eyes" History of Any Multi-Drug Resistant Organisms: None Reported Past Surgical History: Bariatric Surgery, Orthopedic Surgery, Tonsillectomy Additional Past Surgical History / Comment(s): CABG Past Anesthesia/Blood Transfusion Reactions: Previous Problems w/ Anesthesia Additional Past Anesthesia/Blood Transfusion Reaction / Comm: reaction with sodium pentothall years ago-"almost ". no problem with anesthesia since Past Psychological History: No Psychological Hx Reported Smoking Status: Never smoker Past Alcohol Use History: None Reported Past Drug Use History: None Reported - Past Family History Mother Family Medical History: COPD, Diabetes Mellitus Additional Family Medical History / Comment(s): Macular degeneration, legally blind Sister(s) Family Medical History: Cancer Father Family Medical History: Myocardial Infarction (VT) Additional Family Medical History / Comment(s): Father had his first VT at the age of 82 yrs. He is . Medications and Allergies Home Medications Medication Instructions Recorded Confirmed Type Ascorbic Acid [Vitamin C] 1,000 mg PO HS 02/05/19 04/04/20 History Cholecalciferol (Vitamin D3) 5,000 unit PO HS 02/05/19 04/04/20 History [Vitamin D3] Vitamin B Complex 1 cap PO HS 02/05/19 04/04/20 History lisinopriL [Zestril] 2.5 mg PO HS 02/05/19 04/04/20 History Apixaban [Eliquis] 5 mg PO BID 02/08/20 04/04/20 History Atorvastatin [Lipitor] 40 mg PO HS 02/08/20 04/04/20 History Calcium/Magnesium/Zinc 1 tab PO HS 02/08/20 04/04/20 History [Nlntbwq-Zvjcfxfez-Betg Tablet] L.acidoph,Paracasei, B.lactis 1 cap PO TID 02/08/20 04/04/20 History [Probiotic] Metoprolol Succinate (ER) [Toprol 25 mg PO DAILY 02/08/20 04/04/20 History XL] [place]-3 Fatty Acids [[place]-3] 1,000 mg PO HS 02/08/20 04/04/20 History Acetaminophen Tab [Tylenol] 1,000 mg PO Q6HR PRN #120 tab 03/22/20 04/04/20 Rx Pantoprazole Sodium [Protonix] 40 mg PO AC-BRKFST #30 tablet. 03/23/20 04/04/20 Rx Cephalexin [Keflex] 500 mg PO Q6HR 7 Days #28 cap 04/03/20 04/04/20 Rx Aspirin 81 mg PO HS 04/04/20 04/04/20 History Cyanocobalamin (Vitamin B-12) 1,000 mcg PO HS 04/04/20 04/04/20 History [Vitamin B-12] Sennosides-Docusate Sodium 2 tab PO HS PRN 04/04/20 04/04/20 History [Senokot-S] Vancomycin/0.9 % Sod Chloride 1,750 mg IV Q12HR #28 plast..bag 04/07/20 Rx [Vanco 750 mg/250 ml-0.9% NaCl] Allergies Allergy/AdvReac Type Severity Reaction Status Date / Time thiopental [From Pentothal] Allergy Anaphylaxis, Verified 04/04/20 13:29 TROUBLE BREATHING metformin AdvReac VERY WEAK, Verified 04/04/20 13:29 SEVERE JOINT PAIN , MUSCLE PAIN rivaroxaban [From Xarelto] AdvReac bruising Verified 04/04/20 13:29 Physical Exam Vitals: Vital Signs Temp Pulse Resp BP Pulse Ox 04/07/20 07:58 98.4 F 76 16 137/78 93 L 04/07/20 02:42 98.3 F 59 L 18 146/75 95 04/06/20 21:00 98 F 57 L 18 118/60 97 Intake and Output 04/07/20 04/07/20 04/07/20 06:59 14:59 22:59 Intake Total 600 Output Total 80 450 Balance 520 -450 Intake: Intake, IV Titration 500 Amount Vancomycin 1,750 mg In 500 Sodium Chloride 0.9% 500 ml 500 ml @ 167 mls/hr IVPB Q12H [facility] Rx#: [id number] Oral 100 Output: Drainage 80 Right Upper Abdomen 80 Urine 450 Other: Voiding Method Toilet Toilet # Voids 2 # Bowel Movements 1 Weight 101.9 kg Skin: Good color, texture, turgor. General: Medium to overweight build and comfortable appearance. Head: Normocephalic, atraumatic. Eyes: Symmetric. Pupils equal round. Ears: Symmetric. Hearing within normal limits. Mouth: Clear. Neck: Supple. Carotid without bruit. Cardiac: Regular rate and rhythm. Lungs: Clear anteriorly and posteriorly. Abdomen: Soft active nontender. Extremities: Normal tone. Neurological: Mental status: Alert, cooperative, pleasant. Cranial nerves: Symmetric facial tone and trapezius. Motor: Normal strength and isolation all 4 limbs. Sensation: Intact throughout. DTRs: Symmetric and equal throughout. Mobility: Sits and stands without assistance and this includes ambulation to and from bathroom and pushing IV pole. Results CBC & Chem 7: 04/07/20 05:53 09/21/20 05:53 Labs: Abnormal Lab Results - Last 24 Hours (Table) 04/06/20 04/06/20 04/06/20 Range/Units 17:11 17:42 20:04 RBC (4.30-5.90) m/uL Hgb (13.0-17.5) gm/dL Hct (39.0-53.0) % MCHC (31.0-37.0) g/dL INR 1.2 H (<1.2) BUN (9-20) mg/dL POC Glucose (mg/dL) 150 H 165 H (75-99) mg/dL Calcium (8.4-10.2) mg/dL 04/07/20 04/07/20 04/07/20 Range/Units 05:53 05:53 06:37 RBC 2.89 L (4.30-5.90) m/uL Hgb 8.0 L (13.0-17.5) gm/dL Hct 26.8 L (39.0-53.0) % MCHC 29.9 L (31.0-37.0) g/dL INR (<1.2) BUN 22 H (9-20) mg/dL POC Glucose (mg/dL) 107 H (75-99) mg/dL Calcium 8.3 L (8.4-10.2) mg/dL 04/07/20 Range/Units 12:09 RBC (4.30-5.90) m/uL Hgb (13.0-17.5) gm/dL Hct (39.0-53.0) % MCHC (31.0-37.0) g/dL INR (<1.2) BUN (9-20) mg/dL POC Glucose (mg/dL) 118 H (75-99) mg/dL Calcium (8.4-10.2) mg/dL Microbiology - Last 24 Hours (Table) 04/04/20 13:01 Blood Culture - Preliminary Blood No Growth after 72 hours 04/04/20 17:00 Anaerobic Culture - Preliminary Chest 04/04/20 15:25 Anaerobic Culture - Preliminary Pleural Fluid 04/04/20 15:25 Gram Stain - Preliminary Pleural Fluid Body Fluid Culture - Preliminary 04/04/20 17:00 Gram Stain - Preliminary Chest Wound Culture - Preliminary Coagulase Negative Staph Assessment and Plan (1) Status post coronary artery bypass graft Current Visit: Yes Status: Acute Code(s): Z95.1 - PRESENCE OF AORTOCORONARY BYPASS GRAFT SNOMED Code(s): 488054972 (2) Superficial incisional surgical site infection Current Visit: Yes Status: Acute Code(s): T81.41XA - INFCT FOL A PROC, SUPERFIC INCISIONAL SURGICAL SITE, INIT SNOMED Code(s): 228490819 Plan: Impression: 1. Cardiac debility with recent cardiac surgery and history of angina. 2. Hypertension. 3. Dyslipidemia. 4. Diabetes. 5. Atrial fibrillation. Constant plan: PT and OT prescribed. Patient however up and ambulatory in room with IV pole. Patient is doing quite well and does not have functional problem requiring PT and/or OT and thus not inpatient rehab. Defer sternal cellulitis to alternative treatment plan. This was discussed with cardiac surgery team including Dr. Almaguer.
--- NOTE | 2020-04-07 16:07 | PN ---
PROGRESS NOTE DATE OF SERVICE: 04/07/2020 REASON FOR FOLLOWUP: Sternal wound infection. INTERVAL HISTORY: Patient is currently afebrile. Patient is breathing comfortably. Denies having any chest pain. No nausea, no vomiting. No abdominal pain or diarrhea. PHYSICAL EXAMINATION: Blood pressure 137/78 with a pulse of 73, temperature 98.4. He is 93% on room air. General description is an elderly male, up in the chair in no distress. RESPIRATORY SYSTEM: Unlabored breathing, decreased breath sounds, no wheeze. HEART: S1, S2. Regular rate and rhythm. ABDOMEN: Soft, no tenderness. Sternal wound is currently covered with a wound VAC. LABS: Hemoglobin 8, white count 9.9, BUN of 22, creatinine 0.71. DIAGNOSTIC IMPRESSION AND PLAN: Patient with sternal surgery wound infection, status post debridement, culture with Staph epidermidis. Patient on vancomycin, pharmacy to dose to continue for 2 weeks. Local wound care with wound VAC. at the bedside, questions were answered. MMODL / IJN: [id number] /
[2020-04-07 16:40] LABS: Glucose,Whole Blood 165 mg/dL (75-99)
[2020-04-07] MEDS: HEPARIN SODIUM,PORCINE 5,000 UNIT/ML 1 ML VIAL SQ SCH ×2 (16:57→23:30)
[2020-04-07] MEDS ORDERED: FUROSEMIDE 10 MG/ML 2 ML VIAL IV STA (17:09)
--- NOTE | 2020-04-07 18:06 | PN ---
PROGRESS NOTE DATE OF SERVICE: 04/05/2020 CHIEF COMPLAINT: Sternal wound infection and left pleural effusion. HISTORY OF PRESENT ILLNESS: This gentleman is feeling fairly well, but he has redeveloped a bloody left pleural effusion and he is undergoing another thoracentesis. He has had no fever, chills, chest pain, etc. PHYSICAL EXAMINATION: Color is good. The chest is clear with somewhat decreased breath sounds on the left side. Cardiac exam is unchanged. Abdomen is soft. Extremities are normal. IMPRESSION: 1. Sternal wound infection. 2. Status post aortic valve replacement. 3. Left pleural effusion/hemothorax. PLAN: He will be tapped again today and will be kept in the hospital for the time being while he undergoes wound care. Blood sugars are doing well. MMODL / IJN: [id number] /
--- NOTE | 2020-04-07 18:12 | PN ---
PROGRESS NOTE DATE OF SERVICE: 04/07/2020 CHIEF COMPLAINT: Sternotomy infection and left pleural hemothorax. HISTORY OF PRESENT ILLNESS: This gentleman is doing fairly well and feels fairly well. He has had no chest pain, shortness of breath, fever or chills. PHYSICAL EXAMINATION: Breath sounds are slightly diminished at the left base. Breath sounds are well heard on both sides. Cardiac exam is unchanged. Abdomen is soft. Extremities are normal. IMPRESSION: 1. Sternotomy surgical wound infection. 2. Type 2 diabetes mellitus. 3. Left pleural effusion, hemothorax. PLAN: He is doing well and if the left-sided chest fluid does not recollect, he can probably go home soon. MMODL / IJN: [id number] /
[2020-04-07 20:40] LABS: Glucose,Whole Blood 127 mg/dL (75-99)
[2020-04-07] MEDS ORDERED: lisinopriL 5 MG TAB PO SCH (21:00)
[2020-04-07] MEDS: CHOLECALCIFEROL 1,000 UNIT TAB PO SCH (21:09)
[2020-04-07] MEDS: ASPIRIN 81 MG PO SCH (21:09)
[2020-04-07] MEDS: ATORVASTATIN 40 MG TAB PO SCH (21:09)
[2020-04-07] MEDS: ASCORBIC ACID 500 MG TAB PO SCH (21:09)
[2020-04-07] MEDS: VANCOMYCIN 2,000 MG in SODIUM CHLORIDE 0.9% 500 ML 500 ML IVPB SCH (21:20)
[2020-04-08 06:55] LABS: Glucose,Whole Blood 84 mg/dL (75-99)
[2020-04-08] MEDS: PANTOPRAZOLE 40 MG TABLET PO SCH (06:59)
[2020-04-08] MEDS: INSULIN DETEMIR (LEVEMIR) 100 UNIT/ML SYR SQ SCH (06:59)
[2020-04-08 08:23] LABS: HCT 29.1 % (39.0-53.0); HGB 8.9 gm/dL (13.0-17.5); Hypochromasia Marked; MCH 28.5 pg (25.0-35.0); MCHC 30.7 g/dL (31.0-37.0); MCV 92.9 fL (80.0-100.0); Mean Platelet Volume 11.3; Platelet Count 338 k/uL (150-450); RBC 3.13 m/uL (4.30-5.90); RDW 13.2 % (11.5-15.5); WBC 9.6 k/uL (3.8-10.6)
[2020-04-08 08:30] LABS: African American GFR (CKD) >90 (>60 ml/min/1.73 sqM); Anion Gap 5 mmol/L; Blood Urea Nitrogen 19 mg/dL (9-20); Calcium 8.7 mg/dL (8.4-10.2); Carbon Dioxide 30 mmol/L (22-30); Chloride 105 mmol/L (98-107); Glucose 85 mg/dL (74-99); Non-African American GFR(CKD) >90 (>60 ml/min/1.73 sqM); Sodium 140 mmol/L (137-145)
--- NOTE | 2020-04-08 08:50 | XR ---
EXAMINATION TYPE: XR chest 2V DATE OF EXAM: 04/08/2020 COMPARISON: 04/07/2020 INDICATION: Pleural effusion TECHNIQUE: Frontal and lateral views of the chest are obtained. FINDINGS: The heart size appears within normal limits. The pulmonary vasculature is normal. There is a small left pleural effusion, stable. Prior cardiac surgery is evident. IMPRESSION: 1. Stable small left pleural effusion
[2020-04-08] MEDS ORDERED: FUROSEMIDE 10 MG/ML 4 ML VIAL IV SCH (09:00)
[2020-04-08 09:06] LABS: C Reactive Protein 67.3 mg/L (<10.0)
--- NOTE | 2020-04-08 09:18 | P.PN ---
Subjective Progress Note Date: 04/08/20 Principal diagnosis: Superficial sternal incision site infection with final culture growing staph epidermidis, left-sided pleural effusion, leukocytosis, hyperglycemia. Previous medical history of severe bicuspid aortic valve stenosis status post bioprosthetic aortic valve replacement on 03/19/2020, hypertension, hyperlipidemia, chronic paroxysmal atrial fibrillation status post cardioversion and ligation of the left atrial appendage on chronic Eliquis for anticoagulation, morbid obesity status post gastroplasty, diabetes mellitus type 2 with recent hemoglobin A1c 6.4%, diabetic ulcer of the right foot third toe and macular degeneration. POD #4, 2 left sided thoracentesis by Dr. Bach, 1.7 L the first time and 300 mL the second time POD #2 placement of wound VAC The patient is currently sitting up in bed on the cardiac stepdown unit in no acute distress. Denies any pain or shortness of breath. Continues to feel much better than when he came in. Wound VAC was placed to his distal sternal incision. Currently on IV vancomycin per infectious disease. Planning continues for discharge. Home/hotel versus subacute rehab (patient was seen by Dr. Chao and is not a candidate for inpatient rehab) depending on insurance/financial obligations of IV antibiotics and wound VAC changes. Inquiries sent yesterday through insurance and [facility]. No new questions. Objective - Vital Signs Vital signs: Vital Signs Temp 97.9 F 04/07/20 20:00 Pulse 60 04/08/20 03:40 Resp 16 04/08/20 03:40 BP 127/60 04/08/20 03:40 Pulse Ox 92 L 04/08/20 03:40 Intake & Output 04/07/20 04/08/20 04/08/20 18:59 06:59 18:59 Intake Total 120 Output Total 450 1350 Balance -330 -1350 Weight 101.9 kg 101.6 kg Intake: Oral 120 Output: Urine 450 1350 Other: Voiding Method Toilet Toilet Urinal # Voids 3 # Bowel Movements 1 - Constitutional General appearance: Present: cooperative, no acute distress - Respiratory Details: Lungs sounds diminished bilaterally, left greater than right. Respirations even, nonlabored. Currently on room air with oxygen saturation 92%. Able to achieve 1500 mL on his incentive spirometry. Strong cough. - Cardiovascular Details: S1, S2 present. Regular rate and rhythm. Sternum stable. Palpable peripheral pulses bilaterally. Trace bilateral lower extremity edema present. No calf pain or tenderness noted. Heart hugger in place with patient demonstrating appropriate use. Antiembolism stockings, SCDs present. Wound VAC present to distal sternal incision. - Gastrointestinal Gastrointestinal Comment(s): Abdomen soft, nontender, nondistended. Active bowel sounds present 4 quadrants. Tolerating diet. Positive bowel movement yesterday. - Genitourinary Genitourinary Comment(s): Continues to void. Excellent diuresis after IV Lasix given last night - Integumentary Integumentary Comment(s): Skin is warm and dry with evidence of good perfusion. Anterior chest incision well approximated until the distal end of the incision which was opened and currently has a wound VAC in place. - Neurologic Neurologic: Present: CNII-XII intact - Musculoskeletal Musculoskeletal: Present: gait normal, strength equal bilaterally - Psychiatric Psychiatric: Present: A&O x's 3, appropriate affect, intact judgment & insight - Allied health notes Allied health notes reviewed: nursing - Labs CBC & Chem 7: 04/08/20 07:40 04/08/20 07:40 Labs: Abnormal Lab Results - Last 24 Hours (Table) 04/07/20 04/07/20 04/07/20 Range/Units 12:09 16:38 20:38 RBC (4.30-5.90) m/uL Hgb (13.0-17.5) gm/dL Hct (39.0-53.0) % MCHC (31.0-37.0) g/dL POC Glucose (mg/dL) 118 H 165 H 127 H (75-99) mg/dL 04/08/20 Range/Units 07:40 RBC 3.13 L (4.30-5.90) m/uL Hgb 8.9 L (13.0-17.5) gm/dL Hct 29.1 L (39.0-53.0) % MCHC 30.7 L (31.0-37.0) g/dL POC Glucose (mg/dL) (75-99) mg/dL Microbiology - Last 24 Hours (Table) 04/04/20 17:00 Gram Stain - Final Chest Wound Culture - Final Staphylococcus epidermidis 04/04/20 15:25 Gram Stain - Preliminary Pleural Fluid Body Fluid Culture - Preliminary 04/04/20 13:01 Blood Culture - Preliminary Blood No Growth after 72 hours - Imaging and Cardiology Chest x-ray: report reviewed, image reviewed Assessment and Plan Assessment: 1. Superficial sternal incision site infection, status post placement of wound VAC, final culture positive for staph epidermidis, currently on IV vancomycin 2. Left-sided pleural effusion, status post thoracentesis 2, preliminary Gram stain negative for organisms 3. Leukocytosis, resolved 4. History of severe bicuspid aortic valve stenosis, status post bioprosthetic aortic valve replacement on 03/19/2020 5. History of hypertension 6. History of hyperlipidemia 7. Chronic paroxysmal atrial fibrillation, status post cardioversion and ligation of the left atrial appendage on chronic Eliquis for anticoagulation 8. Morbid obesity status post gastroplasty 9. Diabetes mellitus type 2 with recent hemoglobin A1c 6.4% 10. History of diabetic ulcer of the right foot third toe 11. Macular degeneration Plan: 1. Continue low-dose aspirin, statin, YAYA inhibitor and beta amairani. 2. Encourage use of incentive spirometry 10 times every hour while awake. 3. Will monitor daily labs and chest x-rays. 4. Activity as tolerated, out of bed for meals and ambulate in the hallway as tolerated. 5. Monitor accurate I's and O's and record daily weights. 6. Antibiotic and wound vac management per infectious disease. 7. Medical management/diabetes management per primary care service. Consultation placed to life skills educator for insulin teaching 8. Oral Lasix discontinued. IV Lasix ordered 9. GI/DVT prophylaxis. 10. Pain control per current medication regimen. 11. Will restart Eliquis prior to discharge. 12. Discharge planning in progress. Logistics of discharge discussed with case management as patient has high co-pay for IV antibiotics and wound VAC supplies. Inquiries sent yesterday for insurance and [facility], if cost is covered for patient to have antibiotic infusion and wound VAC changed at [facility] office patient may be discharged back to [facility]. If cost is not covered patient will need [facility] placement at discharge as he is not a candidate for IPR 13. More recommendations to follow based on patient's progress. Time with Patient: Greater than 30
[2020-04-08] MEDS: VANCOMYCIN 2,000 MG in SODIUM CHLORIDE 0.9% 500 ML 500 ML IVPB SCH (09:56)
[2020-04-08] MEDS: LACTOBACILLUS ACIDOPH & BULGAR 1 EACH PACKET PO SCH (09:56)
[2020-04-08] MEDS: METOPROLOL SUCCINATE (ER) 25 MG TAB.ER.24H PO SCH (09:56)
[2020-04-08] MEDS: COLCHICINE 0.6 MG EACH PO SCH (09:56)
[2020-04-08] MEDS: HEPARIN SODIUM,PORCINE 5,000 UNIT/ML 1 ML VIAL SQ SCH (09:56)
[2020-04-08] MEDS: INSULIN ASPART (NovoLOG) 100 UNIT/ML VIAL SQ SCH ×2 (09:57→12:58)
[2020-04-08 11:44] VITALS: RESP 17
--- NOTE | 2020-04-08 11:49 | DS ---
DISCHARGE SUMMARY DATE OF SERVICE: 04/08/2020. CHIEF COMPLAINT: Sternotomy wound infection. HISTORY OF PRESENT ILLNESS AND PHYSICAL EXAMINATION: Details of this man's history and physical can be found in the initial workup. COURSE IN THE HOSPITAL: After admission, he was placed on bedrest, and started on intravenous fluids and IV antibiotics. He was seen by Cardiology and Vascular Surgery. He was also seen by Infectious Disease. Wound was fairly clean upon admission. He had no fever, chills. He was short of breath and he was found to have a large left pleural effusion. He underwent thoracentesis for a large quantity of bloody fluid. This reaccumulated and he had a second tap. He is doing fairly well. Arrangements were made for him to go to rehab at [facility] and to be transferred there on 04/08/2020. FINAL DIAGNOSES: 1. Sternotomy wound infection. 2. Status post aortic valve replacement. 3. Left hemothorax and pleural effusion. 4. Type 2 diabetes mellitus. OPERATIONS: Thoracentesis. CONSULTATIONS: Thoracic Surgery, Cardiology and Infectious Disease. MMODL / ELEAZARN: [id number] /
[2020-04-08 11:55] LABS: Glucose,Whole Blood 93 mg/dL (75-99)
--- NOTE | 2020-04-08 11:59 | P.PN ---
Subjective Progress Note Date: 04/08/20 This is a 69-year-old gentleman with past medical history significant for severe bicuspid aortic valve stenosis status post bioprosthetic aortic valve replacement on the second of this month, hypertension, hyperlipidemia, paroxysmal atrial fibrillation, diabetes, currently being treated for a sup erficial sternal incision site infection. Patient also had a left-sided pleural effusion for which he underwent a thoracentesis. Patient was seen and examined this morning sitting up in his chair at bedside, overall he feels well, his breathing is stable. Blood pressure 140/60 with a heart rate in the 60s, 97% on room air. White blood cell count 9.6, hemoglobin 8.9, platelet count 338. Sodium 140, potassium 4.0, BUN 19, creatinine 0.7. Objective - Vital Signs Vital signs: Vital Signs Temp 98.1 F 04/08/20 08:00 Pulse 62 04/08/20 08:00 Resp 17 04/08/20 08:00 BP 140/64 04/08/20 08:00 Pulse Ox 97 04/08/20 08:00 Intake & Output 04/07/20 04/08/20 04/08/20 18:59 06:59 18:59 Intake Total 120 Output Total 450 1350 Balance -330 -1350 Weight 101.9 kg 101.6 kg Intake: Oral 120 Output: Urine 450 1350 Other: Voiding Method Toilet Toilet Urinal # Voids 3 # Bowel Movements 1 - Exam GENERAL EXAM: Physical exam revealed a 69-year-old white male in no distress. Head: Atraumatic, normocephalic. EENT: PERRLA, EOMI, no icterus. Moist mucous membranes. Throat is clear. CHEST: No chest wall deformity. Symmetrical expansion. LUNGS: Diminished breath sounds and dullness to percussion in the left lung bas e. A wound VAC was applied to the anterior chest CVS: Regular rate and rhythm, normal S1 and S2, no gallops, no murmurs, no rubs ABDOMEN: Soft, nontender. No hepatosplenomegaly, normal bowel sounds, no guarding or rigidity. EXTREMITIES: No clubbing edema or cyanosis. MUSCULOSKELETAL: No deformities, no limitation in range of motion. SPINE: No scoliosis or deformity SKIN: No rashes CENTRAL NERVOUS SYSTEM: Alert and oriented 3 focal neurologic deficits. PSYCHIATRIC: Normal mood, affect and normal mental status examination - Labs CBC & Chem 7: 04/08/20 07:40 04/08/20 07:40 Labs: Abnormal Lab Results - Last 24 Hours (Table) 04/07/20 04/07/20 04/07/20 Range/Units 12:09 16:38 20:38 RBC (4.30-5.90) m/uL Hgb (13.0-17.5) gm/dL Hct (39.0-53.0) % MCHC (31.0-37.0) g/dL POC Glucose (mg/dL) 118 H 165 H 127 H (75-99) mg/dL C-Reactive Protein (<10.0) mg/L 04/08/20 04/08/20 Range/Units 07:40 07:40 RBC 3.13 L (4.30-5.90) m/uL Hgb 8.9 L (13.0-17.5) gm/dL Hct 29.1 L (39.0-53.0) % MCHC 30.7 L (31.0-37.0) g/dL POC Glucose (mg/dL) (75-99) mg/dL C-Reactive Protein 67.3 H (<10.0) mg/L Microbiology - Last 24 Hours (Table) 04/04/20 17:00 Gram Stain - Final Chest Wound Culture - Final Staphylococcus epidermidis 04/04/20 15:25 Gram Stain - Preliminary Pleural Fluid Body Fluid Culture - Preliminary 04/04/20 13:01 Blood Culture - Preliminary Blood No Growth after 72 hours Assessment and Plan Plan: Assessment and plan #1 Moderate sized left pleural effusion, status post thoracentesis 2. #2 Sternal wound infection with MSSA status post wound VAC placement patient remains on antibiotics/vancomycin. Infectious disease is following #3 Recent history of aortic valve replacement with bioprosthetic valve. #4 Type 2 diabetes. #5 Paroxysmal atrial fibrillation. #6 Status post left sided thoracentesis 2. #7 Life time nonsmoker. #8 History of macular degeneration. #9 Benign essential hypertension. Plan Patient continues to be on IV Lasix which we will continue. Continue aspirin, Lipitor, metoprolol, lisinopril. Encourage the use of incentive spirometry. DNP note has been reviewed, I agree with a documented findings and plan of care. Patient was seen and examined.
--- NOTE | 2020-04-08 13:34 | P.PN ---
Subjective Progress Note Date: 04/08/20 Principal diagnosis: Left pleural effusion, sternal wound infection 69-year-old white female patient with the recent history of aortic valve replacement for severe aortic valve stenosis related to have a calcified bicuspid aortic valve with symptoms of chest pain or shortness of breath on 03/19/2020, only previously seen in consultation following his surgery for ICU, and ventilator management. Patient recovered after his surgery well, she was discharged home with [facility] care on 03/23/2020. Patient was being seen in the follow-up appointment by Dr. Nash today on 04/04/2020. Patient was having increased shortness of breath, chest x-ray showed moderate-sized left pleural effusion which increased in size from his most recent chest x-ray 12 days ago. Patient was given a dose of Lasix in the office, with orders for ultrasound of the chest and patient may need a left-sided thoracentesis, patient also has a possible infection of his chest incision with drainage from the distal portion of his midsternal incision. Patient has been having hypoglycemia, his blood sugars were running in the 300s, and patient did have some intermittent nausea, but no nausea today. Admits to one episode of vomiting at home. Infectious disease consultation was placed for antibiotic management. In addition patient admits to increase in the bilateral lower leg edema over the past few days. He was started on Keflex by his primary care provider office. His vital signs are stable upon arrival, patient is afebrile. Ultrasound the chest showed 9.0 cm pocket on the left. Labs reviewed showing white blood cell count of 12.1, hemoglobin of 9.1, platelet count is 497, electrolytes were within normal limits, B1 is 20 creatinine 0.74, LFTs are within normal limits, CRP was 54.6. Patient received a dose of IV Lasix in the emergency department, he was started on vancomycin, and we're asked to see the patient in regards to monitor size left-sided pleural effusion for possibility of left thoracentesis 04/05/2020 the patient is feeling well. Thoracentesis was done yesterday. A total of 1.7 L of fluid was removed. Following the procedure the patient stated some pain across the left chest. A dose of Dilaudid was given and the pain was completely recovered following that. The chest x-ray shows some volume loss in the left lower lobe and there is some residual effusion on today's chest x-ray. The patient otherwise is afebrile. He is on room air oxygen. He is using incentive spirometer.hemoglobin was done at 8.2. No other significant otherwise for now. And no complaints. Wound VAC was applied to the anterior chest. Recurrence of the left-sided pleural effusion was noted. CAT scan of the chest was done this morning 04/06/2020, patient is doing well and the CAT scan showed postop changes with small bilateral pleural effusion left more than right and atelectasis in the left lung base.Patient is afebrile. The patient is hemodynamically stable. I was asked to perform another thoracentesis on this patient by CV surgery. I performed a another is a pleural fluid was aspirated from the left lung. This was done successfully without any complications and there is no evidence of any pneumothorax. Patient was reevaluated today on 04/07/20, remains in the observation unit, patient had thoracentesis done by Dr. Bach yesterday, 300 mL of bloody effusion was drained from the left pleural space. Patient felt better, however his chest x-ray shows again a small amount of pleural effusion and atelectasis. Ultrasound was ordered, may consider a pigtail catheter placement if the fluid is large enough to be drained again, otherwise we'll continue to monitor. Patient is receiving antibiotics for his sternal wound infection and he has a wound VAC in place. Cultures of the sternal wound came back positive for coagulase negative staph. WBC count today is 9.9 index right side normal renal profile is normal patient remains on antibiotics as per infectious disease on the case On 04/08/2020 patient seen in follow-up on selective care unit, denies any acute dyspnea, he is on room air, he is tolerating ambulation, Provera pulse ox 97%, hemodynamically patient is stable, his been afebrile, denies any chest pain, patient is status post left-sided thoracentesis on 04/04/2020 and repeat left- sided thoracentesis on 04/06/2020. Pleural fluid cytology is still pending at this time, pleural fluid cultures have shown no growth thus far. Patient is on antibiotics, and chest wound culture was positive for Staphylococcus epidermidis. Vancomycin for antibiotic coverage continues, ID service is following. Wound VAC remains in place. Today's labs have been reviewed, showing white blood cell count of 9.6, hemoglobin of 8.9, electrolytes and renal profile were within normal limits. There have been no acute events overnight. Discharge is pending for discharge to [facility] for intermediate care involving the wound VAC and the sternal wound infection. His follow-up chest x- ray shows stable small left pleural effusion, no plans for repeat thoracentesis at this time. Objective - Vital Signs Vital signs: Vital Signs Temp 98.1 F 04/08/20 08:00 Pulse 62 04/08/20 08:00 Resp 17 04/08/20 08:00 BP 140/64 04/08/20 08:00 Pulse Ox 97 04/08/20 08:00 Intake & Output 04/07/20 04/08/20 04/08/20 18:59 06:59 18:59 Intake Total 120 Output Total 450 1350 650 Balance -330 -1350 -650 Weight 101.9 kg 101.6 kg Intake: Oral 120 Output: Urine 450 1350 650 Other: Voiding Method Toilet Toilet Urinal # Voids 3 # Bowel Movements 1 - Exam GENERAL EXAM: Alert, very pleasant, 69-year-old white male on room air with pulse ox of 97%, comfortable in no apparent distress. HEAD: Normocephalic/atraumatic. EYES: Normal reaction of pupils, equal size. Conjunctiva pink, sclera white. NOSE: Clear with pink turbinates. THROAT: No erythema or exudates. NECK: No masses, no JVD, no thyroid enlargement, no adenopathy. CHEST: No chest wall deformity. Symmetrical expansion. Midsternal incision with a wound VAC in place LUNGS: Diminished air entry over left lower lung with limited crackles, but no wheeze, rhonchi or dullness. CVS: Regular rate and rhythm, normal S1 and S2, no gallops, no murmurs, no rubs ABDOMEN: Soft, nontender. No hepatosplenomegaly, normal bowel sounds, no guarding or rigidity. EXTREMITIES: No clubbing, no edema, no cyanosis, 2+ pulses and upper and lower extremities. MUSCULOSKELETAL: Muscle strength and tone normal. SPINE: No scoliosis or deformity SKIN: No rashes CENTRAL NERVOUS SYSTEM: Alert and oriented -3. No focal deficits, tone is normal in all 4 extremities. PSYCHIATRIC: Alert and oriented -3. Appropriate affect. Intact judgment and insight. - Labs CBC & Chem 7: 04/08/20 07:40 04/08/20 07:40 Labs: Abnormal Lab Results - Last 24 Hours (Table) 04/07/20 04/07/20 04/08/20 Range/Units 16:38 20:38 07:40 RBC 3.13 L (4.30-5.90) m/uL Hgb 8.9 L (13.0-17.5) gm/dL Hct 29.1 L (39.0-53.0) % MCHC 30.7 L (31.0-37.0) g/dL POC Glucose (mg/dL) 165 H 127 H (75-99) mg/dL C-Reactive Protein (<10.0) mg/L 04/08/20 Range/Units 07:40 RBC (4.30-5.90) m/uL Hgb (13.0-17.5) gm/dL Hct (39.0-53.0) % MCHC (31.0-37.0) g/dL POC Glucose (mg/dL) (75-99) mg/dL C-Reactive Protein 67.3 H (<10.0) mg/L Microbiology - Last 24 Hours (Table) 04/04/20 17:00 Gram Stain - Final Chest Wound Culture - Final Staphylococcus epidermidis 04/04/20 15:25 Gram Stain - Preliminary Pleural Fluid Body Fluid Culture - Preliminary 04/04/20 13:01 Blood Culture - Preliminary Blood No Growth after 72 hours Assessment and Plan Plan: Assessment: #1. Dyspnea related to moderately sized left-sided pleural effusion status post left-sided thoracentesis on 04/04/2020 with removal of 1.7 L of bloody effusion, which was exudative in nature, with negative pleural fluid cultures, cytology is pending, and repeat left-sided thoracentesis on 04/06/2020 with removal 300 mL of bloody effusion #2. Sternal wound infection, with cultures positive for MSSA, status post wound VAC placement, she remains on Pneumovax in the form of vancomycin, ID service is following #3. Hyperglycemia, improved #4. Nausea, 1 episode of vomiting, resolved #5. Recent history of aortic valve replacement with bioprosthetic Inspiris valve, exclusion of the left atrial appendage, on 03/19/2020, patient was discharged home on 03/23/2020 #6. Hypertension #7. Hyperlipidemia #8. Diabetes mellitus type 2 #9. Diabetis mellitus type II #10. Diabetic ulcer on the right foot tendon third toe #11. Paroxysmal atrial fibrillation, on Eliquis which is currently on hold for possibility of left-sided thoracentesis #12. Macular degeneration #13. Lifetime nonsmoker Plan: Continue antibiotic per ID service recommendations, vital signs have remained stable, patient is on room air, denies any worsening dyspnea, continue oral colchicine. Today's chest x-ray shows small left-sided pleural effusion, no plans for repeat thoracentesis at this time, patient is stable for ECF discharge from pulmonary perspective. Will need outpatient follow-up with Dr. Bach in 7-10 days. Still awaiting results of the pleural fluid cytology, cultures remain negative thus far. I performed a history & physical examination of the patient and discussed their management with my nurse practitioner, Lucretia Howard. I reviewed the nurse practitioner's note and agree with the documented findings and plan of care. Lung sounds are positive for diminished breath sounds over left lower lobe. The findings and the impression was discussed with the patient. I attest to the documentation by the nurse practitioner. Time with Patient: Less than 30
[2020-04-08 13:38] VITALS: BP 108/60; PULSE 58; TEMP 98.4
[2020-04-08] MEDS: ACETAMINOPHEN TAB 500 MG TAB PO PRN (13:57)
--- NOTE | 2020-04-08 14:58 | PN ---
PROGRESS NOTE DATE OF SERVICE: 04/08/2020 REASON FOR FOLLOW UP: Lower sternal wound infection. INTERVAL HISTORY: Patient is seen on rounds this morning. The patient has been afebrile, he was breathing comfortably. Overall pain and discomfort to the distal . No nausea, no vomiting. No abdominal pain, no diarrhea. PHYSICAL EXAMINATION: Blood pressure 108/60 with a pulse of 88, temperature 98.4, he is 97% on room air. General description is an elderly male, up in the chair in no distress. RESPIRATORY SYSTEM: Unlabored breathing, clear to auscultation anteriorly. HEART: S1, S2. Regular rate and rhythm. ABDOMEN: Soft, no tenderness. LABS: Hemoglobin 8.1, white count 9.6, BUN of 19, creatinine 0.9. CRP of 67.3. Local culture with Staph epidermidis. DIAGNOSTIC IMPRESSION AND PLAN: Patient with low sternal wound infection, status post surgical debridement, culture Staph epi. Patient to continue vancomycin, pharmacy to dose for 2 weeks. Local wound care with wound VAC. Follow up in the office in 2 weeks with weekly morning of blood work. MMODL / IJN: [id number] /
[2020-04-09] MEDS ORDERED: VANCOMYCIN TROUGH DUE 1 EACH MISC MISCELLANE ONE (09:00)
== END 2020-04-08 14:14 | DRG 863 ==
LOC: EC 11:51 → 1SOBS 12:44 → OBSVTOIN 04-07 09:02 → 3SCARD 04-07 13:09
PROVIDERS: ADMIT Family Medicine; ATTEND Family Medicine
PROC: 0W9B3ZX Drainage of Left Pleural Cavity, Percutaneous Approach, Diagnostic (ICD-10-PCS; principal; 2020-04-04)
PROC: 2W14X6Z Compression of Chest Wall using Pressure Dressing (ICD-10-PCS; 2020-04-05)
PROC: 0W9B3ZX Drainage of Left Pleural Cavity, Percutaneous Approach, Diagnostic (ICD-10-PCS; 2020-04-06)
PROC: 02HV33Z Insertion of Infusion Device into Superior Vena Cava, Percutaneous Approach (ICD-10-PCS; 2020-04-07)
DX: T81.41XA Infection following a procedure, superficial incisional surgical site, initial encounter (principal); J94.2 Hemothorax; J90 Pleural effusion, not elsewhere classified; L03.313 Cellulitis of chest wall; J98.11 Atelectasis; L97.519 Non-pressure chronic ulcer of other part of right foot with unspecified severity; E11.621 Type 2 diabetes mellitus with foot ulcer; E11.65 Type 2 diabetes mellitus with hyperglycemia; E66.01 Morbid (severe) obesity due to excess calories; B95.61 Methicillin susceptible Staphylococcus aureus infection as the cause of diseases classified elsewhere; I48.0 Paroxysmal atrial fibrillation; I11.9 Hypertensive heart disease without heart failure; E78.5 Hyperlipidemia, unspecified; H35.30 Unspecified macular degeneration; Z68.32 Body mass index [BMI] 32.0-32.9, adult; Z79.01 Long term (current) use of anticoagulants; Z79.82 Long term (current) use of aspirin; Z79.899 Other long term (current) drug therapy; Z87.01 Personal history of pneumonia (recurrent); Z95.1 Presence of aortocoronary bypass graft; Z98.84 Bariatric surgery status; Z90.89 Acquired absence of other organs; Z86.69 Personal history of other diseases of the nervous system and sense organs; Z86.79 Personal history of other diseases of the circulatory system; Z95.3 Presence of xenogenic heart valve; Z98.890 Other specified postprocedural states; Y83.8 Other surgical procedures as the cause of abnormal reaction of the patient, or of later complication, without mention of misadventure at the time of the procedure; Y92.009 Unspecified place in unspecified non-institutional (private) residence as the place of occurrence of the external cause; Z88.4 Allergy status to anesthetic agent; Z88.8 Allergy status to other drugs, medicaments and biological substances; Z82.5 Family history of asthma and other chronic lower respiratory diseases; Z83.3 Family history of diabetes mellitus; Z82.1 Family history of blindness and visual loss; Z83.518 Family history of other specified eye disorder; Z80.9 Family history of malignant neoplasm, unspecified; Z82.49 Family history of ischemic heart disease and other diseases of the circulatory system
CPT/HCPCS: 36415; 36573; 71045; 71046; 71250; 76604; 80048; 80053; 80202; 81003; 82945; 83036; 83615; 83880; 84157; 85025; 85027; 85610; 86140; 87040; 87070; 87075; 87077; 87102; 87116; 87186; 87205; 87206; 87252; 87496; 87498; 87502; 87529; 87634; 87798; 88108; 88305; 89050; 93306; 96365; 96375; 99284

== ENCOUNTER 2020-04-11 19:00 | Inpatient (IN) | payer MEDICARE, OTHER ==
[2020-04-11] MEDS ORDERED: NALOXONE 0.4 MG/ML 1 ML VIAL IV PRN (19:11)
[2020-04-11] MEDS ORDERED: MORPHINE SULFATE 4 MG/ML SYRINGE IV PRN (19:11)
[2020-04-11] MEDS ORDERED: ACETAMINOPHEN TAB 325 MG TAB PO PRN (19:11)
[2020-04-11] MEDS ORDERED: VANCOMYCIN IV PER PHARMACY 1 EACH MISC MISCELLANE PRN (19:18)
[2020-04-11] MEDS ORDERED: VANCOMYCIN 2,000 MG in SODIUM CHLORIDE 0.9% 500 ML 500 ML IVPB STA (19:23)
--- NOTE | 2020-04-11 19:40 | ED ---
General Adult HPI - General Chief complaint: Skin/Abscess/Foreign Body Stated complaint: infection Time Seen by Provider: 04/11/20 19:01 Source: patient, EMS, old records reviewed Mode of arrival: EMS Limitations: no limitations - History of Present Illness Initial comments: 69-year-old male presenting with worsening infection on his sternotomy status p ost aortic valve replacement. Patient was sent in by his cardiothoracic surgeon for evaluation. He has been on IV vancomycin for staph infection. He has a wound VAC on the lower incision. No fever. No pain complaints. - Related Data Home Medications Medication Instructions Recorded Confirmed Ascorbic Acid [Vitamin C] 1,000 mg PO HS 02/05/19 04/04/20 Cholecalciferol (Vitamin D3) 5,000 unit PO HS 02/05/19 04/04/20 [Vitamin D3] Vitamin B Complex 1 cap PO HS 02/05/19 04/04/20 lisinopriL [Zestril] 2.5 mg PO HS 02/05/19 04/04/20 Apixaban [Eliquis] 5 mg PO BID 02/08/20 04/04/20 Atorvastatin [Lipitor] 40 mg PO HS 02/08/20 04/04/20 Calcium/Magnesium/Zinc 1 tab PO HS 02/08/20 04/04/20 [Qfddvyw-Wjeaxakdc-Vrhi Tablet] L.acidoph,Paracasei, B.lactis 1 cap PO TID 02/08/20 04/04/20 [Probiotic] Metoprolol Succinate (ER) [Toprol 25 mg PO DAILY 02/08/20 04/04/20 XL] [place]-3 Fatty Acids [[place]-3] 1,000 mg PO HS 02/08/20 04/04/20 Aspirin 81 mg PO HS 04/04/20 04/04/20 Cyanocobalamin (Vitamin B-12) 1,000 mcg PO HS 04/04/20 04/04/20 [Vitamin B-12] Sennosides-Docusate Sodium 2 tab PO HS PRN 04/04/20 04/04/20 [Senokot-S] Previous Rx's Medication Instructions Recorded Acetaminophen Tab [Tylenol] 1,000 mg PO Q6HR PRN #120 tab 03/22/20 Pantoprazole Sodium [Protonix] 40 mg PO AARONFSArias #30 tablet. 03/23/20 Vancomycin/0.9 % Sod Chloride 1,750 mg IV Q12HR #28 plast..bag 04/07/20 [Vanco 750 mg/250 ml-0.9% NaCl] Furosemide [Lasix] 20 mg PO DAILY #7 tab 04/08/20 INSULIN ASPART (NovoLOG) [NovoLOG 4 unit SQ AC-TID #90 vial 04/08/20 (formulary)] Insulin Detemir (Levemir) [Levemir] 10 unit SQ DAILY@0700 #30 syr 04/08/20 Allergies Allergy/AdvReac Type Severity Reaction Status Date / Time thiopental [From Pentothal] Allergy Anaphylaxis, Verified 04/11/20 19:14 TROUBLE BREATHING metformin AdvReac VERY WEAK, Verified 04/11/20 19:14 SEVERE JOINT PAIN , MUSCLE PAIN rivaroxaban [From Xarelto] AdvReac bruising Verified 04/11/20 19:14 Review of Systems ROS Statement: Those systems with pertinent positive or pertinent negative responses have been documented in the HPI. ROS Other: All systems not noted in ROS Statement are negative. 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 no problem with anesthesia since Past Psychological History: No Psychological Hx Reported Smoking Status: Never smoker Past Alcohol Use History: None Reported Past Drug Use History: None Reported - Past Family History Mother Family Medical History: COPD, Diabetes Mellitus Additional Family Medical History / Comment(s): Macular degeneration, legally blind Sister(s) Family Medical History: Cancer Father Family Medical History: Myocardial Infarction ([place]) Additional Family Medical History / Comment(s): Father had his first [place] at the age of 82 yrs. He is . General Exam Limitations: no limitations General appearance: alert, in no apparent distress Head exam: Present: atraumatic, normocephalic Eye exam: Present: normal appearance, PERRL Neck exam: Present: normal inspection, tenderness. Absent: meningismus Respiratory exam: Present: normal lung sounds bilaterally, other (Sternotomy incision, there is erythema and warmth VAC on the lower portion of the incision.). Absent: respiratory distress, wheezes Cardiovascular Exam: Present: regular rate, normal rhythm, systolic murmur GI/Abdominal exam: Present: soft. Absent: distended, tenderness, guarding Extremities exam: Present: normal inspection Course Vital Signs 04/11/20 19:07 Temperature 99.0 F Pulse Rate 72 Respiratory 18 Rate Blood Pressure 132/65 O2 Sat by Pulse 99 Oximetry Medical Decision Making - Medical Decision Making Patient transferred for evaluation of incisional infection. I discussed case with Ayse luna for cardiothoracic surgery, recommends the patient be placed in observation under Dr. Kinney. I discussed case with Dr. Dominguez who will accept the admission. Patient is hemodynamically stable. Laboratory testing will be obtained he will be continued on the IV vancomycin that he has been on. Disposition Clinical Impression: Superficial incisional surgical site infection, Cellulitis of sternum Disposition: ADMITTED IP TO THIS HOSP Condition: Stable Is patient prescribed a controlled substance at d/c from ED?: No Referrals: Jesus Alberto Dominguez MD [Primary Care Provider] - 1-2 days Decision to Admit Reason: Admit from EC Decision Date: 04/11/20 Decision Time: 19:46
[2020-04-11 19:44] LABS: Basophils # (A) 0.1 k/uL (0-0.2); Basophils % (A) 1 %; Eosinophils # (A) 0.1 k/uL (0-0.7); Eosinophils % (A) 1 %; HCT 26.3 % (39.0-53.0); HGB 8.3 gm/dL (13.0-17.5); Hypochromasia Moderate; Lymphocytes # (A) 1.8 k/uL (1.0-4.8); Lymphocytes % (A) 13 %; MCH 28.3 pg (25.0-35.0); MCHC 31.5 g/dL (31.0-37.0); Mean Platelet Volume 7.2; Monocytes % (A) 7 %; Neutrophils # (A) 10.9 k/uL (1.3-7.7); Neutrophils % (A) 78 %; Platelet Count 328 k/uL (150-450); RBC 2.92 m/uL (4.30-5.90); RDW 13.5 % (11.5-15.5)
[2020-04-11 19:52] LABS: INR 1.2 (<1.2); Partial Thromboplastin Time 27.6 sec (22.0-30.0); Prothrombin Time 11.9 sec (9.0-12.0)
[2020-04-11 19:58] LABS: Albumin 2.7 g/dL (3.5-5.0); Calcium 8.7 mg/dL (8.4-10.2); Potassium 4.1 mmol/L (3.5-5.1); Total Bilirubin 0.5 mg/dL (0.2-1.3); Total Protein 5.5 g/dL (6.3-8.2)
[2020-04-11] MEDS: SODIUM CHLORIDE 0.9% 1,000 ML IV SCH (20:00)
[2020-04-11] MEDS ORDERED: ASPIRIN 81 MG PO SCH (21:15)
[2020-04-11] MEDS: HEPARIN SODIUM,PORCINE 5,000 UNIT/ML 1 ML VIAL SQ SCH (23:17)
[2020-04-12] MEDS ORDERED: SENNOSIDES-DOCUSATE SODIUM 1 EACH TAB PO PRN (06:55)
[2020-04-12 07:55] LABS: Glucose,Whole Blood 87 mg/dL (75-99)
[2020-04-12] MEDS: INSULIN ASPART (NovoLOG) 100 UNIT/ML VIAL SQ SCH ×3 (07:56→17:27)
[2020-04-12 08:02] LABS: HCT 27.3 % (39.0-53.0); HGB 8.7 gm/dL (13.0-17.5); Hypochromasia Marked; MCH 28.8 pg (25.0-35.0); MCHC 31.7 g/dL (31.0-37.0); MCV 90.9 fL (80.0-100.0); Mean Platelet Volume 7.1; Platelet Count 329 k/uL (150-450); RBC 3.01 m/uL (4.30-5.90); RDW 13.6 % (11.5-15.5); WBC 10.5 k/uL (3.8-10.6)
[2020-04-12 08:12] LABS: Calcium 8.6 mg/dL (8.4-10.2); Potassium 4.2 mmol/L (3.5-5.1)
[2020-04-12] MEDS: HEPARIN SODIUM,PORCINE 5,000 UNIT/ML 1 ML VIAL SQ SCH ×2 (08:29→17:28)
[2020-04-12] MEDS: METOPROLOL SUCCINATE (ER) 25 MG TAB.ER.24H PO SCH (08:30)
[2020-04-12] MEDS: LACTOBACILLUS ACIDOPH & BULGAR 1 EACH PACKET PO SCH ×3 (08:30→21:00)
[2020-04-12] MEDS: INSULIN DETEMIR (LEVEMIR) 100 UNIT/ML SYR SQ SCH (08:30)
--- NOTE | 2020-04-12 08:35 | XR ---
EXAMINATION TYPE: XR chest 2V DATE OF EXAM: 04/12/2020 COMPARISON: Chest x-ray [address] chest 6 days ago. HISTORY: History of cardiac surgery progress study TECHNIQUE: Frontal and lateral views of the chest are obtained. FINDINGS: Stable left-sided PICC line. Cardiac flow size stable and upper limits of normal. Overlyin g sternal wires along with atrial appendage clip and metallic aortic valve are all redemonstrated. Pe rsistent small to moderate-sized left pleural effusion and associated compressive atelectasis. Right lung remains clear. Surgical changes epigastric region redemonstrated. IMPRESSION: Persistent small to moderate-sized left pleural effusion and associated left basilar com pressive atelectasis. No significant change from most recent x-ray.
[2020-04-12] MEDS ORDERED: [UNRECOGNIZED DRUG - OTHER] IV SCH (09:00)
[2020-04-12] MEDS ORDERED: SOD CHLORIDE IV SCH (09:00)
[2020-04-12] MEDS ORDERED: VANCOMYCIN IV SCH (09:00)
[2020-04-12] MEDS ORDERED: VANCOMYCIN 1,750 MG in SODIUM CHLORIDE 0.9% 500 ML 500 ML IVPB SCH (09:00)
[2020-04-12] MEDS ORDERED: FUROSEMIDE 20 MG TAB PO SCH (09:00)
[2020-04-12] MEDS ORDERED: VANCOMYCIN IV PER PHARMACY 1 EACH MISC MISCELLANE PRN (09:13)
--- NOTE | 2020-04-12 09:24 | P.GSCN ---
History of Present Illness Consult date: 04/12/20 Reason for Consult: Superficial sternal wound infection status post aortic valve replacement Requesting physician: Nolan Saez History of present illness: This is a 69-year-old gentleman who follows with Dr. Dominguez for primary care and Dr. Jaffe for cardiology on an outpatient basis. He has a previous medical history of severe aortic valve stenosis status post aortic valve replacement on 03/19/2020, left-sided pleural effusion status post thoracentesis, hypertension, hyperlipidemia, diabetes mellitus type 2 with recent hemoglobin A1c 6.4%, history of small ulceration to his third toe right foot, chronic persistent atrial fibrillation on Eliquis for anticoagulation and macular degeneration. This gentleman was inpatient from 03/19-03/23 of this year for aortic valve replacement by Dr. Nash. He was discharged home with home health care without any complications. He reported on 03/31/2020 he started to have some elevated blood sugars as high as 300, nausea, and episode of vomiting, episodes of dizziness with some hallucinations, some redness with scant serous drainage from his distal sternal incision and a productive cough with scant thin sputum and pain to his sternum with coughing. He was seen in the office on 04/02/2020, a wound culture was obtained from his distal sternal incision which demonstrated staph epidermidis. Due to the culture results he was started on oral Keflex. He had no clicking or movement in his sternum, fevers, chills, diaphoresis, syncope, orthopnea, or dyspnea. On 04/04/2020, the patient was seen by Dr. Nash in the office as scheduled. The patient did have some scant serosanguineous drainage from his distal sternal incision which was subsequently opened around 4 cm and packed with iodoform half-inch gauze. He was sent to the hospital from the office to be admitted for further evaluation and treatment and care of Dr. Dominguez with Dr. Nash on for consultation. During his hospitalization he did have thoracentesis 2 for left-sided pleural effusion. He was discharged from that admission to [facility] on the [place] on 04/08 with wound VAC in place and IV vancomycin to be infused. His wound VAC was changed yesterday stay at [facility] and the distal part of the incision looked very clean and well healing however the superior part of the incision appeared quite red and fluid-filled. Cardiothoracic surgery was called and we recommended the patient be transferred back to [facility] for observation under Dr. Dominguez with consultation placed to Dr. Nash to further determine best course of treatment for the patient's superficial sternal infection. Review of Systems Review of systems was completed and was negative except as noted - Integumentary Reports as per HPI, Reports wounds Past Medical History Past Medical History: Atrial Fibrillation, Chest Pain / Angina, Diabetes Mellitus, Eye Disorder, Hyperlipidemia, Hypertension, Pneumonia Additional Past Medical History / Comment(s): MIGRAINE HEADACHES A C HILD,"macular buildup in both eyes"; left-sided pleural effusion status post thoracentesis History of Any Multi-Drug Resistant Organisms: None Reported Past Surgical History: Bariatric Surgery, Cardiac Valve Replacement, Orthopedic Surgery, Tonsillectomy Additional Past Surgical History / Comment(s): Aortic valve replacement Past Anesthesia/Blood Transfusion Reactions: Previous Problems w/ Anesthesia Additional Past Anesthesia/Blood Transfusion Reaction / Comm: reaction with sodium pentothall years ago-"almost ". no problem with anesthesia since Past Psychological History: No Psychological Hx Reported Additional Psychological History / Comment(s): Pt resides with his spouse. They have a home in [place] and in [place]. Pt is normally independent. Smoking Status: Never smoker Past Alcohol Use History: None Reported Additional Past Alcohol Use History / Comment(s): Pt states he drank heavily in his past but quit drinking in 2004. Past Drug Use History: None Reported - Past Family History Mother Family Medical History: COPD, Diabetes Mellitus Additional Family Medical History / Comment(s): Macular degeneration, legally blind Sister(s) Family Medical History: Cancer Father Family Medical History: Myocardial Infarction ([place]) Additional Family Medical History / Comment(s): Father had his first [place] at the age of 82 yrs. He is . Medications and Allergies Home Medications Medication Instructions Recorded Confirmed Type Vitamin B Complex 1 cap PO HS@209902/05/19 04/11/20 History lisinopriL [Zestril] 2.5 mg PO HS@209902/05/19 04/11/20 History Apixaban [Eliquis] 5 mg PO BID@0900,209902/08/20 04/11/20 History Atorvastatin [Lipitor] 40 mg PO HS@209902/08/20 04/11/20 History Metoprolol Succinate (ER) [Toprol 25 mg PO DAILY@89902/08/20 04/11/20 History XL] [place]-3 Fatty Acids [[place]-3] 1,000 mg PO HS@209902/08/20 04/11/20 History Acetaminophen Tab [Tylenol] 1,000 mg PO Q6HR PRN #120 tab 03/22/20 04/11/20 Rx Aspirin 81 mg PO HS@209904/04/20 04/11/20 History Sennosides-Docusate Sodium 2 tab PO HS PRN 04/04/20 04/11/20 History [Senokot-S] Vancomycin/0.9 % Sod Chloride 1,750 mg IV Q12HR #28 plast..bag 04/07/20 04/11/20 Rx [Vanco 750 mg/250 ml-0.9% NaCl] INSULIN ASPART (NovoLOG) [NovoLOG 4 unit SQ AC-TID #90 vial 04/08/20 04/11/20 Rx (formulary)] Ascorbic Acid [Vitamin C] 1,000 mg PO HS@209904/11/20 04/11/20 History Calcium Carbonate 500 mg PO HS@209904/11/20 04/11/20 History Cholecalciferol [Vitamin D3 (25 5,000 unit PO HS@209904/11/20 04/11/20 History Mcg = 1000 Iu)] Cyanocobalamin [Vitamin B-12] 1,000 mcg PO HS@209904/11/20 04/11/20 History Furosemide [Lasix] 20 mg PO DAILY@89904/11/20 04/11/20 History Insulin Glargine,Hum.rec.anlog 10 unit SQ DAILY@89904/11/20 04/11/20 History [Basaglar Kwikpen U-100] Lactobacillus Acidophilus 1 tab PO TID@0900,1300,209904/11/20 04/11/20 History [Acidophilus] Magnesium Oxide 400 mg PO HS@209904/11/20 04/11/20 History Pantoprazole Sodium [Protonix] 40 mg PO AC-BRKFST@59904/11/20 04/11/20 History Zinc 50 mg PO HS@209904/11/20 04/11/20 History Allergies Allergy/AdvReac Type Severity Reaction Status Date / Time thiopental [From Pentothal] Allergy Anaphylaxis, Verified 04/11/20 19:55 TROUBLE BREATHING metformin AdvReac VERY WEAK, Verified 04/11/20 19:55 SEVERE JOINT PAIN , MUSCLE PAIN rivaroxaban [From Xarelto] AdvReac bruising Verified 04/11/20 19:55 Surgical - Exam Vital Signs Temp Pulse Resp BP Pulse Ox 99.0 F 72 18 132/65 99 04/11/20 19:07 04/11/20 19:07 04/11/20 19:07 04/11/20 19:07 04/11/20 19:07 - General well developed, well nourished, no distress, no pain - Eyes normal ocular movement - ENT no hearing loss - Neck no masses, no bruits, trachea midline - Respiratory Lungs sounds diminished bilaterally, left greater than right. Respirations even, nonlabored. Currently on room air with oxygen saturation 95%. Able to achieve 2000 mL on his incentive spirometry. Strong cough. - Cardiovascular S1, S2 present. Regular rate and rhythm, sinus rhythm on telemetry with heart rate in the 70s. Sternum stable. Palpable peripheral pulses bilaterally. No edema present. No calf pain or tenderness noted. - Abdomen Abdomen: soft, non tender, bowel sounds - Genitourinary Deferred - Rectum Deferred - Integumentary Anterior chest incision with wound VAC present to distal part of the incision, superior part with reddened fluid filled area - Neurologic normal coordination, normal sensation - Musculoskeletal normal gait, normal posture - Psychiatric oriented to time, oriented to person, oriented to place, speech is normal, memory intact Results - Labs 04/12/20 07:49 04/12/20 07:49 Abnormal Lab Results - Last 24 Hours (Table) 04/11/20 04/11/20 04/11/20 Range/Units 19:33 19:33 19:33 WBC 14.0 H (3.8-10.6) k/uL RBC 2.92 L (4.30-5.90) m/uL Hgb 8.3 L (13.0-17.5) gm/dL Hct 26.3 L (39.0-53.0) % Neutrophils # 10.9 H (1.3-7.7) k/uL INR 1.2 H (<1.2) BUN 31 H (9-20) mg/dL Creatinine (0.66-1.25) mg/dL Glucose 119 H (74-99) mg/dL Total Protein 5.5 L (6.3-8.2) g/dL Albumin 2.7 L (3.5-5.0) g/dL Vancomycin Trough ug/mL 04/12/20 04/12/20 04/12/20 Range/Units 07:49 07:49 07:49 WBC (3.8-10.6) k/uL RBC 3.01 L (4.30-5.90) m/uL Hgb 8.7 L (13.0-17.5) gm/dL Hct 27.3 L (39.0-53.0) % Neutrophils # (1.3-7.7) k/uL INR (<1.2) BUN 27 H (9-20) mg/dL Creatinine 1.26 H (0.66-1.25) mg/dL Glucose (74-99) mg/dL Total Protein (6.3-8.2) g/dL Albumin (3.5-5.0) g/dL Vancomycin Trough 37.2 H* ug/mL Diabetes panel 04/11/20 04/12/20 Range/Units 19:33 07:49 Sodium 137 139 (137-145) mmol/L Potassium 4.1 4.2 (3.5-5.1) mmol/L Chloride 104 106 (98-107) mmol/L Carbon Dioxide 26 26 (22-30) mmol/L BUN 31 H 27 H (9-20) mg/dL Creatinine 1.24 1.26 H (0.66-1.25) mg/dL Glucose 119 H 83 (74-99) mg/dL Calcium 8.7 8.6 (8.4-10.2) mg/dL AST 28 (17-59) U/L ALT 14 (4-49) U/L Alkaline Phosphatase 71 (38-126) U/L Total Protein 5.5 L (6.3-8.2) g/dL Albumin 2.7 L (3.5-5.0) g/dL Calcium panel 04/11/20 04/12/20 Range/Units 19:33 07:49 Calcium 8.7 8.6 (8.4-10.2) mg/dL Albumin 2.7 L (3.5-5.0) g/dL Pituitary panel 04/11/20 04/12/20 Range/Units 19:33 07:49 Sodium 137 139 (137-145) mmol/L Potassium 4.1 4.2 (3.5-5.1) mmol/L Chloride 104 106 (98-107) mmol/L Carbon Dioxide 26 26 (22-30) mmol/L BUN 31 H 27 H (9-20) mg/dL Creatinine 1.24 1.26 H (0.66-1.25) mg/dL Glucose 119 H 83 (74-99) mg/dL Calcium 8.7 8.6 (8.4-10.2) mg/dL Adrenal panel 04/11/20 04/12/20 Range/Units 19:33 07:49 Sodium 137 139 (137-145) mmol/L Potassium 4.1 4.2 (3.5-5.1) mmol/L Chloride 104 106 (98-107) mmol/L Carbon Dioxide 26 26 (22-30) mmol/L BUN 31 H 27 H (9-20) mg/dL Creatinine 1.24 1.26 H (0.66-1.25) mg/dL Glucose 119 H 83 (74-99) mg/dL Calcium 8.7 8.6 (8.4-10.2) mg/dL Total Bilirubin 0.5 (0.2-1.3) mg/dL AST 28 (17-59) U/L ALT 14 (4-49) U/L Alkaline Phosphatase 71 (38-126) U/L Total Protein 5.5 L (6.3-8.2) g/dL Albumin 2.7 L (3.5-5.0) g/dL - Imaging Chest x-ray: report reviewed, image reviewed Assessment and Plan Assessment: 1. Superficial sternal incision site infection, status post placement of wound VAC, final culture positive for staph epidermidis, currently on IV vancomycin 2. Left-sided pleural effusion, status post thoracentesis 2, preliminary Gram stain negative for organisms 3. Leukocytosis, resolved 4. History of severe bicuspid aortic valve stenosis, status post bioprosthetic aortic valve replacement on 03/19/2020 5. History of hypertension 6. History of hyperlipidemia 7. Chronic paroxysmal atrial fibrillation, status post cardioversion and ligation of the left atrial appendage on chronic Eliquis for anticoagulation 8. Morbid obesity status post gastroplasty 9. Diabetes mellitus type 2 with recent hemoglobin A1c 6.4% 10. History of diabetic ulcer of the right foot third toe 11. Macular degeneration Plan: The patient was seen and examined at the bedside on the observation unit. The case was discussed last night with Dr. Nash who will see this gentleman today. We will examine the wound and make further decisions on appropriate treatment. Eliquis is currently on hold until further decision is made about appropriate incisional management. Continue low-dose aspirin, statin, beta amairani. GI/DVT prophylaxis, subcu heparin initiated while Eliquis on hold. Increase activity, ambulate as tolerated, PT/OT consulted. Encourage incentive spirometry use. Will monitor daily labs and x-rays. Pain control with Tylenol. Continue postoperative lifting restrictions. Diabetic management as well as management of other comorbidities per primary care service. More recommendations to follow Thank you for this consult. We look forward to working closely with you in the care of our mutual patient. Time with Patient: Greater than 30
[2020-04-12] MEDS: SODIUM CHLORIDE 0.9% 1,000 ML IV SCH (10:57)
--- NOTE | 2020-04-12 11:23 | P.CNPUL ---
History of Present Illness Consult date: 04/12/20 Requesting physician: Jesus Alberto Dominguez Reason for consult: pleural effusion Chief complaint: Sternal wound infection History of present illness: This is a 69-year-old white male primarily a patient of , previous history of severe aortic valve sclerosis, status post aortic valve replacement on 03/19/20. Patient developed postoperative pleural effusion requiring thoracentesis, fluid was transudate of the nature, and was not infected. Patient was seen on consultation on his last admission, and he was discharged home with a small left tiny pleural effusion did not feel the need to have thoracentesis at the time. And was supposed to follow up on outpatient basis with Dr. Bach on his pleural effusion. Patient was sent to the [facility] on the [place], and he was on oral antibiotics for staph epidermidis infection involving the sternal wound. And he had a wound VAC in place. Apparently his wound VAC was changed yesterday, the distal part of the incision looked clean, and healing well, however the upper portion of the incision looked quite red, fluid filled, and the patient was advised to come to the hospital for admission and further evaluation by cardiothoracic surgery. Considering his chest x-ray showed a small left pleural effusion, we were asked to see him on consultation again. Patient denies any shortness of breath, denies any cough, no fever, no chills, no chest pain, his only concern is the fact that his wound seems to be red and inflamed. There is also some serous drainage from the wound Review of Systems Constitutional: Denies chills, Denies fever Eyes: denies blurred vision, denies pain Ears, nose, mouth and throat: Denies headache, Denies sore throat Cardiovascular: Denies chest pain, Denies shortness of breath Respiratory: Reports dyspnea, Denies cough Gastrointestinal: Denies abdominal pain, Denies diarrhea, Denies nausea, Denies vomiting Musculoskeletal: Denies myalgias Integumentary: As noted in HPI. Symptoms related to his sternal wound drainage and redness Neurological: Denies numbness, Denies weakness Psychiatric: Denies anxiety, Denies depression Endocrine: Denies fatigue, Denies weight change Past Medical History Past Medical History: Atrial Fibrillation, Chest Pain / Angina, Diabetes M ellitus, Eye Disorder, Hyperlipidemia, Hypertension, Pneumonia Additional Past Medical History / Comment(s): MIGRAINE HEADACHES A CHILD,"macular buildup in both eyes"; left-sided pleural effusion status post thoracentesis History of Any Multi-Drug Resistant Organisms: None Reported Past Surgical History: Bariatric Surgery, Cardiac Valve Replacement, Orthopedic Surgery, Tonsillectomy Additional Past Surgical History / Comment(s): Aortic valve replacement Past Anesthesia/Blood Transfusion Reactions: Previous Problems w/ Anesthesia Additional Past Anesthesia/Blood Transfusion Reaction / Comment(s): reaction with sodium pentothall years ago-"almost ". no problem with anesthesia since Past Psychological History: No Psychological Hx Reported Additional Psychological History / Comment(s): Pt resides with his spouse. They have a home in [place] and in [place]. Pt is normally independent. Smoking Status: Never smoker Past Alcohol Use History: None Reported Additional Past Alcohol Use History / Comment(s): Pt states he drank heavily in his past but quit drinking in 2004. Past Drug Use History: None Reported - Past Family History Mother Family Medical History: COPD, Diabetes Mellitus Additional Family Medical History / Comment(s): Macular degeneration, legally blind Sister(s) Family Medical History: Cancer Father Family Medical History: Myocardial Infarction ([place]) Additional Family Medical History / Comment(s): Father had his first [place] at the age of 82 yrs. He is . Medications and Allergies Home Medications Medication Instructions Recorded Confirmed Type Vitamin B Complex 1 cap PO HS@209902/05/19 04/11/20 History lisinopriL [Zestril] 2.5 mg PO HS@209902/05/19 04/11/20 History Apixaban [Eliquis] 5 mg PO BID@899,209902/08/20 04/11/20 History Atorvastatin [Lipitor] 40 mg PO HS@209902/08/20 04/11/20 History Metoprolol Succinate (ER) [Toprol 25 mg PO DAILY@89902/08/20 04/11/20 History XL] Napa-3 Fatty Acids [Napa-3] 1,000 mg PO HS@209902/08/20 04/11/20 History Acetaminophen Tab [Tylenol] 1,000 mg PO Q6HR PRN #120 tab 03/22/20 04/11/20 Rx Aspirin 81 mg PO HS@209904/04/20 04/11/20 History Sennosides-Docusate Sodium 2 tab PO HS PRN 04/04/20 04/11/20 History [Senokot-S] Vancomycin/0.9 % Sod Chloride 1,750 mg IV Q12HR #28 plast..bag 04/07/20 04/11/20 Rx [Vanco 750 mg/250 ml-0.9% NaCl] INSULIN ASPART (NovoLOG) [NovoLOG 4 unit SQ AC-TID #90 vial 04/08/20 04/11/20 Rx (formulary)] Ascorbic Acid [Vitamin C] 1,000 mg PO HS@209904/11/20 04/11/20 History Calcium Carbonate 500 mg PO HS@209904/11/20 04/11/20 History Cholecalciferol [Vitamin D3 (25 5,000 unit PO HS@209904/11/20 04/11/20 History Mcg = 1000 Iu)] Cyanocobalamin [Vitamin B-12] 1,000 mcg PO HS@209904/11/20 04/11/20 History Furosemide [Lasix] 20 mg PO DAILY@89904/11/20 04/11/20 History Insulin Glargine,Hum.rec.anlog 10 unit SQ DAILY@89904/11/20 04/11/20 History [Basaglar Kwikpen U-100] Lactobacillus Acidophilus 1 tab PO TID@0900,1300,209904/11/20 04/11/20 History [Acidophilus] Magnesium Oxide 400 mg PO HS@209904/11/20 04/11/20 History Pantoprazole Sodium [Protonix] 40 mg PO AC-BRKFST@59904/11/20 04/11/20 History Zinc 50 mg PO HS@209904/11/20 04/11/20 History Allergies Allergy/AdvReac Type Severity Reaction Status Date / Time thiopental [From Pentothal] Allergy Anaphylaxis, Verified 04/11/20 19:55 TROUBLE BREATHING metformin AdvReac VERY WEAK, Verified 04/11/20 19:55 SEVERE JOINT PAIN , MUSCLE PAIN rivaroxaban [From Xarelto] AdvReac bruising Verified 04/11/20 19:55 Physical Exam Vitals: Vital Signs Temp Pulse Pulse Resp BP BP Pulse Ox 04/12/20 09:00 98.4 F 76 12 153/79 91 L 04/12/20 03:00 98.2 F 75 16 131/71 95 04/11/20 20:40 98.3 F 72 18 148/65 99 04/11/20 20:15 98.3 F 78 16 160/77 96 04/11/20 19:07 99.0 F 72 18 132/65 99 Intake and Output 04/11/20 04/12/20 04/12/20 22:59 06:59 14:59 Intake Total 300 Balance 300 Intake: Intake, IV Titration 300 Amount Sodium Chloride 0.9% 1, 300 000 ml @ 75 mls/hr IV . [id number] [facility] Rx#:[id number] Other: # Voids 1 1 Weight 99.79 kg 105 kg GENERAL EXAM: Alert, very pleasant, 69-year-old white male on room air , in no distress HEAD: Normocephalic/atraumatic. EENT: PERRLA, EOMI, neck is, no neck masses, no JVD, no stridor. CHEST: No chest wall deformity. Sternum is stable, anterior chest incision with wound VAC is noted, distal portion of the incision is intact, however the superior portion is reddened, inflamed, and fluid-filled. LUNGS: Diminished air entry over left lower lung rhonchi or wheezes. CVS: Regular rate and rhythm, normal S1 and S2, no gallops, no murmurs, no rubs ABDOMEN: Soft, nontender. No hepatosplenomegaly, normal bowel sounds, no guarding or rigidity. EXTREMITIES: No clubbing, no edema, no cyanosis, 2+ pulses and upper and lower extremities. MUSCULOSKELETAL: Muscle strength and tone normal. SPINE: No scoliosis or deformity SKIN: As noted above in relation to the sternal wound. CENTRAL NERVOUS SYSTEM: Alert and oriented -3. No focal deficits, tone is normal in all 4 extremities. PSYCHIATRIC: Alert and oriented -3. Appropriate affect. Intact judgment and insight. Results - Laboratory Findings CBC and BMP: 04/12/20 07:49 04/12/20 07:49 PT/INR, D-dimer PT 11.9 sec (9.0-12.0) 04/11/20 19:33 INR 1.2 (<1.2) H 04/11/20 19:33 Abnormal lab findings: Abnormal Labs 09/25/20 09/25/20 09/25/20 19:33 19:33 19:33 WBC 14.0 H RBC 2.92 L Hgb 8.3 L Hct 26.3 L Neutrophils # 10.9 H INR 1.2 H BUN 31 H Creatinine Glucose 119 H C-Reactive Protein Total Protein 5.5 L Albumin 2.7 L Vancomycin Trough 04/12/20 04/12/20 04/12/20 07:49 07:49 07:49 WBC RBC 3.01 L Hgb 8.7 L Hct 27.3 L Neutrophils # INR BUN 27 H Creatinine 1.26 H Glucose C-Reactive Protein Total Protein Albumin Vancomycin Trough 37.2 H* 04/12/20 07:49 WBC RBC Hgb Hct Neutrophils # INR BUN Creatinine Glucose C-Reactive Protein 63.9 H Total Protein Albumin Vancomycin Trough - Diagnostic Findings Chest x-ray: image reviewed (Chest x-ray showed small left pleural effusion, slightly smaller compared to the last chest x-ray on his last admission) Assessment and Plan Assessment: Impression: Superficial sternal wound incision site infection, History of staph epidermidis cellulitis of the sternal wound. Small left pleural effusion. No need for thoracentesis at this point. Patient is asymptomatic. History of bicuspid aortic valve and status post bioprosthetic aortic valve replacement on 03/19/20. Chronic paroxysmal atrial fibrillation. History of gastroplasty for morbid obesity. Type 2 diabetes. History of diabetic ulcer Macular degeneration. Recommendation: Continue antibiotics. No plans to do thoracentesis as the fluid is small on the left side, and the patient is asymptomatic. Continue cardiac meds including aspirin statins and beta blockers. Continue GI prophylaxis. Hold Eliquis and use subcu heparin. We'll continue to follow. Time with Patient: Greater than 30
--- NOTE | 2020-04-12 11:47 | US ---
EXAMINATION TYPE: US chest DATE OF EXAM: 04/12/2020 COMPARISON: Chest x-ray earlier today CLINICAL HISTORY: mohan for thoracentesis. TECHNIQUE: Targeted ultrasound of the posterior lower bilateral hemithoraces EXAM MEASUREMENTS: Right Pleural Effusion pocket size: 10.8 cm Right skin surface to fluid distance: 2.8 cm Left Pleural Effusion pocket size: 9.7 cm Left skin surface to fluid distance: 3.5 cm Right side marked for possible thoracentesis outside the dept. Left side marked for possible thoracentesis outside the dept. Pulmonologists are able to review the images in the patient?s EMR. Lung visualized within Lt pocket IMPRESSIONS: Small to moderate bilateral pleural effusions on ultrasound images saved. Left-sided fin dings correspond to recent chest x-ray, right-sided findings do not. Extreme caution right side if attempting blind thoracentesis.
[2020-04-12 12:00] LABS: Glucose,Whole Blood 93 mg/dL (75-99)
[2020-04-12] MEDS ORDERED: ACETAMINOPHEN TAB 500 MG TAB PO PRN (14:48)
--- NOTE | 2020-04-12 16:11 | HP ---
HISTORY AND PHYSICAL CHIEF COMPLAINT: An extended infection in the sternotomy wound. HISTORY OF PRESENT ILLNESS: This gentleman is brought back in from snf by Cardiac Surgery because of looks like his infection is extending proximally in the sternotomy wound. He denies any fever, chills, nausea, chest pain, etc. REVIEW OF SYSTEMS: Otherwise unchanged. He has had no neurologic problems, headaches, change in vision or hearing, shortness of breath, cough, hemoptysis, abdominal pain, nausea, vomiting, diarrhea, melena, urinary complaints, etc. Past medical history, family history and personal and social histories are all unchanged from his recent discharge summary. PHYSICAL EXAMINATION: Blood pressure 128/84 with a pulse of 74, respirations of 15 and he is afebrile. In general, appeared to be well developed, well nourished, no acute distress. Skin color is normal. Skin is warm, dry. Lymph nodes not enlarged. Head, ears, eyes, nose, mouth, and throat are normal. Neck veins not distended. Thyroid is not enlarged. Chest is clear to auscultation and percussion. Cardiac exam demonstrates sinus rhythm with possibly a faint systolic murmur in the aortic area. There is erythema and induration along the entire sternotomy wound now from the sternal notch down to where he was opened up. Abdomen is soft, nontender and extremities normal. Neurologic was intact. IMPRESSION: 1. Sternotomy wound infection. 2. Status post aortic valve replacement. 3. Type 2 diabetes mellitus. PLAN: 1. IV fluids. 2. Wound will likely need to be opened and cultured. MMODL / IJN: [id number] /
--- NOTE | 2020-04-12 16:11 | PN ---
PROGRESS NOTE DATE OF SERVICE: 04/12/2020 CHIEF COMPLAINT: Sternotomy wound infection. HISTORY OF PRESENT ILLNESS: This gentleman is doing well. He is comfortable and not having a lot of pain. He has had no fever or chills. PHYSICAL EXAMINATION: Chest is clear and cardiac exam is normal. The sternotomy incision remains erythematous and slightly edematous. IMPRESSION: Sternotomy wound infection. PLAN: Await recommendations from Infectious Disease and Cardiac Surgery. MMODL / IJN: [id number] /
[2020-04-12 17:21] LABS: Glucose,Whole Blood 104 mg/dL (75-99)
[2020-04-12] MEDS ORDERED: ASPIRIN 81 MG PO SCH (21:00)
[2020-04-12] MEDS ORDERED: NON FORMULARY DRUG (Omega-3 Fatty Acids [Omega-3] 1,000 MG Capsule) PO SCH (21:00)
[2020-04-12] MEDS ORDERED: NON FORMULARY DRUG (Vitamin B Complex [Vitamin B Complex] 1 EACH Capsule) PO SCH (21:00)
[2020-04-12] MEDS ORDERED: ASPIRIN 325 MG TAB PO SCH (21:00)
[2020-04-12] MEDS: ZINC SULFATE 220 MG CAP PO SCH (21:01)
[2020-04-12] MEDS: MAGNESIUM OXIDE 400 MG TAB PO SCH (21:01)
[2020-04-12] MEDS: CALCIUM CARBONATE 500 MG CHEWABLE PO SCH (21:01)
[2020-04-12] MEDS: ATORVASTATIN 40 MG TAB PO SCH (21:01)
[2020-04-12] MEDS: CHOLECALCIFEROL 1,000 UNIT TAB PO SCH (21:02)
[2020-04-12] MEDS: CYANOCOBALAMIN 500 MCG TAB PO SCH (21:02)
[2020-04-12] MEDS: ASCORBIC ACID 500 MG TAB PO SCH (21:02)
[2020-04-12 21:10] LABS: Glucose,Whole Blood 126 mg/dL (75-99)
[2020-04-12 23:15] LABS: Hemoglobin A1C 6.1 % (4.0-6.0)
--- NOTE | 2020-04-13 00:20 | P.CONS ---
History of Present Illness - Reason for Consult Consult date: 04/12/20 Sternal wound infection Requesting physician: Ayse Hicks - Chief Complaint Swelling and redness of the sternal incision x one day - History of Present Illness Patient is a 69-year-old male with a past medical history significant for severe aortic stenosis status post aortic wall replacement on 03/19/2020 patient subsequently was admitted hospital with lower sternal superficial infection status post debridement culture were positive for staph epidermidis pa tient was advised 2 week course of IV vancomycin for the patient did have a PICC line and The patient was currently receiving at a local skilled nursing, local wound care has been a wound VAC, yesterday while at the skilled nursing at the time of wound VAC change was present and she noticed swelling and erythema to the upper sternal incision patient shared the picture With thepatient for CT surgery patient was advised admission to the hospital patient subsequently has been evaluated by CT surgery and he did have a I&D of the upper incision with drainage of hematoma no evidence of any purulence patient has been continued on vancomycin and deficit is was consulted for further recommendation regarding antibiotic patient is currently afebrile. He'll normal white count patient Vanco trough is elevated and the dose has been currently on hold patient denies having any fever and chills denies having any chest pain or shortness of cough no nausea no abdominal pain no diarrhea Review of Systems Positive point has been mentioned in the HPI rest of the systems are negative Past Medical History Past Medical History: Atrial Fibrillation, Chest Pain / Angina, Diabetes Mellitus, Eye Disorder, Hyperlipidemia, Hypertension, Pneumonia Additional Past Medical History / Comment(s): MIGRAINE HEADACHES A CHILD,"macular buildup in both eyes"; left-sided pleural effusion status post thoracentesis History of Any Multi-Drug Resistant Organisms: None Reported Past Surgical History: Bariatric Surgery, Cardiac Valve Replacement, Orthopedic Surgery, Tonsillectomy Additional Past Surgical History / Comment(s): Aortic valve replacement Past Anesthesia/Blood Transfusion Reactions: Previous Problems w/ Anesthesia Additional Past Anesthesia/Blood Transfusion Reaction / Comm: reaction with sodium pentothall years ago-"almost ". no problem with anesthesia since Past Psychological History: No Psychological Hx Reported Additional Psychological History / Comment(s): Pt resides with his spouse. They have a home in [place] and in [place]. Pt is normally independent. Smoking Status: Never smoker Past Alcohol Use History: None Reported Additional Past Alcohol Use History / Comment(s): Pt states he drank heavily in his past but quit drinking in 2004. Past Drug Use History: None Reported - Past Family History Mother Family Medical History: COPD, Diabetes Mellitus Additional Family Medical History / Comment(s): Macular degeneration, legally blind Sister(s) Family Medical History: Cancer Father Family Medical History: Myocardial Infarction ([place]) Additional Family Medical History / Comment(s): Father had his first [place] at the age of 82 yrs. He is . Medications and Allergies Home Medications Medication Instructions Recorded Confirmed Type Vitamin B Complex 1 cap PO HS@209902/05/19 04/11/20 History lisinopriL [Zestril] 2.5 mg PO HS@209902/05/19 04/11/20 History Apixaban [Eliquis] 5 mg PO BID@899,209902/08/20 04/11/20 History Atorvastatin [Lipitor] 40 mg PO HS@209902/08/20 04/11/20 History Metoprolol Succinate (ER) [Toprol 25 mg PO DAILY@89902/08/20 04/11/20 History XL] Sawyer-3 Fatty Acids [Sawyer-3] 1,000 mg PO HS@209902/08/20 04/11/20 History Acetaminophen Tab [Tylenol] 1,000 mg PO Q6HR PRN #120 tab 03/22/20 04/11/20 Rx Aspirin 81 mg PO HS@209904/04/20 04/11/20 History Sennosides-Docusate Sodium 2 tab PO HS PRN 04/04/20 04/11/20 History [Senokot-S] Vancomycin/0.9 % Sod Chloride 1,750 mg IV Q12HR #28 plast..bag 04/07/20 04/11/20 Rx [Vanco 750 mg/250 ml-0.9% NaCl] INSULIN ASPART (NovoLOG) [NovoLOG 4 unit SQ AC-TID #90 vial 04/08/20 04/11/20 Rx (formulary)] Ascorbic Acid [Vitamin C] 1,000 mg PO HS@209904/11/20 04/11/20 History Calcium Carbonate 500 mg PO HS@209904/11/20 04/11/20 History Cholecalciferol [Vitamin D3 (25 5,000 unit PO HS@209904/11/20 04/11/20 History Mcg = 1000 Iu)] Cyanocobalamin [Vitamin B-12] 1,000 mcg PO HS@209904/11/20 04/11/20 History Furosemide [Lasix] 20 mg PO DAILY@89904/11/20 04/11/20 History Insulin Glargine,Hum.rec.anlog 10 unit SQ DAILY@89904/11/20 04/11/20 History [Basaglar Kwikpen U-100] Lactobacillus Acidophilus 1 tab PO TID@0900,1300,209904/11/20 04/11/20 History [Acidophilus] Magnesium Oxide 400 mg PO HS@209904/11/20 04/11/20 History Pantoprazole Sodium [Protonix] 40 mg PO AC-BRKFST@59904/11/20 04/11/20 History Zinc 50 mg PO HS@209904/11/20 04/11/20 History Allergies Allergy/AdvReac Type Severity Reaction Status Date / Time thiopental [From Pentothal] Allergy Anaphylaxis, Verified 04/11/20 19:55 TROUBLE BREATHING metformin AdvReac VERY WEAK, Verified 04/11/20 19:55 SEVERE JOINT PAIN , MUSCLE PAIN rivaroxaban [From Xarelto] AdvReac bruising Verified 04/11/20 19:55 Physical Exam Vitals: Vital Signs Temp Pulse Pulse Resp BP BP Pulse Ox 04/12/20 09:00 98.4 F 76 12 153/79 91 L 04/12/20 03:00 98.2 F 75 16 131/71 95 04/11/20 20:40 98.3 F 72 18 148/65 99 04/11/20 20:15 98.3 F 78 16 160/77 96 04/11/20 19:07 99.0 F 72 18 132/65 99 Intake and Output 04/11/20 04/12/20 04/12/20 22:59 06:59 14:59 Intake Total 300 Balance 300 Intake: Intake, IV Titration 300 Amount Sodium Chloride 0.9% 1, 300 000 ml @ 75 mls/hr IV . [id number] [facility] Rx#:[id number] Other: # Voids 1 1 Weight 99.79 kg 105 kg GENERAL DESCRIPTION: An elderly male in bed, no distress. No tachypnea or accessory muscle of respiration use. HEENT: Shows Pallor , no scleral icterus. Oral mucous membrane is dry. No pharyngeal erythema or thrush NECK: Trachea central, no thyromegaly. LUNGS: Unlabored breathing. Clear to auscultation anteriorly. No wheeze or crackle. HEART: S1, S2, regular rate and rhythm. No loud murmur, sternal wound looks clean with no slough tissue no significant surrounding redness or any purulent drainage ABDOMEN: Soft, no tenderness , guarding or rigidity, no organomegaly EXTREMITIES: No edema of feet. SKIN: No rash, no masses palpable. NEUROLOGICAL: The patient is awake, alert, oriented x3, mood and affect normal. Results CBC & Chem 7: 04/12/20 07:49 04/12/20 07:49 Labs: Abnormal Lab Results - Last 24 Hours (Table) 04/11/20 04/11/20 04/11/20 Range/Units 19:33 19:33 19:33 WBC 14.0 H (3.8-10.6) k/uL RBC 2.92 L (4.30-5.90) m/uL Hgb 8.3 L (13.0-17.5) gm/dL Hct 26.3 L (39.0-53.0) % Neutrophils # 10.9 H (1.3-7.7) k/uL INR 1.2 H (<1.2) BUN 31 H (9-20) mg/dL Creatinine (0.66-1.25) mg/dL Glucose 119 H (74-99) mg/dL C-Reactive Protein (<10.0) mg/L Total Protein 5.5 L (6.3-8.2) g/dL Albumin 2.7 L (3.5-5.0) g/dL Vancomycin Trough ug/mL 04/12/20 04/12/20 04/12/20 Range/Units 07:49 07:49 07:49 WBC (3.8-10.6) k/uL RBC 3.01 L (4.30-5.90) m/uL Hgb 8.7 L (13.0-17.5) gm/dL Hct 27.3 L (39.0-53.0) % Neutrophils # (1.3-7.7) k/uL INR (<1.2) BUN 27 H (9-20) mg/dL Creatinine 1.26 H (0.66-1.25) mg/dL Glucose (74-99) mg/dL C-Reactive Protein (<10.0) mg/L Total Protein (6.3-8.2) g/dL Albumin (3.5-5.0) g/dL Vancomycin Trough 37.2 H* ug/mL 04/12/20 Range/Units 07:49 WBC (3.8-10.6) k/uL RBC (4.30-5.90) m/uL Hgb (13.0-17.5) gm/dL Hct (39.0-53.0) % Neutrophils # (1.3-7.7) k/uL INR (<1.2) BUN (9-20) mg/dL Creatinine (0.66-1.25) mg/dL Glucose (74-99) mg/dL C-Reactive Protein 63.9 H (<10.0) mg/L Total Protein (6.3-8.2) g/dL Albumin (3.5-5.0) g/dL Vancomycin Trough ug/mL Assessment and Plan Assessment: 1- patient with recent diagnosis of superficial sternal wound infection at the lower end status post debridement culture positive for staph epidermidis now readmitted to the hospital with concern hematoma status post surgical drainage, overall wound base looks clean and no significant surrounding cellulitis patient with no fever or elevated white count (1) Cellulitis of sternum Current Visit: Yes Status: Acute Code(s): L03.313 - CELLULITIS OF CHEST WALL SNOMED Code(s): 60997345 (2) Superficial incisional surgical site infection Current Visit: Yes Status: Acute Code(s): T81.41XA - INFCT FOL A PROC, SUPERFIC INCISIONAL SURGICAL SITE, INIT SNOMED Code(s): 336665337 Plan: 1- we will recommend vancomycin pharmacy to dose target trough of 15 for another week or 10 days till his CRP normalized 2-local wound care with wound VAC can be restarted Will follow on a clinical condition and cultures to further adjust medication if needed Thank you for this consultation will follow this patient along with you
[2020-04-13] MEDS: HEPARIN SODIUM,PORCINE 5,000 UNIT/ML 1 ML VIAL SQ SCH ×3 (01:09→16:39)
[2020-04-13] MEDS: PANTOPRAZOLE 40 MG TABLET PO SCH (06:45)
[2020-04-13 06:50] LABS: Glucose,Whole Blood 99 mg/dL (75-99)
[2020-04-13] MEDS: INSULIN DETEMIR (LEVEMIR) 100 UNIT/ML SYR SQ SCH (07:58)
[2020-04-13] MEDS: INSULIN ASPART (NovoLOG) 100 UNIT/ML VIAL SQ SCH ×3 (07:58→17:14)
--- NOTE | 2020-04-13 08:18 | XR ---
EXAMINATION TYPE: XR chest 2V DATE OF EXAM: 04/13/2020 COMPARISON: 04/12/2020 INDICATION: Post cardiac surgery TECHNIQUE: Frontal and lateral views of the chest are obtained. FINDINGS: The heart size is stable in appearance. The pulmonary vasculature is normal. There is a small to moderate left pleural effusion present previously. Sternotomy wires are present from cardiac surgery IMPRESSION: 1. Stable small to moderate left pleural effusion
[2020-04-13 08:46] LABS: C Reactive Protein 52.7 mg/L (<10.0); Calcium 8.4 mg/dL (8.4-10.2); Potassium 3.9 mmol/L (3.5-5.1)
[2020-04-13 08:50] LABS: Vancomycin,Random 22.6 ug/mL
[2020-04-13 09:03] LABS: Basophils # (A) 0.1 k/uL (0-0.2); Basophils % (A) 1 %; Eosinophils # (A) 0.1 k/uL (0-0.7); Eosinophils % (A) 1 %; HCT 25.8 % (39.0-53.0); HGB 8.3 gm/dL (13.0-17.5); Hypochromasia Marked; Lymphocytes # (A) 1.9 k/uL (1.0-4.8); Lymphocytes % (A) 18 %; MCH 29.2 pg (25.0-35.0); MCHC 32.1 g/dL (31.0-37.0); MCV 91.1 fL (80.0-100.0); Mean Platelet Volume 6.8; Monocytes # (A) 0.9 k/uL (0-1.0); Monocytes % (A) 8 %; Neutrophils # (A) 7.3 k/uL (1.3-7.7); Neutrophils % (A) 71 %; Platelet Count 312 k/uL (150-450); Poikilocytosis Slight; RBC 2.83 m/uL (4.30-5.90); RDW 13.7 % (11.5-15.5); WBC 10.3 k/uL (3.8-10.6)
[2020-04-13] MEDS: LACTOBACILLUS ACIDOPH & BULGAR 1 EACH PACKET PO SCH ×3 (09:05→23:30)
[2020-04-13] MEDS: METOPROLOL SUCCINATE (ER) 25 MG TAB.ER.24H PO SCH (09:06)
--- NOTE | 2020-04-13 09:16 | P.PN ---
Subjective Progress Note Date: 04/13/20 Principal diagnosis: Superficial sternal incision site infection, status post placement of wound VAC, final culture positive for staph epidermidis, currently on IV vancomycin, curr ent chronic sided pleural effusion. Previous medical history of left-sided pleural effusion, status post thoracentesis 2, cultures negative for organisms, severe bicuspid aortic valve stenosis, status post bioprosthetic aortic valve replacement on 03/19/2020, hypertension, hyperlipidemia, chronic paroxysmal atrial fibrillation, status post cardioversion and ligation of the left atrial appendage previously Eliquis for anticoagulation, morbid obesity status post gastroplasty, diabetes mellitus type 2 with current hemoglobin A1c 6.1%, diabetic ulcer of the right foot third toe, macular degeneration The patient is currently sitting up in bed in no acute distress. Denies pain or shortness of breath. His only complaint is that he got no sleep last night. Wound VAC was removed yesterday by Dr. Nash, wound was packed. Upper sternal incision was opened at the bedside revealing no evidence of infection, hematoma present, likely from Eliquis use. This area was also packed. He was noted to have left-sided current chronic pleural effusion, no plans for thoracentesis by pulmonology. No new concerns. Objective - Vital Signs Vital signs: Vital Signs Temp 98.7 F 04/13/20 03:50 Pulse 80 04/13/20 03:50 Resp 16 04/13/20 03:50 BP 149/83 04/13/20 03:50 Pulse Ox 95 04/13/20 03:50 Intake & Output 04/12/20 04/13/20 04/13/20 18:59 06:59 18:59 Intake Total 300 240 Balance 300 240 Weight 105 kg Intake: Intake, IV Titration 300 Amount Sodium Chloride 0.9% 1, 300 000 ml @ 75 mls/hr IV . [id number] ON LICENSE OF [facility] Rx#:[id number] Oral 240 Other: # Voids 1 - Constitutional General appearance: Present: cooperative, no acute distress - Respiratory Details: Lungs sounds diminished bilaterally, left greater than right. Respirations even, nonlabored. Currently on room air with oxygen saturation 95%. Able to achieve 2000 mL on his incentive spirometry. Strong cough. - Cardiovascular Details: S1, S2 present. Regular rate and rhythm, sinus rhythm on telemetry with heart rate in the 70s. Sternum stable. Palpable peripheral pulses bilaterally. No edema present. No calf pain or tenderness noted. - Gastrointestinal Gastrointestinal Comment(s): Abdomen soft, nontender, nondistended. Active bowel sounds present 4 quadrants. Tolerating diet. - Genitourinary Genitourinary Comment(s): Continues to void clear, yellow urine - Integumentary Integumentary Comment(s): Anterior chest incision opened at the top and bottom and packed, both areas appear clean without purulent drainage - Neurologic Neurologic: Present: CNII-XII intact - Musculoskeletal Musculoskeletal: Present: gait normal, strength equal bilaterally - Psychiatric Psychiatric: Present: A&O x's 3, appropriate affect, intact judgment & insight - Allied health notes Allied health notes reviewed: nursing - Labs CBC & Chem 7: 04/12/20 07:49 04/13/20 07:41 Labs: Abnormal Lab Results - Last 24 Hours (Table) 04/12/20 04/12/20 04/12/20 Range/Units 07:49 15:13 17:20 BUN (9-20) mg/dL POC Glucose (mg/dL) 104 H (75-99) mg/dL Hemoglobin A1c 6.1 H (4.0-6.0) % C-Reactive Protein 63.9 H (<10.0) mg/L 04/12/20 04/13/20 Range/Units 21:08 07:41 BUN 26 H (9-20) mg/dL POC Glucose (mg/dL) 126 H (75-99) mg/dL Hemoglobin A1c (4.0-6.0) % C-Reactive Protein 52.7 H (<10.0) mg/L - Imaging and Cardiology Chest x-ray: report reviewed, image reviewed Assessment and Plan Assessment: 1. Superficial sternal incision site infection, status post placement of wound VAC, final culture positive for staph epidermidis, currently on IV vancomycin 2. Left-sided pleural effusion, chronic and stable, status post thoracentesis 2, culture negative for organisms 3. Leukocytosis, resolved 4. History of severe bicuspid aortic valve stenosis, status post bioprosthetic aortic valve replacement on 03/19/2020 5. History of hypertension 6. History of hyperlipidemia 7. Chronic paroxysmal atrial fibrillation, status post cardioversion and ligation of the left atrial appendage previously on Eliquis for anticoagulation 8. Morbid obesity status post gastroplasty 9. Diabetes mellitus type 2 with recent hemoglobin A1c 6.4% 10. History of diabetic ulcer of the right foot third toe 11. Macular degeneration Plan: 1. We will place black granular foam in the upper and lower incisional opening so that [facility] will know the appropriate size when the patient returns. We will cover with 4 x 4 and ABD pad as patient will need to have wound VAC placed at [facility]. 2. Patient may return to [facility] from cardiothoracic standpoint today if okay with primary care service 3. Continue full strength aspirin, statin, beta amairani therapy. Discontinue Eliquis as patient remains in sinus rhythm and his left atrial appendage has been clipped. 4. GI/DVT prophylaxis 5. Increase activity, ambulate as tolerated, PT/OT following 6. Encourage incentive spirometry use 7. Pain control with Tylenol, no narcotics necessary 8. Continue postoperative lifting restrictions 9. Diabetic management per primary care service 10. Patient to follow-up with Dr. Nash upon discharge from [facility] Time with Patient: Greater than 30
[2020-04-13 11:14] LABS: Glucose,Whole Blood 100 mg/dL (75-99)
[2020-04-13] MEDS: lisinopriL 20 MG TAB PO SCH (11:55)
[2020-04-13] MEDS: FUROSEMIDE 20 MG TAB PO SCH (11:55)
--- NOTE | 2020-04-13 12:09 | PN ---
PROGRESS NOTE DATE OF SERVICE: 04/13/2020 CHIEF COMPLAINT: Infected sternal surgical wound. HISTORY OF PRESENT ILLNESS: This gentleman is doing fairly well. The incision was opened yesterday and he is going to be receiving a wound VAC. [facility] probably [facility] tomorrow. He is doing well otherwise. REVIEW OF SYSTEMS: He has no complaints of chest pain, shortness of breath, fever, chills, etc. PHYSICAL EXAMINATION: Chest is clear. Cardiac exam is unchanged. Abdomen is soft, nontender. IMPRESSION: 1. Sternotomy wound infection. 2. Status post aortic valve replacement. 3. Diabetes. PLAN: No change in his program at this time. He will probably be going back to the jail early in the week. MMODL / IJN: [id number] /
--- NOTE | 2020-04-13 12:52 | P.PN ---
Subjective Progress Note Date: 04/13/20 Principal diagnosis: Sternal wound infection and left pleural effusion This is a 69-year-old white male primarily a patient of , previous history of severe aortic valve sclerosis, status post aortic valve replacement on 03/19/20. Patient developed postoperative pleural effusion requiring thoracentesis, fluid was transudate of the nature, and was not infected. Patient was seen on consultation on his last admission, and he was discharged home with a small left tiny pleural effusion did not feel the need to have thoracentesis at the time. And was supposed to follow up on outpatient basis with Dr. Bach on his pleural effusion. Patient was sent to the [facility] on the [address], and he was on oral antibiotics for staph epidermidis infection involving the sternal wound. A nd he had a wound VAC in place. Apparently his wound VAC was changed yesterday, the distal part of the incision looked clean, and healing well, however the upper portion of the incision looked quite red, fluid filled, and the patient was advised to come to the hospital for admission and further evaluation by cardiothoracic surgery. Considering his chest x-ray showed a small left pleural effusion, we were asked to see him on consultation again. Patient denies any shortness of breath, denies any cough, no fever, no chills, no chest pain, his only concern is the fact that his wound seems to be red and inflamed. There is also some serous drainage from the wound Patient was reevaluated today on 04/13/20, patient remains in the observation unit, he was admitted with sternal wound infection and left pleural effusion, patient was seen by thoracic surgery yesterday, and a sterile incision was opened at the bedside revealing no evidence of infection hematoma was present, and was felt to be likely related to Eliquis. The area was packed, patient continues to have a small left pleural effusion, clinically he feels fine, remains on antibiotics empirically. Objective - Vital Signs Vital signs: Vital Signs Temp 98.2 F 04/13/20 09:00 Pulse 91 04/13/20 09:00 Resp 14 04/13/20 09:00 BP 152/80 04/13/20 09:00 Pulse Ox 91 L 04/13/20 09:00 Intake & Output 04/12/20 04/13/20 04/13/20 18:59 06:59 18:59 Intake Total 300 240 0 Balance 300 240 0 Weight 105 kg 104.508 kg Intake: Intake, IV Titration 300 0 Amount Sodium Chloride 0.9% 1, 300 0 000 ml @ 75 mls/hr IV . [id number] [facility] Rx#:[id number] Oral 240 Other: # Voids 1 - Exam GENERAL EXAM: Alert, very pleasant, 69-year-old white male on room air , in no distress HEAD: Normocephalic/atraumatic. EENT: PERRLA, EOMI, neck is, no neck masses, no JVD, no stridor. CHEST: No chest wall deformity. Sternum is stable, sternal wound is covered with sterile dressing. LUNGS: Diminished air entry over left lower lung rhonchi or wheezes. CVS: Regular rate and rhythm, normal S1 and S2, no gallops, no murmurs, no rubs ABDOMEN: Soft, nontender. No hepatosplenomegaly, normal bowel sounds, no guarding or rigidity. EXTREMITIES: No clubbing, no edema, no cyanosis, 2+ pulses and upper and lower extremities. MUSCULOSKELETAL: Muscle strength and tone normal. SPINE: No scoliosis or deformity SKIN: As noted above in relation to the sternal wound. CENTRAL NERVOUS SYSTEM: Alert and oriented -3. No focal deficits, tone is normal in all 4 extremities. PSYCHIATRIC: Alert and oriented -3. Appropriate affect. Intact judgment and insight. - Labs CBC & Chem 7: 04/13/20 07:41 04/13/20 07:41 Labs: Abnormal Lab Results - Last 24 Hours (Table) 04/12/20 04/12/20 04/12/20 Range/Units 15:13 17:20 21:08 RBC (4.30-5.90) m/uL Hgb (13.0-17.5) gm/dL Hct (39.0-53.0) % BUN (9-20) mg/dL POC Glucose (mg/dL) 104 H 126 H (75-99) mg/dL Hemoglobin A1c 6.1 H (4.0-6.0) % C-Reactive Protein (<10.0) mg/L 04/13/20 04/13/20 04/13/20 Range/Units 07:41 07:41 11:12 RBC 2.83 L (4.30-5.90) m/uL Hgb 8.3 L (13.0-17.5) gm/dL Hct 25.8 L (39.0-53.0) % BUN 26 H (9-20) mg/dL POC Glucose (mg/dL) 100 H (75-99) mg/dL Hemoglobin A1c (4.0-6.0) % C-Reactive Protein 52.7 H (<10.0) mg/L Assessment and Plan Assessment: Impression: Superficial sternal wound incision site infection, History of staph epidermidis cellulitis of the sternal wound. Small left pleural effusion. No need for thoracentesis at this point. Patient is asymptomatic. History of bicuspid aortic valve and status post bioprosthetic aortic valve replacement on 03/19/20. Chronic paroxysmal atrial fibrillation. History of gastroplasty for morbid obesity. Type 2 diabetes. History of diabetic ulcer Macular degeneration. Recommendation: Consider discharge planning in the next 24 hours. Continue antibiotics. Oral if agreeable by infectious disease. Again I have no plans to perform thoracentesis on this patient at this point as the effusion seems to be small, and has been drained previously and it was not infected. Continue cardiac meds including aspirin statins and beta blockers. Continue GI prophylaxis. We'll continue to follow. Patient is to follow-up with Dr. Bach on outpatient basis Time with Patient: Less than 30
[2020-04-13 16:18] LABS: Glucose,Whole Blood 121 mg/dL (75-99)
[2020-04-13] MEDS ORDERED: VANCOMYCIN 1,750 MG in SODIUM CHLORIDE 0.9% 500 ML 500 ML IVPB ONE (20:00)
[2020-04-13 21:00] LABS: Glucose,Whole Blood 113 mg/dL (75-99)
[2020-04-13] MEDS ORDERED: ASPIRIN 325 MG TAB PO SCH (21:00)
[2020-04-13] MEDS: CHOLECALCIFEROL 1,000 UNIT TAB PO SCH (22:29)
[2020-04-13] MEDS: CYANOCOBALAMIN 500 MCG TAB PO SCH (22:29)
[2020-04-13] MEDS: ATORVASTATIN 40 MG TAB PO SCH (22:30)
[2020-04-13] MEDS: CALCIUM CARBONATE 500 MG CHEWABLE PO SCH (22:30)
[2020-04-13] MEDS: MAGNESIUM OXIDE 400 MG TAB PO SCH (22:30)
[2020-04-13] MEDS: ASCORBIC ACID 500 MG TAB PO SCH (23:30)
[2020-04-13] MEDS: ZINC SULFATE 220 MG CAP PO SCH (23:30)
[2020-04-14] MEDS: HEPARIN SODIUM,PORCINE 5,000 UNIT/ML 1 ML VIAL SQ SCH ×2 (00:07→08:36)
--- NOTE | 2020-04-14 01:51 | PN ---
PROGRESS NOTE DATE OF SERVICE: 04/13/2020 REASON FOR FOLLOWUP: Sternal wound infection. INTERVAL HISTORY: The patient is currently afebrile, breathing comfortably. Pain to the chest was currently controlled. No nausea, no vomiting. No abdominal pain and no diarrhea. PHYSICAL EXAMINATION: Blood pressure 152/77 with a pulse of 57, temperature 98.3. He is 97% on room air. General description is an elderly male up in the chair in no distress. RESPIRATORY SYSTEM: Unlabored breathing, decreased breath sounds at bases. No wheeze. HEART: S1, S2. Regular rate and rhythm. ABDOMEN: Soft, no tenderness. LABS: Hemoglobin 8.3, white count 10.3, BUN of 26, creatinine 1.23. Vanco random is 22.6. CRP 52.7. DIAGNOSTIC IMPRESSION AND PLAN: Patient with sternal wound infection, superficial, previous culture positive for Staph epidermidis. Patient to continue vancomycin dose to be adjusted by pharmacy to keep the trough around 15. Monitor CRP closely. Local wound care with wound VAC on return to the correction tomorrow. Continue supportive care. MMODL / IJN: [id number] / MTDCris
[2020-04-14] MEDS: PANTOPRAZOLE 40 MG TABLET PO SCH (06:12)
[2020-04-14 06:34] LABS: Glucose,Whole Blood 112 mg/dL (75-99)
--- NOTE | 2020-04-14 07:59 | XR ---
EXAMINATION TYPE: XR chest 2V DATE OF EXAM: 04/14/2020 COMPARISON: 04/13/2020 INDICATION: Post cardiac surgery TECHNIQUE: Frontal and lateral views of the chest are obtained. FINDINGS: The heart size is mildly prominent. The pulmonary vasculature is normal. Small to moderate sized left pleural effusion is present.. Sternotomy wires are present from prior c ardiac valve surgery. PICC line enters on the left with the tip in the superior vena cava region. IMPRESSION: 1. Small to moderate left pleural effusion, stable.
--- NOTE | 2020-04-14 08:08 | P.PN ---
Subjective Progress Note Date: 04/14/20 Principal diagnosis: Superficial sternal incision site infection, status post placement of wound VAC, final culture positive for staph epidermidis, currently on IV vancomycin, curr ent chronic sided pleural effusion. Previous medical history of left-sided pleural effusion, status post thoracentesis 2, cultures negative for organisms, severe bicuspid aortic valve stenosis, status post bioprosthetic aortic valve replacement on 03/19/2020, hypertension, hyperlipidemia, chronic paroxysmal atrial fibrillation, status post cardioversion and ligation of the left atrial appendage previously Eliquis for anticoagulation, morbid obesity status post gastroplasty, diabetes mellitus type 2 with current hemoglobin A1c 6.1%, diabetic ulcer of the right foot third toe, macular degeneration The patient is currently laying in bed in no acute distress. Denies pain or shortness of breath. Sternal incision dressing was changed yesterday, packed with black granular foam in the upper and lower incisional opening so that [facility] with no the prepared size to use and the patient returns. Covered with 4 x 4 and ABD pad, no drainage current dressing. Anticipates transfer back to [facility] today. Patient has been up ambulating without difficulty. No new concerns. Objective - Vital Signs Vital signs: Vital Signs Temp 98.4 F 04/14/20 02:51 Pulse 76 04/14/20 02:51 Resp 14 04/14/20 02:51 BP 128/74 04/14/20 02:51 Pulse Ox 93 L 04/14/20 02:51 Intake & Output 04/13/20 04/14/20 04/14/20 18:59 06:59 18:59 Intake Total 0 400 Balance 0 400 Weight 104.508 kg Intake: Intake, IV Titration 0 Amount Sodium Chloride 0.9% 1, 0 000 ml @ 75 mls/hr IV . [id number] [facility] Rx#:[id number] Vancomycin 1,750 mg In 0 Sodium Chloride 0.9% 500 ml 500 ml @ 167 mls/hr IVPB ONCE ONE Rx#: [id number] Oral 400 Other: Voiding Method Toilet # Voids 3 - Constitutional General appearance: Present: cooperative, no acute distress - Respiratory Details: Lungs sounds diminished bilaterally, left greater than right. Respirations even, nonlabored. Currently on room air with oxygen saturation 93%. Able to achieve 2000 mL on his incentive spirometry. Strong cough. - Cardiovascular Details: S1, S2 present. Regular rate and rhythm, sinus rhythm on telemetry with heart rate in the 70s. Sternum stable. Palpable peripheral pulses bilaterally. No edema present. No calf pain or tenderness noted. - Gastrointestinal Gastrointestinal Comment(s): Abdomen soft, nontender, nondistended. Active bowel sounds present 4 quadrants. Tolerating diet. - Genitourinary Genitourinary Comment(s): Continues to void clear, yellow urine - Integumentary Integumentary Comment(s): Anterior chest incision opened at the top and bottom and packed, both areas appear clean without purulent drainage - Neurologic Neurologic: Present: CNII-XII intact - Musculoskeletal Musculoskeletal: Present: gait normal, strength equal bilaterally - Psychiatric Psychiatric: Present: A&O x's 3, appropriate affect, intact judgment & insight - Allied health notes Allied health notes reviewed: nursing - Labs CBC & Chem 7: 04/13/20 07:41 04/13/20 07:41 Labs: Abnormal Lab Results - Last 24 Hours (Table) 04/13/20 04/13/20 04/13/20 Range/Units 07:41 07:41 11:12 RBC 2.83 L (4.30-5.90) m/uL Hgb 8.3 L (13.0-17.5) gm/dL Hct 25.8 L (39.0-53.0) % BUN 26 H (9-20) mg/dL POC Glucose (mg/dL) 100 H (75-99) mg/dL C-Reactive Protein 52.7 H (<10.0) mg/L 04/13/20 04/13/20 04/14/20 Range/Units 16:12 20:49 06:31 RBC (4.30-5.90) m/uL Hgb (13.0-17.5) gm/dL Hct (39.0-53.0) % BUN (9-20) mg/dL POC Glucose (mg/dL) 121 H 113 H 112 H (75-99) mg/dL C-Reactive Protein (<10.0) mg/L Microbiology - Last 24 Hours (Table) 04/12/20 15:13 Blood Culture - Preliminary Blood No Growth after 24 hours - Imaging and Cardiology Chest x-ray: report reviewed, image reviewed Assessment and Plan Assessment: 1. Superficial sternal incision site infection, status post placement of wound VAC, final culture positive for staph epidermidis, currently on IV vancomycin 2. Left-sided pleural effusion, chronic and stable, status post thoracentesis 2, culture negative for organisms 3. Leukocytosis, resolved 4. History of severe bicuspid aortic valve stenosis, status post bioprosthetic aortic valve replacement on 03/19/2020 5. History of hypertension 6. History of hyperlipidemia 7. Chronic paroxysmal atrial fibrillation, status post cardioversion and ligation of the left atrial appendage previously on Eliquis for anticoagulation 8. Morbid obesity status post gastroplasty 9. Diabetes mellitus type 2 with recent hemoglobin A1c 6.4% 10. History of diabetic ulcer of the right foot third toe 11. Macular degeneration Plan: 1. Black granular foam placed in the upper and lower incisional opening so that [facility] will know the appropriate size when the patient returns, covered with 4 x 4 and ABD pad as patient will need to have wound VAC placed at [facility]. 2. Patient may return to [facility] from cardiothoracic standpoint today if okay with primary care service 3. Continue full strength aspirin, statin, beta amairani therapy. Discontinue Eliquis as patient remains in sinus rhythm and his left atrial appendage has been clipped. 4. GI/DVT prophylaxis 5. Increase activity, ambulate as tolerated 6. Encourage incentive spirometry use 7. Pain control with Tylenol, no narcotics necessary 8. Continue postoperative lifting restrictions 9. Diabetic management per primary care service 10. Patient to follow-up with Dr. Nash upon discharge from [facility] Time with Patient: Greater than 30
--- NOTE | 2020-04-14 08:10 | P.PN ---
Subjective Progress Note Date: 04/14/20 Principal diagnosis: Sternal wound infection This is a 69-year-old white male primarily a patient of , previous history of severe aortic valve sclerosis, status post aortic valve replacement on 03/19/20. Patient developed postoperative pleural effusion requiring thoracentesis, fluid was transudate of the nature, and was not infected. Patient was seen on consultation on his last admission, and he was discharged home with a small left tiny pleural effusion did not feel the need to have thoracentesis at the time. And was supposed to follow up on outpatient basis with Dr. Bach on his pleural effusion. Patient was sent to the [facility] on the [place], and he was on oral antibiotics for staph epidermidis infection involving the sternal wound. And he had a wound VAC in place. Apparently his wound VAC was changed yesterday, the distal part of the incision looked clean, and healing well, however the upper portion of the incision looked quite red, fluid filled, and the patient was advised to come to the hospital for admission and further evaluation by cardiothoracic surgery. Considering his chest x-ray showed a small left pleural effusion, we were asked to see him on consultation again. Patient denies any shortness of breath, denies any cough, no fever, no chills, no chest pain, his only concern is the fact that his wound seems to be red and inflamed. There is also some serous drainage from the wound Patient was reevaluated today on 04/13/20, patient remains in the observation unit, he was admitted with sternal wound infection and left pleural effusion, p atient was seen by thoracic surgery yesterday, and a sterile incision was opened at the bedside revealing no evidence of infection hematoma was present, and was felt to be likely related to Eliquis. The area was packed, patient continues to have a small left pleural effusion, clinically he feels fine, remains on antibiotics empirically. On 04/06/2020 patient seen in follow-up on observation unit. He is awake and alert, in no acute distress, he is oriented 3, he is on room air pulse ox of 93-97%, denies any shortness of breath, lung sounds reveal diminished breath sounds at bilateral bases, left more than the right, no crackles, no rhonchi no wheezing. Today's chest x-ray reviewed, showing small to moderate left pleural effusion, stable in appearance. Patient has had no fever or chills, signs have been stable, no acute events overnight. Remains on maintenance dose of Lasix at 20 mg daily, on antibiotics for sternal wound infection. Blood cultures have shown no growth at 24 hour mohan. ID service is following. Objective - Vital Signs Vital signs: Vital Signs Temp 98.4 F 04/14/20 02:51 Pulse 76 04/14/20 02:51 Resp 14 04/14/20 02:51 BP 128/74 04/14/20 02:51 Pulse Ox 93 L 04/14/20 02:51 Intake & Output 04/13/20 04/14/20 04/14/20 18:59 06:59 18:59 Intake Total 0 400 Balance 0 400 Weight 104.508 kg Intake: Intake, IV Titration 0 Amount Sodium Chloride 0.9% 1, 0 000 ml @ 75 mls/hr IV . [id number] [facility] Rx#:[id number] Vancomycin 1,750 mg In 0 Sodium Chloride 0.9% 500 ml 500 ml @ 167 mls/hr IVPB ONCE ONE Rx#: [id number] Oral 400 Other: Voiding Method Toilet # Voids 3 - Exam GENERAL EXAM: Alert, very pleasant, 69-year-old white male on room air , in no distress HEAD: Normocephalic/atraumatic. EENT: PERRLA, EOMI, neck is, no neck masses, no JVD, no stridor. CHEST: No chest wall deformity. Sternum is stable, sternal wound is covered with sterile dressing. LUNGS: Diminished air entry over left lower lung rhonchi or wheezes. CVS: Regular rate and rhythm, normal S1 and S2, no gallops, no murmurs, no rubs ABDOMEN: Soft, nontender. No hepatosplenomegaly, normal bowel sounds, no guarding or rigidity. EXTREMITIES: No clubbing, no edema, no cyanosis, 2+ pulses and upper and lower extremities. MUSCULOSKELETAL: Muscle strength and tone normal. SPINE: No scoliosis or deformity SKIN: As noted above in relation to the sternal wound. CENTRAL NERVOUS SYSTEM: Alert and oriented -3. No focal deficits, tone is normal in all 4 extremities. PSYCHIATRIC: Alert and oriented -3. Appropriate affect. Intact judgment and insight. - Labs CBC & Chem 7: 04/13/20 07:41 04/13/20 07:41 Labs: Abnormal Lab Results - Last 24 Hours (Table) 04/13/20 04/13/20 04/13/20 Range/Units 07:41 07:41 11:12 RBC 2.83 L (4.30-5.90) m/uL Hgb 8.3 L (13.0-17.5) gm/dL Hct 25.8 L (39.0-53.0) % BUN 26 H (9-20) mg/dL POC Glucose (mg/dL) 100 H (75-99) mg/dL C-Reactive Protein 52.7 H (<10.0) mg/L 04/13/20 04/13/20 04/14/20 Range/Units 16:12 20:49 06:31 RBC (4.30-5.90) m/uL Hgb (13.0-17.5) gm/dL Hct (39.0-53.0) % BUN (9-20) mg/dL POC Glucose (mg/dL) 121 H 113 H 112 H (75-99) mg/dL C-Reactive Protein (<10.0) mg/L Microbiology - Last 24 Hours (Table) 04/12/20 15:13 Blood Culture - Preliminary Blood No Growth after 24 hours Assessment and Plan Plan: Assessment: Superficial sternal wound incision site infection, History of staph epidermidis cellulitis of the sternal wound. Small left pleural effusion. No need for thoracentesis at this point. Patient is asymptomatic. History of bicuspid aortic valve and status post bioprosthetic aortic valve replacement on 03/19/20. Chronic paroxysmal atrial fibrillation. History of gastroplasty for morbid obesity. Type 2 diabetes. History of diabetic ulcer Macular degeneration. Plan: Patient is doing well, continue current medical treatment, continue daily dose of Lasix, antibiotics per ID service recommendations. No respiratory distress, patient is on room air, no plans for thoracentesis, possible discharge in the next 24 hours. Patient will need outpatient follow-up with Dr. Bach in the office in 7-10 days for follow-up I performed a history & physical examination of the patient and discussed their management with my nurse practitioner, Lucretia Howard. I reviewed the nurse practitioner's note and agree with the documented findings and plan of care. Lung sounds are positive for diminished breath sounds. The findings and the impression was discussed with the patient. I attest to the documentation by the nurse practitioner. Time with Patient: Less than 30
[2020-04-14] MEDS: INSULIN ASPART (NovoLOG) 100 UNIT/ML VIAL SQ SCH ×2 (08:19→11:51)
[2020-04-14] MEDS: INSULIN DETEMIR (LEVEMIR) 100 UNIT/ML SYR SQ SCH (08:19)
[2020-04-14] MEDS: LACTOBACILLUS ACIDOPH & BULGAR 1 EACH PACKET PO SCH (08:36)
[2020-04-14] MEDS: FUROSEMIDE 20 MG TAB PO SCH (08:36)
[2020-04-14] MEDS: lisinopriL 20 MG TAB PO SCH (08:36)
[2020-04-14] MEDS: METOPROLOL SUCCINATE (ER) 25 MG TAB.ER.24H PO SCH (08:39)
[2020-04-14 09:51] LABS: HCT 26.7 % (39.0-53.0); HGB 8.4 gm/dL (13.0-17.5); Hypochromasia Marked; MCH 28.1 pg (25.0-35.0); MCHC 31.3 g/dL (31.0-37.0); MCV 89.7 fL (80.0-100.0); Platelet Count 281 k/uL (150-450); Poikilocytosis Slight; RBC 2.98 m/uL (4.30-5.90); RDW 13.7 % (11.5-15.5); WBC 8.6 k/uL (3.8-10.6)
[2020-04-14 10:03] LABS: Calcium 8.4 mg/dL (8.4-10.2); Potassium 3.8 mmol/L (3.5-5.1)
[2020-04-14 10:37] VITALS: BP 161/83; PULSE 72; RESP 18; TEMP 98.1
--- NOTE | 2020-04-14 11:14 | DS ---
DISCHARGE SUMMARY CHIEF COMPLAINT: Infected sternotomy wound. HISTORY OF PRESENT ILLNESS AND PHYSICAL EXAMINATION: Details of this man's history and physical can be found in the initial workup. LABORATORY STUDIES: While he is in the hospital he had laboratory studies, details of which can be found in the laboratory section of his chart. COURSE IN THE HOSPITAL: After admission he was placed on bedrest and started on intravenous fluids and seen by Thoracic Surgery and Infectious Disease. He was seen by Cardiology as well. The wound was opened. It was felt he could be returned to the long-term and will have a wound VAC placed once he arrives there. FINAL DIAGNOSES: 1. Sternotomy wound infection. 2. Status post aortic valve replacement. 3. Type 2 diabetes mellitus. OPERATIONS: Opening of sternotomy wound. CONSULTATIONS: Thoracic surgery, Cardiology, Infectious Disease. He is improved. MMODL / IJN: [id number] /
[2020-04-14 11:32] LABS: Glucose,Whole Blood 103 mg/dL (75-99)
--- NOTE | 2020-04-14 14:25 | PN ---
PROGRESS NOTE DATE OF SERVICE: 04/14/2020 REASON FOR FOLLOWUP: Wound infection. INTERVAL HISTORY: The patient is seen on rounds this morning, the patient has been afebrile. He has been breathing comfortably on room air. No pain to the chest wall area: No nausea, no vomiting. No abdominal pain, no diarrhea. PHYSICAL EXAMINATION: Blood pressure 161/83 with a pulse of 72, temperature 98.1, he is 91% on room air. General description is an elderly male, in the chair in no distress. RESPIRATORY SYSTEM: Unlabored breathing, clear to auscultation anteriorly. HEART: S1, S2. Regular rhythm. ABDOMEN: Soft, no tenderness. LABORATORY STUDIES: Hemoglobin 8.4, white count 8.3, BUN of 26, creatinine 1.72. Vanco level was 22.6. DIAGNOSTIC IMPRESSION AND PLAN: Patient with sternal wound infection with recent culture positive Staph epidermidis. The patient has been on IV vancomycin; however, he did have elevated level on admission to hospital and dose has been cut back to 1500 mg daily as per discussion with the pharmacist. However, his trough will be monitor closely as well as clinical function. Plan for another ten days of antibiotics. Local wound care with wound VAC and close outpatient followup. MMODL / IJN: [id number] /
== END 2020-04-14 13:13 | DRG 863 ==
LOC: EC 19:00 → 1SOBS 19:11 → OBSVTOIN 04-14 07:13
PROVIDERS: ADMIT Family Medicine; ATTEND Family Medicine
PROC: 0H95XZZ Drainage of Chest Skin, External Approach (ICD-10-PCS; principal; 2020-04-12)
DX: T81.41XA Infection following a procedure, superficial incisional surgical site, initial encounter (principal); L03.313 Cellulitis of chest wall; J90 Pleural effusion, not elsewhere classified; I48.19 Other persistent atrial fibrillation; Q23.1 Congenital insufficiency of aortic valve; B95.8 Unspecified staphylococcus as the cause of diseases classified elsewhere; E66.01 Morbid (severe) obesity due to excess calories; Z68.32 Body mass index [BMI] 32.0-32.9, adult; E11.9 Type 2 diabetes mellitus without complications; Z79.4 Long term (current) use of insulin; E78.5 Hyperlipidemia, unspecified; H35.30 Unspecified macular degeneration; I10 Essential (primary) hypertension; I48.0 Paroxysmal atrial fibrillation; Z79.01 Long term (current) use of anticoagulants; Z79.82 Long term (current) use of aspirin; Z79.899 Other long term (current) drug therapy; Z82.1 Family history of blindness and visual loss; Z82.49 Family history of ischemic heart disease and other diseases of the circulatory system; Z82.5 Family history of asthma and other chronic lower respiratory diseases; Z83.3 Family history of diabetes mellitus; Z95.1 Presence of aortocoronary bypass graft; Z95.3 Presence of xenogenic heart valve; Z98.84 Bariatric surgery status; Z87.01 Personal history of pneumonia (recurrent); Z88.0 Allergy status to penicillin; Z90.89 Acquired absence of other organs
CPT/HCPCS: 36415; 71046; 76604; 80048; 80053; 80202; 83036; 83605; 85025; 85027; 85610; 85730; 86140; 86850; 86900; 86901; 87040; 96365; 99284

== ENCOUNTER → 2020-04-17 | Outpatient (CLI) | payer MEDICARE, OTHER ==
--- NOTE | 2020-04-17 13:40 | US ---
EXAMINATION TYPE: US chest DATE OF EXAM: 04/17/2020 COMPARISON: US 04/12/2020 CLINICAL HISTORY: J90 Pleura effusion. TECHNIQUE: Targeted ultrasound of the posterior lower bilateral hemithoraces EXAM MEASUREMENTS: Right Pleural Effusion pocket size: 10.2 cm Right skin surface to fluid distance: 3.3 cm Left Pleural Effusion pocket size: 4.5 cm Left skin surface to fluid distance: Lung visualized just below lining Right side NOT marked for possible thoracentesis outside the dept. Left side marked for possible thoracentesis outside the dept. Pulmonologists are able to review the images in the patient?s EMR. IMPRESSIONS: As above
== END | disposition home or self-care (01) ==
LOC: RADUSWWP 12:59
PROVIDERS: ATTEND Internal Medicine
DX: J90 Pleural effusion, not elsewhere classified (principal)
CPT/HCPCS: 76604

== ENCOUNTER 2020-04-18 11:38 | Day surgery (SDC) | payer MEDICARE, OTHER ==
[~2020-04-18 11:38] MED LIST changes: -ALBUMIN HUMAN 25% 50 ML IV ONE; -ALBUMIN HUMAN 5% 500 ML IVPB ONE; -ASPIRIN 325 MG TAB PO ONE; -ATORVASTATIN 10 MG TAB PO ONE; -CALCIUM CHLORIDE 100 MG/ML 10 ML SYRINGE IV ONE; -CHLORHEXIDINE GLUCONATE 15 ML CUP MUCOUS MEM ONE; -CLEVIDIPINE BUTYRATE 25 MG in EMPTY BAG 1 BAG IV ONE; -DEXTROSE 5% IN WATER 1,000 ML with POTASSIUM CHLORIDE 110 MEQ, MAGNESIUM SULFATE 16 MEQ... IV ONE; -DEXTROSE 5% IN WATER 1,000 ML with POTASSIUM CHLORIDE 25 MEQ, SODIUM CHLORIDE 2.5MEQ/ML... IRRIGATION ONE; -HEPARIN SODIUM 1,000 UN/ML (10ML VL) IV ONE; -HEPARIN SODIUM,PORCINE 5,000 UNIT in SODIUM CHLORIDE 0.9% 500 ML 500 ML IV ONE; -INSULIN REGULAR 100 UNIT in SODIUM CHLORIDE 0.9% 100 ML IV ONE; -LACTATED RINGERS 1,000 ML IV ONE; -MAGNESIUM SULFATE MG 500 MG/ML IV ONE; -MANNITOL 25% 12.5 GM/50 ML VIAL IV ONE; -METOPROLOL TARTRATE 12.5 MG TAB PO ONE; -NITROGLYCERIN-D5W PMX 25 MG/250 ML BTL IV ONE; -NITROGLYCERIN-D5W PMX 50 MG in DEXTROSE/WATER 1 250ML.BAG IV ONE; -NOREPINEPHRINE 4 MG in SODIUM CHLORIDE 0.9% 250 ML IV ONE; -PHENYLEPHRINE 10 MG/ML VIAL IV ONE; -PHENYLEPHRINE 40 MG in SODIUM CHLORIDE 0.9% 250 ML IV ONE; -PROTAMINE SULFATE 10 MG/ML 25 ML VIAL IV ONE; -PROTAMINE SULFATE 250 MG in EMPTY BAG 1 BAG IV ONE; -SODIUM BICARB 8.4% 50 ML SYR (1 MEQ/ML) IV ONE; -SODIUM CHLORIDE 0.9% 1,000 ML IV ONE; +SODIUM CHLORIDE 0.9% 500 ML 500 ML in EMPTY BAG 1 BAG IV PRN; -TRANEXAMIC ACID 2,000 MG in SODIUM CHLORIDE 0.9% 80 ML IV ONE; -ceFAZolin 1,000 MG in SODIUM CHLORIDE 0.9% IRRIGATIO 1,000 ML IRRIGATION ONE; -ceFAZolin 2,000 MG in SODIUM CHLORIDE 0.9% 30 ML IVPB ONE; -propofoL 1,000 MG/100 ML VIAL IV ONE
[2020-04-18 12:02] VITALS: TEMP 98.1
[2020-04-18 12:48] VITALS: BP 165/85; PULSE 73; RESP 18
--- NOTE | 2020-04-18 12:55 | XR ---
EXAMINATION TYPE: XR chest 1V portable DATE OF EXAM: 04/18/2020 HISTORY: Status post thoracentesis. COMPARISON: 04/14/2020 TECHNIQUE: Single view of the chest is submitted. FINDINGS: No evidence for left-sided pneumothorax. Left-sided pleural effusion is smaller in size. Residual eff usion atelectasis and/or infiltrate noted. The heart is stable. Hilar and mediastinal structures are within normal limits. Degenerative changes are seen of the dorsal spine. IMPRESSION: 1. No evidence for left-sided pneumothorax. Left-sided pleural effusion is smaller in size. Residual effusion atelectasis and/or infiltrate noted.
[2020-04-18 21:50] LABS: Color,BF Orange
[2020-04-18 21:51] LABS: Appearance,BF Cloudy; Nucleated Cells, Body Fluid 1400 /uL; RBC, Body Fluid 19600 /uL
[2020-04-18 21:52] LABS: Mononuclear WBC,Body Fluid 66 %; Polynuclear WBC,Body Fluid 29 %
--- NOTE | 2020-04-18 22:24 | OP ---
OPERATIVE REPORT OPERATION PERFORMED: Left-sided thoracentesis. PREOPERATIVE DIAGNOSIS: Recurrent left pleural effusion. POSTOPERATIVE DIAGNOSIS: Recurrent left pleural effusion. ANESTHESIA USED: Lidocaine 1%, 2 mL. PROCEDURE DESCRIPTION: The patient was placed in a sitting-upright position, leading forward on the table. The area below the left scapula was prepared in a sterile fashion and drapes were applied. The fluid was earlier marked by ultrasound guidance, and at the level where the marking was, which was roughly about the eighth intercostal space and tip of the scapula, the area was locally anesthetized with lidocaine. Then a 26-gauge needle was inserted at the same site and advanced into the pleural space until the fluid was localized. Then a small tiny incision was made, and a standard thoracentesis catheter and needle were used, advanced into the pleural space. Fluid was obtained and localized again. Then the needle was pulled out of the pleural space and the catheter was kept in the pleural space. Freely flowing fluid was removed; roughly 1750 mL of serosanguineous fluid was drained from the left pleural space. It was sent for different diagnostic studies but not sent for cytology. Chest x-ray postoperatively was unremarkable, and no evidence of any complications. The procedure was well tolerated. Patient was advised to start on colchicine 0.6 mg b.i.d. and to come back and see me in the office within 2 weeks for followup on his pleural effusion. MMODL / IJN: [id number] /
[2020-04-19 07:32] LABS: Glucose, BF Source Pleural Fluid; Glucose, Body Fluid 88 mg/dL; LDH, Body Fluid Source Pleural Fluid
== END 2020-04-21 08:33 ==
LOC: PROCWHC3 11:38
PROVIDERS: ATTEND Internal Medicine
DX: J90 Pleural effusion, not elsewhere classified (principal); J18.9 Pneumonia, unspecified organism; T81.40XD Infection following a procedure, unspecified, subsequent encounter; I48.91 Unspecified atrial fibrillation; I10 Essential (primary) hypertension; E11.9 Type 2 diabetes mellitus without complications; G43.909 Migraine, unspecified, not intractable, without status migrainosus; E78.5 Hyperlipidemia, unspecified; Z88.8 Allergy status to other drugs, medicaments and biological substances; Z79.4 Long term (current) use of insulin; Z79.899 Other long term (current) drug therapy; Z98.84 Bariatric surgery status; Z98.890 Other specified postprocedural states; Z95.4 Presence of other heart-valve replacement; Z82.49 Family history of ischemic heart disease and other diseases of the circulatory system; Z82.5 Family history of asthma and other chronic lower respiratory diseases
CPT/HCPCS: 32554; 71045; 82945; 83615; 84157; 87070; 87075; 87205; 89050

== ENCOUNTER → 2020-10-02 | Outpatient (CLI) | payer MEDICARE, OTHER ==
--- NOTE | 2020-10-03 12:52 | MR ---
EXAMINATION TYPE: MR iac wo/w con DATE OF EXAM: 10/02/2020 COMPARISON: Outside CT report April 07, 2019 HISTORY: Vertigo, nausea, and imbalance. TECHNIQUE: Multiplanar, multisequence images of the brain and brainstem is performed without and with IV contras t, utilizing 10 mL intravenous Gadavist . Acoustic nerve disorder protocol. FINDINGS: Diffusion weighted images demonstrate no evidence of a recent infarct or other diffusion ab normality. There is mild ventricular and sulcal prominence. There are focal and confluent areas of T 2 hyperintensity seen throughout the superficial, deep, and periventricular white matter. Lesions are nonspecific in appearance and distribution. Midline structures demonstrate normal morphology. The craniocervical junction appears within normal limits. Normal vascular flow voids are present. The globes are intact and visualized paranasal sinuse s are grossly clear. No suspicious opacification mastoid air cells is seen bilaterally. The vestibulocochlear complexes ar e symmetric and felt within normal limits. There is no suspicious enhancing mass identified bilateral ly. IMPRESSION: 1. No significant findings seen on internal auditory images to account for patient's symptoms. 2. There is mild diffuse cerebral atrophy with more advanced nonspecific white matter changes most sangeetha olsen on basis of product of chronic small vessel ischemic change in patient of this age. Other etiolo gies not entirely excluded.
== END ==
LOC: RADMRIMAIN 08:32
PROVIDERS: ATTEND Otolaryngology
DX: R42 Dizziness and giddiness (principal); R11.0 Nausea; G31.9 Degenerative disease of nervous system, unspecified
CPT/HCPCS: 70553; A9585